=== PATIENT | female | born 1970 | race Caucasian/White ===

== ENCOUNTER 2023-06-05 07:37 | Day surgery (SDC) | payer OTHER, SELFPAY ==
--- NOTE | 2023-06-05 08:09 | US_ITS ---
[address] [address] Patient Name: ELENA VILLATORO MRN: [id number] date: 1970 Sex: F Assigned Patient Location: LAB Current Patient Location: Accession/Order Number: [id number] Exam Date: 06/05/2023 08:30 Report Date: 06/05/2023 10:31 At the request of: TYSON GARAY Procedure: US biopsy thyroid EXAMINATION: US biopsy thyroid, US biopsy FNA add lesion HISTORY: Thyroid Nodule COMPARISON: No relevant comparison available. TECHNIQUE: After obtaining informed consent, ultrasound-guided fine needle aspiration was performed in the usual sterile manner. FINDINGS: IMAGING: Ultrasound. BIOPSY NEEDLE: 25-gauge, 3 separate passes within both nodules. LOCATION: Left lobe inferior pole 1.5 x 1.0 x 1.2 cm hypoechoic nodule. Isthmus (left side) heterogeneous 2.4 x 2.0 x 1.4 cm nodule. SPECIMEN TYPE: Cellular tissue. LOCAL ANESTHETIC: Buffered Xylocaine. COMPLICATIONS: None. LABORATORY: Prepared slide smears and washings for cell block evaluation. OTHER: Negative. PATHOLOGY: Pending. An addendum will be added when results are available. US/US biopsy thyroid IMPRESSION: 1. Uneventful ultrasound guided fine needle aspiration (FNA). 2. Pathology results are pending. Electronically authenticated by: TIM LYLES Date: 06/05/2023 10:31
[2023-06-05 08:10] VITALS: BP 139/82; PULSE 67; O2SAT 95
[2023-06-05 08:17] LABS: INR 0.99; Prothrombin Time 10.5 sec (9.0-11.6)
[2023-06-05] MEDS: LIDOCAINE HCL 10 ML, SODIUM BICARBONATE 1 MEQ INJ (09:00)
--- NOTE | 2023-06-05 09:22 | US_ITS ---
[address] [address] Patient Name: ELENA VILLATORO MRN: [id number] date: 1970 Sex: F Assigned Patient Location: LAB Current Patient Location: Accession/Order Number: [id number] Exam Date: 06/05/2023 08:30 Report Date: 06/05/2023 10:31 At the request of: TYSON GARAY Procedure: US biopsy FNA add lesion EXAMINATION: US biopsy thyroid, US biopsy FNA add lesion HISTORY: Thyroid Nodule COMPARISON: No relevant comparison available. TECHNIQUE: After obtaining informed consent, ultrasound-guided fine needle aspiration was performed in the usual sterile manner. FINDINGS: IMAGING: Ultrasound. BIOPSY NEEDLE: 25-gauge, 3 separate passes within both nodules. LOCATION: Left lobe inferior pole 1.5 x 1.0 x 1.2 cm hypoechoic nodule. Isthmus (left side) heterogeneous 2.4 x 2.0 x 1.4 cm nodule. SPECIMEN TYPE: Cellular tissue. LOCAL ANESTHETIC: Buffered Xylocaine. COMPLICATIONS: None. LABORATORY: Prepared slide smears and washings for cell block evaluation. OTHER: Negative. PATHOLOGY: Pending. An addendum will be added when results are available. US/US biopsy FNA add lesion IMPRESSION: 1. Uneventful ultrasound guided fine needle aspiration (FNA). 2. Pathology results are pending. Electronically authenticated by: TIM LYLES Date: 06/05/2023 10:31
--- NOTE | 2023-06-05 09:40 | SUR.PREOP ---
06/01/23 Pt instructed to begin holding Coumadin as of 06/01 and begin Lovenox bid starting 06/01. Pt made aware to not take any Lovenox on day of procedure and have inr drawn prior to coming radiology. Pt made aware of procedure, date, and time.
== END 2023-06-05 09:25 | disposition home or self-care (01) ==
LOC: LAB 07:41
PROVIDERS: Radiology Diagnostic Radiology; PCP Internal Medicine; Visit Provider Otolaryngology
DX: E04.1 Nontoxic single thyroid nodule (principal); Z79.01 Long term (current) use of anticoagulants
CPT/HCPCS: 10005; 10006; 36415; 85610; 88173

== ENCOUNTER 2023-06-23 08:09 | Outpatient (OUT) | payer OTHER, SELFPAY ==
--- NOTE | 2023-06-23 08:14 | ECG_ITS ---
[facility] Test Date: 2023-06-23 Pat Name: ELENA VILLATORO Department: Room: - Gender: Female Features Editor: : 1970 Requested By: Order Number: [id number] Reading MD: JO HARDY Measurements Intervals [facility] Rate: 66 P: 43 VA: 158 QRS: 32 QRSD: 86 T: 25 QT: 363 QTc: 382 Interpretive Statements SINUS RHYTHM No previous ECG available for comparison Electronically Signed On 06-24-2023 7:03:27 EST by JO HARDY
[2023-06-23 09:33] LABS: Basophils Percent Auto 0.4 % (0.2-2.0); Eosinophils Absolute Auto 0.1 10^3/uL (0.0-0.7); Eosinophils Percent Auto 2.7 % (0.9-7.0); Hematocrit 42.5 % (36.0-48.0); Hemoglobin 14.1 g/dL (12.0-16.0); Immature Granulocytes Abs Auto 0.02 10^3/uL (0.00-0.03); Immature Granulocytes Pct Auto 0.4 % (0.0-0.5); Lymphocytes Absolute Auto 1.5 10^3/uL (1.2-3.8); Lymphocytes Percent Auto 29.5 % (20.5-60.0); Mean Corpuscular HGB Conc 33.2 g/dL (29.9-35.2); Mean Corpuscular Hemoglobin 32.3 pg (26.7-34.0); Mean Corpuscular Volume 97.5 fL (81.0-99.0); Mean Platelet Volume 10.6 fL (9.5-13.5); Monocytes Absolute Auto 0.5 10^3/uL (0.3-0.8); Monocytes Percent Auto 9.2 % (1.7-12.0); Neutrophils Percent Auto 57.8 % (43.0-75.0); Platelet Count 255 10^3/uL (150-450); Red Blood Count 4.36 10^6/uL (4.20-5.40); Red Cell Distribution Width 12.2 % (11.0-15.0); White Blood Count 5.2 10^3/uL (4.0-11.0)
[2023-06-23 09:49] LABS: Partial Thromboplastin Time 31.6 sec (22.3-36.2); Prothrombin Time 17.5 sec (9.0-11.6)
[2023-06-23 10:26] LABS: Anion Gap 9.7; BUN Creatinine Ratio 18.1; Calcium 8.7 mg/dL (8.5-10.1); Carbon Dioxide 29.3 mmol/L (21.0-32.0); Chloride 105 mmol/L (98-107); Estimated GFR (African America >60 (>=60); Estimated GFR (Non-African Ame >60 (>=60); Glucose 89 mg/dL (74-106); Sodium 140 mmol/L (136-145)
[2023-06-23 10:41] LABS: Calcium 8.7 mg/dL (8.5-10.1); Phosphorus 2.2 mg/dL (2.6-4.7)
== END 2023-06-23 08:10 | disposition home or self-care (01) ==
LOC: PST 08:10
PROVIDERS: PCP Internal Medicine; Visit Provider Otolaryngology
DX: Z01.810 Encounter for preprocedural cardiovascular examination (principal); Z01.812 Encounter for preprocedural laboratory examination; C73 Malignant neoplasm of thyroid gland
CPT/HCPCS: 36415; 80048; 82310; 83735; 84100; 85025; 85610; 85730; 93005

== ENCOUNTER 2023-06-30 09:15 | Outpatient (OUT) | payer OTHER, SELFPAY ==
[2023-06-23 09:05] VITALS: BP 144/81; PULSE 86; RESP 20; TEMP 36.3; O2SAT 95; BMI 38.5
[2023-06-30 09:06] LABS: INR 0.95; Partial Thromboplastin Time 25.5 sec (22.3-36.2); Prothrombin Time 10.1 sec (9.0-11.6)
--- OUTSIDE RECORDS SUMMARY | 2023-07-08 09:37 | XMS_ITS | CCD ---
Author Name Unknown Address [address] [place] [address] Organization [facility] Care Team Providers Care Developer [employer] Name Role Phone Eligio Nagy Primary Care Provider Miah Obregon Unavailable BRANDON BEASLEY Primary Care Physician [phone] Miah Obregon Unavailable Brandon Beasley MD Unavailable [phone] Brandon Beasley MD Primary Care Provider Miah Obregon Unavailable Brandon Beasley MD Unavailable Brandon Beasley MD Primary Care Provider MD Brandon Beasley Primary Care Provider MD Brandon eBasley Attending Provider BRANDON BEASLEY Primary Care Unavailable DMITRY LIVE Referring Unavailable RONIT DOMINGUEZ Attending Unavailable RONIT DOMINGUEZ Referring Unavailable BRANDON BEASLEY Primary Care Unavailable RON DUNCAN Referring Unavailable BRANDON BEASLEY Primary Care Unavailable RON DUNCAN Referring Unavailable BRANDON BEASLEY Primary Care Unavailable BRANDON BEASLEY Referring Unavailable ELIGIO NAGY Primary Care Unavailable RON DUNCAN Attending Unavailable BRANDON BEASLEY Primary Care Unavailable DMITRY LIVE Attending Unavailable DMITRY LIVE Referring Unavailable RONIT DOMINGUEZ Referring Unavailable BRANDON BEASLEY Primary Care Unavailable RONIT DOMINGUEZ Attending Unavailable RONIT DOMINGUEZ Referring Unavailable BRANDON BEASLEY Primary Care Unavailable BRANDON BEASLEY Primary Care Unavailable CALOS, DMITRY Referring Unavailable BRANDON BEASLEY Primary Care Unavailable CALOS, DMITRY Referring Unavailable RAMOS, BRANDON GARCIA Primary Care Unavailable CALOS, DMITRY Referring Unavailable RON DUNCAN Referring Unavailable BRANDON BEASLEY Primary Care Unavailable MD Brandon Beasley Primary Care Provider MD Brandon Beasley Attending Provider MD Brandon Beasley Primary Care Provider [phone] MD Brandon Beasley Attending Provider Amarjit Mathew Unavailable MD Brandon Beasley Primary Care Provider [phone] MD Brandon Beasley Attending Provider STACIE Valenzuela Attending Provider Kolton Valenzuela Admitting Unavailable Kolton Valenzuela Attending Unavailable Ramos, Brandon Primary Care Unavailable Ramos, Brandon Admitting Unavailable Ramos, Brandon Primary Care Unavailable Ramos, Brandon Attending Unavailable Ramos, Brandon Primary Care Unavailable Ramos, Brandon Attending Unavailable Ramos, Brandon Admitting Unavailable Ramos, Brandon Primary Care Unavailable Ramos, Brandon Attending Unavailable Ramos, Brandon Admitting Unavailable Ramos, Brandon Admitting Unavailable Ramos, Brandon Primary Care Unavailable Ramos, Brandon Attending Unavailable Ramos, Brandon Admitting Unavailable Ramos, Brandon Primary Care Unavailable Ramos, Brandon Attending Unavailable TYSON GARAY Attending Unavailable HILL, BRANDON L Referring Unavailable HILL, BRANDON L Referring Unavailable KOLTON VALENZUELA Referring Unavailable TYSON GARAY Attending Unavailable VICENTE MARES Attending Unavailable VICENTE MARES Referring Unavailable NONE, XXXX Referring Unavailable MD Syed Bautista Admitting Unavailable Syed Bautista Attending Unavailable Syed Bautista Attending Unavailable Syed Bautista Admitting Unavailable HILL, BRANDON L Referring Unavailable BERENDRICHI Referring Unavailable BERENDRICHI R Attending Unavailable Tyson Garay Admitting Unavailable Tyson Garay Attending Unavailable Tyson Garay Referring Unavailable MD Syed Bautista Admitting Unavailable Syed Bautista Referring Unavailable Syed Bautista Attending Unavailable Syed Bautista Attending Unavailable Syed Bautista Admitting Unavailable Syed Bautista Attending Unavailable Syed Bautista Referring Unavailable Syed Bautista Admitting Unavailable LilySyed Admitting Unavailable Syed Bautista Attending Unavailable Syed Bautista Attending Unavailable Syed Bautista Admitting Unavailable Sara Rutherford Attending Unavailable STACIE Rutherford Admitting UnavailBRANDON Puentes Referring Unavailable Allergies Allergy Classification Reported Allergen(s) Allergy Type Date of Onset Reaction(s) Facility (7 sources) silicone; Translations: [Silicone] Allergy to substance 1 Rash, Unknown [facility] (1 source) Adhesive agent Drug allergy rash [place] Other (2 sources) Adhesive bandage; Translations: [Adhesive Bandage] Drug allergy Skin irritation (disorder) [facility] (2 sources) Simethicone; Translations: [simethicone] Drug Allergy Itching (finding) [facility] Medications Current Medications Medication Drug Class(es) Dates Sig (Normalized) Sig (Original) acetaminophen 300 mg / codeine phosphate 30 mg oral tablet (5 sources) Opioid Agonist Start: 10-28-2022 Tylenol with Codeine 300 mg-30 mg Tab 1 tab(s), Oral, BID as needed for pain, 30 tab(s), Refill(s) 0, [place] [address]24, 173, cm, 10/02/22 13:22:00 EDT, Height/Length Dosing, 108.9, kg, 06/12/22 13:20:00 EST, Weight Dosing Start Date: 10/28/22 Status: Ordered Start: 10-02-2022 Tylenol with C odeine 300 mg-30 mg Tab 1 tab(s), Oral, BID as needed for pain, 14 tab(s), Refill(s) 0, [place] #24, 173, cm, 10/02/22 13:22:00 EDT, Height/Length Dosing, 108.9, kg, 06/12/22 13:20:00 EST, Weight Dosing Start Date: 10/02/22 Status: Ordered eletriptan 40 mg oral tablet (9 sources) Serotonin-1b and Serotonin-1d Receptor Agonist Start: 09-19-2021 take 1 tablet by mouth once daily as needed for headache eletriptan 40 mg Tab 40 mg = 1 tab(s), Oral, Daily, PRN Migraine headache, Refills(s) 0 Start Date: 09/19/21 Status: Ordered 1 ml enoxaparin sodium 100 mg/ml prefilled syringe (1 source) Low Molecular Weight Heparin Start: 07-02-2023 inject 100 mg by subcutaneous injection every twelve hours enoxaparin 100 mg/mL SubQ Christine 100 mg, SubCutaneous, q12hr, Refills(s) 0, Blood Thinner Start Date: 07/02/23 Status: Ordered glucosamine hydrochloride 1500 mg oral tablet (11 sources) Start: 08-09-2015 take 1500 mg by mouth once daily glucosamine 1,500 mg, Oral, Daily, Refills(s) 0, Prophylaxis Start Date: 08/09/15 Status: Ordered End: 11-19-2021 Glucosamine Sulfate (GLUCOSA MINE) 500 mg Tab Take 1 tablet by mouth. 0 11/19/2021 Discontinued (Discontinued by Patient) Comment on above: Take 1 tablet by harriet th. levothyroxine sodium 0.025 mg oral tablet (13 sources) l-Thyroxine Start: 06-12-2022 levothyroxine 25 mcg (0.025 mg) Tab Refills(s) 0 Start Date: 06/12/22 Status: Ordered Start: 05-12-2022 take 1 tablet by harriet th once daily in the morning levothyroxine (SYNTHROID) 25 mcg tablet TAKE 1 TABLET BY MOUTH EVERY DAY IN THE MORNING ON EMPTY STOMACH FOR 30 DAYS 0 05/12/2022 Active Comment on above: TAKE 1 TABLET BY HARRIET TH EVERY DAY IN THE MORNING ON EMPTY STOMACH FOR 30 DAYS Multivitamins and Minerals (9 sources) Start: 6 take 1 tablet by mouth once daily Multivitamins and Minerals 1 tab, Oral, Daily, Refill(s) 0, Prophylaxis Start Date: 08/09/15 Status: Ordered Start: 08-09-2015 take 1 tablet by harriet th once daily Multivitamins and Minerals 1 tab, Oral, Daily, Refill(s) 0 Start Date: 08/09/15 Status: Ordered omeprazole 40 mg delayed release oral capsule (20 sources) Proton Pump Inhibitor Start: 05-27-2023 Omeprazo le 40 MG 1 capsule 30 minutes before morning meal and evening meal Orally twice a day for 90 days May, Active Start: 12-02-2020 omeprazole 40 mg Cap-DR 40 mg = 1 cap(s), Oral, Daily, Refills(s) 0, Control of stomach acid Start Date: 09/19/21 Status: Ordered Comment on above: omeprazole 40 mg Cap -DR Refills(s) 0 Start Date: 09/19/21 Status: Ordered omeprazole 40 mg Cap-DR (1 source) Start: 2 omeprazole 40 mg Cap-DR Refills(s) 0 Start Date: 09/19/21 Status: Ordered traMADol hydrochloride 50 mg oral tablet (3 sources) Opioid Agonist Start: 6 take 50 mg by mouth every eight hours as needed for pain Ultram 50 mg, Oral, q8hr, PRN as needed for pain, Refills(s) 0 Start Date: 08/09/15 Status: Ordered Completed/Discontinued Medications Medication Drug Class(es) Dates Sig (Normalized) Sig (Original) acetaminophen 325 mg / HYDROcodone bitartrate 5 mg oral tablet (5 sources) Opioid Agonist Start: 12-02-2020 End: 06-20-2021 take 1 tablet by mouth every four to six hours Hydrocodone-Acetam inophen Discontinued 1 TAB PO EVERY 4-6 HOURS 15 December 02, 2020 June 20, 2021 1:45pm atorvastatin 80 mg oral tablet (20 sources) HMG-CoA Reductase Inhibitor Start: 08-29-2022 atorvastatin (LIPITOR) 80 mg tablet Start: 12-02-2020 End: 08-29-2022 take 1 tablet by mouth once daily atorvastatin 40 mg Tab 40 mg = 1 tab(s), Oral, Daily, Refills(s) 0, High cholesterol Start Date: 09/19/21 Status: Ordered Comment on above: TAKE 1 TABLET BY HARRIET TH EVERY DAY FOR 90 DAYS Calcium Carbonate / vitamin D3 (2 sources) End: 11-19-2021 CALCIUM CARBONATE/VITAMIN D3 (CALCIUM + D ORAL) Take by mouth. 0 11/19/2021 Discontinued (Discontinued by Patient) CALCIUM CARBONAT E/VITAMIN D3 (CALCIUM + D ORAL) Take by mouth. 0 Active Comment on above: Take by mouth. cephalexin 500 mg oral capsule (5 sources) Cephalosporin Antibacterial Start: 2020 End: 2020 take 1000 mg by mouth every twelve hours Cephalexin Discontinued 1000 MG PO Q12H 40 10 December 01, 2020 11:00pm June 20, 2021 1:45pm ergocalciferol 1.25 mg oral capsule (4 sources) Provitamin D2 Compound Start: 2021 End: 2021 ergocalciferol 50,000 unit capsule (VITAMIN D2, DRISDOL) Indications: Vitamin D deficiency , Hyperparathyroidism due to vitamin D deficiency (HCC) , Polyarthralgia Take 1 capsule by mouth two times a week. (FOR EXAMPLE ONE CAPSULE ON THURSDAY AND ONE ON THURSDAY) FOR A TOTAL OF 4 WEEKS, WITH A MEAL 8 capsule 0 11/19/2021 12/23/2021 Discontinued (Discontinued by Patient) Comment on above: Take 1 capsule by mo uth two times a week. (FOR EXAMPLE ONE CAPSULE ON THURSDAY AND ONE ON THURSDAY) FOR A TOTAL OF 4 WEEKS, WITH A MEAL 90 day estradiol 0.46803 mg/hr vaginal system (5 sources) Estrogen Start: 2020 End: 2020 Estradiol Acetate (Femring) 0.1 mg/24 hr ring Discontinued VAGINAL December 01, 2020 11:00pm June 20, 2021 1:45pm gabapentin 300 mg oral capsule (17 sources) Anti-epileptic Agent Start: 2022 End: 2022 take 2 capsules by mouth once daily at bedtime gabapentin (NEURONTIN) 300 mg capsule TAKE 2 CAPSULES BY MOUTH once DAILY AT BEDTIME 0 08/01/2022 Active Start: 06-12-2022 End: 09-10-2022 take 1 capsule by mouth once daily at bedtime gabapentin 300 mg Cap 300 mg = 1 cap(s), Oral, Once a day (at bedtime), X 90 day(s), # 90 cap(s), Refills(s) 0, Pharmacy: [facility]/pharmacy #[id number], 172.7, cm, 06/12/22 13:20:00 EST, Height/Length Dosing, 108.9, kg, 06/12/22 13:20:00 EST, Weight Dosing Start Date: 06/12/22 Stop Date: 09/10/22 Status: Ordered Start: 10-04-2015 take 1-2 tablets by mouth at bedtime gabapentin 100 mg Cap See Instructions, one to two tab po at bedtime, Refills(s) 0 Start Date: 10/04/15 Status: Ordered Comment on above: TAKE 2 CAPSULES BY M OUTH once DAILY AT BEDTIME MULTIVITAMIN ORAL (14 sources) MULTIVITAMIN ORA L Take by mouth. 0 Active Comment on above: Take by mouth. SELENIUM ORAL (2 sources) End: 11-19-2021 SELENIUM ORAL Take by mouth. 0 11/19/2021 Discontinued (Discontinued by Patient) SELENIUM ORAL Ta ke by mouth. 0 Active Comment on above: Take by mouth. vitamin b12 1 mg oral tablet (15 sources) Vitamin B12 take 1 tablet by mouth once daily cyanocobalamin (VITAMIN B-12) 1,000 mcg tab Take 1,000 mcg by mouth once daily. 0 Active Comment on above: Take 1,000 mcg by mo ut once daily. vitamin b6 100 mg oral tablet (15 sources) take 1 tablet by mouth once daily pyridoxine, vitamin B6, (VITAMIN B6) 100 mg tablet Take 100 mg by mouth once daily. 0 Active Comment on above: Take 100 mg by mouth once daily. warfarin sodium 5 mg oral tablet (20 sources) Vitamin K Antagonist Start: take 1 tablet by mouth once daily warfarin (COUMADIN) 5 mg tablet Take 5 mg by mouth once daily. 0 07/23/2022 Active Start: 07-16-2022 warfarin (COUM CHRISTIAN) 1 mg tablet TAKE 1 TABLET BY MOUTH EVERY OTHER DAY, then TAKE 1 (ONE) and ONE-HALF TABLETS the other days 0 07/16/2022 Active Start: 12-02-2020 Warfarin (Jant oven) 5 mg tablet Active 8 MG PO As Directed December 01, 2020 11:00pm 8 mg alt with 8.5 mg nightly Start: 12-02-2020 End: 12-02-2020 Warfarin (Jantoven) 1 mg tab let Discontinued TABLET December 01, 2020 11:00pm December 02, 2020 2:21pm Start: 12-02-2020 End: 12-02-2020 Warfarin (Jantoven) 2 mg tab let Discontinued TABLET December 01, 2020 11:00pm December 02, 2020 2:21pm Start: 10-13-2011 Coumadin 8.5 m g, Every other day, 8.5 mg one day, next day 7.5mg alteranting, Refills(s) 0 Start Date: 10/13/11 Status: Ordered Warfarin 7.5mg A ctive Comment on above: Take 2 mg by mouth d aily as directed. As directed TAKE 1 TABLET BY HARRIET TH EVERY OTHER DAY, then TAKE 1 (ONE) and ONE-HALF TABLETS the other days Take 5 mg by mouth o nce daily. Problems Active Problems Problem Classification Problem Date Documented Date Episodic/Chronic Administrative/social admission (6 sources) Follow-up status; Translations: [Person consulting for explanation of examination or test findings] Episodic Cancer of thyroid (1 source) Malignant tumor of thyroid gland; Translations: [Malignant neoplasm of thyroid gland] Onset: 3 Chronic Coagulation and hemorrhagic disorders (15 sources) Hypercoagulability state; Translations: [Other primary thrombophilia] 03-02-2013 Chronic Diseases of mouth; excluding dental (3 sources) Xerostomia; Translations: [Dry mouth, unspecified] Episodic Esophageal disorders (7 sources) Gastroesophageal reflux disease; Translations: [Gastro-esophageal reflux disease without esophagitis] 06-20-2021 Chronic Heart valve disorders (9 sources) Irregular heart beat 03-30-2015 Episodic Immunizations and screening for infectious disease (4 sources) Anti-nuclear factor positive; Translations: [Other specified abnormal immunological findings in serum] Onset: 2 Episodic Nutritional deficiencies (6 sources) Vitamin D deficiency; Translations: [Vitamin D deficiency, unspecified] Onset: 2 Chronic Osteoarthritis (6 sources) Osteoarthritis of joint of bilateral hands; Translations: [Primary osteoarthritis, right hand] Onset: 2 Chronic Other aftercare (1 source) Drug therapy finding; Translations: [Other jail (current) drug therapy] Episodic Other connective tissue disease (2 sources) Muscle pain; Translations: [Myalgia, unspecified site] Episodic Other connective tissue disease (2 sources) Myalgia, unspecified site; Translations: [Myalgia] Onset: 3 Episodic Other endocrine disorders (3 sources) Hyperparathyroidism due to vitamin D deficiency; Translations: [Secondary hyperparathyroidism, not elsewhere classified] Chronic Other endocrine disorders (1 source) Secondary hyperparathyroidism, not elsewhere classified; Translations: [Hyperparathyroidism due to vitamin D deficiency (HCC)] Onset: 2 Chronic Other gastrointestinal disorders (1 source) Dysphagia; Translations: [Dysphagia, unspecified] Episodic Other gastrointestinal disorders (1 source) Dysphagia, unspecified Episodic Other non-traumatic joint disorders (5 sources) Multiple joint pain; Translations: [Pain in unspecified joint] Episodic Other non-traumatic joint disorders (4 sources) Arthralgia of the pelvic region and thigh; Translations: [Pain in unspecified hip] Episodic Other non-traumatic joint disorders (2 sources) Pain in unspecified hip; Translations: [Pain in joint, pelvic region and thigh, unspecified laterality] Onset: 3 Episodic Other nutritional; endocrine; and metabolic disorders (9 sources) Obesity 03-30-2015 Chronic Other nutritional; endocrine; and metabolic disorders (1 source) Hypocalcemia; Translations: [Hypocalcemia] Onset: 3 Chronic Phlebitis; thrombophlebitis and thromboembolism (20 sources) Deep venous thrombosis; Translations: [Thrombosis] Onset: 3 03-08-2013 Episodic Pulmonary heart disease (10 sources) Pulmonary embolism; Translations: [Personal history of pulmonary embolism] Onset: 3 08-09-2015 Episodic Skin and subcutaneous tissue infections (5 sources) Abscess; Translations: [Cutaneous abscess, unspecified] 12-02-2020 Episodic Spondylosis; intervertebral disc disorders; other back problems (2 sources) Degeneration of lumbar intervertebral disc; Translations: [Other intervertebral disc degeneration, lumbar region] Chronic Spondylosis; intervertebral disc disorders; other back problems (20 sources) Low back pain; Translations: [Spinal stenosis of lumbar region] Onset: 3 03-30-2015 Episodic Thyroid disorders (1 source) Hypothyroidism, unspecified; Translations: [Hypothyroidism, unspecified] Onset: 2 Chronic Unclassified (1 source) supervisor intermediates (current) use of anticoagulants; Translations: [penitentiary (current) use of anticoagulants] Onset: 3 Unclassified (1 source) Encounter for general adult medical examination without abnormal findings; Translations: [Encounter for general adult medical examination without abnormal findings] Onset: 3 Past or Other Problems Problem Classification Problem Date Documented Da te Episodic/Chronic Other aftercare (1 source) Other jail (current) drug therapy; Translations: [On statin therapy] Onset: 11-19-2021 Episodic Other non-traumatic joint disorders (1 source) Pain in unspecified joint; Translations: [Polyarthralgia] Onset: 11-19-2021 Episodic Results Test Name Value Interpretation Reference Range Facility CHEMISTRYOrdered By: SYSTEM SYSTEM on 07-03-2023 Calcium [Mass/Vol] 7.7 mg/dL Low 8.9 - 11. 1 mg/dL Remisol Chem Calciumon 07-03-2023 Calcium [Mass/Vol] 7.7 mg/dL Low 8.9-11.1 [facility] Comment on above: Performed By: #### 2 [id number] #### [facility] [address] [place] [address] Consent for Anesthesiaon Consent for Anesthesia [id number] Normal [facility] Discharge Instructionson Discharge Instructions [id number] Normal [facility] Discharge Note-Nursingon Discharge Note-Nursing CHERYLE VILLATORO :1970 Visit Date:07/02/2023 Inpatient Discharge Instructions Your Care Team Admitting Physician - Tyson Garay MD Referring Physician - Tyson Garay MD Reason for Your Visit thyroidectomy Your Diagnosis Cancer of thyroid Hypocalcemia Tests Performed Calcium Level Total PT & PTT Urinalysis with Culture Reflex XR Chest 2 Views This Is Your Medications List acetaminophen-codeine (Tylenol with Codeine 300 mg-30 mg Tab) atorvastatin (atorvastatin 40 mg Tab) eletriptan (eletriptan 40 mg Tab) enoxaparin (enoxaparin 100 mg/mL SubQ Christine) glucosamine multivitamin with minerals (Multivitamins and Minerals) omeprazole (omeprazole 40 mg Cap-DR) [Image Removed: STOP]Stop taking these medications warfarin (Coumadin) Procedure History Hip replacement (11/10/2022), Injection of sacroiliac joint using fluoroscopic guidance (07/02/2022), Injection of sacroiliac joint using fluoroscopic guidance (09/12/2015), Leg Vein Laser Surgery (06/17/2013), Injection of sacroiliac joint using fluoroscopic guidance (06/30/2012), Injection of sacroiliac joint using fluoroscopic guidance (10/15/2011), Appendectomy, section, History of back surgery....., Hysterectomy, Ts - Tonsillectomy. Discharge Vitals Temperature (Oral) 36.4 ?C Heart Rate (Monitored) 71 Respiratory Rate 18 Blood Pressure 114/71 Height 173.5 cm Weight 111.5 kg What to do next Instructions From Your Doctor Event Name Event Result Discharge Activity Expect minimal amount of drainage and/or bleeding, Activity as tolerated Discharge Restrictions No driving for 24 hrs Discharge Diet(s) Regular Call Your Doctor For Temperature above 101.5 degrees, Redness, swelling, or pus at operative site Pending Diagnostic Test Results Biopsy/pathology Pharmacy Information [facility] Discharge Instructions No strenuous exerciseKeep neck dry 3 daysRestart lovenox this eveningRerstart coumadin Thursday New Follow Up Appointments after Discharge Follow Up with Tyson Garay When: 07/10/2023 01:50 PM EST Where: [address] [place] [address], [address] [place] [address]- Business (1) Follow Up with BRANDON BEASLEY When: Comments: No need to PCP at this time unless symptoms worsen. Where: [address] [facility] [address] [place] [address]- Business (1) Medications What How Much When Why Instructions Next Dose Unchanged acetaminophen-codeine (Tylenol with Codeine 300 mg-30 mg Tab) 1 Tablets By Mouth 2 times a day as needed for as needed for pain Arthropathy of left hip NEEDED FOR PAIN Unchanged atorvastatin (atorvastatin 40 mg Tab) 1 Tablets By Mouth Every day 07/04 @ 9 AM Unchanged eletriptan (eletriptan 40 mg Tab) 1 Tablets By Mouth Every day as needed for Migraine headache NEEDED FOR MIGRAINE Unchanged enoxaparin (enoxaparin 100 mg/ mL SubQ Christine) 100 Milligram Subcutaneous Every 12 hours 07/03 @ 9 PM Unchanged glucosamine 1,500 Milligram By Mouth Every day 07/04 @ 9 AM Unchanged multivitamin with minerals (Multivitamins and Minerals) 1 tab By Mouth Every day 07/04 @ 9 AM Unchanged omeprazole (omeprazole 40 mg Cap-DR) 1 Capsules By Mouth Every day 07/04 @ 9 AM What How Much When Comments Stop Taking warfarin (Coumadin) 8.5 Milligram Every other day 8mg daily, 8.5mg and Thursday Test Results BMP Calcium Lvl: 7.7 mg/dL Low (07/03/23 06:36:00) Allergies Adhesive Bandage (Skin irritation) Silicone Barrier (simethicone) obsolete (Itching) Problems Ongoing - Any problem that you are currently receiving treatment for. Irregular heart beat Low back pain Obesity Pulmonary emboli Thrombosis Education Materials Open Thyroid Lobectomy An open thyroid lobectomy is a surgery to remove a part or a whole section (lobe) of the thyroid gland. The thyroid gland is a butterfly-shaped gland located at the base of the neck. It produces thyroid hormone, which is a substance that helps to control certain body processes. The thyroid gland has two lobes, one on each side of the windpipe. The lobes are joined together by a section of tissue in the middle (thyroid isthmus). You may have a thyroid lobectomy: ? To remove a noncancerous (benign) tumor or a cancerous (malignant) tumor of the thyroid gland. ? To treat a condition in which the thyroid produces too much hormone (hyperthyroidism). Tell a health care provider about: ? Any allergies you have. ? All medicines you are taking, including vitamins, herbs, eye drops, creams, and [id number] medicines. ? Any problems you or family members have had with anesthetic medicines. ? Any bleeding problems you have. ? Any surgeries you have had. ? Any medical conditions you have. ? Whether you are or may be . What are the risks? Generally, this is (more content not included)... Normal [facility] Inpatient Clinical Summaryon 07-03-2023 Inpatient Clinical Summary [place] [id number] Clinical Summary Person Information: Name: CHERYLE VILLATORO Age: 53 Years : 1970 Sex: Female PCP: BRANDON BEASLEY MD Marital Status: Phone: [phone] Race: White Ethnicity: Non- or Language: Frisian Visit Id: Visit Reason: PAPILLARY THYROID CARCINOMA Speciality: Acuity: Enc Type: Observation Med Service: Medical Arrival: 07/02/2023 09:25:44 Discharge: Dispo Type: Address: [address] [place] [address] [id number] Provider Notes: Diagnosis: Cancer of thyroid; Hypocalcemia Problems Active Pulmonary emboli Low back pain Thrombosis Obesity Irregular heart beat Smoking Status: Never Smoker Functional Status: Sensory Deficits: Other: glasses History of Falls: Mobility Assistance Prior to Admission: Independent ADLs: Minimal assistance Current Level of Assistance for Self-Care/Mobility: Cognitive Status: Allergies Silicone Barrier (simethicone) obsolete (Itching) Adhesive Bandage (Skin irritation) Measurements: Height: 173.5 cm Weight: 111.5 kg Blood Pressure: 114 mmHg / 71 mmHg BMI: Procedures No Procedures Documented Immunizations No Immunizations Documented This Visit Final Med List: acetaminophen-codeine (Tylenol with Codeine 300 mg-30 mg Tab) 1 Tablets By Mouth 2 times a day as needed as needed for pain. Refills: 0. atorvastatin (atorvastatin 40 mg Tab) 1 Tablets By Mouth every day. eletriptan (eletriptan 40 mg Tab) 1 Tablets By Mouth every day as needed Migraine headache. enoxaparin (enoxaparin 100 mg/mL SubQ Christine) 100 Milligram Subcutaneous every 12 hours. glucosamine 1,500 Milligram By Mouth every day. multivitamin with minerals (Multivitamins and Minerals) 1 tab By Mouth every day. omeprazole (omeprazole 40 mg Cap-DR) 1 Capsules By Mouth every day. Care Team Members: Attending Physician: Tyson Garay MD Consulting Physician: Referring Physician: Tyson Garay MD Follow up: With: Address: When: Tyson Garay [address] [place] [address], [address] [place] [address] Business (1) In 1 week 07/10/2023 With: Address: When: BRANDON BEASLEY [address] [place] [address], [address] [place] [address] Business (1) Patient Education Information: [facility] Inpatient Patient Summaryon 07-03-2023 Inpatient Patient Summary [facility] [address] [place], [place] [address] Patient Discharge Instructions PERSON INFORMATION Name: CHERYLE VILLATORO Date of : 1970 Current Date: 07/03/2023 09:16:06 PHYSICIANS Admitting Physician: Tyson Garay MD Primary Care Physician: RAMOS ALBERT, BRANDON Bruno PCP Comment: Discharge Diagnosis: Cancer of thyroid; Hypocalcemia Condition at Discharge: Improved CHERYLE VILLATORO has been given the following list of follow-up instructions, prescriptions, and patient education materials: PATIENT FOLLOW-UP INFORMATION Diet: Regular Discharge Activity: Expect minimal amount of drainage and/or bleeding, Activity as tolerated Discharge Restrictions: No driving for 24 hrs Wound Care Instructions: Remove Your Dressing In Days Call Your Doctor For: Temperature above 101.5 degrees, Redness, swelling, or pus at operative site IF UNABLE TO CONTACT YOUR PHYSICIAN AND YOU FEEL IT IS AN EMERGENCY, GO TO THE NEAREST EMERGENCY ROOM OR CALL 911 Home Treatment: Other: none Devices/Equipment: None Special Services: Additional Instructions: No strenuous exercise Keep neck dry 3 days Restart lovenox this evening Rerstart coumadin Thursday Primary Care Physician to provide the following pending test results: Biopsy/pathology Follow up: With: Address: When: Tyson Garay [address] [address], [address] [place] [address] Business (1) In 1 week 07/10/2023 With: Address: When: BRANDON BEASLEY [address] [facility], [address] [place] [address] Business (1) In the event that this physician does not participate in your insurance network, please consult with your insurance company to find a nearby participating provider. Comment: SHAUNA Bravo JULIE A, have received the attached patient education materials/instructions and have verbalized understanding: Patient Signature __ Date Clinican/Nurse Signature Date HERE ARE THE MEDICATION CHANGES THAT OCCURRED DURING YOUR HOSPITAL STAY Medications to Continue with No Changes Other Medications acetaminophen-codeine (Tylenol with Codeine 300 mg-30 mg Tab) 1 Tablets By Mouth 2 times a day as needed as needed for pain. Refills: 0. Last Dose: N ext Dose: atorvastatin (atorvastatin 40 mg Tab) 1 Tablets By Mouth every day., 80 mg Last Dose: N ext Dose: eletriptan (eletriptan 40 mg Tab) 1 Tablets By Mouth every day as needed Migraine headache. Last Dose: N ext Dose: enoxaparin (enoxaparin 100 mg/mL SubQ Christine) 100 Milligram Subcutaneous every 12 hours., bridging from Warfarin for OR Last Dose: N ext Dose: glucosamine 1,500 Milligram By Mouth every day. Last Dose: N ext Dose: multivitamin with minerals (Multivitamins and Minerals) 1 tab By Mouth every day. Last Dose: N ext Dose: omeprazole (omeprazole 40 mg Cap-DR) 1 Capsules By Mouth every day. Last Dose: N ext Dose: No Longer Take the Following Medications warfarin (Coumadin) 8.5 Milligram every other day. 8mg daily, 8.5mg and Thursday., 8 mg every other day Comment: MEDICATION LIST PROVIDED FOR YOU IS A LIST OF YOUR CURRENT MEDICATIONS. PLEASE CARRY THIS WITH YOU AT ALL TIMES. acetaminophen-codeine (Tylenol with Codeine 300 mg-30 mg Tab) 1 Tablets By Mouth 2 times a day as needed as needed for pain. Refills: 0. atorvastatin (atorvastatin 40 mg Tab) 1 Tablets By Mouth every day. eletriptan (eletriptan 40 mg Tab) 1 Tablets By Mouth every day as needed Migraine headache. enoxaparin (enoxaparin 100 mg/mL SubQ Christine) 100 Milligram Subcutaneous every 12 hours. glucosamine 1,500 Milligram By Mouth every day. multivitamin with minerals (Multivitamins and Minerals) 1 tab By Mouth every day. omeprazole (omeprazole 40 mg Cap-DR) 1 Capsules By Mouth every day. Pharmacy Information: [facility] Comment: PATIENT EDUCATION INFORMATION Instructions: Medication Leaflets: You may receive a survey from [employer] asking you to rate your care experience. Your feedback is important and will help us understand what we do well and how we can improve the quality of care we provide to you, your loved ones and our community. It?s an honor to serve you. Thank you for choosing [facility] Normal [facility] Interdisciplinary Note - Jayden e Manageron 07-03-2023 Interdisciplinary Note - Percussion Tuner CRM spoke with patient in room. Patient is alert and oriented and participates in discharge planning. No family in room. Patient white board updated, and CRM contact information provided. Discussed CRM spoke with Dr Garay who saw patient earlier today and can dc home today after meds given. Patient verified PCP, insurance and DME. Patient is from home with spouse and he remy transport at dc. Patient denies any needs at dc. Normal [facility] Comment on above: Result Comment: Elec tronically Signed By: Mono OCASIO, Johanna\.br\Date and Time Signed: 07/03/23 09:29 EST IntraOperative Documentson 1 IntraOperative Documents [id number] [facility] Main OR Intraoperative Recor don 07-03-2023 Main OR Intraoperative Record IntraOp Document Type FT Summary Primary Physician: Tyson Garay MD Finalized Date/Time: 07/03/23 16:07:14 Pt. Name: SHAUNACHERYLE/Sex: 1970 Female Med Rec #: [id number] Physician: Tyson Garay MD Financial #: [id number] Pt. Type: A Room/Bed: [place] [address] Admit/Disch: 07/02/23 09:25:44 - 07/03/23 10:20:00 Institution: Case Times FT Entry 1 Patient Times In Room 07/02/23 11:16:00 Out Room 07/02/23 14:28:00 Procedure Times Start 07/02/23 11:50:00 Stop 07/02/23 14:15:00 Anesthesia Times Start 07/02/23 11:16:00 Stop 07/02/23 14:28:00 Last Modified By: Betty Whitfield Ii 07/02/23 14:30:49 General Comments: 07/03/23 chart opened for charge review per Nuvia Monteiro RN. [place] Case Attendance FT Entry 1 Entry 2 Entry 3 Case Attendee Nara Olivera MD, Fer Ryan DO Role Performed Anesthesiologist Surgeon - Primary Surgeon - Assist 1 Road Mender Time In 07/02/23 12:17:00 07/02/23 11:16:00 07/02/23 11:16:00 Time Out 07/02/23 14:28:00 07/02/23 14:03:00 07/02/23 12:41:00 Procedure THYROIDECTOMY(.) THYROIDECTOMY(.) THYROIDECTOMY(.) Comments Dr. Mary anesthesias retail field supervisor Last Modified By: Betty Whitfield Ii F Nahid Alfons Ii F Letron, Alfons Ii F 07/02/23 14:30:50 07/02/23 14:30:50 07/02/23 14:30:50 Entry 4 Entry 5 Entry 6 Case Attendee Gordon Fuller RN, Martinez Whitfield Alfons Ii F Role Performed Staff - Other Curriculum Development Coordinator - Primary Curriculum Development Coordinator - Primary Time In 07/02/23 11:16:00 07/02/23 11:16:00 07/02/23 11:16:00 Time Out 07/02/23 13:39:00 07/02/23 11:50:00 07/02/23 11:40:00 Procedure THYROIDECTOMY(.) THYROIDECTOMY(.) THYROIDECTOMY(.) Comments 2nd scrub STARTED THE CASE Last Modified By: Betty Whitfield Ii F Nahid Alfons Ii F Letron, Alfons Ii F 07/02/23 14:30:50 07/02/23 14:30:50 07/02/23 14:30:50 Entry 7 Entry 8 Entry 9 Case Attendee Alyssa TROY, Brandon Patel, Shirley Valenzuela DIAL REFINISHER, Gosia Eden Role Performed Anesthesiologist Scrub - Primary DIAL REFINISHER/SA Road Mender Time In 07/02/23 11:16:00 07/02/23 12:10:00 07/02/23 12:27:00 Time Out 07/02/23 12:17:00 07/02/23 14:28:00 07/02/23 14:28:00 Procedure THYROIDECTOMY(.) THYROIDECTOMY(.) THYROIDECTOMY(.) Comments DR. MARY CUSTODY OFFICER assist Last Modified By: Betty Whitfield Ii F Nahid Alfons Ii F LetronBetty rob Ii 07/02/23 14:30:50 07/02/23 14:30:50 07/02/23 14:30:50 General Comments: LUISITO CAICEDO DIAL REFINISHER PRIMARY SCRUB FROM 1116 - 1210. NARA ROBERTSON FROM [facility] IS IN ATTENDANCE. RADHA,correspondence specialist Protocols FT Pre-Care Text: Implements protective measures prior to operative or invasive procedure, confirms identity before the operative or invasive procedure, verifies operative procedure, surgical site, and laterality Entry 1 Procedure(s) THYROIDECTOMY(.) Patient Identity Birthday, Blood Band, Verified (select at ID Band Check, Patient least 2): Participation Consents / H and P Anesthesia Consent, Operative Site Present Verified HandP, Surgery/Procedure Marking Verified Consent, Transfusion Consent Surgical Site Yes Laterality Verified n/a Verified Procedure Verified Yes Correct Patient Yes Position Verified Availability Equipment, Implant, Prep Dry No Verified (If Medication Applicable) PreOp Antibiotic Yes Time Out Tyson Garay MD, Given Participants Amy ROB, Alina Street Alejandro, Letrondo, Alfons Ii F, Brandon Hernandez Time Out Complete 07/02/23 11:49:00 Outcomes Met? Yes Last Modified By: Betty Whitfield Ii 07/02/23 12:00:41 Post-Care Text: The patient is free from signs and symptoms of injury caused by extraneous objects Allergy Information FT Pre-Care Text: Verifies allergies Entry 1 Allergies Reviewed? Yes Allergies Reviewed Self/Patient With Outcomes Met? Yes Last Modified By: Betty Whitfield Ii 07/02/23 12:00:47 Post-Care Text: The patient received appropriate medication(s) safely administered during the perioperative period Surgical Procedures FT Entry 1 Procedure Description Procedure THYROIDECTOMY Modifiers . Surgeon Description TOTAL THYROIDECTOMY Primary Procedure Yes Primary Surgeon Tyson Garay MD Start 07/02/23 11:50:00 Stop 07/02/23 14:15:00 Anesthesia Type General Surgical Service ENT Wound Class 1 - Clean Last Modified By: Betty Whitfield Ii 07/02/23 14:30:52 General Case Data FT Pre-Care Text: Classifies surgical wound, implements aseptic technique, initiates traffic control Entry 1 Case Information OR OR 2 FT Case Level Level 4 Wound Class 1 - Clean Specialty ENT ASA Class 3 Preop Diagnosis PAPILLARY THYROID Postop Same As Preop Yes CARCINOMA Postop Diagnosis PAPILLARY THYROID Outcomes Met? Yes CARCINOMA Last Modified By: Betty Whitfield Ii F 07/02/23 12:01:03 Post-Care Text: The patient is free from signs and symptoms of infection Skin Assessment (Pre Procedure) FT P (more content not included)... Normal [facility] Preoperative Documentson Preoperative Documents [id number] Normal [facility] Progress Note-Physicianon Progress Note-Physician ENT POD 1 Pt resting comfortably Drain 3cc overnight Wound C/D/I Strong clear voice AM Ca 7.7 Drain removed. D/C home on Calcium and rocaltrol Normal [facility] Comment on above: Result Comment: Elec tronically Signed By: Rajan ALBERT, Tyson Hurley\.br\Date and Time Signed: 07/03/23 09:12 EST CHEMISTRYOrdered By: SYSTEM SYSTEM on 07-02-2023 Calcium [Mass/Vol] 8.4 mg/dL Low 8.9 - 11. 1 mg/dL Remisol Chem COAGULATIONOrdered By: Greg Barnes on 07-02-2023 aPTT Coag (PPP) [Time] 27.7 s Normal 25.1 - 36.5 second(s) [facility] Comment on above: Interpretive Data: P arameter 15 days - 4 weeks 1 - 5 months 6 - 11 months 1 - 5 years 6 - 10 years 11 - 17 years PTT Mean: 35.4 (27.6-45.6) Mean: 33.5 (24.8-40.7) Mean: 32.4 (25.1-40.7) Mean: 31.6 (24.0-39.2) Mean: 31.6 (26.9-38.7) Mean: 31.0 (24.6-38.4) Pediatric Reference ranges were obtained from a study by andrew Toribio al. prepared from 1437 samples obtained at 7 different centers using the same coagulation reagent and instrumentation as [facility]. Currently there are no coagulation studies available worldwide for children to 14 days, and no normal ranges. Heparin therapeutic range (represented by Anti-Factor Xa activity of 0.2 - 0.4 U/mL) corresponds to PTT of 56.6 - 109.0 sec. INR Coag (PPP) [Relative time] 1.0 {INR} Invalid Interpretation Code [facility] Comment on above: Interpretive Data: I NR results are specifically intended to assess patients stabilized on long-term Anticoagulation therapy suggested INR s Less Intensive Anticoagulation 2.0 3.0 Conventional Range 3.0 4.5 PT Coag (PPP) [Time] 10.5 s Normal 9.4 - 1 2.5 second(s) [facility] Comment on above: Interpretive Data: 1 5 days - 4 weeks 1 - 5 months 6 -11 months 1 5 years 6 10 years 11 -17 years Mean: 11.2 (9.5 12.6) Mean: 11.0 (9.7 12.8) Mean: 11.0 (9.8 13.0) Mean: 11.3 (9.9 13.4) Mean: 11.7 (10.0 14.6) Mean: 11.8 (10.0 - 14.1) Pediatric Reference ranges were obtained from a study by Gabriele Lomeli et al. prepared from 1437 samples obtained at 7 different centers using the same coagulation reagent and instrumentation as [facility]. Currently there are no coagulation studies available worldwide for children to 14 days, and no normal ranges. Calciumon 07-02-2023 Calcium [Mass/Vol] 8.4 mg/dL Low 8.9-11.1 [facility] Comment on above: Performed By: #### 2 [id number] #### [facility] [address] [place] [address] Consent for Procedure/Surger yon 07-02-2023 Consent for Procedure/Surgery [id number]#1.00TIFF Normal [facility] Consent for Treatmenton 06-06 Consent for Treatment [id number]#[id number] Normal [facility] H&P Updateon 07-02-2023 H&P Update [id number]#[id number] Normal [facility] Main OR PACU I Recordon 06-06 Main OR PACU I Record PACU Phase I Docum ent Type FT Summary Primary Physician: Tyson Garay MD Finalized Date/Time: 07/02/23 17:23:24 Pt. Name: CHERYLE VILLATORO Neville Rosales/Sex: 1970 Female Med Rec #: [id number] Physician: Tyson Garay MD Financial #: [id number] Pt. Type: O Room/Bed: [place] [address] Admit/Disch: 07/02/23 09:25:44 - Institution: Case Times PACU I FT Pre-Care Text: Identifies barriers to communication and implements measures to provide psychological support Develops individualized plan of care, and ensures continuity of care Maintains patient's dignity and privacy, and maintains patient confidentiality Identifies and reports philosophical, cultural, and spiritual beliefs and values Identifies individual values and wishes concerning care Implements aseptic technique, and administers prescribed antibiotic therapy and immunizing agents as ordered Evaluates postoperative tissue perfusion Implements thermoregulation measures, and monitors body temperature Evaluates postoperative respiratory status Evaluates postoperative cardiac status Evaluates postoperative neurological status Assesses pain control, collaborated in initiating patient-controlled analgesia and implements alternative methods of pain control Verifies allergies, administers prescribed medications and solutions, evaluates response to medications Entry 1 In PACU I 07/02/23 14:30:00 Discharge from PACU 07/02/23 15:31:00 I Outcomes Met? Yes Last Modified By: Lety Lindsay I 07/02/23 17:23:09 Post-Care Text: The patient demonstrates knowledge of the expected response to the operative or invasive procedure The patient's care is consistent with the individualized perioperative plan of care The patient's right to privacy is maintained The patient's value system, lifestyle, ethnicity, and culture are considered, respected, and incorporated into the perioperative plan of care The patient participates in decisions affecting his or her perioperative plan of care The patient is free from signs and symptoms of infection The patient has wound/tissue perfusion consistent with or improved from baseline levels established preoperatively The patient is at or returning to normothermia at the conclusion of the immediate postoperative period The patient's respiratory function is consistent with or improved from baseline levels established preoperatively The patient's cardiovascular status is consistent with or improved from baseline levels established preoperatively The patient's cardiovascular status is consistent with or improved from baseline levels established preoperatively The patient demonstrates and/or reports adequate pain control throughout the perioperative period The patient received appropriate medication(s), safely administered during the perioperative period Acuity Level PACU I FT Entry 1 Start Time 07/02/23 14:30:00 Stop Time 07/02/23 15:31:00 Acuity Level Acuity Level I Last Modified By: Lety Lindsay I 07/02/23 17:23:20 Finalized By: Lety Lindsay I Document Signatures Signed By: Lety Lindsay I 07/02/23 17:23 Normal [facility] Main OR Preoperative Recordo n 07-02-2023 Main OR Preoperative Record PreOp Document Type FT Summary Primary Physician: Tyson Garay MD Finalized Date/Time: 07/02/23 11:52:09 Pt. Name: CHERYLE VILLATORO/Sex: 1970 Female Med Rec #: [id number] Physician: Tyson Garay MD Financial #: [id number] Pt. Type: A Room/Bed: [place] [address] Admit/Disch: 07/02/23 09:25:44 - Institution: Case Times PreOp FT Pre-Care Text: Verifies consent for planned procedure, identifies individual values and wishes concerning care, includes family members in perioperative teaching Entry 1 Patient Times. In Pre Surgery 07/02/23 09:45:00 Out Pre Surgery 07/02/23 11:14:00 Outcomes Met? Yes Last Modified By: Betty Whitfield Ii 07/02/23 11:51:52 Post-Care Text: The patient participates in decisions affecting his or her perioperative plan of care Finalized By: Betty Whitfield Ii Document Signatures Signed By: Betty Whitfield Ii 07/02/23 11:52 Normal [facility] Monitor Recordon 07-02-2023 Monitor Record [id number] Normal [facility] Monitor Record [id number]#[id number] Normal [facility] PT & PTTon 07-02-2023 aPTT Coag (PPP) [Time] 27.7 second(s) Normal 25.1-36.5 [facility] Comment on above: Result Comment: Para meter 15 days - 4 weeks 1 - 5 months 6 - 11 months 1 - 5 years 6 - 10 years 11 - 17 years PTT Mean: 35.4 (27.6-45.6) Mean: 33.5 (24.8-40.7) Mean: 32.4 (25.1-40.7) Mean: 31.6 (24.0-39.2) Mean: 31.6 (26.9-38.7) Mean: 31.0 (24.6-38.4) Pediatric Reference ranges were obtained from a study by Gabriele Lomeli et al. prepared from 1437 samples obtained at 7 different centers using the same coagulation reagent and instrumentation as [facility]. Currently there are no coagulation studies available worldwide for children to 14 days, and no normal ranges. Heparin therapeutic range (represented by Anti-Factor Xa activity of 0.2 - 0.4 U/mL) corresponds to PTT of 56.6 - 109.0 sec. Performed By: #### 1 [id number] #### [facility] [address] [place] [address] INR Coag (PPP) [Relative time] 1.0 {INR} Invalid Interpretation Code [facility] Comment on above: Result Comment: INR results are specifically intended to assess patients stabilized on long-term Anticoagulation therapy suggested INR?s ?Less Intensive Anticoagulation? 2.0 ? 3.0 Conventional Range 3.0 ? 4.5 Performed By: #### 1 [id number] #### [facility] [address] [place] [address] PT Coag (PPP) [Time] 10.5 second(s) Normal 9.4-12.5 [facility] Comment on above: Result Comment: 15 d ays - 4 weeks 1 - 5 months 6 -11 months 1 ? 5 years 6 ? 10 years 11 -17 years Mean: 11.2 (9.5 ? 12.6) Mean: 11.0 (9.7 ? 12.8) Mean: 11.0 (9.8 ? 13.0) Mean: 11.3 (9.9 ? 13.4) Mean: 11.7 (10.0 ? 14.6) Mean: 11.8 (10.0 - 14.1) Pediatric Reference ranges were obtained from a study by Gabriele Lomeli et al. prepared from 1437 samples obtained at 7 different centers using the same coagulation reagent and instrumentation as [facility]. Currently there are no coagulation studies available worldwide for children to 14 days, and no normal ranges. Performed By: #### 1 [id number] #### [facility] [address] [place] [address] Progress Note-Physicianon Progress Note-Physician Patient: CHERYLE VILLATORO Age: 53 years Sex: Female : 1970 Associated Diagnoses: None Author: Ozzy Mary Jr., DO Postoperative Information Postoperative disposition: Postoperative disposition: Home. Optimetrix number: Optimetrix number [id number]. Anesthetic utilized: General. Physical Examination Vital Signs 07/02/2023 15:00 EST Heart Rate Monitored 88 bpm Respiratory Rate Monitored 13 br/min Systolic Blood Pressure 152 mmHg HI Diastolic Blood Pressure 86 mmHg Mean Arterial Pressure, Cuff 108 mmHg SpO2 95 % 07/02/2023 14:45 EST Heart Rate Monitored 93 bpm Respiratory Rate Monitored 11 br/min Systolic Blood Pressure 159 mmHg HI Diastolic Blood Pressure 87 mmHg Mean Arterial Pressure, Cuff 111 mmHg SpO2 100 % 07/02/2023 14:40 EST Heart Rate Monitored 94 bpm Respiratory Rate Monitored 15 br/min Systolic Blood Pressure 157 mmHg HI Diastolic Blood Pressure 97 mmHg HI Mean Arterial Pressure, Cuff 117 mmHg SpO2 100 % 07/02/2023 14:35 EST Heart Rate Monitored 95 bpm Respiratory Rate Monitored 17 br/min Systolic Blood Pressure 157 mmHg HI Diastolic Blood Pressure 95 mmHg HI Mean Arterial Pressure, Cuff 116 mmHg SpO2 100 % 07/02/2023 14:30 EST Temperature Temporal Artery 36.5 DegC Heart Rate Monitored 101 bpm HI Respiratory Rate Monitored 16 br/min Systolic Blood Pressure 166 mmHg HI Diastolic Blood Pressure 84 mmHg Mean Arterial Pressure, Cuff 111 mmHg SpO2 100 % Pain Assessment: Controlled, 07/02/2023 15:05 EST Primary Pain Location Neck 07/02/2023 15:01 EST Primary Pain Location Neck Patient Preferred Pain Tool Numeric rating Numeric Pain Scale 6 Numeric Pain Score 6 07/02/2023 14:57 EST Primary Pain Location Neck Patient Preferred Pain Tool Numeric rating Numeric Pain Scale 7 Numeric Pain Score 7 07/02/2023 14:53 EST Primary Pain Location Neck Patient Preferred Pain Tool Numeric rating Numeric Pain Scale 7 Numeric Pain Score 7 07/02/2023 14:49 EST Primary Pain Location Neck Patient Preferred Pain Tool Numeric rating Numeric Pain Scale 8 Numeric Pain Score 8 07/02/2023 14:30 EST Primary Pain Location Neck Patient Preferred Pain Tool Numeric rating Numeric Pain Scale 8 Numeric Pain Score 8 . General: Awake, Alert, Appropriate. Respiratory: Adequate air exchange, Non-labored. Cardiovascular: Stable, Normal peripheral perfusion. Neurological: Neurologic exam at baseline. No changes.. Assessment Anesthetic outcome No anesthetic complications noted. No nausea/vomiting. Review / Management Condition: Stable. Plan Transfer/Discharge: Transfer/Discharge Discharge when meets criteria ( From PACU to Ambulatory Surgery Unit, and To home ). Normal [facility] Comment on above: Result Comment: Elec tronically Signed By: Ozzy Mary Jr., DO\.br\Date and Time Signed: 07/02/23 15:36 EST Progress Note-Physician Patient: CHERYLE VILLATORO Age: 53 years Sex: Female : 1970 Associated Diagnoses: None Author: Ozzy Mary Jr., DO Preoperative Information Anesthesia Preop Info NPO since midnight Anesthesia history: Patient history: No prior anesthetic problems. Informed consent: Signed by patient. Re-evaluation prior to induction: Initial evaluation reviewed: No significant change. Health Status Allergies: Allergic Reactions (Selected) Severity Not Documented Adhesive Bandage- Skin irritation. Silicone Barrier (simethicone) obsolete- Itching., Allergies (2) Active Reaction Adhesive Bandage Skin irritation Silicone Barrier (simethicone) Itching obsolete Current medications: (Selected) Inpatient Medications Ordered Lactated Ringers IV Christine 1000 mL 1,000 mL: 1,000 mL, IV, 100 mL/hr, Routine, Start date 07/02/23 10:02:00 EST, 10 hour(s), Total volume (mL): 1,000 Lactated Ringers IV Christine 1000 mL 1,000 mL: 1,000 mL, IV, 150 mL/hr, Routine, Start date 07/02/23 9:30:00 EST, 6.7 hour(s), Total volume (mL): 1,000 influenza virus vaccine IM Christine FT Rule: 0.5 mL, Susp-Inj, IntraMuscular, Once PRN Other (see comment), Routine, Start date 06/30/23 12:39:00 EST morphine 4 mg/mL Inj: 4 mg = 1 mL, Injection, IV Push, q4min PRN Pain 8-10 for 5 dose(s), Stop date Limited # of times, Routine, Start date 07/02/23 10:02:00 EST, 07/02/23 10:02:00 EST Prescriptions Prescribed Tylenol with Codeine 300 mg-30 mg Tab: 1 tab(s), Oral, BID as needed for pain, 30 tab(s), Refill(s) 0, [place] #24, 173, cm, 10/02/22 13:22:00 EDT, Height/Length Dosing, 108.9, kg, 06/12/22 13:20:00 EST, Weight Dosing Documented Medications Documented Coumadin: 8.5 mg, Every other day, 8mg daily, 8.5mg and Thursday, Refills(s) 0, Blood Thinner Multivitamins and Minerals: 1 tab, Oral, Daily, Refill(s) 0, Prophylaxis atorvastatin 40 mg Tab: 40 mg = 1 tab(s), Oral, Daily, Refills(s) 0, High cholesterol eletriptan 40 mg Tab: 40 mg = 1 tab(s), Oral, Daily, PRN Migraine headache, Refills(s) 0 enoxaparin 100 mg/mL SubQ Christine: 100 mg, SubCutaneous, q12hr, Refills(s) 0, Blood Thinner glucosamine: 1,500 mg, Oral, Daily, Refills(s) 0, Prophylaxis omeprazole 40 mg Cap-DR: 40 mg = 1 cap(s), Oral, Daily, Refills(s) 0, Control of stomach acid, Home Medications (8) Active atorvastatin 40 mg Tab 40 mg = 1 tab(s), Oral, Daily Coumadin 8.5 mg, Every other day eletriptan 40 mg Tab 40 mg = 1 tab(s), PRN, Oral, Daily enoxaparin 100 mg/mL SubQ Christine 100 mg, SubCutaneous, q12hr glucosamine 1,500 mg, Oral, Daily Multivitamins and Minerals 1 tab, Oral, Daily omeprazole 40 mg Cap-DR 40 mg = 1 cap(s), Oral, Daily Tylenol with Codeine 300 mg-30 mg Tab 1 tab(s), PRN, Oral, BID , Medications (4) Active Scheduled: (0) Continuous: (2) Lactated Ringers 1,000 mL 1,000 mL, IV, 150 mL/hr Lactated Ringers 1,000 mL 1,000 mL, IV, 100 mL/hr PRN: (2) influenza virus vaccine, Quadravalent inactivated preservative-free SUSP [F] 0.5 mL, IntraMuscular, Once morphine 4 mg/mL preservative-free [F] 4 mg 1 mL, IV Push, q4min Problem list: All Problems Irregular heart beat / SNOMED CT 089069450 / Confirmed Low back pain / SNOMED CT 641689194 / Confirmed Obesity / SNOMED CT 6526484944 / Confirmed Pulmonary emboli / SNOMED CT 61694426 / Confirmed Thrombosis / SNOMED CT 4744470061 / Confirmed Histories Past Medical History: No active or resolved past medical history items have been selected or recorded. Procedure history: left Hip replacement ([id number]) on 11/10/2022 at 52 Years. Injection of sacroiliac joint using fluoroscopic guidance ([id number]) on 07/02/2022 at 52 Years. Comments: 08/01/2022 15:35 GALEN Howell RN, Janae Ayala 75% relief starting 2 days after procedure. Still reports 75% relief today. Injection of sacroiliac joint using fluoroscopic guidance ([id number]) on 09/12/2015 at 45 Years. Comments: 10/04/2015 15:18 BRITTANIE Brady RN, Jena Bruno Bilateral 75% relief Leg Vein Laser Surgery on 06/17/2013 at 43 Years. Comments: 03/30/2015 14:00 Navid Coy Left Injection of sacroiliac joint using fluoroscopic guidance ([id number]) on 06/30/2012 at 42 Years. Comments: 03/30/2015 13:57 EDT - Stanley NUÑEZ, Navid B/l, 100% relief Injection of sacroiliac joint using fluoroscopic guidance ([id number]) on 10/15/2011 at 41 Years. Comments: 03/30/2015 13:57 EDT - Stanley NUÑEZ, Navid B/l, 100% relief after 2 days Ts - Tonsillectomy ([id number]). History of back surgery ([id number]). Comments: 11/12/2022 14:30 EDT - Noah PT, Elle laminectomy 03/30/2015 13:59 EDT - Navid Rodriguez September 2010 section ([id number]). Appendectomy ([id number]). Hysterectomy (156938968). Social History Social & Psychosocial Habits Alcohol 09/19/2021 Use: Current Frequency: 1-2 times per month 06/30/2023 Risk Assessment: Low Risk Substance Abuse 08/09/2015 Risk A (more content not included)... Normal [facility] Comment on above: Result Comment: Elec tronically Signed By: Usman Gomez DO, Ozzy Leroy\.br\Date and Time Signed: 07/02/23 10:49 EST UA With Cult Reflexon 2022 Bilirubin Ql (U) Negative Normal Negative [facility] Comment on above: Performed By: #### 1 [id number] ####[id number] [place] [address] Clarity (U) CLEAR Normal Clear [facility] Comment on above: Performed By: #### 1 [id number] ####[facility] [address] [place] [address] Color (U) YELLOW Normal Yellow [facility] Comment on above: Performed By: #### 1 [id number] ####[address] [place] [address] Epithelial cells.squamous LM.HPF (Urine sed) [#/Area] 3-4 Normal 0-2 [facility] Comment on above: Performed By: #### 1 [id number] ####[address] [address] Glucose Test strip (U) [Mass/Vol] Negative Normal Negative [facility] Comment on above: Performed By: #### 1 [id number] ####[address] [address] Hemoglobin Ql (U) Negative Normal Negative [facility] Comment on above: Performed By: #### 1 [id number] ####[address] [address] Ketones (U) [Mass/Vol] Negative Normal Negative [facility] Comment on above: Performed By: #### 1 [id number] ####[address] [address] Catherine.plasma/Catherine .RBC (Bld) [Mass ratio] 0-3 Normal 0-3 [facility] Comment on above: Performed By: #### 1 [id number] ####[address] [address] Mucus Ql (Urine sed) TRACE Normal [facility] Comment on above: Performed By: #### 1 [id number] ####[address] [address] Nitrite Ql (U) Negative Normal Negative [facility] Comment on above: Performed By: #### 1 [id number] ####[address] [address] pH (U) 7.5 [pH] Invalid Interpretation Code 5.0-9.0 [facility] Comment on above: Performed By: #### 1 [id number] ####[address] [address] Protein (U) [Mass/Vol] Negative Normal Negative [facility] Comment on above: Performed By: #### 1 [id number] ####[address] [address] Specific gravity (U) [Rel density] 1.015 Invalid Interpretation Code 1.005-1.03 0 [facility] Comment on above: Performed By: #### 1 [id number] ####[facility] [address] [place] [address] Type of Urine collection method Muse Normal [facility] Comment on above: Performed By: #### 1 [id number] ####[facility] [address] [place] [address] Urobilinogen Qn (U) 0.2 {Farida'U}/dL Normal 0.0-1.0 [facility] Comment on above: Performed By: #### 1 [id number] ####[facility] [address] [place] [address] WBC Auto Ql (U) Negative Normal Negative [facility] Comment on above: Performed By: #### 1 [id number] ####[facility] [address] [place] [address] WBC LM.HPF (Urine sed) [#/Area] 0-5 Normal 0-5 [facility] Comment on above: Performed By: #### 1 [id number] ####[facility] [address] [place] [address] URINALYSISOrdered By: Marianne Hernandez on 07-02-2023 Bilirubin Ql (U) Negative (07/02/23 11:28 AM) Normal Negative [facility] UA Auto SS Clarity (U) Clear (07/02/23 11:28 AM) Normal Clear [facility] UA Auto SS Color (U) Yellow (07/02/23 11:28 AM) Normal Yellow [facility] UA Auto SS Epithelial cells.squamous LM.HPF (Urine sed) [#/Area] 3-4 /HPF Normal 0-2/HPF [facility] UA Auto SS Glucose Test strip (U) [Mass/Vol] Negative (07/02/23 11:28 AM) Normal Negative [facility] UA Auto SS Hemoglobin Ql (U) Negative (07/02/23 11:28 AM) Normal Negative [facility] UA Auto SS Ketones (U) [Mass/Vol] Negative (07/02/23 11:28 AM) Normal Negative [facility] UA Auto SS Catherine.plasma/Catherine .RBC (Bld) [Mass ratio] 0-3 /HPF Normal 0-3/HPF [facility] UA Auto SS Mucus Ql (Urine sed) Trace (07/02/23 11:28 AM) Normal [facility] UA Auto SS Nitrite Ql (U) Negative (07/02/23 11:28 AM) Normal Negative [facility] UA Auto SS pH (U) 7.5 *NA* (07/02/23 11:28 AM) Invalid Interpretation Code 5.0 - 9.0 [facility] UA Auto SS Protein (U) [Mass/Vol] Negative (07/02/23 11:28 AM) Normal Negative [facility] UA Auto SS Specific gravity (U) [Rel density] 1.015 *NA* (07/02/23 11:28 AM) Invalid Interpretation Code 1.005 - 1.030 [facility] UA Auto SS UA Spec Desc Muse (07/02/23 11:28 AM) Normal [facility] UA Auto SS Urobilinogen Qn (U) 0.5545279 {Farida'U}/dL Normal 0.0 - 1.0 EU/dL [facility] UA Auto SS WBC Auto Ql (U) Negative (07/02/23 11:28 AM) Normal Negative [facility] UA Auto SS WBC LM.HPF (Urine sed) [#/Area] 0-5 /HPF Normal 0-5/HPF [facility] Auto SS XR Chest 2 Viewson 3 XR Chest 2 Views Exam Date/Time: 07/02/2023 09:47 EST Reason for Exam: P.A.T. Report IMPRESSION: NO EVIDENCE OF ACTIVE CARDIOPULMONARY DISEASE. EXAM: XR Chest 2 Views DATE: 07/02/2023 9:30 AM CLINICAL HISTORY: P.A.T.. COMPARISON: None available. TECHNIQUE: Upright PA and lateral radiographs of the chest were obtained. FINDINGS: There is no significant pulmonary infiltrate, cardiomegaly, pleural effusion, vascular congestion, pneumothorax, or displaced fractures identified. Ordering Provider: Eligio Mejía FINAL REPORT Dictated: 07/02/2023 10:03 am Godfrey Ibarra MD Signed (Electronic Signature): 07/02/2023 10:03 am Signed by: Godfrey Ibarra MD Transcribed by: MACK Technologist: DPR Technical Comments Radiation Dose: Ka,r in mGy = na DAP = na Normal [facility] Outside Recordson 07-01-2023 Outside Records [id number] Normal [facility] BI MAMMOGRAM SCREENING TOMOS YNTHESIS BILATERALon 06-23-2023 BI MAMMOGRAM SCREENING TOMOSYNTHESIS BILATERAL This is a summary report. The complete report is available in the patient's medical record. If you cannot access the medical record, please contact the sending organization for a detailed fax or copy. EXAM: BI MAMMOGRAM SCREENING TOMOSYNTHESIS BILATERAL DATE: 06/23/2023 4:11 PM CLINICAL HISTORY: screen. COMPARISONS: 06/17/2022, 06/12/2021, and 06/11/2020. TECHNIQUE: Routine full-field digital mammograms and 3D breast tomosynthesis of both breasts were obtained. FINDINGS: There are no developing masses, suspicious microcalcifications, or areas of architectural distortion identified on the current study. No significant changes are identified from the prior studies, given differences in technique and positioning. IMPRESSION: BIRADS 1 - Negative Follow-up: Routine Screening Mamm. Density: Heterogeneously dense [3]. Board Certified Radiologists. Accredited by the ACR and FDA. MAMMOGRAPHY IS VERY IMPORTANT TO YOUR HEALTH. THE CURRENT [place] [employer] GUIDELINES RECOMMENDS ANNUAL MAMMOGRAPHY BEGINNING AT AGE 40. THIS FACILITY UTILIZES A REMINDER SYSTEM TO ENSURE ALL PATIENTS RECEIVE REMINDER NOTIFICATIONS AT THE APPROPRIATE TIME BASED ON THE RECOMMENDATIONS OF THIS EXAM. ELECTRONICALLY SIGNED BY: Caesar Ibarra MD Normal Not Available INR in Platelet poor plasma by Coagulation assayOrdered By: Brandon Beasley on 05-27-2023 INR Coag (PPP) [Relative time] 1.8 {INR} [facility] Comment on above: INR Therapeutic Rang e A) Pre- and Peroperative OAT started two weeks before surgery. NOT HIP SURGERY: 1.5 - 2.5 HIP SURGERY: 2 - 3B) Primary and secondary prevention of venous THROMBOSIS: 2 - 3C) Active venous thrombosis, pulmonary embolismand prevention of recurrent venous thrombosis: 2 - 3D) Prevention of arterial thromboembolismincluding patients with mechanical heart valves: 3 - 4.5 Prothrombin Time INRon 05-27 INR Coag (PPP) [Relative time] 1.8 {INR} Normal [facility] Comment on above: Result Comment: INR Therapeutic Range A) Pre- and Peroperative OAT started two weeks before surgery. NOT HIP SURGERY: 1.5 - 2.5 HIP SURGERY: 2 - 3 B) Primary and secondary prevention of venous THROMBOSIS: 2 - 3 C) Active venous thrombosis, pulmonary embolism and prevention of recurrent venous thrombosis: 2 - 3 D) Prevention of arterial thromboembolism including patients with mechanical heart valves: 3 - 4.5 PERFORMED BY: [place] [address] PATHOLOGIST CLOD PULLER MICHAEL SCHMIDT M.D. Performed By: #### C MP, TSH3, CBCNO, LIPID, A1C [facility] eA #### [facility] [id number] [facility] PT Coag (PPP) [Time] 20.8 s High 9.0-12.9 [facility] Comment on above: Result Comment: A he matocrit value greater than 55% may lead to inaccurate results in coagulation testing. Patients having hematocrit values >55% require a special collection tube for coagulation studies. Please contact the laboratory at [phone] for redraw instructions. Performed By: #### C MP, TSH3, CBCNO, LIPID, A1C [facility] eA #### [facility] [id number] [facility] Prothrombin time (PT)Ordered By: Brandon Beasley on 05-27-2023 PT Coag (PPP) [Time] 20.8 s 9.0-12.9 [facility] Comment on above: A hematocrit value g reater than 55% may lead to inaccurate results in coagulation testing. Patients having hematocrit values >55% require a special collection tube for coagulation studies. Please contact the laboratory at [phone] SOFT TISSUE NECK W IV CON TRASTon 05-05-2023 CT SOFT TISSUE NECK W IV CONTRAST CT SOFT TISSUE NECK WITH INTRAVENOUS CONTRAST MEDIUM. HISTORY: NODULE, ANTERIOR NECK, FOR 1 YEAR. TECHNICAL FACTORS: CT soft tissue neck obtained and formatted as 2.5 mm contiguous axial images. Sagittal and coronal reconstruction obtained during postprocessing. Area of clinical concern marked utilizing radiopaque cutaneous marker. INTRAVENOUS CONTRAST MEDIUM: Isovue-300, 100 mL COMPARISON: None FINDINGS: Skull base:Normal Orbits: . Without anomaly Facial sinuses: Well pneumatized Nasopharynx: Normal Mastoids: Air cells well aerated. Oral cavity: Without anomaly. Oropharynx: Without anomaly. Bilateral parapharyngeal spaces and retropharyngeal spaces: Preserved. Salivary glands: Normal Hypopharynx, larynx, supraglottis, infra glottis: : Without anomay. Lymph nodes: No lymph node enlargement. Vascular: Vascular structures enhance uniformly. Thyroid: Several hypoechoic nodules measuring up to 4 mm are visualized within the left paramedian isthmus. Punctate calcifications measuring up to 1.3 mm are also identified at this level (series 2, images 75 through 79). The radiopaque cutaneous marker lies just cephalad to these findings (series 2, image 71). Lung apices: Without anomaly. IMPRESSION: Cutaneous radiopaque marker coincides with the area of hypoechoic thyroid nodules and calcification. Thyroid sonography recommended for further evaluations of these findings and to rule out malignancy. All CT scans at this facility use dose modulation, iterative reconstruction, and/or weight based dosing when appropriate to reduce radiation dose to as low as reasonably achievable. ELECTRONICALLY SIGNED BY: Pato Tijerina MD Normal Not Available INR in Platelet poor plasma by Coagulation assayOrdered By: Brandon Beasley on 05-05-2023 INR Coag (PPP) [Relative time] 2.0 {INR} [facility] Comment on above: INR Therapeutic Rang e A) Pre- and Peroperative OAT started two weeks before surgery. NOT HIP SURGERY: 1.5 - 2.5 HIP SURGERY: 2 - 3B) Primary and secondary prevention of venous THROMBOSIS: 2 - 3C) Active venous thrombosis, pulmonary embolismand prevention of recurrent venous thrombosis: 2 - 3D) Prevention of arterial thromboembolismincluding patients with mechanical heart valves: 3 - 4.5 Nicotine Metabolite, Qualon 05-05-2023 Nicotine Metabolite Negative Normal Cutoff=25 [facility] Comment on above: Result Comment: Perf ormed at: BN - [facility] [address], [place], [place] [id number] Guest Services Lead: Tami Santos MD, Phone: [phone] PERFORMED BY: [facility] [address] [place] [address] PATHOLOGIST CLOD PULLER MICHAEL SCHMIDT M.D. Performed By: #### C MP, TSH3, CBCNO, LIPID, A1C [facility] eA #### [facility] [id number] [facility] No Panel InformationOrdered By: Brandon Beasley on 05-05-2023 Nicotine Metabolite Negative Cutoff=25 [facility] Comment on above: Performed at: [address] [id number] Director: Tami Santos MD, Phone: [phone] Prothrombin Time INRon 05-05 INR Coag (PPP) [Relative time] 2.0 {INR} Normal [facility] Comment on above: Result Comment: INR Therapeutic Range A) Pre- and Peroperative OAT started two weeks before surgery. NOT HIP SURGERY: 1.5 - 2.5 HIP SURGERY: 2 - 3 B) Primary and secondary prevention of venous THROMBOSIS: 2 - 3 C) Active venous thrombosis, pulmonary embolism and prevention of recurrent venous thrombosis: 2 - 3 D) Prevention of arterial thromboembolism including patients with mechanical heart valves: 3 - 4.5 PERFORMED BY: [place] [address] PATHOLOGIST CLOD PULLER MICHAEL SCHMIDT M.D. Performed By: #### C MP, TSH3, CBCNO, LIPID, A1C [facility] eA #### [facility] [id number] [facility] PT Coag (PPP) [Time] 24.1 s High 9.0-12.9 [facility] Comment on above: Result Comment: A he matocrit value greater than 55% may lead to inaccurate results in coagulation testing. Patients having hematocrit values >55% require a special collection tube for coagulation studies. Please contact the laboratory at [phone] for redraw instructions. Performed By: #### C MP, TSH3, CBCNO, LIPID, A1C [facility] eA #### [facility] [id number] [facility] Prothrombin time (PT)Ordered By: Brandon Beasley on 05-05-2023 PT Coag (PPP) [Time] 24.1 s 9.0-12.9 [facility] Comment on above: A hematocrit value g reater than 55% may lead to inaccurate results in coagulation testing. Patients having hematocrit values >55% require a special collection tube for coagulation studies. Please contact the laboratory at [phone] for redraw instructions. A1C with Estimated Average Mariaa rg 04-22-2023 Glucose [Mass/Vol] 120 mg/dL Normal [facility] Comment on above: Result Comment: PERF ORMED BY: [facility] [address] [place] [address] PATHOLOGIST CLOD PULLER MICHAEL SCHMIDT M.D. Performed By: #### C MP, TSH3, CBCNO, LIPID, A1C WT eA #### [facility] [id number] [facility] HbA1c (Bld) [Mass fraction] 5.8 % High 4.3-5.6 [facility] Comment on above: Result Comment: Incr eased risk for diabetes: 5.7 - 6.4 diabetes: >6.4 glycemic control for adults with diabetes: <7.0 Performed By: #### C MP, TSH3, CBCNO, LIPID, A1C WT eA #### [facility] [id number] [facility] Alanine aminotransferase [En zymatic activity/volume] in Serum or PlasmaOrdered By: Brandon Beasley on 04-22-2023 ALT [Catalytic activity/Vol] 22 U/L 7-52 [facility] Albumin [Mass/volume] in Ser um or Plasma by Bromocresol green (BCG) dye binding methoOrdered By: Brandon Beasley on 04-22-2023 Albumin BCG dye [Mass/Vol] 4.3 g/dL 3.5-5.7 [facility] Alkaline phosphatase [Enzyma tic activity/volume] in Serum or PlasmaOrdered By: Brandon Beasley on 04-22-2023 ALP [Catalytic activity/Vol] 59 U/L 34-104 [facility] Aspartate aminotransferase [ Enzymatic activity/volume] in Serum or PlasmaOrdered By: Brandon Beasley on 04-22-2023 AST [Catalytic activity/Vol] 18 U/L 13-39 [facility] Bilirubin.total [Mass/volume ] in Serum or PlasmaOrdered By: Brandon Beasley on 04-22-2023 Bilirubin [Mass/Vol] 0.7 mg/dL 0.3-1.0 [facility] Calcium [Mass/volume] in Ser um or PlasmaOrdered By: Brandon Beasley on 04-22-2023 Calcium [Mass/Vol] 9.4 mg/dL 8.6-10.3 [facility] Carbon dioxide, total [Moles /volume] in Serum or PlasmaOrdered By: Brandon Beasley on 04-22-2023 CO2 [Moles/Vol] 30.1 mmol/L 21.0-31.0 [facility] Chloride [Moles/volume] in S deanna or PlasmaOrdered By: Brandon Beasley on 04-22-2023 Chloride [Moles/Vol] 103 mmol/L 98-107 [facility] Cholesterol [Mass/volume] in Serum or PlasmaOrdered By: Brandon Beasley on 04-22-2023 Cholesterol [Mass/Vol] 209 mg/dL 140-200 [facility] Comment on above: Chol less than 200 m g/dl low riskChol 201-239 mg/dl borderline riskChol 240 mg/dl and greater high risk Cholesterol in LDL Calc [Mas s/Vol]Ordered By: Brandon Beasley on 04-22-2023 Cholesterol in LDL [Mass/Vol] 137 mg/dL 0-100 [facility] Comment on above: LDL ATP III CLASSIFI CATIONLDL less than 100 mg/dL OptimalLDL 100-129 mg/dL Near or above optimalLDL 130-159 mg/dL Borderline highLDL 160-189 mg/dL HighLDL greater than 189 mg/dL Very high Cholesterol in VLDL Calc [Ma ss/Vol]Ordered By: Brandon Beasley on 04-22-2023 Cholesterol in VLDL [Mass/Vol] 20 mg/dL [facility] Comprehensive Metabolic Pane pau 04-22-2023 Albumin [Mass/Vol] 4.3 g/dL Normal 3.5-5.7 [facility] Comment on above: Performed By: #### C MP, TSH3, CBCNO, LIPID, A1C WT eA #### [facility] [address] Albumin/Globulin [Mass ratio] 1.7 {ratio} Normal [facility] Comment on above: Performed By: #### C MP, TSH3, CBCNO, LIPID, A1C WT eA #### [facility] [address] ALP [Catalytic activity/Vol] 59 U/L Normal 34-104 [facility] Comment on above: Performed By: #### C MP, TSH3, CBCNO, LIPID, A1C WTH eA #### [facility] [address] ALT [Catalytic activity/Vol] 22 U/L Normal 7-52 [facility] Comment on above: Performed By: #### C MP, TSH3, CBCNO, LIPID, A1C WTH eA #### [facility] [address] Anion gap [Moles/Vol] 9.8 mmol/L Normal 6.0-15.0 [facility] Comment on above: Performed By: #### C MP, TSH3, CBCNO, LIPID, A1C WTH eA #### [address] AST [Catalytic activity/Vol] 18 U/L Normal 13-39 [facility] Comment on above: Performed By: #### C MP, TSH3, CBCNO, LIPID, A1C WTH eA #### [facility] [address] [place] [address] [place] Bilirubin [Mass/Vol] 0.7 mg/dL Normal 0.3-1.0 [facility] Comment on above: Performed By: #### C MP, TSH3, CBCNO, LIPID, A1C WTH eA #### [facility] [address] [place] [address] [place] Calcium [Mass/Vol] 9.4 mg/dL Normal 8.6-10.3 [facility] Comment on above: Performed By: #### C MP, TSH3, CBCNO, LIPID, A1C WTH eA #### [facility] [address] [place] [address] [place] Chloride [Moles/Vol] 103 mmol/L Normal 98-107 [facility] Comment on above: Performed By: #### C MP, TSH3, CBCNO, LIPID, A1C WTH eA #### [facility] [address] [place] [address] [place] CO2 [Moles/Vol] 30.1 mmol/L Normal 21.0-31.0 [facility] Comment on above: Performed By: #### C MP, TSH3, CBCNO, LIPID, A1C WTH eA #### [facility] [address] Creatinine [Mass/Vol] 0.88 mg/dL Normal 0.60-1.20 [facility] Comment on above: Performed By: #### C MP, TSH3, CBCNO, LIPID, A1C WTH eA #### [facility] [address] [place] [address] [place] GFR/1.73 sq M.predicted MDRD (S/P/Bld) [Vol rate/Area] mL/min/{1.73_m2} [facility] Comment on above: Performed By: #### C MP, TSH3, CBCNO, LIPID, A1C WTH eA #### [facility] [address] Globulin (S) [Mass/Vol] 2.5 g/dL [facility] Comment on above: Performed By: #### C MP, TSH3, CBCNO, LIPID, A1C WTH eA #### [facility] [address] [place] [address] [place] Glucose [Mass/Vol] 94 mg/dL Normal 70-100 [facility] [place] Comment on above: Result Comment: [facility] Glucose Reference Range is dependent on time and content of last meal. Glucose of more than 200 mg/dL in a nonstressed, ambulatory subject supports the diagnosis of Diabetes Mellitus. ADA recommended reference range Performed By: #### C MP, TSH3, CBCNO, LIPID, A1C WTH eA #### [facility] [address] [place] [address] [place] Potassium [Moles/Vol] 3.9 mmol/L Normal 3.5-5.1 [facility] Comment on above: Performed By: #### C MP, TSH3, CBCNO, LIPID, A1C WTH eA #### [facility] [address] [place] [address] [place] Protein [Mass/Vol] 6.8 g/dL Normal 6.4-8.9 [facility] [place] Comment on above: Performed By: #### C MP, TSH3, CBCNO, LIPID, A1C WT eA #### [facility] [address] Sodium [Moles/Vol] 139 mmol/L Normal 136-145 [facility] [place] Comment on above: Performed By: #### C MP, TSH3, CBCNO, LIPID, A1C WT eA #### [facility] [address] Urea nitrogen [Mass/Vol] 13 mg/dL Normal 7-25 [facility] Comment on above: Performed By: #### C MP, TSH3, CBCNO, LIPID, A1C WT eA #### [facility] [address] Creatinine [Mass/volume] in Serum or PlasmaOrdered By: Brandon Beasley on 04-22-2023 Creatinine [Mass/Vol] 0.88 mg/dL 0.60-1.20 [facility] Erythrocyte distribution wid th Auto (RBC) [Ratio]Ordered By: Brandon Beasley on 04-22-2023 Erythrocyte distribution width (RBC) [Ratio] 13.2 % 11.9-15.3 [facility] Globulin Calc (S) [Mass/Vol] Ordered By: Brandon Beasley on 04-22-2023 Globulin (S) [Mass/Vol] 2.5 g/dL [facility] Glucose [Mass/volume] in Ser um or PlasmaOrdered By: Brandon Beasley on 04-22-2023 Glucose [Mass/Vol] 94 mg/dL 70-100 [facility] [place] Comment on above: ADA recommended refe rence rangeRandom Glucose Reference Range is dependent on time and content of last meal. Glucose of more than 200 mg/dL in a nonstressed, ambulatory subject supports the diagnosis of Diabetes Mellitus. Glucose mean value [Mass/vol ume] in Blood Estimated from glycated hemoglobinOrdered By: Brandon Beasley on 04-22-2023 Average glucose Estimated from glycated hemoglobin (Bld) [Mass/Vol] 120 mg/dL [facility] Hematocrit Auto (Bld) [Volum e fraction]Ordered By: Brandon Beasley on 04-22-2023 Hematocrit (Bld) [Volume fraction] 40.5 % 34.0-46.4 [facility] Hemoglobin A1c percentageOrd ered By: Brandon Beasley on 04-22-2023 HbA1c (Bld) [Mass fraction] 5.8 % 4.3-5.6 [facility] Comment on above: Increased risk for d iabetes: 5.7 - 6.4diabetes: >6.4glycemic control for adults with diabetes: <7.0 Hemoglobin [Mass/volume] in BloodOrdered By: Brandon Beasley on 04-22-2023 Hemoglobin (Bld) [Mass/Vol] 13.8 g/dL 11.8-15.4 [facility] Hemogram CBC Without Diffon 04-22-2023 Erythrocyte distribution width (RBC) [Ratio] 13.2 % Normal 11.9-15.3 [facility] Comment on above: Performed By: #### C MP, TSH3, CBCNO, LIPID, A1C WT eA #### [address] Hematocrit (Bld) [Volume fraction] 40.5 % Normal 34.0-46.4 [facility] Comment on above: Performed By: #### C MP, TSH3, CBCNO, LIPID, A1C WT eA #### [facility] [address] Hemoglobin (Bld) [Mass/Vol] 13.8 g/dL Normal 11.8-15.4 [facility] Comment on above: Performed By: #### C MP, TSH3, CBCNO, LIPID, A1C WTH eA #### [address] MCH (RBC) [Entitic mass] 31.9 pg Normal 24.7-34.3 [facility] Comment on above: Performed By: #### C MP, TSH3, CBCNO, LIPID, A1C WTH eA #### [address] MCV (RBC) [Entitic vol] 93.5 fL Normal 80-100 [facility] Comment on above: Performed By: #### C MP, TSH3, CBCNO, LIPID, A1C WTH eA #### [address] Mean Corpuscular HGB Conc 34.1 g/dL Normal 32.0-35.0 [facility] Comment on above: Performed By: #### C MP, TSH3, CBCNO, LIPID, A1C WTH eA #### [address] Platelet mean volume (Bld) [Entitic vol] 8.7 fL Normal 6.3-10.7 [facility] Comment on above: Result Comment: PERF ORMED BY: [place] [address] PATHOLOGIST CLOD PULLER MICHAEL SCHMIDT M.D. Performed By: #### C MP, TSH3, CBCNO, LIPID, A1C WTH eA #### [address] Platelets (Bld) [#/Vol] 258 10*3/uL Normal 150-450 [facility] Comment on above: Performed By: #### C MP, TSH3, CBCNO, LIPID, A1C WTH eA #### [address] RBC (Bld) [#/Vol] 4.34 10*6/uL Normal 3.60-5.00 [facility] Comment on above: Performed By: #### C MP, TSH3, CBCNO, LIPID, A1C WTH eA #### [address] WBC (Bld) [#/Vol] 5.5 10*3/uL Normal 3.8-11.6 [facility] [place] Comment on above: Performed By: #### C MP, TSH3, CBCNO, LIPID, A1C WTH eA #### [address] Leukocytes [#/volume] correc lula for nucleated erythrocytes in Blood by Automated counOrdered By: Brandon Beasley on 10-18-2023 WBC corrected for nucl RBC Auto (Bld) [#/Vol] 5.5 10*3/uL 3.8-11.6 [facility] Lipid Panelon 04-22-2023 Cholesterol [Mass/Vol] 209 mg/dL High 140-200 [facility] Comment on above: Result Comment: Chol less than 200 mg/dl low risk Chol 201-239 mg/dl borderline risk Chol 240 mg/dl and greater high risk Performed By: #### C MP, TSH3, CBCNO, LIPID, A1C WT eA #### [facility] [address] Cholesterol in HDL [Mass/Vol] 52 mg/dL Normal 23-92 [facility] Comment on above: Result Comment: HDL CHOL ATP-III CLASSIFICATION Cardiovascular Risk HDL > or equal to 60 mg/dL LOW HDL < 40 mg/dL HIGH Performed By: #### C MP, TSH3, CBCNO, LIPID, A1C WT eA #### [facility] [address] Cholesterol.total/Chol esterol in HDL [Mass ratio] 4.0 {ratio} Normal <5.0 [facility] Comment on above: Performed By: #### C MP, TSH3, CBCNO, LIPID, A1C WT eA #### [facility] [address] LDL Cholesterol,Calculated 137 mg/dL High 0-100 [facility] Comment on above: Result Comment: LDL ATP III CLASSIFICATION LDL less than 100 mg/dL Optimal LDL 100-129 mg/dL Near or above optimal LDL 130-159 mg/dL Borderline high LDL 160-189 mg/dL High LDL greater than 189 mg/dL Very high Performed By: #### C MP, TSH3, CBCNO, LIPID, A1C WTH eA #### [facility] [address] [place] [id number] [place] Triglyceride w/Reflex 100 mg/dL Normal 0-149 [facility] Comment on above: Result Comment: TRIG ATP III CLASSIFICATION TRIG less than 150 mg/dL Normal TRIG 150-199 mg/dL Borderline high TRIG 200-500 mg/dL High TRIG greater than 500 mg/dL Very high Standard traceable to the Center for Disease Conrtrol and Prevention (CDC) test method. Performed By: #### C MP, TSH3, CBCNO, LIPID, A1C [facility] eA #### [facility] [address] VLDL CHOLESTEROL 20 mg/dL Normal [facility] Comment on above: Performed By: #### C MP, TSH3, CBCNO, LIPID, A1C WT eA #### [facility] [address] MCH Auto (RBC) [Entitic mass ]Ordered By: Brandon Beasley on 04-22-2023 MCH (RBC) [Entitic mass] 31.9 pg 24.7-34.3 [facility] MCHC Auto (RBC) [Mass/Vol]Or dered By: Brandon Beasley on 04-22-2023 MCHC (RBC) [Mass/Vol] 34.1 g/dL 32.0-35.0 [facility] MCV Auto (RBC) [Entitic vol] Ordered By: Brandon Beasley on 04-22-2023 MCV (RBC) [Entitic vol] 93.5 fL 80-100 [facility] No Panel InformationOrdered By: Brandon Beasley on 04-22-2023 Estimated GFR (CKD-EPI) > 60.0 mL/Min [facility] Creatinine Clearance (Chem N/A [facility] Platelet mean volume Auto (B ld) [Entitic vol]Ordered By: Brandon Beasley on 04-22-2023 Platelet mean volume (Bld) [Entitic vol] 8.7 fL 6.3-10.7 [facility] Platelets Auto (Bld) [#/Vol] Ordered By: Brandon Beasley on 04-22-2023 Platelets (Bld) [#/Vol] 258 10*3/uL 150-450 [facility] Potassium [Moles/volume] in Serum or PlasmaOrdered By: Brandon Beasley on 04-22-2023 Potassium [Moles/Vol] 3.9 mmol/L 3.5-5.1 [facility] Protein [Mass/volume] in Ser um or PlasmaOrdered By: Brandon Beasley on 04-22-2023 Protein [Mass/Vol] 6.8 g/dL 6.4-8.9 [facility] [place] RBC Auto (Bld) [#/Vol]Ordere d By: Brandon Beasley on 04-22-2023 RBC (Bld) [#/Vol] 4.34 10*6/uL 3.60-5.00 [facility] Serum or plasma albumin/glob ulin mass ratioOrdered By: Brandon Beasley on 04-22-2023 Albumin/Globulin [Mass ratio] 1.7 {ratio} [facility] Serum or plasma anion gap de terminationOrdered By: Branodn Beasley on 04-22-2023 Anion gap [Moles/Vol] 9.8 mmol/L 6.0-15.0 [facility] Serum or plasma high density lipoprotein (HDL) cholesterol measurementOrdered By: Brandon Beasley on 04-22-2023 Cholesterol in HDL [Mass/Vol] 52 mg/dL 23-92 [facility] Comment on above: HDL CHOL ATP-III CLA SSIFICATION Cardiovascular RiskHDL > or equal to 60 mg/dL LOWHDL < 40 mg/dL HIGH Serum or plasma total choles terol/high density lipoprotein (HDL) cholesterol mass ratOrdered By: Brandon Beasley on 04-22-2023 Cholesterol.total/Chol esterol in HDL [Mass ratio] 4.0 {ratio} <5.0 [facility] Sodium [Moles/volume] in Ser um or PlasmaOrdered By: Brandon Beasley on 04-22-2023 Sodium [Moles/Vol] 139 mmol/L 136-145 [facility] [place] Thyroid Stimulating Hormoneo n 04-22-2023 TSH Qn 2.05 m[IU]/L Normal 0.45-5.33 [facility] Comment on above: Result Comment: PERF ORMED BY: [place] [address] PATHOLOGIST CLOD PULLER MICHAEL SCHMIDT M.D. Performed By: #### C MP, TSH3, CBCNO, LIPID, A1C [facility] #### [address] Thyrotropin [Units/volume] i n Serum or PlasmaOrdered By: Brandon Beasley on 04-22-2023 TSH Qn 2.05 m[IU]/L 0.45-5.33 [facility] Triglyceride [Mass/volume] i n Serum or PlasmaOrdered By: Brandon Beasley on 04-22-2023 Triglyceride [Mass/Vol] 100 mg/dL 0-149 [facility] Comment on above: TRIG ATP III CLASSIF ICATIONTRIG less than 150 mg/dL NormalTRIG 150-199 mg/dL Borderline highTRIG 200-500 mg/dL High TRIG greater than 500 mg/dL Very highStandard traceable to the Center for Disease Conrtrol and Prevention (CDC) test method. Urea nitrogen [Mass/volume] in Serum or PlasmaOrdered By: Brandon Beasley on 04-22-2023 Urea nitrogen [Mass/Vol] 13 mg/dL 7-25 [facility] COAGULATIONOrdered By: Greg Barnes on 02-25-2023 INR Coag (PPP) [Relative time] 3.0 {INR} Invalid Interpretation Code [facility] Auto Coag PT Coag (PPP) [Time] 35.1 s High 9.4 - 1 2.5 second(s) [facility] Auto Coag Consent for Procedure/Surger yon 02-25-2023 Consent for Procedure/Surgery [id number]#1.00CD:127 [facility] Consent for Treatmenton 02-04 Consent for Treatment [id number]#1.00CD:127 [facility] Discharge Instructionson Discharge Instructions [id number]#1.00CD:127 [facility] IntraOperative Documentson 0 02-25-2023 IntraOperative Documents [id number]#1.00CD:127 [facility] Main OR Intraoperative Recor don 02-25-2023 Main OR Intraoperative Record IntraOp Document Type FT Summary Primary Physician: Syed Bautista MD Finalized Date/Time: 02/25/23 11:18:40 Pt. Name: CHERYLE VILLATORO/Sex: 1970 Female Med Rec #: [id number] Physician: Syed Bautista MD Financial #: [id number] Pt. Type: P Room/Bed: / Admit/Disch: 02/25/23 09:14:20 - Institution: Case Times FTPM Entry 1 Patient Times In Room 02/25/23 11:08:00 Out Room 02/25/23 11:16:00 Procedure Times Start 02/25/23 11:11:00 Stop 02/25/23 11:15:00 Anesthesia Times Last Modified By: Stacie uF RN 02/25/23 11:15:34 Case Attendance FTPM Entry 1 Entry 2 Entry 3 Case Attendee Lily ALBERT, Syed Fu RN, Stacie Brady RN, Melissa Role Performed Surgeon - Primary Curriculum Development Coordinator - Primary Scrub - Primary Time In 02/25/23 11:08:00 02/25/23 11:08:00 02/25/23 11:08:00 Time Out 02/25/23 11:16:00 02/25/23 11:16:00 02/25/23 11:16:00 Procedure SACROILIAC JOINT SACROILIAC JOINT SACROILIAC JOINT INJECTION(Bilateral) INJECTION(Bilateral) INJECTION(Bilateral) Comments Last Modified By: Tank OCASIO, Stacie Fu RN, Stacie Solomon RN 02/25/23 11:15:35 02/25/23 11:15:35 02/25/23 11:15:35 Entry 4 Case Attendee Carmencita Coelho Role Performed Detail Manager Time In 02/25/23 11:08:00 Time Out 02/25/23 11:16:00 Procedure SACROILIAC JOINT INJECTION(Bilateral) Comments Last Modified By: Stacie Fu RN 02/25/23 11:15:35 Perioperative Protocols FTPM Pre-Care Text: Implements protective measures prior to operative or invasive procedure, confirms identity before the operative or invasive procedure, verifies operative procedure, surgical site, and laterality Entry 1 Procedure(s) SACROILIAC JOINT Patient Identity Birthday, ID Band INJECTION(Bilateral) Verified (select at Check, Patient least 2): Participation Consents / H and P HandP, Surgery/Procedure Operative Site Present Verified Consent Marking Verified Surgical Site Yes Laterality Verified Yes Verified Procedure Verified Yes Correct Patient Yes Position Verified Availability Equipment, Medication, Prep Dry Yes Verified (If X-ray Applicable) PreOp Antibiotic No Time Out Stacie Fu RN, Carrington OCASIO, Lily Torres MD, Laquiat Lynch Laura M Time Out Complete 02/25/23 11:08:00 Outcomes Met? Yes Last Modified By: Stacie Fu RN 02/25/23 11:08:57 Post-Care Text: The patient is free from signs and symptoms of injury caused by extraneous objects Allergy Information FTPM Pre-Care Text: Verifies allergies Entry 1 Allergies Reviewed? Yes Allergies Reviewed Self/Patient With Outcomes Met? Yes Last Modified By: Stacie Fu RN 02/25/23 09:23:12 Post-Care Text: The patient received appropriate medication(s) safely administered during the perioperative period Surgical Procedures FTPM Entry 1 Procedure Description Procedure SACROILIAC JOINT Modifiers Bilateral INJECTION Surgeon Description SIJ Primary Procedure Yes Primary Surgeon Syed Bautista MD Start 02/25/23 11:11:00 Stop 02/25/23 11:15:00 Anesthesia Type None Surgical Service Pain Management Wound Class 1 - Clean Last Modified By: Stacie Fu RN 02/25/23 11:15:37 General Case Data FTPM Pre-Care Text: Classifies surgical wound, implements aseptic technique, initiates traffic control Entry 1 Case Information OR Pain Proc Room Case Level Level 2 Wound Class 1 - Clean Specialty Pain Management Preop Diagnosis M46.1 Postop Same As Preop Yes Postop Diagnosis M46.1 Outcomes Met? Yes Last Modified By: Stacie Fu RN 02/25/23 11:09:07 Post-Care Text: The patient is free from signs and symptoms of infection Skin Assessment (Pre Procedure) FTPM Pre-Care Text: Implements protective measures to prevent skin/ tissue injury due to thermal or mechanical sources Evaluates for signs and symptoms of physical injury to skin and tissue Entry 1 Skin Integrity Intact, [place], Warm, and Skin Abnormality No Dry Outcomes Met? Yes Last Modified By: Stacie Fu RN 02/25/23 09:23:21 Post-Care Text: The patient is free from signs and symptoms of injury caused by extraneous objects Patient Positioning FTPM Pre-Care Text: Identifies physical alterations that require additional precautions for procedure-specific positioning, verifies presence of prosthetics or corrective devices, positions the patient, evaluates the patient for signs and symptoms of injury as a result of positioning Entry 1 Procedure SACROILIAC JOINT Body Position Prone INJECTION(Bilateral) Feet Uncrossed? Yes Left Arm Position Resting at Side Right Arm Position Resting at Side Left Leg Position Extended Right Leg Position Extended Positioning Device Pillow Under Head Large, Safety Strap, Pillow Large Under Knees Press Points Checked Yes By Stacie Fu RN Outcomes Met? Yes Last Modified (more content not included)... Normal [facility] Main OR Preoperative Recordo n 02-25-2023 Main OR Preoperative Record Holding Area Document Type FTPM Summary Primary Physician: Syed Bautista MD Finalized Date/Time: 02/25/23 10:09:07 Pt. Name: SHAUNACHERYLE/Sex: 1970 Female Med Rec #: [id number] Physician: Syed Bautista MD Financial #: [id number] Pt. Type: P Room/Bed: / Admit/Disch: 02/25/23 09:14:20 - Institution: Case Times Holding FTPM Pre-Care Text: Verifies consent for planned procedure, identifies individual values and wishes concerning care, includes family members in perioperative teaching Secures patient's records' belongings, and valuables, maintains patient's dignity and privacy, and maintains patient confidentiality Entry 1 In Holding 02/25/23 10:07:00 Outcomes Met? Yes Last Modified By: Janae Howell RN 02/25/23 10:07:31 Post-Care Text: The patient participates in decisions affecting his or her perioperative plan of care The patient's right to privacy is maintained Surgery Checklist FTPM Entry 1 Patient Birthday, ID Band Procedure History and Physical, Identification: Check, Patient Verification: Surgical Consent, With Participation Patient NPO after Midnight: No Date/Time: 02/25/23 10:07:00 Results Reviewed 0800 coffee and eggs Personal Items: Glasses, Jewelry Comments: Personal Items Pt. wearing one ring, a Complaints of Pain: Yes Comment: watch and glasses. Pain Comment: 8 lower back pain Operative Site Yes radiates down BLE's Marking: Marked By: Dr. Bautista Location: bilateral [facility]JI Availability Equipment, X-Ray Verified: Does Patient Smoke No Patient states Yes Comment - Adult daughter-Nora postop adult Supervision supervision available Case Cancelled in No Holding Area see comments below for reason Last Modified By: Janae Howell RN 02/25/23 10:09:03 Finalized By: Janae Howell RN Document Signatures Signed By: Janae Howell RN 02/25/23 10:09 Normal [facility] PTon 02-25-2023 INR Coag (PPP) [Relative time] 3.0 {INR} Invalid Interpretation Code [facility] Comment on above: Result Comment: INR results are specifically intended to assess patients stabilized on long-term Anticoagulation therapy suggested INR?s ?Less Intensive Anticoagulation? 2.0 ? 3.0 Conventional Range 3.0 ? 4.5 Performed By: #### 2 [id number] #### [facility] [address] [place] [address] PT Coag (PPP) [Time] 35.1 second(s) High 9.4-12.5 [facility] Comment on above: Result Comment: 15 d ays - 4 weeks 1 - 5 months 6 -11 months 1- 5 years 6-10 years 11 -17 years Mean: 11.2 (9.5-12.6) Mean: 11.0 (9.7-12.8) Mean: 11.0 (9.8-13.0) Mean: 11.3 (9.9-13.4) Mean: 11.7 (10.0-14.6) Mean: 11.8 (10.0 - 14.1) Pediatric Reference ranges were obtained from a study by Gabriele Lomeli et al. prepared from 1437 samples obtained at 7 different centers using the same coagulation reagent and instrumentation as [facility]. Currently there are no coagulation studies available worldwide for children to 14 days, and no normal ranges. Performed By: #### 2 [id number] #### [facility] [address] [place] [address] Patient Correspondenceon Patient Correspondence [id number]:127 Normal [facility] PT - Assessmentson 3 PT - Assessments [id number]#[id number]:127 Normal [facility] Consultation Noteon 01-17-20 23 Consultation Note Chief complaint: Low back pain History of present illness: This is a 53-year-old female here for a chief complaint of left-sided low back pain. The patient rates the pain as a 3 out of 10 at rest but an 8 out of 10 when severe. In particular it is quite bothersome with prolonged sitting and she cannot sit for 30 minutes due to the pain. She has some mild pain on the right side but the left side is far worse. She was last seen 3 months ago at which time she was having both this lower back pain as well as left groin pain. 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 The groin pain and the leg pain have been absent ever since but the back pain has been persistent. It does not radiate down the leg. She has chronic numbness and weakness of the right leg that has been present since her spine surgery many years ago but has none of the symptoms on the left side. She has maintained the home exercises for her spine and is currently in physical therapy. She is on chronic Coumadin so she cannot use NSAIDs. She does not want to go back on opiates. She does not want another surgery and is hopeful that an injection could be an option. She last underwent sacroiliac injections in June of last year and obtained 75% pain relief and functional improvement for 3 months. The symptoms never really returned until her left hip gave out and the right-sided pain has remained absent. She does get some pain with standing or walking as well and cannot stand for 60 minutes due to the pain but sitting is worse. The patient denies additional neurologic symptoms or issues with bladder or bowel control. The patient's past medical, surgical, and social history along with medications and allergies were reviewed. Review of systems was done on 10 systems Physical examination: General: Pleasant white female in no acute distress. Patient appears well-nourished. Vital signs stable Head exam: Head is normocephalic and external ears are normal Neck exam: No tenderness Cardiovascular exam: No signs of poor perfusion and no peripheral edema Respiratory exam: Breathing is unlabored and there is no wheezing present Abdomen exam: Abdomen soft and nondistended Back exam: Severe left sacroiliac tenderness below the level of L5. Positive Sohail sign, Gaenslen test, and thigh thrust test on the left. Musculoskeletal exam: Strength 5 out of 5 with the exception of 4-5 with dorsiflexion of the right foot and right great toe and plantarflexion of the right foot which is chronic. Muscle tone is normal. Neurologic exam: Sensation intact. Reflexes normal and symmetric. Psych exam: Affect is appropriate. Alert and oriented Skin exam: No lesions Assessment: The patient's signs and symptoms are consistent with sacroiliitis. We reviewed the patient's imaging. She has a transitional L5 segment. There are degenerative changes in both sacroiliac joints which correlates with her symptoms Oswestry disability index score was 28% OARRS report was reviewed and was appropriate Plan: We discussed options. Her left hip pain has been alleviated with surgery but she still has left-sided axial back pain consistent with sacroiliitis that has been present for 3 months in spite of physical therapy and opiates. Since she has failed appropriate conservative management for 3 months we will proceed with a left sacroiliac injection under fluoroscopy at her next visit. She has had significant benefit from this procedure in the past. We discussed the potential risks and benefits of this plan and the patient was in agreement to proceed. We will have the patient follow-up 4 weeks after the procedure for repeat evaluation. [facility] Comment on above: Result Comment: Elec tronically Signed By: Lily ALBERT, Syed\.hussein\Date and Time Signed: 01/15/23 22:59 EDT Consent for Treatmenton 01-03 Consent for Treatment [id number]#[id number]:127 [facility] Consent for Treatment [id number]#1.00CD:127 [facility] Office/Clinic Note-Physician on 01-15-2023 Office/Clinic Note-Physician [id number]#1.00CD:127 [facility] Patient Correspondenceon Patient Correspondence [id number]#1.00CD:127 Normal [facility] Patient Correspondence [id number]#1.00CD:127 Normal [facility] Patient History Officeon Patient History Office [id number]#1.00CD:127 Normal [facility] Physician Orderon 01-15-2023 Physician Order [id number]#1.00CD:127 [facility] Physician Order [id number]#1.00CD:127 [facility] XR Spine Lumbosacral Minimum 4 Viewson 01-15-2023 XR Spine Lumbosacral Minimum 4 Views Exam Date/Time: 01/15/2023 16:17 EDT Reason for Exam: M46.1 Report IMPRESSION: DEGENERATIVE DISC DISEASE AT L4-5 AND L3-4. CLINICAL HISTORY: M46.1 COMPARISON: 08/09/2015 FINDINGS: 6 views of the lumbosacral spine demonstrate no evidence of no acute fracture or subluxation. There is mild levoscoliosis of the lower dorsal spine. There is minimal secondary dextroscoliosis of lower lumbar spine. L5 is a transitional vertebra with partial sacralization. There is moderate degenerative disc disease at L4-5. There is mild degenerative disc disease at L3-4. Both SI joints are symmetrical. Ordering Provider: Syed Bautista FINAL REPORT Dictated: 01/15/2023 4:31 pm Tani Patino M.D. Signed (Electronic Signature): 01/15/2023 4:31 pm Signed by: Tani Patino M.D. Transcribed by: MACK Technologist: ZOYA Technical Comments Radiation Dose: Ka,r in mGy = na DAP = na Normal [facility] Nonvisit Note - PTon 023 Nonvisit Note - PT Pt cancelled in [place]. [facility] PT - Assessmentson PT - Assessments [id number]#1.00CD:127 Normal [facility] PT - Home Exercise Programon 2023 PT - Home Exercise Program [id number]#1.00CD:127 Normal [facility] Laboratory - CoagulationOrde red By: Brandon Beasley on 12-22-2022 PT Coag (PPP) [Time] 29.1 s 9.0-12.9 [facility] Platelet poor plasma interna tional normalized ratio (INR) by coagulation assay (relatOrdered By: Brandon Beasley on 12-22-2022 INR Coag (PPP) [Relative time] 2.5 {INR} [facility] Comment on above: INR Therapeutic Rang e A) Pre- and Peroperative OAT started two weeks before surgery. NOT HIP SURGERY: 1.5 - 2.5 HIP SURGERY: 2 - 3B) Primary and secondary prevention of venous THROMBOSIS: 2 - 3C) Active venous thrombosis, pulmonary embolismand prevention of recurrent venous thrombosis: 2 - 3D) Prevention of arterial thromboembolismincluding patients with mechanical heart valves: 3 - 4.5 Prothrombin Time INRon 12-22 INR Coag (PPP) [Relative time] 2.5 {INR} Normal [facility] Comment on above: Order Comment: Reaso n for Exam Chronic anticoagulation Result Comment: INR Therapeutic Range A) Pre- and Peroperative OAT started two weeks before surgery. NOT HIP SURGERY: 1.5 - 2.5 HIP SURGERY: 2 - 3 B) Primary and secondary prevention of venous THROMBOSIS: 2 - 3 C) Active venous thrombosis, pulmonary embolism and prevention of recurrent venous thrombosis: 2 - 3 D) Prevention of arterial thromboembolism including patients with mechanical heart valves: 3 - 4.5 PERFORMED BY: [facility] [address] [place] [address] PATHOLOGIST CLOD PULLER MICHAEL SCHMIDT M.D. Performed By: #### P T #### [facility] [address] PT Coag (PPP) [Time] 29.1 s High 9.0-12.9 [facility] Comment on above: Order Comment: Reaso n for Exam Chronic anticoagulation Performed By: #### P T #### [address] PT - Assessmentson 3 PT - Assessments [id number]#1.00CD:127 [facility] PT - Home Exercise Programon 12-16-2022 PT - Home Exercise Program [id number]#1.00CD:127 [facility] Nonvisit Note - PTon 023 Nonvisit Note - PT Pt called to cancel, as she does not have a ride. [facility] Consent for Treatmenton 11-03 Consent for Treatment [id number]#1.00CD:127 [facility] Consent for Treatment [id number]#1.00CD:127 [facility] Consent for Treatment [id number]#1.00CD:127 [facility] PT - Assessmentson 3 PT - Assessments [id number]#1.00CD:127 [facility] PT - Consentson 11-20-2022 PT - Consents [id number]#1.00CD:127 [facility] PT - Consents [id number]#1.00CD:127 [facility] PT - Consents [id number]#1.00CD:127 [facility] PT - Home Exercise Programon 11-20-2022 PT - Home Exercise Program [id number]#1.00CD:127 Normal [facility] PT - Orderson 11-20-2022 PT - Orders [id number]#1.00CD:127 Normal [facility] Laboratory - CoagulationOrde red By: Brandon Beasley on 11-13-2022 PT Coag (PPP) [Time] 24.3 s 9.0-12.9 [facility] Platelet poor plasma interna tional normalized ratio (INR) by coagulation assay (relatOrdered By: Brandon Beasley on 11-13-2022 INR Coag (PPP) [Relative time] 2.1 {INR} [facility] Comment on above: INR Therapeutic Rang e A) Pre- and Peroperative OAT started two weeks before surgery. NOT HIP SURGERY: 1.5 - 2.5 HIP SURGERY: 2 - 3B) Primary and secondary prevention of venous THROMBOSIS: 2 - 3C) Active venous thrombosis, pulmonary embolismand prevention of recurrent venous thrombosis: 2 - 3D) Prevention of arterial thromboembolismincluding patients with mechanical heart valves: 3 - 4.5 Prothrombin Time INRon 11-13 INR Coag (PPP) [Relative time] 2.1 {INR} Normal [facility] Comment on above: Order Comment: Reaso n for Exam History of pulmonary embolism Result Comment: INR Therapeutic Range A) Pre- and Peroperative OAT started two weeks before surgery. NOT HIP SURGERY: 1.5 - 2.5 HIP SURGERY: 2 - 3 B) Primary and secondary prevention of venous THROMBOSIS: 2 - 3 C) Active venous thrombosis, pulmonary embolism and prevention of recurrent venous thrombosis: 2 - 3 D) Prevention of arterial thromboembolism including patients with mechanical heart valves: 3 - 4.5 PERFORMED BY: [place] [address] PATHOLOGIST CLOD PULLER MICHAEL SCHMIDT M.D. Performed By: #### P T #### [address] PT Coag (PPP) [Time] 24.3 s High 9.0-12.9 [facility] Comment on above: Order Comment: Reaso n for Exam History of pulmonary embolism Performed By: #### P T #### [facility] [address] [place] [address] [facility] PT - Orderson 11-12-2022 PT - Orders [id number]#1.00CD:127 Normal [facility] PT - Otheron 11-12-2022 PT - Other [id number]#1.00CD:127 Normal [facility] PT Coag (PPP) [Time]on 11-10 INR Coag (PPP) [Relative time] 1.2 {INR} Normal <=5.0 [facility] Comment on above: Order Comment: The r ecommended therapeutic INR range for most cardiac indications is 2.0-3.0 For high intensity therapy (i.e. mechanical heart valves), the recommended range is 2.5-3.5 Performed By: #### 5 902-2 #### [facility] [address] [place] [address] Prothrombin timeon PT Coag (PPP) [Time] 15.3 s High 11.9-14.7 [facility] Comment on above: Order Comment: The r ecommended therapeutic INR range for most cardiac indications is 2.0-3.0 For high intensity therapy (i.e. mechanical heart valves), the recommended range is 2.5-3.5 Performed By: #### 5 902-2 #### [facility] [address] [place] [address] Coding Summary.on 11-04-2022 Coding Summary. CD:[id number] Ww+PGh lYWQ+IQ1UKONwG18slJIyiZ8dE 0NMTElOSywgQVBQTElOSyIgbmF yEY9rjWNcQPUt IC8+SD9eBFSdMspsiHFac9I1oF U9M98ltp9gTLcnlYI5AACsSoYc qjpxi3gnfUv2OZjyDahpMqVp XBPgjB84WIS7yG70Xc55eGZksT Yea4twqLh2NvEkWURsCJC3lMip NQlqk3QfXJWdB19cdQSaq3Z4 PSRhgYdsjGCtJlRufDQ1rM9iGZ tckwcpw9lqpjylPbq7az92hYFw y8Q0uYW1Q0IimfT8GLGomIIx KuvqoDCXuD1nzbmvc1sqtzskAn QsLKSlXYg9WNu5AHPlbTlkBpTk VV56LPK4PRFcpeIcT7XlBXNq xIbiAtJ0t5M4Br1TF8MIJqbcL9 VNTUFSWTwvdGQ+ZO72bw83J0Dq QvnkCaj8MTHtMWH0wIK0pY6o JMCsMVsqp6J4oVJ7I3BpwdCqld 6gf8ijEDDsSJxyK32tlSBba9A5 XUIqqHB9QEGemQdbQsQztX53 Oyc+WEVegMykk9NwBxahx7mzm3 pwhNu7BtskRRDujeAxuWqqVPU6 j9QkYm4xUURsfAZ9zEP5mF5s EeMcXpJ5LInvJ904WxWltYIcNi pfM46wR5AlmAC+EAIdPcn2RSHn iScoCQ0xL9LcRBSdccthqUJs cFgpVQ4wIDOpuwshIRIwoZ7cBW DqJ1b1CnSpDvX5RKisA1AcPJZf dhroWz93qQ0lAbDnJkK0PCkw O3VebcJ3MAOqyHQpMDljBCV3N8 6lm6U3XOLcQLDxNSL5hFZ5uP3x bGlnbjogbGVmdDsgdmVydGlj VYdmDMbtC409STPfkXolIrQmIX luZyBEYXRlOiAgMDUvMDIvMjAy MzwvdGQ+KTUcOZG0dDduQQYe oNBvEGeyRf6thUnzbEbhKN2dIG ChyzubJVVouM0zLDHxcGFbkCgn FY4pGKZiaathe961WaFzGVF2 TSNknVIvM0HmfH5fFtQkFPOmNT QzU0SejDXiKAywU855QQqxAkS9 RITshkFgD1YvCFLogTfqQhY4 h4K0Cs5Di0DsxduiN8ZkwGKvNp YeDjctCHl0R5BwMnxoqSN+PC90 QZTaER37JYn6MQM1rQguONca CACaZ6SevI9gOvPlAXFfGIZtDd c+PHRhYmxlIHdpZHRoPScxMDAl SxLdoVimJV6pGn9zQDMeHVWx lYkemREoVpGsk0ssNFCsJIrhRH 1ntRdoZ9XccJE5ASGpf5x0Mp42 L37cQ9VhvHL+UKDzjVS5dSZ3 oE2vUfLjTtA5BIslA798RhUmeU GxPunoj4sde7rpmBk5TfS5USNx bmWhiFdiNPQ8m7HyDx33B37s IHdpZHRoPSIxNSUiIHZhbGlnbj 8uvH2pGa6+MCUqgEP6eNQ3tQ8k OsPhTwS0ZWwdE032ZuOgzAZs Avzwk6yqw0pknEv4QeSdNTBzlk UslFuvCDH7f6SrOy04X4VhnPpy o2IsOaf7iv74uNPlj4I2vGW4 D5JuNUKyltnhmPQwnNfrYC0bBM RzdoqqWKRekR4cIHClG1h3AtBx MsM3YJhvU4NchvT6ATRibFLl DSFsmYLLxS1yzhcdf7cddeylEh LiWPRhBCk8QJc2TLGjyDfvSrDy YMJ0XuE0KBU2oKCrtB9cvMqb leynxZ7yMxf+YOV6sJQnoEBBSQ 1lOjwvdGQ+FDUzGZR1oRuaBGec BWFfrI8mLCRwA7j2ZiAaUoE3 QNznQ8PnvxI2URJpsKHeCTPaoR TUoF5ifygxf9aypivkKkEnXTJt JOt9CYd6GXNseFxrEgLoMVF6 GkB9XPK1xMZmoL2ahTsxttkjbX 9wOyc+ZlxibYroPDZ1FRg1Z6Eb Cfq3PZTkwEnoQU1hqSRdFRlq Im0mwGccoCkkWJ0mVWUxvgoru4 46JlZpo5qiKPNetCKiSZktBUQ2 I58qy6V3ELPwZLJjCEZ2iVV4 mJ3mnXqcngofbQIqpQtqanRuwN gkCGnwIIvpO617NSCsmUxqTvWc QZc3G1KqKbx5UBCusQfzLW8t dLRbNEssIo3mqCfmoApuNS1sGJ Rnolgsz797IcVlg6xsFBCuxKNb UAurTCG4J66qv9Y5QTMuCWPt YDC1iSQ6mH6hqKzkozbuiSKagZ ctegVoaOxgVGiaTRudM983QQBg aSbtFkMicLz4Y0ZeDmo6KADn oYxlNT3fvCWbUPrwEy1lqRsrjK qeHA6xGYUqkyehs963EfGou6el GPJatZYlOMpsZZL5H37dq6Y9 JEAwMOGcISB1nAA0aT8lrTapxv ogbGVmdDsgdmVydGljYWwtYWxp Z952VBKpgDlyGfDfhCquvyIr VLivVRk1R8ZdDbzcwWG+PC90YW RhEN28bZAthOGqx7jgrNt9FcYb PYMmSAR5sXasWEhcs5MpRVRs Z07fwRIsy9G0VWDetJymuPGlEs YixSF7rD3aBBivjopvh0clfbai Krcus7hzji71nY16J35vXCcx LJRyQGNdDRCkEBQpgCueqv5mfX 9wIi8+FAOqtLK4gBD0lJ3mFNZo CjI5TDqlP263NbXajZGlVaqn p2xoh0ashVe5RlR3GTMhvhXewQ sdATN1l9FzRd93W45qGYqdKTSg HYQoKYGoISPycYmmca2ldU7z Ii8+XUXmaQP0xGA0rA7fRfOfCg C4FQdxP095WzOqcGCwAymaG15e G4ZgrIO+IWQbPpx4CODreXdn SU6ibHWuBUlnTm3mDVX2MbVrCb QsJStrU2VnSCZcaojgykwehJO0 SIGwBMDefH23Su3gwAgaWDHe fIHEsL7ccnmoh9dlxtxqHsKwOD NhXGx8XUu6XDSwlXngGpAxDBI4 IwM8QNL2xQQgnK7fmBwxazpw iX6gM4ZdRFMgrjetAq32uE1mLv QuEpK9VCafOac+O9TYCRnuXKgC EOtGKWS8J0TsGgo4JCDncMjg BI7fzAJmOHdwPq8tnKrzvKysVJ 6mCQEhumduIQUbxB1lUKDdeEVm fDlxKN2cJJDltoojt177GkUt FJN2XCXmiOGiW7JupE0bPlFnAZ SbELKeR2RiuQWaJAtuB364GOxg TgS3VUZgidSgO5HzDWQonWoc FzU2d6N2Me3tHw8dXI9qISnuGR 42WX71rUKrz4O9zLA1B7NqLFJm azdzuhcvwGY0KJBbPNExnC13 aFIxGKhiWv2bl7O9c832WHJjGF XwvL74Ho9cwIoyWFCwkJPYnW7g ywnbk1uwyavcOmRbVVLvYRc7 XIs2HSHwuAqvKpGeHBE8MaN3ZA E0eGMlrD0npDbtuhedsZ2rNtg+ NFZqTPMctzV2K4CmVnk5FBJu bUyiXF9wsNJlUZocWj1rcRltuE qmYF2zLBDugjlqOOOywO0pFRJi dLHjtClnRZ1nJXJyjxjnx770 OxEqFMU5WKEnsQThR8GuyF1dFe CtSTOzMJPpS2DkfZTrGJvuG326 TKioScQ5KXCqgbBrD5PsMCYn mBgsQuC3j4P5Pf3EEW9kbNX4C5 OyFav2OWCqzVufQS3cxQAcIAcy My9yfQfulYrjAJ9nEVVemrln MVIhdO7kJMYugGLvqBtpPT4aLU Fseahyg919RlEqQPR6UILjeYFs Q1PcfM8qQoMoBQWsQSIrB4Lt bIDyGWpkQ928BCtlInT2CTVisw OnG2TcBYRjtMbrBxK1f5J3Rj3S qTMgAQAcEV93XG66AQ03F3Lo PjwvdGFibGU+PHRhYmxlIHdpZH KxZFieWFWaUnNfyNdpPI2wCb9d LZJlMHRjdAvehRMuHsJkj7az GIOeZGxeBC8nkIvqQ7TawQF2HW Iiu9j9Uc47Z09yT9WurCX+PGNv bKN4tKO9oP2dUxHbZiL0FFvi E192YnDbcQLbZiavw0edz6nmqX x4TpZcISGhoaElgRhsTKZ6n2Cp Mb03E34qKOznFJLeQTRyIJUr TVXcyAsxlr6ovT4oVo1+PGNvbC A4hSX9xM7nWqPvCgS3EQilT964 WrGkmHIvQnsuQ22pG5PijTF+ YJPfUtj0IGSfbKstZT0cbSPiRS meLh2uYRH4LdBfNpVrSFmlZ9Vt SIEgqubrvywliIU0VBYvHOKm lU41Xo6vmCgiRq2lWXBrBUG5AT NgvQYkJ6PrgN0mAaVwANThJLPm S2AabJVnAWukH581LMyfElP1 AUMtabYaU1AeVUUmlFjuFyX5v9 Y5Zp3ExQcobDNbUU0dCmEuYQa3 C0EsEro2SBAjzBizRQ5ovOQx OKkiMc9tuHzuwToyRU6kDPVgnq cll708MqBtb9puEEPvhOXoGEgn EBI5D09zz7U3OEKfCORqYBB8 tTH3oY4aoXltkcpleIDlaUmlzk XieDmrDUkfPMoyN366ETWucJyj JeJVAwg2K1PfYeg8WDTmhNso KV4dmUArQGkyPa4giQqbuColXV 6zIZSdjprfo078AuCal2rcGSNp vBNdZCztGIT5T60xq9R1QZAd OPFqMDX6zTU3qC4xoCkibgaliT XjhGvddbPljLkwICumEClzH192 VCVthKpsBa5KRco0S4UdPod3 QIYgpKgqNG4szSAuQGdgTs1duT tqvTqyOZ5qKSKnnfsot606WxQl s1mhYCJsmKOvHSpsNLH7D89r q9J0YMDtVGCgRDI6jQF7tM8rnX lnbjogbGVmdDsgdmVydGljYWwt UUokJ293VRSjmYbrUkPqhWBu OjwvdGQ+XL41js18T4NzEkvqTt l8DEUlKSM7yAT6cQ4gDVCvYNhp k4D5xZT5B2UmifMyqh6by3so YXBzZTog (more content not included)... Normal [facility] Basic metabolic 2000 panelon 10-27-2022 Anion gap [Moles/Vol] 8 mmol/L Normal 6-18 [facility] Comment on above: Performed By: #### 2 4321-2 #### [facility] [address] [place] [address] Calcium [Mass/Vol] 9.4 mg/dL Normal 8.9-10.3 [facility] Comment on above: Performed By: #### 2 4321-2 #### [facility] [address] [facility] [place] [address] Chloride [Moles/Vol] 103 mmol/L Normal 98-107 [facility] Comment on above: Performed By: #### 2 4321-2 #### [facility] [address] [place] [address] CO2 [Moles/Vol] 28 mmol/L Normal 22-32 [facility] Comment on above: Performed By: #### 2 4321-2 #### [facility] [address] [place] [address] Creatinine [Mass/Vol] 0.80 mg/dL Normal 0.60-1.30 [facility] Comment on above: Performed By: #### 2 4321-2 #### [facility] [address] [place] [address] GFR/1.73 sq M.predicted among non-blacks MDRD (S/P/Bld) [Vol rate/Area] 89 mL/min/{1.73_m2} Normal >=60 [facility] Comment on above: Result Comment: Effe ctive April 13, 2022, calculation based on the?Chronic Kidney Disease Epidemiology Collaboration (CKD-EPI) equation refit?without adjustment for race. Performed By: #### 2 4321-2 #### [facility] [address] [facility] [place] [address] Glucose [Mass/Vol] 88 mg/dL Normal 70-99 [facility] Comment on above: Performed By: #### 2 4321-2 #### [facility] [address] [place] [address] Potassium [Moles/Vol] 3.9 mmol/L Normal 3.6-5.1 [facility] Comment on above: Performed By: #### 2 4321-2 #### [facility] [address] [place] [address] Sodium [Moles/Vol] 139 mmol/L Normal 136-145 [facility] Comment on above: Performed By: #### 2 4321-2 #### [facility] [address] [place] [address] Urea nitrogen [Mass/Vol] 14 mg/dL Normal 8-20 [facility] Comment on above: Performed By: #### 2 4321-2 #### [facility] [address] [place] [address] Urea nitrogen/Creatinine [Mass ratio] 17.5 mg/mg Normal 12.0-20.0 [facility] Comment on above: Performed By: #### 2 4321-2 #### [facility] [address] [place] [address] Hemogram and platelets WO di fferential panel (Bld)on 10-27-2022 Basophils (Bld) [#/Vol] 0.02 10*3/uL Normal 0.00-0.20 [facility] Comment on above: Performed By: #### 2 4317-0 #### [facility] [address] [place] [address] Basophils/100 WBC (Bld) 0.4 % Normal 0.0-2.0 [facility] Comment on above: Performed By: #### 2 4317-0 #### [facility] [address] [place] [address] Eosinophils (Bld) [#/Vol] 0.07 10*3/uL Normal 0.00-0.70 [facility] Comment on above: Performed By: #### 2 4317-0 #### [facility] [address] [place] [address] Eosinophils/100 WBC (Bld) 1.3 % Normal 0.0-7.0 [facility] Comment on above: Performed By: #### 2 7-0 #### [facility] [address] [place] [address] Erythrocyte distribution width (RBC) [Ratio] 12.1 % Normal 11.0-14.8 [facility] Comment on above: Performed By: #### 2 4317-0 #### [facility] [address] [place] [address] Hematocrit (Bld) [Volume fraction] 43.2 % Normal 34.3-47.9 [facility] Comment on above: Performed By: #### 2 4317-0 #### [facility] [address] [place] [address] Hemoglobin (Bld) [Mass/Vol] 14.8 g/dL Normal 12.0-16.0 [facility] Comment on above: Performed By: #### 2 4317-0 #### [facility] [address] [place] [address] Immature granulocytes (Bld) [#/Vol] 0.01 10*3/uL Normal 0.00-0.10 [facility] Comment on above: Performed By: #### 2 4317-0 #### [facility] [address] [place] [address] Immature granulocytes/100 WBC (Bld) 0.2 % Normal 0.0-1.2 [facility] Comment on above: Performed By: #### 2 4317-0 #### [facility] [address] [place] [address] Lymphocytes (Bld) [#/Vol] 1.79 10*3/uL Normal 1.00-4.80 [facility] Comment on above: Performed By: #### 2 4317-0 #### [facility] [address] [place] [address] Lymphocytes/100 WBC (Bld) 32.1 % Normal 17.9-49.6 [facility] Comment on above: Performed By: #### 2 4317-0 #### [facility] [address] [place] [address] MCH 32.2 pcg Normal 27.0-34.0 [facility] Comment on above: Performed By: #### 2 4317-0 #### [facility] [address] [place] [address] 19803 MCHC (RBC) [Mass/Vol] 34.3 g/dL Normal 30.8-35.3 Har[facility] Comment on above: Performed By: #### 2 4317-0 #### [facility] [address] [place] [address] 51068 MCV (RBC) [Entitic vol] 93.9 fL Normal 80.0-97.0 [facility] Comment on above: Performed By: #### 2 4317-0 #### [facility] [address] [place] [address] Monocytes (Bld) [#/Vol] 0.45 10*3/uL Normal 0.00-0.90 [facility] Comment on above: Performed By: #### 2 4317-0 #### [facility] [address] [place] [address] 275[address] Monocytes/100 WBC (Bld) 8.1 % Normal 0.0-12.0 [facility] Comment on above: Performed By: #### 2 4317-0 #### [facility] [address] [place] [address] Neutrophils Absolute 3.24 K/mcL Normal 1.80-7.70 [facility] Comment on above: Performed By: #### 2 4317-0 #### [facility] [address] [place] [address] Neutrophils/100 WBC (Bld) 57.9 % Normal 38.1-75.5 [facility] Comment on above: Performed By: #### 2 4317-0 #### [facility] [address] [place] [address] Platelet mean volume (Bld) [Entitic vol] 10.9 fL Normal 6.2-12.1 [facility] Comment on above: Performed By: #### 2 4317-0 #### [facility] [address] [place] [address] Platelets (Bld) [#/Vol] 236 10*3/uL Normal 142-424 [facility] Comment on above: Performed By: #### 2 4317-0 #### [facility] [address] [place] [address] RBC (Bld) [#/Vol] 4.60 10*6/uL Normal 3.74-5.34 [facility] Comment on above: Performed By: #### 2 4317-0 #### [facility] [address] [place] [address] WBC (Bld) [#/Vol] 5.6 10*3/uL Normal 4.6-10.2 [facility] Comment on above: Performed By: #### 2 4317-0 #### [facility] ([facility] [address] [place] [address] PT Coag (PPP) [Time]on 10-27 aPTT Coag (Bld) [Time] 34.2 s Normal 23.3-35.3 [facility] Comment on above: Performed By: #### 5 902-2 #### [facility] ([facility] [address] [place] [address] TSH SerPl-aCncon 10-27-2022 TSH Qn 2.41 m[IU]/L Normal 0.45-5.33 [facility] Comment on above: Performed By: #### 3 016-3 #### [facility] [address] [place] [address] Outside Records Officeon Outside Records Office [phone] [id number]:127 Normal [facility] Coding Summary.on 10-18-2022 Coding Summary. CD:[id number] Ww+PGh lYWQ+ZB3JVSUyK36eyIRvbG8vB 0NMTElOSywgQVBQTElOSyIgbmF nPV2bdWFiZNRh IC8+QE3zNBYgFxdetLFfp3A3bC K0W55tkj2lKYdybMV6ZBPpPrBg vhgmx4ormPm0PHlnHjjhPqLr EKIaiI24PAS1eQ48Ew58iKYofU Abd6edcBe9AfVoSZRqPCG5dXvc TPvma0IcRWGfX90ndQNuc9Y1 QEMmzSrosBOcCsCpjAU4oQ1uWR tnydobs6bgamytUnp2rj84kQEw g2P9yRV7Q3HrphP8KZEnkKWj OoagbNVOkJ9lrgymg3wmgmszJi VqXQYdJYi3FJj8EDOqjFmtNdNa YS10UGX3FZRdtvCbX9AsMPKz uYkkKeB7z5A3Hm7JN1ZPLclpV7 VNTUFSWTwvdGQ+DJ40qi63Q9Kw VxwgFmz4RINaPIZ6jPR8eW5j JHRrZRfhe7G5lIB0T4XrwfQdxi 5qp5xyXPWuNZciH49xqZVjv0E1 JESppQG0VQZabPfmKoScaC10 Oyc+ZFJanLmdb3TtMbseu0puz3 qnoWi8XldmAYVefsGfwRyhESJ5 z3CcMl6sEIWxyXC1vLC1mU8z MfYkNhO2XZfqX196VtClhPPlHk trI17xJ9TjlYU+HDTaEjc6SHZf gTbmJK7qR4IiXFYziyazsRZo zKvbOU8hLHDsfsimTEYqiQ8zCQ YnL1p5EtUuDzO3RZqdT2XrRSZh musrPj13tH8eZsYaRmT4UXty H7SdqcI2AYDpmAEjBSboTHK3W4 9np2M9OGSrRYDvWUB8qFM3hO0w bGlnbjogbGVmdDsgdmVydGlj XTivWBycO097YQHxhFriUbOrCB luZyBEYXRlOiAgMDQvMTUvMjAy MzwvdGQ+CWMoEUF2pAeaLNGm yKJhBHrxNa9auSohgPogZN7uFI FwewvzXMLfeE8dRYGuiFAozBti ZM9vKJJnusxay994SeUeFTJ1 ICAtxGPyX4PtxO0eBjHzMTRiHG ShX2VlmKKcJYqiL516NIgoBgF1 BMNnnfJqQ8CxQPVhzOufEdZ5 u7B4Un9Wh2UiwdvjN3SloPWhBc JdXsdtHCz8D2XeAyqjaQW+PC90 AIDfZE85GLl0RIP1hIhjPLyj ANHgV2GklA4tHeBdVYBaAIFwOk c+PHRhYmxlIHdpZHRoPScxMDAl CpWevKriYN1wZs3xWJUoPLCy cPsonSQtDzQyg0agARZyJYpkVW 3msZdkU6EdyUF0OVJut1e2Jn02 D98mV7ZfjDU+SLPzjYC3jKB2 wG8oGuVpFtL1EUdlV276NiFfmV IgQairc2wwt6zjuNi0PnQ1IJOp urTqzGsrIBK7m9TpVp43H79h IHdpZHRoPSIxNSUiIHZhbGlnbj 2vqA0rIe1+YLCuhRU6aZU4rZ4f KwIeDbE1BAgoQ466AfBebVBt Tymqs1vhc5djpRb6MrVoCTNehu UryXnhRMG4c1UhCd49E1EinPqb p0OsPae2wi02nBHnk9F8zJK6 B3WjWRXvurfyjQYweOqxEE4kWW PfyqtaBLCsdJ7aSOBmR8v2QbPr DdJ3ACpvL1CrwnS6YNLyiEJq VLWhjKSNpZ6coecop5mcmhlmVj KdVGFnHWv0HZt8LKTjkYeiVyXc RQU1PoQ1ABA8hPYtmT5ktQje ifgadF6rBze+XPC5yMMmkRGAFL 1lOjwvdGQ+BKKsTYO4uGdvCLcs NKZztI6fNNRtX8e0DmXeOoM1 DWljX2LcezH0QNSprWTsQLAtbL JOrK3cgyrjs8acrpfiPnVsFUBp RHv9COk6MWKgaQdtDxCtHUR2 PcP8FHA9yKZryM1njLbyufkemN 9wOyc+OcyhsZuyJDH3QFc0Y5Uq Bwl3OEEgjVclOT3syACbJYmx Gi5hiTeyfFgiYQ0wSWOtiegtu5 91BgRuy4axAEDsjRTnJNqfXMI0 R65gx6F6KZLcNPMaUCB6hQJ4 jA4riFjvqtyyqRKpvHnmuyHfqM jsLGcyRUibE657JNQxoTuuZoSf MCa6T3PnFwu7EFCedZgxJO0j bUMkHGueAb6yrBnqzHlkGL0wSX Kcasqiz578GlLrz5elMSMrxPTa VBvcCVA2U92no3O1BSIvRWEx ZGJ7rZB6fS0lwWecmmyqwWUpxI thoxXalPcfSNduZBvoU724JYDj xBwvPhFkjBu8E4HpQts9HOVn cQmrPK2cyEEjOPtpFb4exBrztM jhPY3oENSxljwdv299PnOpr3ab UQVmdOWdCJphKEO3N97qh8I1 HEMnJIJbGKT6wJB4cX4gyYigfr ogbGVmdDsgdmVydGljYWwtYWxp X156VCJjnIjqIuVwcApxovWa HGfiNQk6I1TeAvxycJK+PC90YW CgUW43yXGncRPse9iueFa7VcIt ZRCyHHG6sEdlQAiyp5JmLBLl O96caYJhv7R0SQRyhTtsgHTyVq PdgYY5jI9qQDwtoylyk5pcnyln Ncvxz8lhoe45bC93V11zAGim XCVfJMOhGQSeHYGjrNinie0zkT 9wIi8+URItkKZ2hOS2rH3vNFBi ZcP5EWvsE330VyXzjNScXtjj w0laf4wdtPk7YhI6UZPvvsUjpX uxPIH1v3WoIt82F60bSXoaQFZy YLMqPQZpXVNntGayum3xxD4f Ii8+MHMxgZM8lUD3oB6jBfOdAa T5OIztH668HiTohIAvLucnC17t H5BhbHJ+ZDVvTac6YKNcqWbk NU5naSIkKAfgFv6tZJX0HoZhTe DaPAkdJ2IjWXYtsexvobodiKT3 GKBvNHAmxP52Cd4upHgtFYOt cYAXjP7grfdzm5fahjexQsIiKK HeDOk6LGs0KJQulDuwYxWqMNQ3 YcJ0SWE6mANsnG7mlHdmenie aG7oQ8MiAQCxgzcyAu41wP0wGh KpPfI9AFmmSkf+X3MJJJqhZAfO DCkYMQC2X9UxAwp1CDJvfRgb UM3lrBMsZEddGv9zsJhoeOipCB 1fXOTnhxmoTPVoiY6dOIFfcFOh kVpcJL9aUTCuabsfk932WtJe NLW5MTCxxYObN0MciB4cGsHnVK AgAPKkF8OdbSDfRPffB618BJaw InX4USVrhhIwN0AnGLRzsUfg SiO1t0C3Dx2pIl8wTW0cSWqvUP 10EB56xYGod1B6pVL3N6PqBBKb teeuiyjyuEX8WLIiDIOfmP70 lKEbJDkmPb8rj9E5q926YSZqRH LjyW72Cj0uqUsiLDEwxMYEiO3n aqxsj8vulilpHvGuUEWcSNl3 ZXu3SZDtmBxgZnBsKCU5TiN4HM V4xJCacO7lvQjgtxkjoO4eHre+ FPKeTLEyneV0T7KfMkr3ZKRb hJzhHU6mhCGuNRgnFx9rqPiusY dfMK4mDOTkvkeoESQrqN2uCZZt uDEoaYrgRX9wDDXartano813 FwIkHYY7LCDxlVHpM4ByzF0bDj OpNCSlNUTyO2ObjIWsDEqfL171 TXacGhX5LKLmkiTqP4VnFFAb gEsjNfR6d1D5Qi9KPW9dcCP9Z5 GsHjk3CPCfsNqgEN8fsJGtMNrm Um5ruUsoiRdwHW7sQOUnthay EVZsuQ6wVNOyiXOgvBzjOS2wVZ Ewcxmqt212QmUtEAX1XQHkyIDy N5UfqB2uGwZpGXZpKCYtT7Ja pDMbLKzaA050DGleKuR9NWNxds OnZ9YyUMGwwUazMrA8q9W9Og9O aPAuREZzZE97LE77UX81Y0Yd PjwvdGFibGU+PHRhYmxlIHdpZH HbMCblNIOsPfNtwPbuEB9nYr8j AYLcNFKymVbwpJHePtQup0hm XWRuONwdSY0drTmnF5KzjIU5VJ Bbr4e8Cx47C59xR0OwdBS+PGNv sRW5uSD5iV5oBcLiEiC8TPkc A221AnBifLPnShfgb4npv1lqyP l1KmJvQBFstwCdlRqeFHU9o8Zm Cz61M41uEWueZURtTFBnFZOk CAMgiYxeyq8jpQ7qQe1+PGNvbC L2iGG7oI6aCuLfRyX7ZAlkO652 HfJkyKJfRgiqU07wF9UiwDF+ EAWqGta5BHYegLfmHC3raDAqAM szSw1dRMV8ZoVjZqBbXJgtW6Sy EQGeawqpmqpdxUB5QSEqUFHo hO79Zt6jfZpkIs6hUCAzUYH9BT UieMWsD2ZrzS6uYuXjSFZlUILy W0TsdTZlICshW589KYhqKgG3 QOJppnVmI5ZpGYKydVnaTcF6r6 M7Ob9EySjlzYMmPZ1mUeFuYMk2 P9ReBwq5FWBccWdbZC8qlWWk WOhrXl6cpOuscXtvGM7jJIQsqg icb701JkMdh2ybHMUyyGIzZXcr TGL2P06du3G4EHBgCMMpCPD3 aAN4uK0drCyhucivhILcaFlsii SivHwpJPsjCNoaO297SMBhhBvo VmVZUuc5C7NpDnm4FLQguUfz DJ2trDYeFNuvWq7acWuyuXjeGU 3uEWRkkkciq737CjYmh9wmQVKb jDQfPAviPYH1P43kk9Y4QUPc HXToFZV1fQJ9jC0hjBsukzqqeH KimDbqpxLpfLfaLEvtMQroD796 SWNnaEblFn4IZyz2E2RfAdc6 ZIUfnAllPE7igHSyFKwpJu5zoX sklSpgTZ8zOQPbixppq388BxBu g5zrHTEalFSsVZtgTSE7R05d q3Y0POVwVMPmKTY2mJY4pN7zvE lnbjogbGVmdDsgdmVydGljYWwt ANzpJ862PXPwbMxmJxNqvWMd OjwvdGQ+RZ67df03W0VgFjydPa r9URLrQEQ8iOT4nK7eDLHwPAzz f8G0mYA6C3HqnzThjz1ok2gw YXBzZTog (more content not included)... Normal [facility] Coding Summary.on 10-14-2022 Coding Summary. CD:[id number] Ww+PGh lYWQ+UM9FQIWkE22lsTUysX8gB 0NMTElOSywgQVBQTElOSyIgbmF yQG8fsLHsJXYd IC8+MJ3pUBDfTaanePIhk1C1gR N9G25lbb5kNPlmeEI5MWFvFuZf icfzy3vwzRr6JBraXgetKnAc SBSbpD32QXH8gM23Xe86sZIwtX Jwx0yxoLr2PoFhHKCkAUF2iLkr UKrdr9CzUYVlR32udFFpd6C4 GCQxgQayhMYhZpBszZY2wJ4sEZ avcjweu5auklbvTje3gc79lTRb h9F7sQF1U8TmniU2DIBecZIj EnbemKWBbE5noxdva6eynsfnKx CjYIJvMVa1BRx9ALBzpUzhKoHz MX85VUT7QRHiukBvP4FuLGKz vIbxGkJ6z2L3St5PK3MPSetfU6 VNTUFSWTwvdGQ+JQ50nu92T2Jm WrvgJqf5OZKdMSS6fKF9hN8f KSZlNAvyg2F1hAT7S2HivfNmsk 7on1eiEEFoLOmwL18voQLny4J3 WPJooDZ0PXNvkWnqKqNsuM32 Oyc+YHFoyGeok1WwZclsj9qcq1 tdnOa4OjggBCDawnUjpQgmURL7 g7QhEa8mFZNyfUG1bVE4zU6e YfVnHjH2IYovT613ViAyrMCuRb wcE40sN0BnoHZ+BSDzPnj1GQYi jVovNQ4nC2QfZGNqoxszjEUf tQxlJN3iGLBtberrTEHdoB9pXH BjE8k3CcFvIyD6KUbiN1HuNACl bbtyJm14xT2xDsBzUdM7FYud P8BpqlC6LWZewCZmDDaiYQI8Y8 7vw7T3LJJtGJTeTCQ8uIZ0vK3e bGlnbjogbGVmdDsgdmVydGlj UJbgSBnuD744OITfmWbfIfYgEK luZyBEYXRlOiAgMDQvMTEvMjAy MzwvdGQ+WPDcQTZ4sLrjLNWf bVYfSAecFg0smBrwcChvHJ3dKW YfyjfmFWBftF9qPEZveZVfcHwz HG0yDYXigwfwd516GnFqQQX1 PFOciJLkN3MmoL9hGxZjRBVsRX RgK5ZvhGFyVUckH406HEmaTmG0 WMXhbjQeX4NzUKUwsJbzVaG4 f0Y8Ss5Gx2NdsxciY9IufKCyBr GpJpqwHGu7E1QdImhdfFU+PC90 KKXoEN67OYa4BGP3xQmtCKjq VOCwS6AhdE2jYeCoMIWkDPWuJl c+PHRhYmxlIHdpZHRoPScxMDAl LqWweOnfCI6bMs8jYVFhBBYd pGucmGIlArFir2blUILqDFpvVG 5dzYvbL1OgjZP0PQGli8a5Cp39 S16bJ5UkfSE+GHVcuFL1fBU6 sQ3oBkZfBnG4KBdhD407QlAqtI LeSydbh2jwl2smvCc7CrJ5FEEi ldIjqMwyGCJ8w3RjAg41G15h IHdpZHRoPSIxNSUiIHZhbGlnbj 1ywT8mJy2+JXCfpLE7sFG3qW7z PyYpZaD5VEokF298OcLhyGKf Nstoi6qjn9zsyRd1PySyDPQpmo JcwQtjKZM9k0CmRx69J8YpwFot m6ZnNvz9mo61xPAms6O4xLL2 O7DmIXLmeckarIMabGsrAH5eDR ApldrsTKEtdS6yGXLfW8l6ChMx KiA7GQlnU6IgtyB5WIYbyKOe JTVojOVGlT6arctcp8abjeecZc LcQDMiIXz7NGz0XZCdsKjsKlSj IWE1BiE7QOJ6rXPmkF8gdVuu cbxsrJ8bRfu+LIK7hBCukRQTQB 1lOjwvdGQ+VAUjARI6gTheIWno VADgwM0zWLEoW7j9NnEkGhL7 LXhbQ7FalsR0QOKcfVGaTZKtuD PYyZ6abbpbf3ffaongNgReIHJl VBj7VUr2QQDgnOqhEzYuXRH2 YsP3YXX2jNOtzO5ueParmwnntO 9wOyc+CnwonEwcGTE8FBi2R4Vi Tzf7KMVfyAasPK2ziBSaHFvm Lo5gkGpdzXqdGR8uGZQrdgtiq6 45TtRcb4ysCNGdtZVhTNjeCKT0 B13ya5F5BXHwJLByIVD3qPH4 nB5rrMlnkcjcpKDbzQniupNrrI akVCyoMDxqY734EKLakQtjFcPk OPk8I7YxEuw0WULrfClaOV9l uSNlEDwxGq7rkNkvbJvgDW9lQN Wzkaqvt340CjObe6wiETRowQWw CXagNIN9V19vd3B7QDXlPOLw YMH6mKU5cP9gdAsgzpvjgFLlzQ awsbAdkLneXVdaSAdwB528VNCv nGisIhJqlZm8H1MlHta8YBDe fHalBP7wnVQzTTmwNy6ahWnmrP nwGJ0mGKOjhhfqm197ZbFpf3za WOBrxGIzVEhqCZT2T02of2U9 DNUgNSKcLIC5qKK4qS6sbWsllu ogbGVmdDsgdmVydGljYWwtYWxp D897BFTceXuaIyVjtJwmkvRc GSvfVZk0L3YgGuaquUJ+PC90YW UpJQ55tPGjzRXdj9slnBr8UtBz SRPbBIX3wZmtBLwcg1ImHMCm W72jeCSoh8S5TIHsiYdqvDBbKn GgxUG3sY6nEDogmbmiq7xmihgh Brpcw9nilx31nL93T58sNVjc XYHsZJFfQIUlHBVydTyadp2myY 9wIi8+MBRlgAM1cVA5dZ9yTGWl VnS6YVdlC239TpPnrPNsMznc m1qfe3aefJs5CvM4FVEdnuExcE cnRGD2z9VeIu24E35hPRazTEFc CAYpUTMeXXShvMyqlr2kcW4w Ii8+VCXycDF3fPV0nA6iXlLlUh P4KPmoG827SqZkkIAcQzknW99a N9OajEY+HUUhGgr4LMPawRkf BL9xkRFfTCdlGa5jLIQ3DzAlNk NfPDtvT2LgJUVazoqucfxgjIB3 DLJvFVQveB42Gv8krHigAQZv nMFQyI8zgflwq6pjjupwBvIrOI VyPPq1FYb3KFBxaLnzNrYpJMH4 NrW7BJC7nSCuxG3qhWblqxjf oM5cT9TjNVRzyrdrBn63iF7wCa TvRqY1ORndMrr+X9ZMTCaaMEeD NOsBYCT2I1VjMpr6DOBbvEsd WA7wlRUwKJhtWm9saMvptHiiNH 2kOLGwktbiWIIgrE8vQVZluFNt lVlwNQ3tLXSphdqjj595EnKy JFV3AOIxgZErP6RtwD4iTxIjTV KgAQGjV2DezETkVRavQ955BOon TuQ3NLMujhEcX6OoEUVvwXvo SxP1w8K2Uk6pOu4dHY2rUCpsOY 48NY13bFCga4A0oWP5K4IwCPEy ibwvxlkkwGR6XHWnXISkkZ10 dOLtISyxSv4oo0V5x934QAWoOQ AyzR13Jv7spZzqJZIfsJRTzA4b aormr6jjidevDtDyNDTtTLs7 QAr8VWIagLxkDtFqVNZ6DeF9TE Q0kADfvI9atQrgqutgnB7aYls+ SSOqOMGiirN0K0MtNlx9VKLl gKlfJO1xxIXyZIsbTi0kzZdweG sqJX2nLAYogwwgDWXdnX4sAVPo tIAnaJcuPO1gYHMlvpwvb359 DjUkZSJ7ZLGjuKIkN9ZcxX1oPl TjYSRnVWGuP6BixCMpPYqxN604 VJepBtC3POTxkbDuS2KqENWj cRopWpS4r3X2Od7VYG3bxSS3L1 PpDce8XNWbzHatKX7uiDAmUAut Am6geJvnrAmfUR9cMOAerbhw YYLmjP9uVGMqnQEwgCvqHS5wPU Bkcimnj315KpScSBR1KUJxaGGe Q3UbeB8pXkZgEPCwNCKqC4Xd aEJrNEvsR053HGunFuI3LADscy LcZ8OkYRBmrYvkKvV4q6C6Bn0Q wZMzZOQvMV51JU53EX02B4Ba PjwvdGFibGU+PHRhYmxlIHdpZH ByKUmaOKRuOcYjzYhxKR4zWu9o EYXoBEVbhDgtuYFqChJdn5iu PXBzKTluWW2nmNjfN9MlvEY1WA Bgy1y7If26W56gK4HkgDU+PGNv nRG7fTP8sU5mJnAjOmR1SVnw D093QgUumMUnSeryy0ysg3vmpE z0WfMdADEahkLenJhwETL2y9Ec Bu70D83jSMtrKEUeVJGkRUJp KYHqgCxmzi4ksN8cKz6+PGNvbC V7fEW4nC9fPhGnGnH3QBrcU924 GkFxvAUvAmziB70hW0EfmGA+ PGXuPzq2WOYdmEvrEA0erTJtYK clAb0aSNT5DzXmFqRfLKdfT4Re EWVoeezuwigsxSR4PNKtUFGe iK47Ng9qsUdvUv3iEXIvJFX8ZW YepTTsB3PluL1uMaEfFTBlXYKl G1KwjXXjQIucZ688RIdgBmE6 SREpwuZaE1KoAAIctLojOnM1u9 M7Uf5IkRjafPPrME6eSwHwNNz5 E3LkPkb1PYTbmTnnNW2biBGk WFthWv3rgRtlkMliPU7sDVBdcp biv459ChEfr3bbMEIggTDwAXzm LCD4G85uh0D1GCQkUSCsQVH7 eGJ2sI0mrMupezpabNUnfPjbdr PgvRjuMHfeVSglR640BBCujKxj AeONBye6J0NlAat7WFPacVdh TJ3xiVSvRZszKc9rsAywuCesTJ 0lBHRmggarr973QeTki3hlCAUv fIHhWXcxXNO0H83lw7P8OVEh ZGNrUSC3dOJ6zY6joJljucnrgL GljCxmdpIfdHkeMPduYLitV235 YSOheTltPm7PKti8R6RvKyv8 ZKNfnUyjIW3acXBiVOyiVk5jcU acmHniND3aHIGmzljwb698PaQk l3ilIGYhmVIoSZapDQI8G59b q9G2GWExBTHfRWT1fNO1zT3ycX lnbjogbGVmdDsgdmVydGljYWwt UAeuR041DIVseOcjJeEeqTLw OjwvdGQ+RW37cx20O3IsLjolCj o3XYLzIRV0aDZ7iM9dXSBwKHnr h6Z7pJP9K7OvogUxal5fk1sc YXBzZTog (more content not included)... Normal [facility] Consent for Treatmenton 10-04 Consent for Treatment [id number]:127 Normal [facility] MRI Hip w/o Contrast Lefton 10-13-2022 MRI Hip w/o Contrast Left Exam Date/Time: 10/13/2022 07:50 EDT Reason for Exam: M16.12 [id number] Report IMPRESSION: Subchondral insufficiency type fracture of the left femoral head as discussed. Mild to moderate degenerative changes left hip. EXAMINATION: MRI Hip w/o Contrast Left History: Left hip pain for years, worsening. No recent injury.. Technique: Routine MRI of the pelvis and hip(s). With small cryjk-ob-mgco imaging of the left hip. Comparison: Radiographs 10/02/2022. Result: RIGHT HIP: Large gobep-yn-htil images with degenerative changes. LEFT HIP: Subchondral insufficiency type fracture of the superior weightbearing aspect of the femoral head measuring approximately 2.0 cm transverse by 1.4 cm AP, with diffuse bone marrow edema throughout the left femoral head extending into the femoral neck in the intertrochanteric region. Small joint effusion. Degenerative signal in the labrum. Small to moderate areas of full-thickness chondral loss. SI JOINTS: Normal appearing sacroiliac joints bilaterally. PUBIC SYMPHYSIS: Normal appearance. BONE MARROW: Subchondral insufficiency type fracture of the left femoral head as above. Patchy marrow signal, likely related to decreased bone mineral density. No evidence for fracture elsewhere. TENDONS: The rectus femoris tendons, iliopsoas tendons, hamstring tendons, hip adductor and abductor tendons appear to be intact about the left hip. MUSCLE: Moderate fatty infiltration involving left rectus femoris musculature. NERVES: The visualized portions of the lumbosacral plexus and sciatic nerves appear to be within normal limits. VISCERAL PELVIS: Limited evaluation. Colonic diverticulosis. LOWER LUMBAR SPINE: Limited evaluation with degenerative changes. OTHER: No other significant abnormality. Report Ordering Provider: Syed Bautista FINAL REPORT Dictated: 10/13/2022 9:38 am Sanjay Canchola MD Signed (Electronic Signature): 10/13/2022 9:38 am Signed by: Sanjay Canchola MD Transcribed by: MACK Technologist: HANH Technical Comments None Normal [facility] RAD - MRI Screening Formon 0 10-13-2022 RAD - MRI Screening Form [id number]:127 Normal [facility] Coding Summary.on 10-09-2022 Coding Summary. CD:[id number] Ww+PGh lYWQ+TL1WNKUwM73dhMVztT7uX 0NMTElOSywgQVBQTElOSyIgbmF kFV8qkVJnHRQd IC8+AB4rZWGiAzopcNPgy9U6cE R7R70izy6zQZwnpVF1QWSwJwGq qcihc4uijAf5NWqfFwyhMhPv DFKgeS45QFS9cR01Hn12jHDvdY Mkg1vbmLp1JmScDCGkPHD6gIrq OGcmc6JxQOKxE63lrLMag8K7 IBPfrAwhmUWyLuOjqGT6iY4zMA lxlclnh1fqngppVod2rp05dQJu c1N9nBC9O1HyitS4ASCehDNh LicutNSHxA7efcbez0vcmmiiJm KiDFKiTVt9GKe8XXNknEmdTrFu HB04SKP7XUXlxwXlA7LbFSIo vZjwFhY5j3F8Rp0WL9RIDstaL4 VNTUFSWTwvdGQ+YO21ea82E2Dj WpjdZxv9MSFmPZL0hUD3aJ4k NILtSJdkh3E1dAD1Z0JgtbTkhp 0mt1cxERLoPSijT02ztSPdd5C0 UQPseIW0QSUxcJonDiMjgX81 Oyc+VFKknZits0CuYnxww1hsf7 zsnKp7KeyuQSDkiuUgcJfnTXY8 w0UuUm9eGOYekJP6zGX4aD2e RvFnCpG8CLpnF063LdZzeKWiTh daN21pP6QmwOU+UWKgPhi1GDXf cZqgGC9wW3IuCYEjhskbwOSj cAdmQC2jWUXalczcCDHncY9eIB McI1q5BuJhRpB7SPfiE5MxVYAp yqmeYq79tA4dXiOzZmA3QIfx M8LzquA3UQTqmQHvBFhfOHU5O3 0rx2I5HJBrBAWwBIO4dEV7pF7g bGlnbjogbGVmdDsgdmVydGlj QQqcFTegE225EEZplQnlHhNzNI luZyBEYXRlOiAgMDQvMDYvMjAy MzwvdGQ+TTLcZHD9nAerSBWb pIImBZccFl2wgVsutIbaZO5wTW BadcfbNGAldY8iVWFbfEUivSjv YK7qNSUfsiqso319NhXqNZP5 RNGzwGRaP3HiwJ7eChZbPTTaGE PrS7KkrZWgJPaaT416PYliGlE5 FLRerdNnE2ElQXMwdKqeFoP3 o4S0Su4Gx1GvhmyxN0AvpJIwAj JpKudaMEk4C2SyDfsecDZ+PC90 NEDfZH79RVl7EIS0eFgzFTgr VZRvR7DntZ9kGwTgHJRrQOEyQb c+PHRhYmxlIHdpZHRoPScxMDAl RcJjlMrlEF9fTq7cBVDjZYTf sZloxUHiGeOln8syPSAkYJaxPK 2wzNqoB1XihHZ9XRWvf9j7Su64 Q13mT0EjwMU+VBZykRM1oDA6 tT7eXrJeUyF9JMacT091NnLxfM SqIjerk7gwb4hjvPb8WaS7IIVi fuTyyJwlUTJ6i6PzZq96J07q IHdpZHRoPSIxNSUiIHZhbGlnbj 8mwT8tLp1+GIHwpUH1cPE8dC9j JgKnUcJ6EFwsT786DwDzoOZl Simxw3qod9pzqMs3WoQhJGKjnk PbgJxdOYC1h1AxQr67U4HojJpx q5IgAla4lw78dVKew9U4lEJ7 Y5WgNLZocokulBXpmKcvXW4pIB AbqjglLTSavQ7hBLTdV8k2VsXe ZbY4VRrmZ2FsjiA7XKTtpTRm DKRtoLVVxM8lapsqc5kqjujbXe NkTVLuPOz4GBl1KDDzrXazQqJy KBX5CsL7NAK5iBMmoF9rlPfq xgjbsO1mFnl+SGW4dYPxnHJRSE 1lOjwvdGQ+ILTtBPE2cReqNPxl VTZgmR3cLQEwY4o4SmAbSvZ6 PCkhY7EqljS3PIBkxPIzFJBsqC MIdE5dplhdq0uoiwcrHhExTYUp XPi7ZNv0ECOhaPtsCkHxARS8 SuN3CWO4bRKpjP8psBiniufzzE 9wOyc+UocbvZgmYUU0GSa4Y4Mn Wii2FCBrqJpeVZ1uiGOrORrk Mp4ytNlgwEmgSX4gDKBawqtko7 41ReXax5snZLEkeQYiALfzXLG2 R03sf7E5THUhPMXiXTZ4sST0 nT8qtXwapcnjxPIotUaxrnHrlY ddITfnBPjxZ735VQBsnDkuKkCn GIg7T7GbIsc4ZFXccFjfRX5w nRWkVYtuCe2ooIcieVbhDQ1sYV Fmayzqv153IeNzc4blPYIxzPOr BQofGOW2E01aw7H0MDNeWKWe IJG1sDN6gL7geQidlchdkLLkkX fbqxNvdSrkREqnXNolJ017VQGz aXtuSeTemZq6F9BkNiy6XAUl fRtvLP9woKVpZAqiEg4esGtvqZ rtKS1aCXDjhcjek428PwUxy3vx SYDjrAXzAVkjFXU9R89le9B1 DGFzFIGoWWE2bQN3kT2abTyyvd ogbGVmdDsgdmVydGljYWwtYWxp C527SGLjqFerKoSbmSgakyHw SBxfJDg1Z1TcYmznxHI+PC90YW HoQI03gWJunZTui4tceLp9ArUh ZOUbFVK6fXkbSGber7LnAVEs A29ekRIxy4L1ATSvpHpzdAEaSn PrkGK9wW0bMOchcivbb4mqlccz Pqcxd0puag76uH25Y54yEZte BEViTHKeGZPaHHWzdEabsu5qfZ 9wIi8+CONmnMU5cVA3dF2hEMJd LlP3FKzpH938AcRruZCsZsrn z7xvx5pvrPm6BfY1ELYdhnDdiS hyEKP8c1GrAi67V81hFRokZGZz XLZuWWPpSQIkeFqigb5ioB7h Ii8+DKUisSE6yTN1oD0nVgOiYp R5LTsbV075QtDaaIZcPlqaR08t D6QadPI+WIIpTtv3TYJpjDmy NN1orUIfRJloTy5hKXJ9VlDfKr YgIPtpU4OgSESnaqtpkkxerUT7 SRPrKDHghW02Bh5elXbaFVXu cSNAkO1gxraah8ydimbfNuZlTI DuMTz3TSm8USTlmLroEbMiLPI9 BrS6ICU4vAOulC7ydXyrkmzi gY0mT4FjHYMpmnxfUu79nC7yOn CuJrF2HRgmUyt+I6IQJSavCVsP VWhZCQO2F5RhAwb5CLOieWic ZA4khMXmQRqvIr2vaZzbcDvzPO 0wGAKhqiofMKHqvG6iUSQqwWIo bHfhMH7nYWDwdjomi243VjAc GPA6CFCfsCFrZ4ZibE4vPtJzKE YlQECuE9QmsCEoPZrsF151PXgk UzN2WPSbfxNpW9DcWJWytZdw QnT6g5E6Bt1rAo1pAY3oMZpfJF 62WP62hDDoc6T9qFP2N5DdGKCp yyhphszagNJ1TEDmWXKdcW33 pAKrMBxrMq5zn1O9l860SRBvVB LrzQ04Lg5irLayPXEioDKKzD7n qkaen0wsnxfpOkDiYEFuYDt7 EJt3VQYhjDefWzScPHG5CvZ3AS M7hZTdcE0vyVjgcgiccT3kRhl+ KAWqEXMmznQ4N5HtClv9ECKi oZjvIZ9ikNHmWHeaWy4feUpffK gbUZ2jFZJjdlopXGXfdN9tIQHs lMPuiWoaVY8bACAlnlnlr889 CbTtRZC8TPTclPRnP6SmhX7iLn QqKCXnEEReU7WbkHWgCLsiA360 DLbiZgW8MOAisdRjY4MgSTYz gEbuUhT4n9W7Tp9HQJ6zlIZ4L4 NdMxg5ZWWszLvdWP1xhOPnCMqd Sf4evTexpTkkDI6jTPInzcof JMXwsL5rPRElkUUepNsbQW2xTP Rsgnwol159NqUmMCO6IEOdoCQo A0ZnhL9lMkMuOBQmFGSgB9Aw cEUaMPfnU803DNruCfM0YLJvid FzR5YoXYDsoNdhCnG9w6H9Xc3B XJneBD9fquEpJD7jyaM4J7Tn PjwvdHI+IP25DJTtJF37gCQhwR Peu6ykuVn6VdCbYNPxMNX7gXwc TAhjv8MqZTApY51npOXjn5V7 QQPioUuylJSqZpVkmVI5lV2iMU csrdxpx9ptynsjNzmce8vcbs81 fE61R47cVEhfOGFcWHYbGPHu KGKeoQoxru3phI5xWf4+PGNvbC T5lFN6zU0bZiHwIrO2IPwtO212 BqIikGUgKmnmh9hwg9affQd7 VlLkZAVxjxGagWwfXND7j3IhPb 46J28zBTlpFGCyOWChFXDfTJOv rRhjqv4exO6qGw3+UO3gf5vk hw05hW72jJG+GYDoMTU9eHchYS drKEBpcJ1fEJqpDuQ1NZFnXzDf lY78yNQtTBepNp5ebLktlCpg VA8iYQXpegfhk130UwSnn4mjFS VogBEmEVnqZVT8J89jx7N6VLXa AKUhCFN4iUH4rQ2vxFglckva bGVmdDsgdmVydGljYWwtYWxpZ2 89RAGwsOjuFwCslHDeW1pdulIV YC4cJfakdFV+IVWiNIE3dKmx VPvpOVUnuW6pBVKcD3q7ViPmRi S6ZYyqA6XftyE4SPAapVOiJLEl xSSPlQ0mfqiuj0hbzpxoYeUy ITRmFSy5EBp0SHZwtGhoAdOiLY C2CcT1EXE1zDBxaC2vzNkewseb zN8iWto+RklOOjwvdGQ+PHRk QOI7pGwtCSvkGWAaaW6cXQBhE3 r6JbGjOdV7ECagU0AbvdR5KKTq kSQtMQAclNVXxT2cmfict4ej qmeyKdPfHGVbYOb3ECs0LXKriQ qyDdZvKWX6GeT4FKG3mKFhfM6l iDqytwbavI1bAmg+TVJOOjwv dGQ+GQWbOQD4kPtxSGanSTEpuX 2vBGIrC1d1IoTjJxX1SXfbD7Mi lhQ5HJHuuUIuCOZrzLIIwW6t mvdnn9lfedwfHwKpKNJnLRg5OC b9TFIavJmyWhEgTMW8OwS7SBX4 mLHueH7bsBwuxkiepH7yUdk+ BBL1TIF9VT06BF33G8EvElolgR FibGU+PHRhYmxlIHdpZHRoPScx TUZeXdSgpIolOS6iBh2oJLCo LWNvbGxh (more content not included)... Normal [facility] Insurance Correspondence Off iceon 10-09-2022 Insurance Correspondence Office [id number]#2.00CD:127 [facility] Laboratory Outside Office Co pyon 10-09-2022 Laboratory Outside Office Copy [id number]#1.00CD:127 Normal [facility] Patient Correspondenceon Patient Correspondence [id number]#1.00CD:127 [facility] Physician Orderon 10-09-2022 Physician Order [id number]#1.00CD:127 [facility] Physician Order [id number]#1.00CD:127 [facility] Consultation Noteon 10-04-19 23 Consultation Note Chief complaint: Lef t hip pain History of present illness: This is a 52-year-old female here for a chief complaint of severe left hip pain. The patient rates the pain as a 8 out of 10. She reports the pain is constant but worse with standing walking and weightbearing. She states that she has severe pain when she has to go up and down stairs. She reports that the symptoms of gotten worse over the past 2 months especially. She denies any trauma. She denies numbness or weakness. She states the worst pain is in the groin. She has a little bit of pain in the back but not much. The pain does not seem to radiate past the knee. She does not have any right-sided pain. She is using gabapentin at bedtime which does help to an extent. She cannot use NSAIDs due to being on a chronic anticoagulant for history of DVTs. She reports the pain is severe and significantly limits her function. She had back surgery previously and reports that her current symptoms are nothing like what she experienced prior to that The patient denies additional neurologic symptoms or issues with bladder or bowel control. The patient's past medical, surgical, and social history along with medications and allergies were reviewed. Review of systems was done on 10 systems Physical examination: General: Pleasant female in no acute distress, but who does appear uncomfortable. Patient appears well-nourished. Vital signs stable Head exam: Head is normocephalic and external ears normal Neck exam: No tenderness Cardiovascular exam: No signs of poor perfusion and no peripheral edema Respiratory exam: Breathing is unlabored and there is no wheezing present Abdomen exam: Abdomen soft and nondistended Back exam: No lumbar or sacral tenderness Musculoskeletal exam: Strength 5 out of 5 except for 4 out of 5 strength in the left leg due to pain. Severe pain with internal and external rotation of the left hip. Muscle tone normal. Neurologic exam: Sensation intact. Reflexes normal and symmetric. Psych exam: Affect is appropriate. Alert and oriented Skin exam: No lesions Assessment: The patient's signs and symptoms are consistent with arthropathy of the left hip. I suspect she may have a labral tear. Her left hip x-ray from today looked pretty normal. Lumbosacral radiculopathy is also possible but she has had this before and is certain that this is different Brian disability index score was 39 out of 50 OARRS report was reviewed and was appropriate Narcan offered and declined Plan: I addressed options with her and given the severe pain she is in I will write her for small amount of Tylenol 3. I think her use of it would be appropriate at this time but we will still check a tox screen nonetheless. I will continue the gabapentin at the same dose since it has been beneficial for her other issues. We will proceed with a intra-articular steroid injection into the left hip for diagnostic and therapeutic reasons. We will also check an MRI of the left hip. Depending on how she does we may consider surgical consultation. We discussed the potential risks and benefits of this plan and the patient was in agreement to proceed. I will see the patient for follow-up 4 weeks after the procedure for repeat evaluation. [facility] Comment on above: Result Comment: Elec tronically Signed By: Lily ALBERT, Syed\.br\Date and Time Signed: 10/03/22 15:42 EDT Consent for Treatmenton 09-05 Consent for Treatment [id number]#1.00CD:127 [facility] Consent for Treatment [id number]#1.00CD:127 [facility] Consent for Treatment [id number]#1.00CD:127 [facility] Office/Clinic Note-Physician on 10-02-2022 Office/Clinic Note-Physician [id number]#1.00CD:127 [facility] Orders Officeon 10-02-2022 Orders Office [id number]#1.00CD:127 [facility] Orders Office [id number]#1.00CD:127 [facility] BODY PRESSER Drug Screen-LCon 023 Test Name BODY PRESSER urine Invalid Interpretation Code [facility] Comment on above: Performed By: #### 1 [id number] #### [facility] [address] [place] [address] Patient Correspondenceon Patient Correspondence [id number]#1.00CD:127 [facility] Patient History Officeon Patient History Office [id number]#1.00CD:127 [facility] Physician Orderon 10-02-2022 Physician Order [id number]#1.00CD:127 [facility] Physician Order [id number]#1.00CD:127 [facility] Prescriptions/Work Noteson 0 10-02-2022 Prescriptions/Work Notes [id number]#1.00CD:127 [facility] Reference Laboratory Testing Ordered By: Stacie Rbobins on 10-02-2022 Test Name BODY PRESSER urine Invalid Interpretation Code [facility] SendOutsSS XR Hip 2-3 Views Lefton 09-05 XR Hip 2-3 Views Left Exam Date/Time: 10/02/2022 14:26 EDT Reason for Exam: [id number] Report IMPRESSION: NEGATIVE LEFT HIP. CLINICAL HISTORY: M16.12 COMPARISONS: LEFT HIP X-RAYS FROM 09/02/2021 FINDINGS: AP and lateral view of the left hip were obtained. There is no hip fracture or dislocation. The left hip joint space is well preserved. There are no bone erosions or bone lesions involving the left hip. . Ordering Provider: Syed Bautista FINAL REPORT Dictated: 10/02/2022 4:27 pm January Diaz MD, V. Signed (Electronic Signature): 10/02/2022 4:27 pm Signed by: January Diaz MD, V. Transcribed by: MACK Technologist: CARLI Technical Comments Radiation Dose: Ka,r in mGy = na DAP = na [facility] CNTHERAPYon 09-30-2022 CNTHERAPY OT/PT/Speech Visit (LOPTRM) -- CHERYLE VILLATORO ([id number]) 1970 F Date Time Provider Department 09/30/22 4:15 PM [facility] LOPTRM Date Time Provider Department Center 09/30/2022 4:15 PM [id number] Reason for Visit: Physical Therapy [503] Primary Visit Diagnosis:Spinal stenosis of lumbar region, unspecified whether neurogenic claudication present [M48.061] Other Visit Diagnoses:Lumbar radiculopathy, chronic [M54.16] Spinal stenosis of lumbar region with neurogenic claudication [M48.062] Pain in joint, pelvic region and thigh, unspecified laterality [M25.559] Allergies As of Date: 09/30/2022 (No Known Allergies) Date Reviewed: 08/29/2022 Reviewed by: Dmitry Live DO - Fully Assessed Prescriptions as of 10/01/2022 - gabapentin (NEURONTIN) 300 mg capsule TAKE 2 CAPSULES BY MOUTH once DAILY AT BEDTIME - atorvastatin (LIPITOR) 80 mg tablet - warfarin (COUMADIN) 1 mg tablet TAKE 1 TABLET BY MOUTH EVERY OTHER DAY, then TAKE 1 (ONE) and ONE-HALF TABLETS the other days - warfarin (COUMADIN) 5 mg tablet Take 5 mg by mouth once daily. - levothyroxine (SYNTHROID) 25 mcg tablet TAKE 1 TABLET BY MOUTH EVERY DAY IN THE MORNING ON EMPTY STOMACH FOR 30 DAYS - omeprazole (PRILOSEC) 40 mg capsule omeprazole 40 mg Cap-DR Refills(s) 0 Start Date: 09/19/21 Status: Ordered - MULTIVITAMIN ORAL Take by mouth. - warfarin (COUMADIN) 2 mg tablet Take 2 mg by mouth daily as directed. As directed - pyridoxine, vitamin B6, (VITAMIN B6) 100 mg tablet Take 100 mg by mouth once daily. - cyanocobalamin (VITAMIN B-12) 1,000 mcg tab Take 1,000 mcg by mouth once daily. -- Normal [facility] CNTHERAPYon 09-26-2022 CNTHERAPY OT/PT/Speech Visit (LOPTRM) -- CHERYLE VILLATORO ([id number]) 1970 F Date Time Provider Department 09/26/22 3:30 PM [facility] Date Time Provider Department Center 09/26/2022 3:30 PM [id number] Reason for Visit: Physical Therapy [503] Primary Visit Diagnosis:Spinal stenosis of lumbar region, unspecified whether neurogenic claudication present [M48.061] Other Visit Diagnoses:Lumbar radiculopathy, chronic [M54.16] Spinal stenosis of lumbar region with neurogenic claudication [M48.062] Pain in joint, pelvic region and thigh, unspecified laterality [M25.559] Allergies As of Date: 09/26/2022 (No Known Allergies) Date Reviewed: 08/29/2022 Reviewed by: Dmitry Live DO - Fully Assessed Prescriptions as of 09/29/2022 - gabapentin (NEURONTIN) 300 mg capsule TAKE 2 CAPSULES BY MOUTH once DAILY AT BEDTIME - atorvastatin (LIPITOR) 80 mg tablet - warfarin (COUMADIN) 1 mg tablet TAKE 1 TABLET BY MOUTH EVERY OTHER DAY, then TAKE 1 (ONE) and ONE-HALF TABLETS the other days - warfarin (COUMADIN) 5 mg tablet Take 5 mg by mouth once daily. - levothyroxine (SYNTHROID) 25 mcg tablet TAKE 1 TABLET BY MOUTH EVERY DAY IN THE MORNING ON EMPTY STOMACH FOR 30 DAYS - omeprazole (PRILOSEC) 40 mg capsule omeprazole 40 mg Cap-DR Refills(s) 0 Start Date: 09/19/21 Status: Ordered - MULTIVITAMIN ORAL Take by mouth. - warfarin (COUMADIN) 2 mg tablet Take 2 mg by mouth daily as directed. As directed - pyridoxine, vitamin B6, (VITAMIN B6) 100 mg tablet Take 100 mg by mouth once daily. - cyanocobalamin (VITAMIN B-12) 1,000 mcg tab Take 1,000 mcg by mouth once daily. -- Normal [facility] CNTHERAPYon 09-15-2022 CNTHERAPY OT/PT/Speech Visit (LOPTRM) -- CHERYLE VILLATORO ([id number]) 1970 F Date Time Provider Department 09/15/22 3:30 PM LARY BRADY Date Time Provider Department Center 09/15/2022 3:30 PM [id number] BRADY Reason for Visit: PT Eval [747] Patient Education [91] Visit Diagnoses:Spinal stenosis of lumbar region, unspecified whether neurogenic claudication present [M48.061] Lumbar radiculopathy, chronic [M54.16] Spinal stenosis of lumbar region with neurogenic claudication [M48.062] Pain in joint, pelvic region and thigh, unspecified laterality [M25.559] Myalgia [M79.10] Allergies As of Date: 09/15/2022 (No Known Allergies) Date Reviewed: 08/29/2022 Reviewed by: Dmitry Live DO - Fully Assessed Prescriptions as of 09/15/2022 - gabapentin (NEURONTIN) 300 mg capsule TAKE 2 CAPSULES BY MOUTH once DAILY AT BEDTIME - atorvastatin (LIPITOR) 80 mg tablet - warfarin (COUMADIN) 1 mg tablet TAKE 1 TABLET BY MOUTH EVERY OTHER DAY, then TAKE 1 (ONE) and ONE-HALF TABLETS the other days - warfarin (COUMADIN) 5 mg tablet Take 5 mg by mouth once daily. - levothyroxine (SYNTHROID) 25 mcg tablet TAKE 1 TABLET BY MOUTH EVERY DAY IN THE MORNING ON EMPTY STOMACH FOR 30 DAYS - omeprazole (PRILOSEC) 40 mg capsule omeprazole 40 mg Cap-DR Refills(s) 0 Start Date: 09/19/21 Status: Ordered - MULTIVITAMIN ORAL Take by mouth. - warfarin (COUMADIN) 2 mg tablet Take 2 mg by mouth daily as directed. As directed - pyridoxine, vitamin B6, (VITAMIN B6) 100 mg tablet Take 100 mg by mouth once daily. - cyanocobalamin (VITAMIN B-12) 1,000 mcg tab Take 1,000 mcg by mouth once daily. -- Normal [facility] [place] 09-05-2022 CNPN Telephone (INTMLN) -- CHERYLE VILLATORO ([id number]) 1970 F Date Time Provider Department 09/05/22 DMITRY LIVE INTMLHelen During your visit today, we recorded the following information about you: Liat Braden 09/05/2022 8:22 AM Signed Cheryle Villatoro called today. : 1970 Allergies: Patient has no known allergies. (home) [phone] (cell) Reason for call: Patient is calling asking for a letter for work from her appointment on 08/29. Please upload to my chart. Patient last appointment: Visit date not found The patients preferred pharmacy has been captured for this encounter? no Liat Frye LPN 09/05/2022 8:43 AM Signed [facility] pt that Dr Live will be able to provide a letter for work for the day of the office visit on 08/29 Advised pt to call with a fax# to fax letter to Lita Leung 09/08/2022 9:05 AM Signed Patient calling back with fax number [phone] Does not need to be ATTN to anyone Beti Frye LPN 09/08/2022 9:20 AM Signed Faxed letter with confirmation Spoke to pt and advised. Pt verbalized understanding. Allergies As of Date: 09/05/2022 (No Known Allergies) Date Reviewed: 08/29/2022 Reviewed by: Dmitry Live DO - Fully Assessed Reason for Visit: Return To Work Letter [[id number]] Prescriptions as of 09/08/2022 - gabapentin (NEURONTIN) 300 mg capsule TAKE 2 CAPSULES BY MOUTH once DAILY AT BEDTIME - atorvastatin (LIPITOR) 80 mg tablet - warfarin (COUMADIN) 1 mg tablet TAKE 1 TABLET BY MOUTH EVERY OTHER DAY, then TAKE 1 (ONE) and ONE-HALF TABLETS the other days - warfarin (COUMADIN) 5 mg tablet Take 5 mg by mouth once daily. - levothyroxine (SYNTHROID) 25 mcg tablet TAKE 1 TABLET BY MOUTH EVERY DAY IN THE MORNING ON EMPTY STOMACH FOR 30 DAYS - omeprazole (PRILOSEC) 40 mg capsule omeprazole 40 mg Cap-DR Refills(s) 0 Start Date: 09/19/21 Status: Ordered - MULTIVITAMIN ORAL Take by mouth. - warfarin (COUMADIN) 2 mg tablet Take 2 mg by mouth daily as directed. As directed - pyridoxine, vitamin B6, (VITAMIN B6) 100 mg tablet Take 100 mg by mouth once daily. - cyanocobalamin (VITAMIN B-12) 1,000 mcg tab Take 1,000 mcg by mouth once daily. Problem List As Of Date 09/05/2022 Noted Resolved Hypercoagulopathy [D68.59] DVT (deep venous thrombosis) [I82.409] 03/08/2013 Encounter Status:Closed by BETI FRYE LPN on 09/08/22 [facility] CNOVon 08-29-2022 CNOV Office Visit (SPNMAV ) -- CHERYLE VILLATORO ([id number]) 1970 F Date Time Provider Department 08/29/22 11:30 AM DMITRY LIVE During your visit today, we recorded the following information about you: Weight Height 111.6 kg 1.702 m Dmitry Live DO 08/29/2022 12:31 PM Signed SPINE CARE PATH LOW BACK PAIN: CHRONIC INITIAL SUBJECTIVE HISTORY OF PRESENT ILLNESS: Cheryle Villatoro is a 52 year old female who presents with chronic low back pain and hip pain. 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 September of 2021, aggravated her low back doing nothing in particular. Also noted having some trouble walking and some left sided hip / groin pain. Things have been getting slightly worse over this time. Today: Bilateral low back pain, radiated down both legs L>R., down posterior leg to the big toe. +cooling, stinging, numbness, burning. Also has some left hip pain that radiates into the groin. Pain is mild approximately 6/10. Denies new fevers, chills, unintended weight loss, night sweats, muscle weakness, sensation changes including the saddle, also denies new bowel and bladder changes or incontinence. Reports that her left hip bothers her more than the low back. This is pain across the hip and into the groin, made worse with walking standing and going up stairs. Rest seems to help alleviate the pain She did have some old reports of her hip on her phone, both XR reports. Right hip XR report seen on patients phone - Mild right hip OA, shallow acetabulum. Left Hip - Mild OA, shallow acetabulum. Treatments tried: Ice Tylenol does not help. Gabapentin 600 mg at bedtime Spine Surgery 2010 - laminectomy and laminotomy, Dr. Dunn, [facility]. Sacroiliac Joint Injections bilateral 07/02/2022 - did not report any relief (0% including day of) (Kimo Obando) by Dr. Syed Bautista - Avoids NSAIDs due to history of DVT / PE Has not done any PT FUNCTIONAL STATUS: Do moderate work around the house such as vacuuming, sweeping floors, or carrying in groceries (3.50 METs) Do yardwork, such as raking leaves, weeding,or pushing a power mower (4.50 METs) Litigation: None Workers' Compensation: No YELLOW AND BLUE FLAGS No-Neg Attitude; Back Pain is Disabling No-Avoiding Activity (for Fear of Pain) No-Depression or Anxiety Disorders No-Social Problems No-Substance Use Disorder No-Job Dissatisfaction No-Financial Disincentives Patient Entered Questionnaires Spine Questions 08/29/2022 Pain Location: Lower back Pain Duration: More than 5 years Pain over last 6 months: Every day or nearly every day in the past 6 months Symptoms from neck/cervical spine: Yes Employment Status: Working now Involved in law suit/legal claim: No Spine Red Flags 08/29/2022 Any type of cancer: Yes Unexplained fever: No Bowel or bladder disfunction: No Unintentional weight loss: No Osteoporosis: Yes Neck Questionnaires 08/29/2022 Benzel Modified MATTHEW Score 15 (A lower score indicates increased pain and issues.) PROMIS Score Percentiles Physical Health 08/29/2022 Physical Function Percentile 7 Sleep Percentile 27* Fatigue Percentile 8 Pain Interference Percentile 8 PROMIS SOCIAL ROLE SCORE 08/29/2022 Social Role Satisfaction Percentile 1 PROMIS Global Health Scale 08/29/2022 Physical Health Percentile 7 Mental Health Percentile 9 Percentiles provide an indication of how the patient's score ranks in relation to the general population. Higher percentile rankings indicate better function/quality of life. 50th percentile is the average of the general population and indicates half of respondents had a worse score. Depression Screening: PHQ-9 08/29/2022 Score 5 PHQ-9 Self Harm 08/29/2022 Question 9 Not at all PHQ-9 Self-Harm (Item 9) response options: 0 Not at all 1 Several days 2 More than half the days 3 Nearly every day PHQ-9 Levels: 0-4 No - mild depression 5-9 Mild depression 10-14 Moderate depression 15-19 Moderately severe depression 20-27 Severe depression ACTIVE PROBLEM LIST Hypercoagulopathy (Hcc) Dvt (Deep Venous Thrombosis) (Hcc) PAST MEDICAL HISTORY Diagnosis Date DVT (deep venous thrombosis) (HCC) Endometriosis Hypercoagulopathy (HCC) Pulmonary embolus (HCC) PAST SURGICAL HISTORY Procedure Laterality Date APPENDECTOMY BACK SURGERY HX TOTAL ABDOMINAL HYSTERECT W/WO RMVL TUBE OVARY Hysterectomy, SARAN Social History Tobacco Use Smoking status: Never Smokeless tobacco: Never FAMILY HISTORY Problem Relation Age of Onset DVT Father DVT Paternal Aunt DVT Paternal Grandfather DVT Paternal Grandmother ALLERGIES No Known Allergies CURRENT MEDICATIONS: levothyroxine (SYNTHROID) (more content not included)... Normal [facility] Panel Informationon 08-29 [facility] XR LUMBAR 3V AP/LAT/L5-S1on 08-29-2022 XR LUMBAR 3V AP/LAT/L5-S1 * * *Final Report* * * DATE OF EXAM: Aug 29 2022 1:03PM VHX [id number] - XR LUMBAR 3V AP/LAT/L5-S1 / PROCEDURE REASON: multiple diagnoses * * * * Physician Interpretation * * * * HISTORY: Spinal stenosis of lumbar region, unspecified whether neurogenic claudication present Lumbar radiculopathy, chronic Spinal stenosis of lumbar region with neurogenic claudication Pain in joint, pelvic region and thigh, unspecified laterality. TECHNIQUE: XR LUMBAR 3V AP/LAT/L5-S1, XR PELVIS 1V AP Laterality: NOT APPLICABLE Number of different views (projections): 3 COMPARISON: None available. RESULT: Counting reference: Lumbosacral junction. For the purposes of this report, L4-5 is considered the level of the iliac crest and there are 5 lumbar-type vertebrae. Anatomic Variant: Transitional L5 vertebral body. There is normal alignment of the lumbar spine. There is no evidence of acute fracture or dislocation. There are multilevel degenerative changes with disc space narrowing, marginal endplate osteophytes and facet joint hypertrophy. There are degenerative changes at the bilateral sacroiliac and hip joints and pubic symphysis. No other significant abnormality. IMPRESSION: Degenerative changes. Chemical Reclamation Equipment Operator: JASON Transcribe Date/Time: Aug 29 2022 3:56P Dictated by : SB SANDOVAL MD This examination was interpreted and the report reviewed and electronically signed by: SB SANDOVAL MD on Aug 29 2022 4:01PM EST [id number] [facility] XR PELVIS 1V APon 08-29-2022 XR PELVIS 1V AP * * *Final Report* * * DATE OF EXAM: Aug 29 2022 1:03PM VHX [id number] - XR PELVIS 1V AP / PROCEDURE REASON: multiple diagnoses * * * * Physician Interpretation * * * * HISTORY: Spinal stenosis of lumbar region, unspecified whether neurogenic claudication present Lumbar radiculopathy, chronic Spinal stenosis of lumbar region with neurogenic claudication Pain in joint, pelvic region and thigh, unspecified laterality. TECHNIQUE: XR LUMBAR 3V AP/LAT/L5-S1, XR PELVIS 1V AP Laterality: NOT APPLICABLE Number of different views (projections): 3 COMPARISON: None available. RESULT: Counting reference: Lumbosacral junction. For the purposes of this report, L4-5 is considered the level of the iliac crest and there are 5 lumbar-type vertebrae. Anatomic Variant: Transitional L5 vertebral body. There is normal alignment of the lumbar spine. There is no evidence of acute fracture or dislocation. There are multilevel degenerative changes with disc space narrowing, marginal endplate osteophytes and facet joint hypertrophy. There are degenerative changes at the bilateral sacroiliac and hip joints and pubic symphysis. No other significant abnormality. IMPRESSION: Degenerative changes. Chemical Reclamation Equipment Operator: PSCB Transcribe Date/Time: Aug 29 2022 3:56P Dictated by : SB SANDOVAL MD This examination was interpreted and the report reviewed and electronically signed by: SB SANDOVAL MD on Aug 29 2022 4:01PM EST [id number] [facility] CNPElizabeth 08-20-2022 [facility] Telephone (SPNMAV) -- CHERYLE VILLATORO ([id number]) 1970 F Date Time Provider Department 08/20/22 DMITRY LIVE During your visit today, we recorded the following information about you: Beti Frye LPN 08/20/2022 12:46 PM Signed Please add pt on Thursday, 08/29, at 11:30am with Dr Calos Henry already has a hold on for office use New patient Low back Pt is already aware to arrive at 11am for an 11:30am appt Pt given directions and advised to go to the multi specialty unit on the second floor No need to call pt Thank you Allergies As of Date: 08/20/2022 (No Known Allergies) Date Reviewed: 05/28/2022 Reviewed by: Ronit Dominguez APRN.WATER RECLAMATION SYSTEMS OPERATOR - Fully Assessed Reason for Visit: Appointment [186] Prescriptions as of 08/20/2022 - levothyroxine (SYNTHROID) 25 mcg tablet TAKE 1 TABLET BY MOUTH EVERY DAY IN THE MORNING ON EMPTY STOMACH FOR 30 DAYS - omeprazole (PRILOSEC) 40 mg capsule omeprazole 40 mg Cap-DR Refills(s) 0 Start Date: 09/19/21 Status: Ordered - atorvastatin (LIPITOR) 40 mg tablet TAKE 1 TABLET BY MOUTH EVERY DAY FOR 90 DAYS - MULTIVITAMIN ORAL Take by mouth. - warfarin (COUMADIN) 2 mg tablet Take 2 mg by mouth daily as directed. As directed - pyridoxine, vitamin B6, (VITAMIN B6) 100 mg tablet Take 100 mg by mouth once daily. - cyanocobalamin (VITAMIN B-12) 1,000 mcg tab Take 1,000 mcg by mouth once daily. Problem List As Of Date 08/20/2022 Noted Resolved Hypercoagulopathy [D68.59] DVT (deep venous thrombosis) [I82.409] 03/08/2013 Encounter Status:Closed by BETI FRYE LPN on 08/20/[address] [facility] Coding Summary.on 08-04-2022 Coding Summary. [id number] Gh0bWw +PGhlYWQ+XB9LYDIxO02smPZvd X6HP6lBZP8OWNACTNGJIL6INB8 psIP7YXbzT7PgkmLt BbsugUSvDD91FEp2BQP0rIilCP owaZ0gbTGjJ7c1NtEcRZ94hS11 UNlxRYVfReZ5HiWowimceIFb D4smBwQezGCqHxh+PHRhYmxlIH gpIFEhRSrnDIPuRsLziXucCF2t Kd6aDQHcPDEfwSldxSJpFuDy z3kvKCHuHOqoJG6cpPjlR5BjrY T8VMCtn5r4Bp62yXO+PHRkIHN0 rLlkIUlxj965BvCyc7ujJPZ1 wXBkBJskAXB6G55ej4V4LAQpTP YhWMA3hHK2lL3vcZiqoyzdE6Ad yDUeXqO1MVP8oYHwuA2hsVsz lfgftI9dStz+A33DSZ5AIBJPJR 0PNdh3X8DeVgacbJC+PQ72YHBz PJ33iGPoqYGum1qxpSa0KdLt ECZrKDM9aJftRBsee5XdEQOqJ0 8jrSIqo6C8PVJbsPiltJJaTqCh fGZ3sO2oKIcwgalcl8bbxpqk Lvjzw5amaa94jB92E36xLEcqRH GaNUN2LMPyBMBdsNgyvu7pnD0l Ii8+MCagw2czq4yrmOj4IeZd UIKzssYrqQjnCCJ6n6EiOs97M1 QcxBatz3WmQeu5ft80jGPns9B9 vTS6VGyaJDGfzY8aKCohYjI6 DITkTuZfrM32oIJbDIguDx9wrF vplWckLJ7fCASqhdpiKWYowN6p JQKbyWZjwOgmPY8bYDEwpqrf e927RdZuDEO8IDNyiGQhK6DkzR 1hBqUfSXWrBEJsD0WomHSrBLmq I448VMjnJdY2DQTplbCvR5Qy IXNoiDbePsT8b3V4Lw8Ei7Sjdr osOUP0GMzaTOOvOeWzCsGjIrG8 H2ZhTeb6LFXmtZckDC3bD4Dp DTIgmbwqxgkekRC2WGVrDRRbgZ 38aHQtFHvpYw9ml6X3p838PJUo OFBlxU19Pf8whQtnHWFqiPGL lQ4rmswpx1fuyybxNmGjYJArAS e6RRp3GPJbiKxyFxBaGKL7DbP3 YES6gCKfcI5ysZemrnfhdA3e Oyc+B71hvA9bGEE9QEM5foarLP DjxjPuSO94UM36L7ZvRlrobSXb bGU+YIBbqgJdjAjqQD4oCvUc r5paj1YpWBkpI9ZlCXBlCBcoJm c4SDPrSAH4aTT0mQ2wWNTqUPuw k3Q1qWU2N0BuuuAenu5lr3sc VCZlOKnaB58uvTVnp7B7KNElsN L8LYCioJtwWrEwgW48Kxt+PGNv aBuzo2XoNkmgh8kix2idmVk5 LbWzBAHmpkJntNqrGFC9z4OkPa 14Q20lHGygMYSnVHKnVYPdZESk aAxwri0ocA7gBm1+PGNvbCB3 sVU9hP3bJBBwUqG8FBigB033Al GfeFTbOiwbz1pzo1vthWc0RoSe UVAyufDowDchRPA3h8KqEk66 Y36sKAewRXAwVHAjMLRfCPAfuW dxxq7bvC5rUy9+BS3fz6jqrm09 qO10yYS+NHRfYCY5xSleLDlm WGDsgH8tBAfyMoV9QEKpXiKlvG 05qAZjEFhwFz8npZuqqOttSA5w UEFuwycbp726WjFad8feHBVz zVLsDYbbIJC4E19mi8V2EIWuJG FcOHB7eMA9vS0ivTenekgxeFLw pTdvhwAqeXefLFetKFrmU127 IHRvcDsnPlBhdGllbnQgTmFtZT e2T7ZaSub5XSUqxYtvBU7dzDQm XJixHb7qoKsmpOyiJQ9kXIDw fbwlf456XyNbt2liIERwbHPqDP zmUTE4H87cn9E1MXRaSIZpNLC3 zHO2hU6lzBksvohfzXRjjAtg rfKseZsiWLqkINrnD069LCMqdC hxIeCxvuLaJSPjcEU5XT46TG28 sETmr8R9wCQ0L5CaKGGqtjqh hpsipUN6BMHxUAZgbO43Jd3muM koHx4qXIQoOLS0RRTjpNBuA1Pn eD1nXaNiHWHePXSiL4ZycAWo LUijH914GTuzLvB1POLccpTiS2 QkAUCuqPlcUcB6e9G3Ec1IU0O1 MW26XA96nRTam9N4uVR1P8Zd SFSfuenntkbkfFS7DUQrMLCsxX 88Uc2bmYaxFb9uMDVzNMJ1KVRy vCMiX9EvfH8xLaImYATiPQBj I4BodZAiZLvyS435BUboRcZ7JL DgmlQbU9ViUIJeuPxpPwK7c6X2 Kv0MGOm9ZX53TL43qNAul8F1 cSM0R4QgXYLtmyntmguucAZ5EF JrJQHvyL04Bt0voOuzJe2mNFBg RUH2OEWxsIKfS6SvcK5xVjMj EHQrJCLyL6XlxPWtZJoyE065MV qyEzQ5TUNwvkXyP4WwXOUajVjw ZoF8r7V8Mj8JTTNyLS14CMW1 nRR9NU28AV58D0RxYmnkuXEviK U+PHRhYmxlIHdpZHRoPScxMDAl ZpXhpCyfYS9fSe2eHIAbCMEi sOctoMVbUvYcy5dyGEMwVPeqAQ 1lcIdpQ1UjiJR1KUTku2h4Ui96 L35xL2EhtRL+EHMixXN5cEP0 mA9bVqFnSxE1IZcfF101CxWjcA LlYgdxp0ave6ibyIo0YnW7HKOx dfKzzVciZIL2o2TsYt24J80d IHdpZHRoPSIxNSUiIHZhbGlnbj 6lvU1eXe5+PGGngOT7iQM4kV9u EtOcMdF5DCcdN085MlEmwEQf Yzfgv2ogh1ivpRy8UuVlQTPkek KemAlmEXD4u1DvAq05R5AiuSqa u7BsQaw4or31dLEzy8Y1mCO5 A6YvDYQcccaunDWlsGetPS7hLU RyigywRQDrmN4zVRGoN8x2NfZm HsE6BUfhL1VsdrE7QISvkIMx EQxiWFJ1K32kn4B5SCZkABTgKZ Y6rUB3fI1agTdvxvbflZHhiVwg jkXfjVkwTExgPGdqQ750SAKu pYidRHNitK6jUSBbjEFfpGfzNE 5eCKNvikpzEoSKS9aABNSAPIzN YYLTKA66RS14zIUnn2S7iVS7 M9FcYUAaidxzzhwqsIK9GRVoLC PjaM63eGNlDIjjDd4xh1N0h162 GJTtBAZpqH38Nv1tmBmvYWQe lTPMuO4rnxzfl2msvuhuTaIyEP GfVKf4IBl1BSUpkXafJtHuYJW6 TrC7OJW0bQRzbO2iaJqbbpgn hV4jZmc+ISoeBAZmBTp8STtshQ Q+DBTgFNN6mDyoPMdwMRFmwD4m MMNuD3v9DoGzEcO5FYaaQ4Oe KVJvuqzcOf80dN3nMlFbByV3RR llF5GlhrZ9PBNooYOxTKoiXUG8 K41tz0O3WYYlNFQbLOY3lLT4 kY7onSsjrhwsyOSvdCwygmGfuK jgPTxcGFwaJ724UWOwhIhwZpYf XNrvPMSwVM23OO50xDKps0O5 vEN5S3XuSLCdhhbxfgpqgPQ0CX IfLFWxcY95cRXoMQpuUq4fe5R3 y541YGHoBSAcnU24Jb1idLrx MSDqgGMOkU7rbyuzm4qbvbecKf DySRWyUUf8ZNt8JQFpuXzzUeFi VCP2YfT3XWG5mNTmuD5bwYti qwtkaH6vPiy+UbDdZZxxAN04KV 96wNWxu6U2wVO5F9PoBVEumbrh vzmogUS2KTCeEHExrC04qBAi OThbFl0yf6W3m023BFKnMISeaI 46Qn1tuQfkNZEsuVGGnO0pkmxj a3kpharaVxBjIIXgEUl4VFd1 BBKgqTetKvBtHPN8OtR5PLB2vH YttQ1siTlkgamlhR8sUwt+UGFp ypKPPN1pT8AvMO08QC10HR99 F2ZcImdxeFJiyPK+PHRhYmxlIH ldKXGfEAnmCZDkLgTkyPfzDD4l Fc1hFBGyGPVwtNsedXNtRwPm l7xnLTLaUFypJW4qhQxmB9UxhG Q0IUDxf5s8Hk51U60hC7CgtQX+ VICkiJM3uFH7gM9hXdBhIkL7 GMyvL042XqYbnOZkQesqv5zzo4 ckzWr4TcFcFISourYghKhjJWH2 e6MlGu58I69xOEjqESDfUQNj LKOzIWAvjReaok3cwV8yUl7+PG IacIM4rOH7rU4wMlTqHhR3RAcx C521CeZmyICjBtqsW37cG5Rm dXA+PXDkItm6EYFkjYoxHC1roR DbMPkiKq4uIOK5BmFgIkCsODlv Z6MmIZQmrdlhqsiuySE7VAXu XIJqlZ75Qu7heWdySm5yKOPzMX Z2QDDpnONyA3MwaQ1qGxMmSFRj CEWhR9FibGRaQRnxX225TPuh JwM4WTNatfAnQ5PuIMDpmKvhOk I6n9E2Re3InEpzfDVeBH9yVwTt HIi2T4DjDmk8IFTzoRuuBR3x lEXrPDczIx8nsDculAkfFL7aBI Vetyjbe267AwMud2pfYCQqyQCv JQatWUT8M31ik2A4RLLwJGGi FQX6iPG4jF0heHotyrmitKLujS ztxgInpSfhTLlnUDnfS148SJCj qQchAtWSSdi6D9BeNau5OQJc qKdiLG3wiDUjMVveOe7rdIuoaT rrPQ9yEGXehtuqc351DnSys0yc HXSxfTMjQVpjUCE5O69qy4D3 NIFlXEMmYIF0aZE7cR0inGkifl ogbGVmdDsgdmVydGljYWwtYWxp L590IDCsmEghKd1RCub7V8Zp Nqv8KIEzcWwkFZ8buAUyKEkqQg 4tgWdbsCjjMT2bTGDrbsncg897 NgWhc7wvGYLvkUZjYRszBKG5 S82el1O4FSUuZGMuDSA9eLG1sP 1hbGlnbjogbGVmdDsgdmVydGlj NTukTAcwY252ALAzpWisYjOc eWVyOjwvdGQ+MM97ip53W6NjYw kgGeb7OUXmJGJ8pTP2mL5rRDQf AUqxp6Q9bSD0G5JjisCgkd6w b2xs (more content not included)... Normal [facility] Consultation Noteon 08-02-19 Consultation Note Patient: GEENA VILLATORO Age: 52 years Sex: Female : 1970 Associated Diagnoses: None Author: Sara Rutherford PA-C Subjective Chief complaint 08/01/2022 15:30 EST lower back pain 08/01/2022 8:17 EST In Error (In Error) . Patient is a 52-year-old female. She presents today for follow-up after undergoing bilateral sacroiliac joint injections. These were done on 07/02/2022 and she states that 2 days after the procedure she obtained 75% relief and she still has 75% relief. She is feeling better. Unfortunate, she has some intermittent left-sided groin and buttock pain that she feels is more related to her hip. She has been doing an inversion table and has been trying to do other conservative treatments and she has gotten some relief. She is not able to use anti-inflammatory medications due to Coumadin. Previous physical therapy gave some improvement but not enough and she does not feel that right now she can afford the therapy. She is using gabapentin 300 mg at bedtime with some improvement but once again not quite enough. Health Status Allergies: Allergic Reactions (Selected) No Known Allergies, Allergies (1) Active Reaction No Known Allergies None Documented Current medications: (Selected) Prescriptions Prescribed gabapentin 300 mg Cap: 600 mg = 2 cap(s), Oral, Once a day (at bedtime), X 90 day(s), # 180 cap(s), Refills(s) 0, Pharmacy: [facility], 173, cm, 08/01/22 8:21:00 EST, Height/Length Dosing, 108.9, kg, 06/12/22 13:20:00 EST, Weight Dosing Documented Medications Documented Coumadin: 8.5 mg, Every other day, 8.5 mg one day, next day 7.5mg alteranting, Refills(s) 0 Multivitamins and Minerals: 1 tab, Oral, Daily, Refill(s) 0 atorvastatin 40 mg Tab: 40 mg = 1 tab(s), Oral, Daily, Refills(s) 0 eletriptan 40 mg Tab: Refills(s) 0 gabapentin 100 mg Cap: See Instructions, one to two tab po at bedtime, Refills(s) 0 glucosamine: 1,500 mg, Oral, Daily, Refills(s) 0 levothyroxine 25 mcg (0.025 mg) Tab: Refills(s) 0 omeprazole 40 mg Cap-DR: Refills(s) 0 Problem list: All Problems Irregular heart beat / SNOMED CT 600732673 / Confirmed Obesity / SNOMED CT 8742508803 / Confirmed Thrombosis / SNOMED CT 3715419808 / Confirmed Low back pain / SNOMED CT 741266791 / Confirmed Pulmonary emboli / SNOMED CT 90289159 / Confirmed Objective Vital Signs 08/01/2022 15:30 EST Peripheral Pulse Rate 73 bpm Respiratory Rate 14 br/min Systolic Blood Pressure 158 mmHg HI Diastolic Blood Pressure 79 mmHg Mean Arterial Pressure, Cuff 105 mmHg 08/01/2022 8:17 EST Peripheral Pulse Rate In Error bpm (In Error) Respiratory Rate In Error br/min (In Error) Systolic Blood Pressure In Error mmHg (In Error) Diastolic Blood Pressure In Error mmHg (In Error) Mean Arterial Pressure, Cuff In Error mmHg (In Error) General: Alert and oriented, No acute distress. Eye: Normal conjunctiva. HENT: Normocephalic, Normal hearing. Cardiovascular: No edema. Musculoskeletal Normal range of motion. Normal strength. Pain with internal and ex rotation of the left hip greater than the right hip Integumentary: Warm, Dry, [place]. Injection site well-healed Neurologic: Alert, Oriented. Psychiatric: Cooperative, Appropriate mood & affect. Results Review Lumbar and pelvis/hip x-rays?reports were reviewed Impression and Plan Patient is a 52-year-old female with a past medical history significant for sacroiliitis and hip pain. She underwent bilateral sacroiliac joint injections Done on 07/02/2022 that gave her 75% relief. She has some intermittent groin pain and hip pain but at this time she does not think she wants to do anything. She states that she has to financially think about things as she has a large deductible. She is going to let us know if she requires anything from our services. Otherwise she is going to follow-up in 6 months for medication management. We did increase the gabapentin to 600 mg at bedtime and she is going to call us if she has any issues with this. OARRS was reviewed and a refill was sent to the pharmacy. WYATT score: 15 I agree with the PA assessment and plan. I was available for consultation. [facility] Comment on above: Result Comment: Elec tronically Signed By: Lily ALBERT, Syed\.br\Date and Time Signed: 08/02/22 21:58 EST Consent for Treatmenton 07-07 Consent for Treatment [id number]#1.00CD:127 [facility] Legal Correspondence Officeo n 08-01-2022 Legal Correspondence Office [id number]#1.00CD:127 [facility] Office/Clinic Note-Physician on 08-01-2022 Office/Clinic Note-Physician [id number]#1.00CD:127 [facility] Patient Correspondenceon Patient Correspondence [id number]#1.00CD:127 [facility] Patient Correspondence [id number]#1.00CD:127 [facility] Patient Correspondence [id number]#1.00CD:127 [facility] Patient History Officeon Patient History Office [id number]#1.00CD:127 [facility] [facility] COAGULATIONOrdered By: Veronica Bentley on 07-02-2022 INR Coag (PPP) [Relative time] 3.0 {INR} Invalid Interpretation Code [facility] Auto Coag PT Coag (PPP) [Time] 34.3 s High 9.4 - 1 2.5 second(s) [facility] Auto Coag Free T4 (Free Thyroxine)on 08-27-2021 Free T4 [Mass/Vol] 0.71 ng/dL Normal 0.61-1.12 [facility] Comment on above: Performed By: #### T 4F, TSH3, PT #### [facility] [address] Laboratory - CoagulationOrde red By: Brandon Beasley on 06-26-2022 PT Coag (PPP) [Time] 24.4 s 9.0-12.9 [facility] Platelet poor plasma interna tional normalized ratio (INR) by coagulation assay (relatOrdered By: Brandon Beasley on 06-26-2022 INR Coag (PPP) [Relative time] 2.1 {INR} [facility] Comment on above: INR Therapeutic Rang e A) Pre- and Peroperative OAT started two weeks before surgery. NOT HIP SURGERY: 1.5 - 2.5 HIP SURGERY: 2 - 3B) Primary and secondary prevention of venous THROMBOSIS: 2 - 3C) Active venous thrombosis, pulmonary embolismand prevention of recurrent venous thrombosis: 2 - 3D) Prevention of arterial thromboembolismincluding patients with mechanical heart valves: 3 - 4.5 Prothrombin Time INRon 06-26 INR Coag (PPP) [Relative time] 2.1 {INR} Normal [facility] Comment on above: Result Comment: INR Therapeutic Range A) Pre- and Peroperative OAT started two weeks before surgery. NOT HIP SURGERY: 1.5 - 2.5 HIP SURGERY: 2 - 3 B) Primary and secondary prevention of venous THROMBOSIS: 2 - 3 C) Active venous thrombosis, pulmonary embolism and prevention of recurrent venous thrombosis: 2 - 3 D) Prevention of arterial thromboembolism including patients with mechanical heart valves: 3 - 4.5 PERFORMED BY: [facility] [address] [place] [address] PATHOLOGIST CLOD PULLER MICHAEL SCHMIDT M.D. Performed By: #### T 4F, TSH3, PT #### [facility] [address] [place] [id number] [facility] PT Coag (PPP) [Time] 24.4 s High 9.0-12.9 [facility] Comment on above: Performed By: #### T 4F, TSH3, PT #### [facility] [address] TSH DL <= 0.005 mIU/L QnOrde red By: Brandon Beasley on 06-26-2022 TSH Qn 2.51 m[IU]/L 0.45-5.33 [facility] Thyroid Stimulating Hormoneo n 06-26-2022 TSH Qn 2.51 m[IU]/L Normal 0.45-5.33 [facility] Comment on above: Result Comment: PERF ORMED BY: [facility] [address] [facility] [place] [address] PATHOLOGIST CLOD PULLER MICHAEL SCHMIDT M.D. Performed By: #### T 4F, TSH3, PT #### [facility] [address] [place] [address] Thyroxine (T4) free [Mass/vo lume] in Serum or PlasmaOrdered By: Brandon Beasley on 06-26-2022 Free T4 [Mass/Vol] 0.71 ng/dL 0.61-1.12 [facility] [place] 25(OH)D3 SerPl-mCncon 2021 25-hydroxyvitamin D3 [Mass/Vol] 66.3 ng/mL Normal 31.0-80.[address] [facility] Comment on above: Order Comment: Speci men Type: BLOOD SPECIMEN Ordering Facility: [facility] Address: [address] [place] [address] Result Comment: Clas sification of 25 [place] Vitamin D status: Deficiency/Insufficiency: < or = 30 ng/ml. Sufficiency/Optimal Levels: 31-80 ng/mL Toxicity: > 100 ng/mL. Test performed by chemiluminescent immunoassay. Performed By: #### T DOREEN, MICRO #### [facility] CLIA [id number] [address] [place], [place] [address] [place] CNOVon 05-28-2022 CNOV Office Visit (JENNY ) -- CHERYLE VILLATORO ([id number]) 1970 F Date Time Provider Department 05/28/22 2:30 PM RONIT DOMINGUEZ During your visit today, we recorded the following information about you: Pulse Blood pressure Weight 89/minute 131/71 111.6 kg Ronit Dominguez APRN.CNP 05/28/2022 3:39 PM Signed Rheumatology FOLLOW UP VISIT Referring Provider: Ronit Dominguez Date of Service: 05/28/2022 Gender: female Ethnicity: White Age: [age] year old Chief Complaint: Follow Up Last Rheumatology visit: 12/23/2021 (with Ronit Dominguez) Cheryle Villatoro is a 51 year old White female who presents on 05/28/2022 for in person visit for evaluation of Follow Up. Cheryle is both RF - 9 (11/19/2021) and CCP - 13.5 (11/19/2021) negative. Her most recent ADAMA was positive (11/19/2021). She does not have erosive disease. There are no rheumatoid nodules present. She reports morning stiffness . INTERVAL HISTORY Doing well Nothing to complain about Seeing Dr. Beasley for thyroid Treating with levothyroxine and taking for 30 days Vit d complete rx now taking vit d 10,000 international unit(s) daily Joint pain hands and shoulder and hip, left knee Does not take anything for pain Using heat - has herniated disc and following with pain mgt Erath No joint swelling Am stiffness 10-15 min Dry mouth - uses gel - drinks more water Not really dry eyes Patient-Entered Data RAPID 3 Espinoza Activities of Daily Living No Data Dress self? - Get in and out of bed? - Walk outdoors? - Wash and dry body? - Get in and out of car? - RAPID 3 Disease Activity Weighed Score Levels: 0 - 1: Near Remission 1.3 - 2.0: Low Severity 2.3 - 4.0: Moderate Severity 4.3 - 10.0: High Severity No flowsheet data found. PROMIS Assessments No flowsheet data found. Impression At today's visit, there is no clinical evidence for inflammatory arthropathy or systemic rheumatologic disease The patient has had incidental finding of positive ADAMA ADAMA 1:160, SERA and dsDNA were not obtain, RF and CCP not completed Her sed was not elevated, TSH and CK's were normal, CBC and CMP normal, no cytopenias, urate normal With patient's positive ADAMA and dry mouth, would need to evaluate for Sjogren's Syndrome. SSA and SSB normal Positive for autoimmune thyroid. TSH on high end of normal as well. Advised to follow with Primary care or endo. In terms of the non-specific musculoskeletal pains, Am gelling is limited to 10 min, suspect DJD/OA, vitamin D deficiency, BMI>30 and pro-inflammatory diet are contributing factors. She also has congenital hip dysplasia/shallow acetab. with DJD, and herniated disc disease and DDD. She is on statins and this can lead to statin myopathy and musculoskeletal pains and she stated that it could be . I advised her to discuss with her Primary care physician. Vitamin D deficiency is a very common factor of musculoskeletal pains, especially when associated with secondary hyperparathyroidism. PTH elevated. Will correct vit d and recheck Vitamin D level was low She recently increased to 10,000 international unit(s) daily was supposed to be 5,000 - will check level today I discussed clinical implications of Vitamin D deficiency, osteomalacia, implications to bone health status, musculoskeletal pains and other reported health risks. She has facial rash, Derm said it was acne and topical cream given not a malar rash. 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 Following with endo for autoimmune thyroid No new complaints today. Will continue to monitor Plan RECOMMENDATION/PLAN: Reviewed indication for orders with instructions Follow with primary care for autoimmune thyroid Reviewed vitamin D supplement - reviewed safe doses- will recheck today She is unable to take nsaids or turmeric due to being on blood thinner I reviewed conservative care, wellness and healthy lifestyle, as well as the benefits of a whole foods plant based diet. I have had many patients experience significant relief in musculoskeletal pains and inflammatory arthropathy, by avoiding refined sugars and dairy and following whole foods plant based diet. Additional time spent with patient on healthy lifestyle, healthy food and anti-inflammatory diet (with emphasis on whole plant based diet), avoiding refined carbs/sugars and processed food, appropriate exercise (stretching, cardio and strengthening), good sleep hygiene, stress mgt, and supplementing vital deficiencies and maintaining healthy wt and healthy BMI. Additional information provided with references and educational information. Bone Health Recommendations: -Bone Density is recommended after menopause and after age 55-60, sooner if patient has risk factors, sooner if on systemic steroid use of 3 months or more. -Vitamin D supplementation recommended, optimal dose is the dose neces (more content not included)... Normal [facility] 25(OH)D3 SerPl-mCncon 2021 25-hydroxyvitamin D3 [Mass/Vol] 39.0 ng/mL Normal 31.0-80.[address] [facility] Comment on above: Order Comment: Speci men Type: BLOOD SPECIMENOrdering Facility: [facility] Address: [address] [place] [address] Result Comment: Clas sification of 25 [place] Vitamin D status: Deficiency/Insufficiency: < or = 30 ng/ml. Sufficiency/Optimal Levels: 31-80 ng/mL Toxicity: > 100 ng/mL. Test performed by chemiluminescent immunoassay. Performed By: #### 1 989-3 ####[facility] [id number] [address] OF [facility] CNOVon 12-23-2021 CNOV Office Visit (JENNY ) -- SHAUNACHERYLE ([id number]) 1970 F Date Time Provider Department 12/23/21 9:00 AM RONIT DOMINGUEZ During your visit today, we recorded the following information about you: Pulse Blood pressure Weight 66/minute 128/62 108.9 kg Ronit Dominguez APRN.WATER RECLAMATION SYSTEMS OPERATOR 12/23/2021 10:11 AM Signed Rheumatology FOLLOW UP VISIT Referring Provider: Ronit Dominguez Date of Service: 12/23/2021 Gender: female Ethnicity: White Age: [age] year old Chief Complaint: Follow Up Last Rheumatology visit: 11/19/2021 (with Ron Duncan) Cheryle Villatoro is a 51 year old White female who presents on 12/23/2021 for in person visit for evaluation of Follow Up. Cheryle is both RF - 9 (11/19/2021) and CCP - 13.5 (11/19/2021) negative. Her most recent ADAMA was positive (11/19/2021). She does not have erosive disease. There are no rheumatoid nodules present. She reports morning stiffness . INTERVAL HISTORY Doing ok Fatigue Maybe just the weather Joint sore- knees and hips and fingers, back Pain- 4/10 Tries stretching and thinks it helps some Pain mgt follows for back He wanted to do another injection it does help Hard to sleep at night related to it No joint swelling Patient-Entered Data RAPID 3 Espinoza Activities of Daily Living No Data Dress self? - Get in and out of bed? - Walk outdoors? - Wash and dry body? - Get in and out of car? - RAPID 3 Disease Activity Weighed Score Levels: 0 - 1: Near Remission 1.3 - 2.0: Low Severity 2.3 - 4.0: Moderate Severity 4.3 - 10.0: High Severity No flowsheet data found. PROMIS Assessments No flowsheet data found. Impression At today's visit, there is no clinical evidence for inflammatory arthropathy or systemic rheumatologic disease The patient has had incidental finding of positive ADAMA ADAMA 1:160, SERA and dsDNA were not obtain, RF and CCP not completed Her sed was not elevated, TSH and CK's were normal, CBC and CMP normal, no cytopenias, urate normal With patient's positive ADAMA and dry mouth, would need to evaluate for Sjogren's Syndrome. SSA and SSB normal Positive for autoimmune thyroid. TSH on high end of normal as well. Advised to follow with Primary care or endo. In terms of the non-specific musculoskeletal pains, Am gelling is limited to 10 min, suspect DJD/OA, vitamin D deficiency, BMI>30 and pro-inflammatory diet are contributing factors. She also has congenital hip dysplasia/shallow acetab. with DJD, and herniated disc disease and DDD. She is on statins and this can lead to statin myopathy and musculoskeletal pains and she stated that it could be . I advised her to discuss with her Primary care physician. Vitamin D deficiency is a very common factor of musculoskeletal pains, especially when associated with secondary hyperparathyroidism. PTH elevated. Will correct vit d and recheck Vitamin D level was low Completed vit d Rx now taking vit d 5000 international unit(s) daily I discussed clinical implications of Vitamin D deficiency, osteomalacia, implications to bone health status, musculoskeletal pains and other reported health risks. She has facial rash, Derm said it was acne and topical cream given not a malar rash. 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 Plan RECOMMENDATION/PLAN: Reviewed indication for orders with instructions Follow with primary care for autoimmune thyroid Reviewed vitamin D supplement She is unable to take nsaids or turmeric due to being on blood thinner I reviewed conservative care, wellness and healthy lifestyle, as well as the benefits of a whole foods plant based diet. I have had many patients experience significant relief in musculoskeletal pains and inflammatory arthropathy, by avoiding refined sugars and dairy and following whole foods plant based diet. Additional time spent with patient on healthy lifestyle, healthy food and anti-inflammatory diet (with emphasis on whole plant based diet), avoiding refined carbs/sugars and processed food, appropriate exercise (stretching, cardio and strengthening), good sleep hygiene, stress mgt, and supplementing vital deficiencies and maintaining healthy wt and healthy BMI. Additional information provided with references and educational information. Bone Health Recommendations: -Bone Density is recommended after menopause and after age 55-60, sooner if patient has risk factors, sooner if on systemic steroid use of 3 months or more. -Vitamin D supplementation recommended, optimal dose is the dose necessary to achieve Vitamin D 25-OH blood level in range of 40-60 ng/mL. (Vitamin D supplement in international units, is the dose necessary to achieve a Vitamin D 25-OH blood level in range of 40-60 ng/mL). -Recommended daily dose of calcium: 1200mg total a day in divided doses. Calcium from dietary sources, if not sufficient, or if with h/o calciu (more content not included)... Normal [facility] Parathyrin.intact [Mass/Vol] 54 pg/mL Normal 15-[address] [facility] Comment on above: Order Comment: Speci men Type: BLOOD SPECIMENOrdering Facility: [facility] Address: [address] [place] [address] Performed By: #### 2 731-8 ####[facility] [id number] [address] [address] [place] CNCOon 11-28-2021 CNCO Letter Text Normal [facility] CNPNon 11-28-2021 CNPN Telephone (INTMAL) -- CHERYLE VILLATORO ([id number]) 1970 F Date Time Provider Department 11/28/21 RON DUNCAN INTBONIFACIO During your visit today, we recorded the following information about you: Karen Valenzuela 11/28/2021 8:11 AM Signed Cheryle Villatoro called today. : 1970 Allergies: Patient has no known allergies. (home) [phone] (cell) Reason for call: Patient requested a work letter stated that she was seen on 11/19/21. Patient requested email. Didn't have a fax number nor uses [employer]. Please call patient for any questions. [email or web address] Patient last appointment: Visit date not found The patients preferred pharmacy has been captured for this encounter? no Thank you, Karen Duncan MD 11/28/2021 8:27 AM Signed Please assist patient with work letter thank you kindly, fa Gamaliel Weaver MA 11/28/2021 8:35 AM Signed notified pt unable to send email unless through [facility]. she is going to sign up and we will send letter later. Gamaliel Weaver MA 11/28/2021 9:01 AM Signed pt [employer] activated, letter sent Allergies As of Date: 11/28/2021 (No Known Allergies) Date Reviewed: 11/19/2021 Reviewed by: Gamaliel Weaver MA - Fully Assessed Reason for Visit: Letter [264] Cmt: for work Prescriptions as of 11/28/2021 - omeprazole (PRILOSEC) 40 mg capsule omeprazole 40 mg Cap-DR Refills(s) 0 Start Date: 09/19/21 Status: Ordered - atorvastatin (LIPITOR) 40 mg tablet TAKE 1 TABLET BY MOUTH EVERY DAY FOR 90 DAYS - MULTIVITAMIN ORAL Take by mouth. - ergocalciferol 50,000 unit capsule (VITAMIN D2, DRISDOL) Take 1 capsule by mouth two times a week. (FOR EXAMPLE ONE CAPSULE ON THURSDAY AND ONE ON THURSDAY) FOR A TOTAL OF 4 WEEKS, WITH A MEAL - warfarin (COUMADIN) 2 mg tablet Take 2 mg by mouth daily as directed. As directed - pyridoxine (VITAMIN B-6) 100 mg tablet Take 100 mg by mouth once daily. - cyanocobalamin (VITAMIN B-12) 1,000 mcg Tab Take 1,000 mcg by mouth once daily. Problem List As Of Date 11/28/2021 Noted Resolved Hypercoagulopathy [D68.59] DVT (deep venous thrombosis) [I82.409] 03/08/2013 Encounter Status:Closed by GAMALIEL WEAVER on 11/28/[address] [facility] ALDOLASE BLDon 11-19-2021 Aldolase [Catalytic activity/Vol] 5.0 mU/mL 1.5 - 8.1 U/L [facility] ADAMA BY IFA WITH REFLEXon ADAMA PATTERN Nuclear dense fine speckled Normal [facility] Comment on above: Order Comment: Speci men Type: BLOOD SPECIMEN Ordering Facility: [facility] Address: [address] [place] [address] Performed By: #### T DOREEN, MICRO #### [facility] CLIA [id number] [address] [place] [address] [place] ADAMA TITER 1:[address] [facility] Comment on above: Order Comment: Speci men Type: BLOOD SPECIMEN Ordering Facility: [facility] Address: [address] [place] [address] Performed By: #### T DOREEN, MICRO #### [facility] CLIA [id number] [address] [place] [address] [place] Nuclear Ab IF (S) [Titer] Positive Abnormal Negative [facility] Comment on above: Order Comment: Ashley mitchell Type: BLOOD SPECIMEN Ordering Facility: [facility] Address: [address] [place] [address] Result Comment: Anti -nuclear antibody test is used as an aid in diagnosis of systemic autoimmune diseases. Where positive and clinically warranted, follow-up using disease-specific testing is recommended. Low positive titers are not uncommon with advanced age, certain chronic infections, and malignancies among others. Test methodology: Indirect fluorescence immunoassay (IFA) using HEp-2 cells. Performed By: #### T DOREEN, MICRO #### [facility] CLIA [id number] [address] [place] [address] [place] Aldolase SerPl-cCncon 2021 Aldolase [Catalytic activity/Vol] 5.0 mU/mL Normal 1.5-8.[address] [facility] Comment on above: Order Comment: Ashley mitchell Type: BLOOD SPECIMENOrdering Facility: [facility] Address: [address] [place] [address] Result Comment: This test was developed and its performance characteristics determined by [facility] [place] (-[facility]). It has not been cleared or approved by the FDA. [facility] is regulated under CLIA as qualified to perform high-complexity testing. This test is used for clinical purposes. It should not be regarded as investigational or for research. Performed By: #### 1 761-6 ####[facility] [id number] [place] [address] [place] C-REACTIVE PROTEIN (CRP)on 0 11-19-2021 CRP [Mass/Vol] mg/L <0.9 mg/dL [facility] CK CREATINE KINASEon 022 CK [Catalytic activity/Vol] 106 U/L 42 - 196 U/L [facility] CK [Catalytic activity/Vol] 106 U/L Normal 42-[address] [facility] Comment on above: Order Comment: Ashley mitchell Type: BLOOD SPECIMENOrdering Facility: [facility] Address: [address] [place] [address] Performed By: #### 1 988-5, EDVIN COLUNGA ####[facility] [id number] [facility] [id number] [address] [facility] [place] CNOVon 11-19-2021 CNOV Office Visit (JENNY ) -- CHERYLE VILLATORO ([id number]) 1970 F Date Time Provider Department 11/19/21 8:00 AM RON DUNCAN During your visit today, we recorded the following information about you: Pulse Blood pressure Weight 66/minute 122/62 108.9 kg Ron Duncan MD 11/19/2021 9:57 PM Signed Rheumatology CONSULTATION Referring Provider: Brandon Beasley MD Date of Service: 11/19/2021 Gender: female Ethnicity: White Age: [age] year old Chief Complaint: New Patient and Positive ADAMA Last Rheumatology visit: None at [facility] Cheryle Villatoro is a 51 year old White female who presents on 11/19/2021 for in person visit for evaluation of New Patient and Positive ADAMA. HISTORY OF PRESENT ILLNESS NEW CONSULT November 19, 2021 She has had bld clots First was at age 24, presented as PE, states further investigation showed LE DVT. States the bld clot was from pelvic area to foot States this occurred after a long care drive, 7 to 8 hrs. States noticed had a pain in her groin before that, states her prev. PCP thought had pneumonia and advised her to rest, so was not moving much, prior to the car drive. She was on BCP and since has been off. States uses hormone ring ( Famring ) due to postm. symptoms, since age 35 (s/p SARAN with oop for severe endometriosis) Denies smoking She was treated with Coumadin, and on for 8 to 9 yrs and off for 3 months, had a superficial blood clot of LLE, and then her PCP resumed her Coumadin ever since. Takes 8 mg and 8.5 mg every other day States was taken off Coumadin and had another clot In 2018, was superficial thrombph. states was on Coumadin, is not aware that was subtherapeutic States her Primary care physician has been managing that. Denies seeing Underwriting Clerk or She reports there is FH of clotting Bother paternal GP of clotting, brother and father had bld clots Paternal aunt had PE and DVT. States we've all been testing and haven't come up with anything that predisp us to have bld clots She believes that factor V leiden, Prot C and S were negative. She has had low back surgery in 2010, for herniated disc and told had to shave off floating vertebr , no DVT She is on atorvastatin due to hyperlipidemia Takes PPI for gerd; denies bleeding ulcers States had EGD 06/2021 and told that was fine States her dry mouth is also very dry States takes very good of her oral hygiene States when consumes milk or sugary foods, has a terrible taste in the mouth , it's just yucky States brushes her tongue and scrapes, and uses mouth wash. She has not asked her dentist about her tongue. S States has had covid-19 and states this started prior to her covid infection. States only symptoms were could not smell or taste for 2 days then back to her baseline. States she drinks plenty of fluids Denies parotid gland swelling No dental decay or premature dental loss She reports musculoskeletal pains No particular jt, states moves around Thumbs, hips, wrist, LB States may notice a lump on inner aspect of wrist, cannot verify synovitis or jt effusion Am gelling is limited to 10 min If sitting too long and if does too much notices, like standing too long affects hips and LB States gained wt, is not sure how much She is on statin, feels could be affecting her pains Bakes, cupcakes for Weddings and Graduations Diet: standard western diet cerleal yogurt fruits- mandarin packed in box/syrup oranges salad with chicken Exercise: walk on a treadmill and bikes and stretches PAIN EVALUATION 11/19/2021 0700 Pain Level: 5 Pain Location: ? hips, joints Description: Aching Duration Units: Years Frequency: Intermittent Disease History Systemic Lupus Erythematosus (SLE) History Relevant to SLICC Classification Criteria - no nonscarring alopecia - no oral ulcers OR nasal ulcers - no chronic cutaneous lupus - no subacute cutaneous lupus OR Acute cutaneous lupus - no synovitis involving two or more joints - no neurologic (seizures, psychosis, mononeuritis complex. Myelitis or neuropathy) - no serositis - no hemolytic anemia - no leukopenia (<4000/mm3) OR Lymphopenia (<1000/mm3) - no thrombocytopenia (<100,000/mm3) - no renal urine zcvbxxa-iz-mwsvlrer ratio (or 24-hour urine protein) representing 500 mg protein/24 hours OR red blood cell casts - no lupus nephritis - ADAMA positive - no antiphospholipid antibody - no low complement Relevant to New ACR and EULAR Classification Criteria - no nonscarring alopecia - no oral ulcers - no subacute cutaneous or discoid lupus - no acute cutaneous lupus - no synovitis in at least two joints, or tenderness in at least two joints, AND at least 30 min of morning stiffness - no delirium - no psychosis - no seizure - no pleural or pericardial effusion - no acute p (more content not included)... [facility] ([employer]) -- CHERYLE VILLATORO ([id number]) 1970 F Date Time Provider Department 11/19/21 RON DUNCAN During your visit today, we recorded the following information about you: Ron Duncan MD 11/19/2021 10:08 PM Signed Please advise patient of test results: -Hand x-rays did not show inflammatory arthropathy -Thyroid antibodies were positive, suggesting that the positive ADAMA she has had is most likely due to auto-immune thyroid disease. Her thyroid function is still in process. -The inflammation markers, sed rate and crp were normal, indicating no inflammation. -The muscle enzymes (CK and aldolase) were normal, indicating no muscle disease or inflammation of the muscles. The Vitamin D was low, this indicates vitamin D deficiency and this is leading to reaction of the parathyroid glands (4 tiny glands parallel to the thyroid, important in calcium and bone metabolism). This combination leads to musculoskeletal pains and could explain her pains. Patients with Vitamin D deficiency may experience increased bone and body pains, fatigue, increased risk for fractures among other health problems. It is important to correct the deficiency. By correcting the vitamin D level, the iPTH will correct. -I recommend replacement therapy with Vitamin D 50,000 as prescribed: The following approved medication requests have been transmitted electronically to her [facility] pharmacy on file. Pending Prescriptions Disp Refills ERGOCALCIFEROL (VITAMIN D2) 1,250 MCG (50,000 UNIT) CAPSULE 8 capsule 0 Sig: Take 1 capsule by mouth two times a week. (FOR EXAMPLE ONE CAPSULE ON THURSDAY AND ONE ON THURSDAY) FOR A TOTAL OF 4 WEEKS, WITH A MEAL -Please inform pt. that orders were entered for f/u bld. tests in 4 wks (orders in [facility]) -Once patient has completed the 4 wk treatment, it is recommended to continue on maintenance therapy to keep the Vit D from dropping again. I recommend patient takes over the counter, Vitamin D3: 5000 international units once daily with a meal. - There are still other test results in process Thank you kindly, roxane Montiel 11/20/2021 11:39 AM Signed Tired calling patient but her mailbox was full. Not able to leave message. Rochelle Chang LPN 11/21/2021 10:16 AM Signed Unable to reach patient, message left for return call on cell. Annalee Renner 11/21/2021 11:13 AM Signed Patient returning call. Below message given from provider. Patient verbalized understanding with no further questions and will comply. 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 (FOR EXAMPLE ONE CAPSULE ON THURSDAY AND ONE ON THURSDAY) FOR A TOTAL OF 4 WEEKS, WITH A MEALDisp: 8 capsuleRfl: 0 PTH INTACT BLD [SQPTHI] Order #: [id number] FUTURE VITAMIN D 25 HYDROXY [SQVITD] Order #: [id number] FUTURE Prescriptions as of 11/21/2021 - omeprazole (PRILOSEC) 40 mg capsule omeprazole 40 mg Cap-DR Refills(s) 0 Start Date: 09/19/21 Status: Ordered - atorvastatin (LIPITOR) 40 mg tablet TAKE 1 TABLET BY MOUTH EVERY DAY FOR 90 DAYS - MULTIVITAMIN ORAL Take by mouth. - ergocalciferol 50,000 unit capsule (VITAMIN D2, DRISDOL) Take 1 capsule by mouth two times a week. (FOR EXAMPLE ONE CAPSULE ON THURSDAY AND ONE ON THURSDAY) FOR A TOTAL OF 4 WEEKS, WITH A MEAL - warfarin (COUMADIN) 2 mg tablet Take 2 mg by mouth daily as directed. As directed - pyridoxine (VITAMIN B-6) 100 mg tablet Take 100 mg by mouth once daily. - cyanocobalamin (VITAMIN B-12) 1,000 mcg Tab Take 1,000 mcg by mouth once daily. Problem List As Of Date 11/19/2021 Noted Resolved Hypercoagulopathy [D68.59] DVT (deep venous thrombosis) [I82.409] 03/08/2013 Prescriptions ordered this encounter Disp Refills Start End ERGOCALCIFEROL (VITAMIN D2) 1,250 MC* 8 ca* 0 11/19/2021 Route: ORAL Sig: Take 1 capsule by mouth two times a week. (FOR EXAMPLE ONE CAPSULE ON THURSDAY AND ONE ON THURSDAY) FOR A TOTAL OF 4 WEEKS, WITH A MEAL Encounter Status:Closed by ANNALEE RENNER on 11/21/[address] [facility] CRP SerPl-mCncon 11-19-2021 CRP [Mass/Vol] mg/L Normal <0.[address] [facility] Comment on above: Order Comment: Speci men Type: BLOOD SPECIMENOrdering Facility: [facility] Address: [address] [address], [place] [address] Performed By: #### 1 988-5, RF, CK ####[facility] [id number] [place] [address] [place] Centromere Ab IF Ql (S)on Centromere Ab Qn (S) <0.2 Normal <1.0 [facility] Comment on above: Order Comment: Speci men Type: BLOOD SPECIMEN Ordering Facility: [facility] Address: [address] [place] [address] Result Comment: Anti -centromere antibody is used as in aid in diagnosis of systemic sclerosis. Clinical correlation is required. Test Methodology: Multiplex flow immunoassay. Performed By: #### T DOREEN, MICRO #### [facility] CLIA [id number] [address] [place] [address] [place] CENTROMERE AB QUAL Negative Normal Negative [facility] Comment on above: Order Comment: Speci men Type: BLOOD SPECIMEN Ordering Facility: [facility] Address: [address] [place] [address] Performed By: #### T DOREEN, MICRO #### [facility] CLIA [id number] [address] [place] [address] [place] Chromatin Ab Qnon 11-19-2021 CHROMATIN AB QUAL Negative Normal Negative [facility] Comment on above: Order Comment: Speci men Type: BLOOD SPECIMEN Ordering Facility: [facility] Address: [address] [place] [address] Performed By: #### T DOREEN, MICRO #### [facility] CLIA [id number] [address] [place] [address] [place] Chromatin Ab SerPl-aCncon Chromatin Ab Qn <0.2 Normal <1.[address] [facility] Comment on above: Order Comment: Speci men Type: BLOOD SPECIMEN Ordering Facility: [facility] Address: [address] [place] [address] Result Comment: Test Methodology: Multiplex flow immunoassay. Performed By: #### T DOREEN, MICRO #### [facility] CLIA [id number] [address] [place] [address] [place] Cyclic citrullinated peptide IgG Qnon 11-19-2021 CCP ANTIBODY IGG QUALITATIVE Negative Normal Negative [facility] Comment on above: Order Comment: Speci men Type: BLOOD SPECIMENOrdering Facility: [facility] Address: [address] [place] [address] Performed By: #### 3 3935-8 ####[facility] [id number] [address] [place] SERA Jo1 Ab Ser-aCncon 2021 Gloria-1 extractable nuclear Ab Qn (S) <0.2 Normal <1.[address] [facility] Comment on above: Order Comment: Speci men Type: BLOOD SPECIMEN Ordering Facility: [facility] Address: [address] [place] [address] Performed By: #### T DOREEN, MICRO #### [facility] CLIA [id number] [address] [place] [address] [place] SERA FINAL OPERATIONS TECHNICIAN Ab Ser-aCncon 2021 Ribonucleoprotein extractable nuclear Ab Qn (S) <0.2 Normal <1.[address] [facility] Comment on above: Order Comment: Speci men Type: BLOOD SPECIMEN Ordering Facility: [facility] Address: [address] [place] [address] Performed By: #### T DOREEN, MICRO #### [facility] CLIA [id number] [address] [place] [address] [place] SERA SM IgG Ser-aCncon 2021 Brady extractable nuclear IgG Qn (S) <0.2 Normal <1.[address] [facility] Comment on above: Order Comment: Speci men Type: BLOOD SPECIMEN Ordering Facility: [facility] Address: [address] [place] [address] Performed By: #### T DOREEN, MICRO #### [facility] CLIA [id number] [address] [place] [address] SERA SS-A Ab Ser-aCncon 11-19 Sjogrens syndrome-A extractable nuclear Ab Qn (S) <0.2 Normal <1.[address] [facility] Comment on above: Order Comment: Speci men Type: BLOOD SPECIMEN Ordering Facility: [facility] Address: [address] [place] [address] Result Comment: Test Methodology: Multiplex flow immunoassay. Performed By: #### T DOREEN, MICRO #### [facility] CLIA [id number] [address] [place] [address] SERA SS-B Ab Ser-aCncon 11-19 Sjogrens syndrome-B extractable nuclear Ab Qn (S) <0.2 Normal <1.[address] [facility] Comment on above: Order Comment: Speci men Type: BLOOD SPECIMEN Ordering Facility: [facility] Address: [address] [place] [address] Result Comment: Anti -SSB (anti-La) antibody is used as an aid in diagnosis of a variety of systemic autoimmune diseases, especially for Sjogren's syndrome and systemic lupus erythematosus. Clinical correlation is required. Test Methodology: Multiplex flow immunoassay. Performed By: #### T DOREEN, MICRO #### [facility] CLIA [id number] [address] [place] [address] [place] ESR Westergren method (Bld) [Velocity]on 11-19-2021 ESR (Bld) [Velocity] 2 mm/h 0 - 20 mm/hr [facility] ESR (Bld) [Velocity] 2 mm/h Normal 0-20 [facility] Comment on above: Order Comment: Speci men Type: BLOOD SPECIMEN Ordering Facility: [facility] Address: [address] [place] [address] Performed By: #### T DOREEN, MICRO #### [facility] CLIA [id number] [address] [place] [address] [place] G-6-PD QUANTITATIVEon 2021 G6PD (RBC) [Catalytic activity/Mass] 12.5 U/g Hb Normal 9.8-15.[address] [facility] Comment on above: Order Comment: Ashley mitchell Type: BLOOD SPECIMENOrdering Facility: [facility] Address: [address] [place] [address] Result Comment: This test was developed and its performance characteristics determined by [facility]'s [facility] Pathology and Laboratory Medicine [place] ([facility] It has not been cleared or approved by the FDA. -[facility] is regulated under CLIA as qualified to perform high-complexity testing. This test is used for clinical purposes. It should not be regarded as investigational or for research. Performed By: #### Q TG6PD ####[facility]IA [id number] [address] [place] Gloria-1 extractable nuclear Ab Qn (S)on 11-19-2021 GLORIA 1 ANTIBODY QUAL Negative Normal Negative [facility] Comment on above: Order Comment: Ashley mitchell Type: BLOOD SPECIMEN [facility]ing Facility: [facility] Address: [address] [place] [address] Result Comment: Anti -GLORIA-1 antibody is used as an aid in diagnosis of polymyositis and dermatomyositis especially with pulmonary involvement. A negative result cannot rule out polymyositis or dermatomyositis. Clinical correlation is required. Test Methodology: Multiplex flow immunoassay. Performed By: #### T DOREEN, MICRO #### [facility] CLIA [id number] [address] [place] [address] [place] No Panel Informationon 11-19 [facility] PTH INTACT BLDon 11-19-2021 Parathyrin.intact [Mass/Vol] 72 pg/mL High 15 - 65 pg/mL [facility] Parathyrin.intact [Mass/Vol] 72 pg/mL High 15-[address] [facility] Comment on above: Order Comment: Ashley mitchell Type: BLOOD SPECIMEN [facility] Facility: [facility] Address: [address] [place] [address] Performed By: #### T DOREEN, MICRO #### [facility] CLIA [id number] [address] [place] [address] [place] RHEUMATOID FACTOR BLon 11-19 Rheumatoid factor Qn [IU]/mL <16 IU/mL [facility] Rheumatoid factor Qn [IU]/mL Normal <16 [facility] Comment on above: Order Comment: Specevan men Type: BLOOD SPECIMENOrdering Facility: [facility] Address: [address] [place] [address] Performed By: #### 1 988-5, RF, CK ####[facility]IA [id number] [place] [address] [place] Ribonucleoprotein extractabl e nuclear Ab Qn (S)on 11-19-2021 ANTI-FINAL OPERATIONS TECHNICIAN QUAL Negative Normal Negative [facility] Comment on above: Order Comment: Ashley mitchell Type: BLOOD SPECIMEN [facility] Facility: [facility] Address: [address] [place] [address] Performed By: #### T DOREEN, MICRO #### [facility] CLIA [id number] [address] [place] [address] [place] RIBOSOMAL FINAL OPERATIONS TECHNICIAN QUAL Negative Normal Negative [facility] Comment on above: Order Comment: Ashley mitchell Type: BLOOD SPECIMEN [facility]ing Facility: [facility] Address: [address] [place] [address] Result Comment: Anti -Ribosomal RNA (Ribosomal P) antibody is used as an aid in diagnosis of systemic autoimmune diseases especially systemic lupus erythematosus and mixed connective tissue disease. Cross-reactivity with Anti-brady antibody is not uncommon. Clinical correlation is required. Test Methodology: Multiplex flow immunoassay. Performed By: #### T DOREEN, MICRO #### [facility] CLIA [id number] [address] [place] [address] [place] SCL-70 extractable nuclear I gG IA Qn (S)on 11-19-2021 SCLERODERMA AB QUAL Negative Normal [facility] Comment on above: Order Comment: Speci men Type: BLOOD SPECIMEN [facility]: [facility] Address: [address] [place] [address] Performed By: #### T DOREEN, MICRO #### [facility] CLIA [id number] [address] [place] [address] [place] SCLERODERMA IGG AB <0.2 Normal <1.0 [facility] Comment on above: Order Comment: Speci men Type: BLOOD SPECIMEN Ordering Facility: [facility] Address: [address] [place] [address] Result Comment: Scl- 70/Scleroderma antibody test is used as an aid in diagnosis of systemic sclerosis especially the diffuse cutaneous form. A negative result cannot rule out systemic sclerosis. The final interpretation should consider clinical picture and other test results such as anti-centromere antibody. Test Methodology: Multiplex flow immunoassay. Performed By: #### T DOREEN, MICRO #### [facility] CLIA [id number] [address] [place] [address] [place] Sjogrens syndrome-A extracta ble nuclear Ab Qn (S)on 11-19-2021 SSA ANTIBODY QUAL Negative Normal Negative [facility] Comment on above: Order Comment: Speci men Type: BLOOD SPECIMEN [facility]ing Facility: [facility] Address: [address] [place] [address] Performed By: #### T DOREEN, MICRO #### [facility] CLIA [id number] [address] [place] [address] [place] Sjogrens syndrome-B extracta ble nuclear Ab Qn (S)on 11-19-2021 SSB ANTIBODY QUAL Negative Normal Negative [facility] Comment on above: Order Comment: Speci men Type: BLOOD SPECIMEN [facility]ing Facility: [facility] Address: [address] [place] [address] Performed By: #### T DOREEN, MICRO #### [facility] CLIA [id number] [address] [place] [address] [place] Brady extractable nuclear Ig G Qn (S)on 11-19-2021 SM ANTIBODY QUAL Negative Normal Negative [facility] Comment on above: Order Comment: Ashley mitchell Type: BLOOD SPECIMEN [facility]: [facility] Address: [address] [place] [address] Result Comment: Anti -Sm (Brady) antibody is used as an aid in diagnosis of systemic lupus erythematosus and its presence is associated with renal disease. A negative result cannot rule out systemic lupus erythematosus. Clinical correlation is required. Test Methodology: Multiplex flow immunoassay. Performed By: #### T DOREEN, MICRO #### [facility] CLIA [id number] [address] [place] [address] [place] THYROGLOBULIN ABon Thyroglobulin Ab Qn 164.6 [IU]/mL High <14.4 IU/mL [facility] Thyroglobulin Ab Qn 164.6 [IU]/mL High <14.4 [facility] Comment on above: Order Comment: Ashley mitchell Type: BLOOD SPECIMEN [facility] Address: [address] [place] [address] Performed By: #### T DOREEN, MICRO #### [facility] CLIA [id number] [address] [place] [address] [place] THYROID PEROXIDASE ANTIBODY BLOODon 11-19-2021 TPO Ab Qn 38.4 [IU]/mL High <5.6 IU/mL [facility] TPO Ab Qn 38.4 [IU]/mL High <5.[address] [facility] Comment on above: Order Comment: Ashley mitchell Type: BLOOD SPECIMEN Order[facility] Facility: [facility] Address: [address] [place], [place] [id number] Result Comment: Thyr oid Peroxidase Antibody test is used as an aid in diagnosis of autoimmune thyroid disease. Clinical correlation is required. Performed By: #### T DOREEN, MICRO #### [facility] CLIA [id number] [address] [place] [address] [place] THYROID STIMULATING IMMUNOGL OBULIN BLOODon 11-19-2021 Thyroid stimulating immunoglobulins actual/normal (S) [Relative mass conc] % Normal <0.[address] [facility] Comment on above: Order Comment: Ashley mitchell Type: BLOOD SPECIMEN [facility] Facility: [facility] Address: [address] [place] [address] Result Comment: Thyr oid Stimulating Immunoglobulin test is used as an aid in diagnosis of autoimmune hyperthyroidism especially in patients with Grave's orbitopathy and dermopathy. Low positive TSH receptor stimulating antibody levels may occasionally be found in patients with autoimmune hypothyroidism. Clinical correlation is required. Performed By: #### Jose LOGAN, MICRO #### [facility] CLIA [id number] [address] [place] [address] [place] TSI QUALITATIVE Negative Normal Negative [facility] Comment on above: Order Comment: Ashley mitchell Type: BLOOD SPECIMEN [facility]: [facility] Address: [address] [place] [address] Performed By: #### Jose LOGAN, MICRO #### [facility] CLIA [id number] [address] [place] [address] [place] TSH SerPl-aCncon 11-19-2021 TSH Qn 4.180 m[IU]/L Normal 0.270-4.[address] [facility] Comment on above: Order Comment: Ashley mitchell Type: BLOOD SPECIMEN [facility]: [facility] Address: [address] [place] [address] Performed By: #### Jose DOREEN, MICRO #### [facility] CLIA [id number] [address] [place] [address] [place] VITAMIN D 25 HYDROXYon 11-19 25-hydroxyvitamin D3 [Mass/Vol] 21.3 ng/mL Low 31.0 - 80.0 ng/mL [facility] 25-hydroxyvitamin D3 [Mass/Vol] 21.3 ng/mL Low 31.0-80.[address] [facility] Comment on above: Order Comment: Speci men Type: BLOOD SPECIMEN Ordering Facility: [facility] Address: [address] [place], [place] [id number] Result Comment: Clas sification of 25 [place] Vitamin D status: Deficiency/Insufficiency: < or = 30 ng/ml. Sufficiency/Optimal Levels: 31-80 ng/mL Toxicity: > 100 ng/mL. Test performed by chemiluminescent immunoassay. Performed By: #### T DOREEN, MICRO #### [facility] CLIA [id number] [address] [place] [address] OF [facility] XR HAND 3V PA/LAT/OBL BILon 11-19-2021 XR HAND 3V PA/LAT/OBL ALAINA * * *Final Report* * * DATE OF EXAM: Nov 19 2021 9:47AM [id number] [id number] - XR HAND 3V PA/LAT/OBL ALAINA / PROCEDURE REASON: multiple diagnoses * * * * Physician Interpretation * * * * EXAMINATION: XR HAND 3V PA/LAT/OBL ALAINA HISTORY: bilateral joint pain ADAMA positive Polyarthralgia Primary osteoarthritis of hands, bilateral Primary osteoarthritis of hands, bilateral. TECHNIQUE: XR HAND 3V PA/LAT/OBL ALAINA Laterality: BILATERAL Number of different views (projections): 3 M: XB_1 COMPARISON: None RESULT: Right hand: No acute fracture. No dislocation. Mild degenerative changes of the first CMC joint and radiocarpal articulation. No soft tissue abnormality. Left hand: No acute fracture. No dislocation. Mild degenerative changes of the first CMC joint and radiocarpal articulation. No soft tissue abnormality. IMPRESSION: No acute radiographic findings. Mild degenerative changes, as described. Chemical Reclamation Equipment Operator: PSCB Transcribe Date/Time: Nov 19 2021 10:28A Dictated by : GUIDO DONNELLY MD This examination was interpreted and the report reviewed and electronically signed by: GUIDO DONNELLY MD on Nov 19 2021 10:43AM EST [id number] Normal [facility] cCP IgG SerPl-aCncon 022 Cyclic citrullinated peptide IgG Qn <15 Normal <[address] [facility] Comment on above: Order Comment: Speci men Type: BLOOD SPECIMENOrdering Facility: [facility] Address: [address] [place] [id number] Performed By: #### 3 3935-8 ####[facility] [id number] [address] dsDNA Ab Ser IA-aCncon 11-19 DNA double strand Ab IA Qn (S) <12 Normal <[address] [facility] Comment on above: Order Comment: Speci men Type: BLOOD SPECIMEN Ordering Facility: [facility] Address: [address] [place], [place] [address] [address] Result Comment: Nega tive for ds DNA Antibodies. <30 IU/mL Negative 30-74 IU/mL Equivocal >74 IU/mL Positive Performed By: #### T DOREEN, MICRO #### [facility] CLIA [id number] [address] [place] [address] XR Hip Complete Left*on 08-07 XR Hip Complete Left* COMPARISON: none FINDINGS: There is no lytic or sclerotic bone lesion. There is no fracture or dislocation. The femoral head is located. There is a shallow acetabulum likely on a congenital basis and there is mild joint space narrowing and mild irregularity of the femoral head and the acetabulum. There are no radiopaque foreign bodies. IMPRESSION: There are mild degenerative changes of the left hip joint with irregular articular surfaces and a shallow acetabulum. Report reported and signed by JANUARY DIAZ on 09/03/2021 0917 Normal [facility] XR Hip Complete Right*on XR Hip Complete Right* COMPARISON: none FINDINGS: AP pelvis and right hip There is no lytic or sclerotic bone lesion. There is no fracture or dislocation. The femoral heads are located. There are bilateral shallow acetabuli. There is stasis of the right hip joint. There are no radiopaque foreign bodies. IMPRESSION: There are mild degenerative changes with joint space and the right hip joint and there are bilateral shallow acetabuli likely on a congenital basis. Report reported and signed by JANUARY DIAZ on 09/03/2021 0921 Normal [facility] XR Spine Lumbar 4+ Views*on 09-02-2021 XR Spine Lumbar 4+ Views* COMPARISON: None. FINDINGS: There is a transitional vertebra at the lumbosacral junction. The first [id number]-hwyohoa vertebral body on the AP view is labeled L1 . There is preservation of the lordotic curvature of the lumbar spine. There is dextroscoliosis of a Castellanos angle measurement of 13?? between L1 and L4. There is no loss of vertebral body height. There is changes seen at L4-5 and L5-S1. There is no worrisome bone destruction or pathologic calcifications. There are no radiopaque foreign bodies. IMPRESSION: There is spondylosis of the lower lumbar spine and mild dextroscoliosis. Report reported and signed by JANUARY DIAZ on 09/03/2021 0920 Normal [facility] Screening Mammogram, Terrence singleton 06-12-2021 Screening Mammogram, Bilateral CLINICAL HISTORY: Screening Mammogram COMPARISON: Priors from 2019, 2018, 2017, 2016 TECHNIQUE: 2D and 3D mammogram imaging of both breasts was performed. RESULT: DENSITY: Heterogeneously dense, which may obscure small masses. There is no suspicious mass, asymmetry, architectural distortion, or calcification. No significant change since the prior mammograms. IMPRESSION: BIRADS 1 : NEGATIVE, NORMAL INTERVAL FOLLOW UP FOLLOW UP: 12 months DENSITY: Heterogeneously dense MAMMOGRAPHY IS VERY IMPORTANT TO YOUR HEALTH. THE CURRENT [place] [employer] GUIDELINES RECOMMENDS ANNUAL MAMMOGRAPHY BEGINNING AT AGE 40 THIS FACILITY USES A REMINDER SYSTEM TO ENSURE ALL PATIENTS RECEIVE REMINDER NOTIFICATIONS AT THE APPROPRIATE TIME BASED ON THE RECOMMENDATIONS OF THIS EXAM. Board Certified Radiologist. Accredited by the ACR and FDA. Report reported and signed by Sanjay Canchola on 06/14/2021 0909 Normal [facility] Vital Signs Date Time Vital Sign Value Performing Clinician Facility 07-03-2023 10:00-0500 Hourly Rounding [facility] 07-03-2023 10:00-0500 Promise to Return [facility] 07-03-2023 09:00-0500 Hourly Rounding [facility] 07-03-2023 09:00-0500 Promise to Return [facility] 07-03-2023 08:15-0500 Heart rate 71 /min [facility] 07-03-2023 08:15-0500 SaO2% (BldA) [Mass fraction] 97 % [facility] 07-03-2023 08:15-0500 Respiratory rate 18 /min [facility] 07-03-2023 08:14-0500 Body temperature 97.52 [degF] [facility] 07-03-2023 08:13-0500 Diastolic blood pressure 71 mm[Hg] [facility] 07-03-2023 08:13-0500 Mean blood pressure 85 mm[Hg] [facility] 07-03-2023 08:13-0500 Systolic blood pressure 114 mm[Hg] [facility] 07-03-2023 08:00-0500 Hourly Rounding [facility] 07-03-2023 08:00-0500 Promise to Return [facility] 07-03-2023 04:08-0500 Body temperature 98.06 [degF] [facility] 07-03-2023 04:08-0500 Diastolic blood pressure 70 mm[Hg] [facility] 07-03-2023 04:08-0500 Heart rate 80 /min [facility] 07-03-2023 04:08-0500 Respiratory rate 16 /min [facility] 07-03-2023 04:08-0500 SaO2% (BldA) [Mass fraction] 95 % [facility] 07-03-2023 04:08-0500 Systolic blood pressure 142 mm[Hg] [facility] 07-03-2023 00:00-0500 Body temperature 97.52 [degF] [facility] 07-03-2023 00:00-0500 Diastolic blood pressure 77 mm[Hg] [facility] 07-03-2023 00:00-0500 Heart rate 78 /min [facility] 07-03-2023 00:00-0500 Respiratory rate 16 /min [facility] 07-03-2023 00:00-0500 SaO2% (BldA) [Mass fraction] 96 % [facility] 07-03-2023 00:00-0500 Systolic blood pressure 126 mm[Hg] [facility] 07-02-2023 20:07-0500 Mean blood pressure 96 mm[Hg] [facility] 07-02-2023 15:50-0500 Mean blood pressure 107 mm[Hg] [facility] 07-02-2023 15:26-0500 Body temperature 97.88 [degF] [facility] 07-02-2023 15:26-0500 Mean blood pressure 103 mm[Hg] [facility] 07-02-2023 15:26-0500 Respiratory rate 17 /min [facility] 07-02-2023 15:15-0500 Mean blood pressure 100 mm[Hg] [facility] 07-02-2023 15:15-0500 Respiratory rate 18 /min [facility] 07-02-2023 15:00-0500 Mean blood pressure 108 mm[Hg] [facility] 07-02-2023 14:30-0500 Body temperature 97.7 [degF] [facility] 07-02-2023 14:25-0500 FIO2 100 1 [facility] 07-02-2023 14:20-0500 FIO2 100 1 [facility] 07-02-2023 14:15-0500 FIO2 100 1 [facility] 07-02-2023 09:57-0500 Heart rate 76 /min [facility] 05-27-2023 09:40-0500 Body height 170.18 cm Amarjit Mathew Other [employer] Other 05-27-2023 09:40-0500 Body mass index (BMI) [Ratio] 38.21 kg/m2 Amarjit Mathew Other [employer] Other 05-27-2023 09:40-0500 Body weight 110.68 kg Amarjit Mathew Other [employer] Other 05-27-2023 09:40-0500 Diastolic blood pressure 68 mm[Hg] Amarjit Mathew Other [facility] [employer] Other 05-27-2023 09:40-0500 Systolic blood pressure 104 mm[Hg] Amarjit Mathew Other [facility] [employer] Other 02-25-2023 11:18-0400 Heart rate 77 /min Syed Zumbar [facility] 02-25-2023 11:18-0400 SaO2% (BldA) [Mass fraction] 98 % Syed Zumbar [facility] 02-25-2023 11:18-0400 Diastolic blood pressure 90 mm[Hg] Syed Zumbar [facility] 02-25-2023 11:18-0400 Mean blood pressure 114 mm[Hg] Syed Zumbar [facility] 02-25-2023 11:18-0400 Systolic blood pressure 161 mm[Hg] Syed Zumbar [facility] 02-25-2023 11:18-0400 Respiratory rate 16 /min Syed Zumbar [facility] 02-25-2023 11:11-0400 Diastolic blood pressure 92 mm[Hg] Syed Zumbar [facility] 02-25-2023 11:11-0400 Heart rate 81 /min Syed Zumbar [facility] 02-25-2023 11:11-0400 Respiratory rate 14 /min Syed Zumbar [facility] 02-25-2023 11:11-0400 SaO2% (BldA) [Mass fraction] 99 % Syed Zumbar [facility] 02-25-2023 11:11-0400 Systolic blood pressure 144 mm[Hg] Syed Zumbar [facility] 02-25-2023 10:06-0400 Heart rate 82 /min Syed Zumbar [facility] 02-25-2023 10:06-0400 SaO2% (BldA) [Mass fraction] 96 % Syed Zumbar [facility] 02-25-2023 10:05-0400 Diastolic blood pressure 82 mm[Hg] Syed Zumbar [facility] 02-25-2023 10:05-0400 Mean blood pressure 99 mm[Hg] Syed Zumbar [facility] 02-25-2023 10:05-0400 Systolic blood pressure 133 mm[Hg] Syed Zumbar [facility] 02-25-2023 10:05-0400 Body temperature 98.42 [degF] Syed Zumbar [facility] 02-25-2023 10:03-0400 Respiratory rate 14 /min Syed Z[facility] 01-15-2023 15:18-0400 Diastolic blood pressure 91 mm[Hg] Syed Zumbar [facility] 01-15-2023 15:18-0400 Heart rate 79 /min Syed Zumbar [facility] 01-15-2023 15:18-0400 Mean blood pressure 109 mm[Hg] Syed Zumbar [facility] 01-15-2023 15:18-0400 Respiratory rate 14 /min Syed Zumbar [facility] 01-15-2023 15:18-0400 Systolic blood pressure 144 mm[Hg] Syed Zumbar [facility] 08-29-2022 11:19-0500 Body height 170.2 cm Dmitry Live DO Work Phone: [facility] 08-29-2022 11:19-0500 Body weight 111.58 kg Dmitry Calos DO Work Phone: [facility] 08-01-2022 15:30-0500 Diastolic blood pressure 79 mm[Hg] Sara R[facility] 08-01-2022 15:30-0500 Heart rate 73 /min Sara R[facility] 08-01-2022 15:30-0500 Mean blood pressure 105 mm[Hg] Sara Rutherford [facility] 08-01-2022 15:30-0500 Respiratory rate 14 /min [facility] 08-01-2022 15:30-0500 Systolic blood pressure 158 mm[Hg] Sara Rutherford [facility] 07-02-2022 10:21-0500 Heart rate 74 /min Syed Zumbar [facility] 07-02-2022 10:21-0500 SaO2% (BldA) [Mass fraction] 98 % Syed Zumbar [facility] 07-02-2022 10:21-0500 Diastolic blood pressure 85 mm[Hg] Syed Zumbar [facility] 07-02-2022 10:21-0500 Mean blood pressure 112 mm[Hg] Syed Zumbar [facility] 07-02-2022 10:21-0500 Systolic blood pressure 168 mm[Hg] Syed Zumbar [facility] 07-02-2022 10:21-0500 Respiratory rate 16 /min Syed Zumbar [facility] 07-02-2022 10:12-0500 Diastolic blood pressure 97 mm[Hg] Syed Zumbar [facility] 07-02-2022 10:12-0500 Heart rate 82 /min Syed Zumbar [facility] 07-02-2022 10:12-0500 Respiratory rate 16 /min Syed Zumbar [facility] 07-02-2022 10:12-0500 SaO2% (BldA) [Mass fraction] 95 % Syed Zumbar [facility] 07-02-2022 10:12-0500 Systolic blood pressure 131 mm[Hg] Syed Zumbar [facility] 07-02-2022 09:12-0500 Heart rate 87 /min Syed Zumbar [facility] 07-02-2022 09:12-0500 SaO2% (BldA) [Mass fraction] 96 % Syed Zumbar [facility] 07-02-2022 09:12-0500 Body temperature 98.24 [degF] Syed Zumbar [facility] 07-02-2022 09:11-0500 Diastolic blood pressure 83 mm[Hg] Syed Zumbar [facility] 07-02-2022 09:11-0500 Mean blood pressure 98 mm[Hg] Syed Zumbar [facility] 07-02-2022 09:11-0500 Systolic blood pressure 126 mm[Hg] Syed Zumbar [facility] 07-02-2022 09:10-0500 Respiratory rate 16 /min Syed Zumbar [facility] 06-12-2022 13:12-0500 Diastolic blood pressure 78 mm[Hg] Syed Zumbar [facility] 06-12-2022 13:12-0500 Heart rate 93 /min Syed Zumbar [facility] 06-12-2022 13:12-0500 Mean blood pressure 96 mm[Hg] Syed Zumbar [facility] 06-12-2022 13:12-0500 Respiratory rate 18 /min Syed Zumbar [facility] 06-12-2022 13:12-0500 Systolic blood pressure 133 mm[Hg] Syed Zumbar [facility] 05-28-2022 14:37-0500 Body weight 111.58 kg Ronit Dominguez APRN.WATER RECLAMATION SYSTEMS OPERATOR Work Phone: [facility] 05-28-2022 14:37-0500 Diastolic blood pressure 71 mm[Hg] Ronit Dominguez APRN.WATER RECLAMATION SYSTEMS OPERATOR Work Phone: [facility] 05-28-2022 14:37-0500 Heart rate 89 /min Ronit Dominguez APRN.WATER RECLAMATION SYSTEMS OPERATOR Work Phone: [facility] 05-28-2022 14:37-0500 SaO2% (BldA) [Mass fraction] 97 % Ronit Dominguez APRN.WATER RECLAMATION SYSTEMS OPERATOR Work Phone: [facility] 05-28-2022 14:37-0500 Systolic blood pressure 131 mm[Hg] Ronit Dominguez APRN.WATER RECLAMATION SYSTEMS OPERATOR Work Phone: [facility] 12-23-2021 09:00-0400 Body weight 108.86 kg Ronit Dominguez WIND FARM DESIGNER.WATER RECLAMATION SYSTEMS OPERATOR Work Phone: [facility] 12-23-2021 09:00-0400 Diastolic blood pressure 62 mm[Hg] Ronit Dominguez WIND FARM DESIGNER.WATER RECLAMATION SYSTEMS OPERATOR Work Phone: [facility] 12-23-2021 09:00-0400 Heart rate 66 /min Ronit Brionesick WIND FARM DESIGNER.WATER RECLAMATION SYSTEMS OPERATOR Work Phone: [facility] 12-23-2021 09:00-0400 Systolic blood pressure 128 mm[Hg] Ronit Dominguez WIND FARM DESIGNER.WATER RECLAMATION SYSTEMS OPERATOR Work Phone: [facility] 11-19-2021 08:03-0400 Body weight 108.86 kg Ron Duncan MD Work Phone: [facility] 11-19-2021 08:03-0400 Diastolic blood pressure 62 mm[Hg] Ron Duncan MD Work Phone: [facility] 11-19-2021 08:03-0400 Heart rate 66 /min Ron Duncan MD Work Phone: [facility] 11-19-2021 08:03-0400 Systolic blood pressure 122 mm[Hg] Ron Duncan MD Work Phone: [facility] 10-31-2021 15:35-0400 Diastolic blood pressure 92 mm[Hg] Syed Zumbar [facility] 10-31-2021 15:35-0400 Heart rate 78 /min Syed Zumbar [facility] 10-31-2021 15:35-0400 Mean blood pressure 111 mm[Hg] Syed Zumbar [facility] 10-31-2021 15:35-0400 Respiratory rate 18 /min Syed Zumbar [facility] 10-31-2021 15:35-0400 Systolic blood pressure 148 mm[Hg] Syed Zumbar [facility] Encounters Encounter Date Encounter Type Care Provider Facility Start: 07-02-2023 End: 07-03-2023 ambulatory Tyson Garay Facility:[facility] Start: 07-02-2023 End: 07-03-2023 Admission to same day surgery center Tyson Garay [facility] Start: 06-23-2023 End: 06-24-2023 ambulatory VICENTE MARES Not Available Start: 06-15-2023 End: 06-15-2023 ambulatory TYSON GARAY Not Available Start: 05-27-2023 Office outpatient ne w 30 minutes Amarjit [facility] Start: 05-27-2023 End: 05-27-2023 ambulatory MD Brandon Beasley Work Phone: [employer] Other Start: 05-27-2023 End: 05-27-2023 Patient encounter procedure MD Brandon Beasley Work Phone: [facility] [place] Work Phone: Start: 05-25-2023 End: 05-25-2023 ambulatory TYSON GARAY Not Available Start: 05-15-2023 End: 05-16-2023 ambulatory BRANDON BEASLEY Not Available Start: 05-13-2023 End: 05-14-2023 ambulatory SUMMER M WORKMAN Not Available Start: 05-05-2023 End: 05-05-2023 ambulatory Summer M Workman Facility:[facility] Start: 05-05-2023 Encounter for genera l adult medical examination without abnormal findings summer [facility] Start: 05-05-2023 End: 05-05-2023 Patient encounter procedure MD Brandon Beasley Work Phone: [facility] [place] Work Phone: Start: 04-22-2023 End: 04-22-2023 ambulatory Brandon Beasley Facility:[facility] Start: 04-22-2023 End: 04-22-2023 ambulatory MD Brandon Beasley Work Phone: [facility] Work Phone: Start: 04-22-2023 End: 04-22-2023 Patient encounter procedure MD Brandon Beasley Work Phone: [facility] [place] Work Phone: Start: 02-25-2023 End: 02-26-2023 ambulatory MD Syed Bautista Facility:[facility] Start: 02-25-2023 End: 02-25-2023 [facility] Start: 01-15-2023 End: 01-16-2023 ambulatory Syed Bautista Facility:[facility] Start: 01-15-2023 End: 01-15-2023 [facility] Start: 12-22-2022 End: 12-22-2022 ambulatory Brandon Beasley Facility:[facility] Start: 12-22-2022 End: 12-22-2022 ambulatory MD Brandon Beasley Work Phone: [facility] Work Phone: Start: 12-22-2022 End: 12-22-2022 Patient encounter procedure MD Brandon Beasley Work Phone: [facility] [place] Work Phone: Start: 11-13-2022 End: 11-13-2022 ambulatory Brandon Beasley Facility:[facility] Start: 11-13-2022 End: 11-13-2022 ambulatory MD Brandon Beasley Work Phone: [facility] Work Phone: Start: 11-13-2022 End: 11-13-2022 Patient encounter procedure MD Brandon Beasley Work Phone: [facility] [place] Work Phone: Start: 11-12-2022 End: 04-05-2023 ambulatory RICHI R BEREND Facility:[facility] Start: 10-13-2022 End: 10-14-2022 ambulatory Syed Bautista Facility:[facility] Start: 10-04-2022 ambulatory Dmitry Oswald DO Work Phone: [facility] Start: 10-04-2022 Patient encounter procedure Dmitry Live DO Work Phone: [facility] Comment on above: Appointment Start: 10-02-2022 End: 10-03-2022 ambulatory Syed Zumbar Facility:[facility] Start: 10-02-2022 End: 10-03-2022 ambulatory XXXX NONE Facility:[facility] Start: 10-02-2022 End: 10-02-2022 Patient encounter procedure Syed Bautista [facility] Start: 09-30-2022 End: 09-30-2022 ambulatory [facility] Facility:[facility] Start: 09-30-2022 End: 09-30-2022 ambulatory Lary Brady PT Work Phone: [facility] Start: 09-30-2022 End: 09-30-2022 Manual pelvic examination Lary Brady PT Work Phone: [facility] Comment on above: Spinal stenosis of l umbar region, unspecified whether neurogenic claudication present (Primary Dx); Lumbar radiculopathy, chronic; Spinal stenosis of lumbar region with neurogenic claudication; Pain in joint, pelvic region and thigh, unspecified laterality Start: 09-26-2022 End: 09-26-2022 ambulatory [facility] Facility:[facility] Start: 09-26-2022 End: 09-26-2022 ambulatory Lary Brady PT Work Phone: [facility] Start: 09-26-2022 End: 09-26-2022 Manual pelvic examination Lary Brady PT Work Phone: [facility] Comment on above: Spinal stenosis of l umbar region, unspecified whether neurogenic claudication present (Primary Dx); Lumbar radiculopathy, chronic; Spinal stenosis of lumbar region with neurogenic claudication; Pain in joint, pelvic region and thigh, unspecified laterality Start: 09-15-2022 End: 09-15-2022 ambulatory [facility] Facility:[facility] Start: 09-15-2022 End: 09-15-2022 ambulatory Lary Vegasjennifer PT Work Phone: [facility] Start: 09-15-2022 End: 09-15-2022 Manual pelvic examination Lary Brady PT Work Phone: [facility] Comment on above: Spinal stenosis of l umbar region, unspecified whether neurogenic claudication present; Lumbar radiculopathy, chronic; Spinal stenosis of lumbar region with neurogenic claudication; Pain in joint, pelvic region and thigh, unspecified laterality; Myalgia Start: 09-05-2022 Telephone encounter Dmitry Live DO Work Phone: [facility] [place] Comment on above: Return To Work Nathaly r Start: 08-29-2022 ambulatory [facility] Facil ity:[facility] Start: 08-29-2022 End: 08-29-2022 ambulatory [facility] Facility:[facility] Start: 08-29-2022 End: 08-29-2022 Patient encounter procedure Dmitry Live DO Work Phone: [facility] Comment on above: Spinal stenosis of l umbar region, unspecified whether neurogenic claudication present (Primary Dx); Lumbar radiculopathy, chronic; Spinal stenosis of lumbar region with neurogenic claudication; Pain in joint, pelvic region and thigh, unspecified laterality; Myalgia Start: 08-20-2022 Telephone encounter Dmitry Live DO Work Phone: [facility] Comment on above: Appointment Start: 08-01-2022 End: 08-02-2022 ambulatory Sara Rutherford Facility:[facility] Start: 08-01-2022 End: 08-01-2022 Pain Management Sara Rutherford [facility] Start: 07-02-2022 End: 07-02-2022 Patient encounter procedure Syed Méndezdilma [facility] Start: 06-26-2022 End: 06-26-2022 ambulatory Brandon Beasley Facility:[facility] Start: 06-26-2022 End: 06-26-2022 ambulatory MD Brandon Beasley Work Phone: [facility] Work Phone: Start: 06-26-2022 End: 06-26-2022 Patient encounter procedure MD Brandon Beasley Work Phone: [facility] [place] Work Phone: Start: 06-12-2022 End: 06-12-2022 Pain Management Syed Lily [facility] Start: 05-28-2022 End: 05-29-2022 ambulatory RONIT DOMINGUEZ Facility:[facility] Start: 05-28-2022 End: 05-28-2022 Patient encounter procedure Ronit Dominguez APRN.WATER RECLAMATION SYSTEMS OPERATOR Work Phone: Rheumatology Comment on above: Polyarthralgia (Prim jax Dx); Vitamin D deficiency; Primary osteoarthritis of hands, bilateral; Dry mouth; Encounter to discuss test results; Counseling on health promotion and disease prevention Start: 12-23-2021 End: 12-24-2021 ambulatory RON DUNCAN Facility:[facility] Start: 12-23-2021 End: 12-23-2021 Patient encounter procedure Ronit Dominguez APRN.WATER RECLAMATION SYSTEMS OPERATOR Work Phone: Rheumatology Comment on above: ADAMA positive (Primar y Dx); Hyperparathyroidism due to vitamin D deficiency (HCC); DDD (degenerative disc disease), lumbar; Primary osteoarthritis of hands, bilateral; Dry mouth; Counseling on health promotion and disease prevention; Encounter to discuss test results; Vitamin D deficiency Start: 12-11-2021 Refill Ron gong MD Work Phone: Rheumatology Comment on above: Refill Request Start: 11-28-2021 Telephone encounter Ron Beatty MD Work Phone: Internal Medicine Comment on above: Letter (for work) Start: 11-19-2021 Telephone encounter Ron Beatty MD Work Phone: Rheumatology Comment on above: Results Start: 11-19-2021 End: 11-20-2021 ambulatory RON DUNCAN Facility:[facility] Start: 11-19-2021 End: 11-19-2021 Subsequent hospital visit by physician Xr [facility] Comment on above: ADAMA positive [R76.8] Start: 11-19-2021 End: 11-19-2021 Patient encounter procedure Ron Duncan MD Work Phone: Rheumatology Comment on above: ADAMA positive (Primar y Dx); Dry mouth; Polyarthralgia; Primary osteoarthritis of hands, bilateral; DDD (degenerative disc disease), lumbar; On statin therapy; Vitamin D deficiency; Encounter to discuss test results; Counseling on health promotion and disease prevention Start: 10-31-2021 End: 10-31-2021 Pain Management Syed Bautista [facility] Start: 10-10-2020 End: 10-10-2020 Telephone encounter No One (Historical) Referring Physician Comment on above: External Referrals/r esources Procedures Date Procedure Procedure Detail Performing Clinician Start: 07-03-2023 Total thyroidectomy Mendoza Garay Start: 11-10-2022 Insertion of hip prosthesis Syed Bautista Start: 07-02-2022 Injection of sacroil iac joint using fluoroscopic guidance Sara Rutherford Comment on above: 75% relief starting 2 days after procedure. Still reports 75% relief today. Start: 11-19-2021 Radex hand minimum 3 views Ron Duncan MD Work Phone: Start: 06-12-2021 Mammography Ron Beatty MD Work Phone: Start: 09-12-2015 Injection of sacroil iac joint using fluoroscopic guidance Syed Bautista Comment on above: Bilateral 75% relief Start: 06-17-2013 Leg Vein Laser Surgery 2 Syed Bautista Comment on above: Left Start: 06-17-2013 Leg Vein Laser Surgery 3 Sara Rutherford Comment on above: Left Start: 06-30-2012 Injection of sacroil iac joint using fluoroscopic guidance Syed Bautista Comment on above: B/l, 100% relief Start: 10-15-2011 Injection of sacroil iac joint using fluoroscopic guidance Syed Rodriguezumbar Comment on above: B/l, 100% relief aft er 2 days Appendectomy Syed Rodriguezumbar section Syed Smalls bar H/O Spinal surgery Syed Rodriguez [facility] Comment on above: September 2010 H/O Spinal surgery Syed Rodriguez [facility] Comment on above: September 2010 laminectomy Hysterectomy Syed Méndezar Tonsillectomy Syed Rodriguezumbar Plan of Treatment Date Care Activity Detail Author Start: 04-22-2023 [facility] Start: 03-06-2023 Influenza vaccination INFLUENZA (#1) [facility] Start: 07-06-2022 DEPRESSION ASSESSMENT DEPRESSION ASSESSMENT [facility] Start: 06-12-2022 Mammography MAMMOGRAM [facility] Start: 05-28-2022 End: 07-28-2022 25-hydroxyvitamin D3 [Mass/volume] in Serum or Plasma [facility] Work Phone: Comment on above: Expected: 05/28/2022, Expires: Start: 03-06-2022 Influenza vaccination INFLUENZA (Season Ended) [facility] Start: 12-17-2021 End: 02-16-2022 PTH INTACT BLD PTH INTACT BLD Lab Routine Vitamin D deficiency Hyperparathyroidism due to vitamin D deficiency (HCC) Polyarthralgia Expected: 12/17/2021, Expires: 02/16/2022 [facility] Work Phone: Comment on above: Expected: 12/17/2021, Expires: 2 Start: 12-17-2021 End: 02-16-2022 VITAMIN D 25 HYDROXY VITAMIN D 25 HYDROXY Lab Routine Vitamin D deficiency Hyperparathyroidism due to vitamin D deficiency (HCC) Polyarthralgia Expected: 12/17/2021, Expires: 02/16/2022 [facility] Work Phone: Comment on above: Expected: 12/17/2021, Expires: 2 Start: 11-19-2021 End: 01-19-2022 ADAMA BY IFA WITH REFLEX [facility] Work Phone: Comment on above: Expected: 11/19/2021, Expires: 2 Start: 11-19-2021 End: 01-19-2022 Cyclic citrullinated peptide IgG Ab [Units/volume] in Serum or Plasma [facility] Work Phone: Comment on above: Expected: 11/19/2021, Expires: 2 Start: 11-19-2021 End: 01-19-2022 G-6-PD QUANTITATIVE [facility] Work Phone: Comment on above: Expected: 11/19/2021, Expires: 2 Start: 11-19-2021 End: 01-19-2022 THYROID STIMULATING IMMUNOGLOBULIN BLOOD [facility] Work Phone: Comment on above: Expected: 11/19/2021, Expires: 2 Start: 11-19-2021 End: 01-19-2022 Thyrotropin [Units/volume] in Serum or Plasma [facility] Work Phone: Comment on above: Expected: 11/19/2021, Expires: 2 Start: 07-06-2021 DEPRESSION ASSESSMENT DEPRESSION ASSESSMENT [facility] Start: 03-06-2021 Influenza vaccination INFLUENZA (Season Ended) [facility] Start: 01-08-2020 Screening for malignant neoplasm of colon [facility] Start: 01-08-2020 SHINGRIX VACCINE (1 of 2) SHINGRIX VACCINE (1 of 2) [facility] Start: 03-08-2016 DIABETES SCREEN DIABETES SCREEN [facility] Start: 2015 COLOGUARD (FIT-DNA) COLOGUARD (FIT-DNA) [facility] Start: 2015 Colonoscopy COLONOSCOPY [facility] Start: 2015 COLORECTAL CANCER SCREENING COLORECTAL CANCER SCREENING [facility] Start: [address] COLONOGRAPHY [facility] Start: 2015 FECAL OCCULT BLOOD FECAL OCCULT BLOOD [facility] Start: 2015 LIPID SCREEN LIPID SCREEN [facility] Start: 2015 SIGMOIDOSCOPY SIGMOIDOSCOPY [facility] Start: 2010 Mammography MAMMOGRAM [facility] Start: 01-08-2000 HPV TESTING HPV TESTING [facility] Start: 1991 PAP TESTING PAP TESTING [facility] Start: 1989 Urine microalbumin profile DTAP,TDAP,TD (1 - Tdap) [facility] Start: 01-08-1988 HEPATITIS C SCREENING HEPATITIS C SCREENING [facility] Start: 01-08-1988 HIV SCREENING HIV SCREENING [facility] Start: 1982 Adult depression screening assessment DEPRESSION SCREENING [facility] Start: 1975 COVID-19 VACCINE (#1) COVID-19 VACCINE (#1) [facility] Start: 1970 COVID-19 VACCINE (#1) COVID-19 VACCINE (#1) [facility] Start: 1970 HEPATITIS B (1 of 3 - 3-dose series) HEPATITIS B (1 of 3 - 3-dose series) [facility] Glucose measurement estimated from glycated hemoglobin [facility] End: 09-28-2023 Mri spinal canal lumbar w/o contrast material MRI LUMBAR SPINE WO IVCON Radiology Routine Spinal stenosis of lumbar region with neurogenic claudication 1 Occurrences starting 08/29/2022 until 09/28/2023 [facility] Work Phone: Comment on above: 1 Occurrences starting 08/29/2022 until 09/28/2023 [facility] Payers Date Payer Category Payer Unknown [id number] 2022 Unknown [id number] 2022 Self-pay [id number] 2019 Unknown [id number] 2012 [facility] [id number] 2012 Unknown [id number]. [id number] 2012 Unknown [id number]. 1.13.159.2.7.3. [id number] 1970 Unknown [id number] 2.16.840.1.107897.3.579.2.1259 1970 Unknown [id number] 2.16.840.1.676577.3.579.2.1259 1970 Unknown [id number] 2.16.840.1.795477.3.579.2.1259 1970 Unknown [id number] 2.16.840.1.805221.3.579.2.1259 1970 Unknown [id number] 2.16.840.1.443452.3.579.2.1259 1970 Unknown [id number] 2.16.840.1.590991.3.579.2.1259 1970 Unknown [id number] 2.16.840.1.403156.3.579.2.727 1970 Unknown [id number] 2.16.840.1.691580.3.579.2.727 1970 Unknown [id number] 2.16.840.1.908920.3.579.2.727 1970 Unknown [id number] 2.16.840.1.854315.3.579.2.727 1970 Unknown [id number] 2.16.840.1.404834.3.579.2.727 1970 Unknown [id number] 2.16.840.1.997275.3.579.2. 1970 Unknown [id number] 2.16.840.1.388117.3.579.2. 1970 Unknown [id number] 2.16.840.1.063310.3.579.2. 1970 Unknown [id number] 2.16.840.1.115786.3.579.2. 1970 Unknown [id number] 2.16.840.1.306793.3.579.2.72 Unknown [facility] Mammogram [facility] [id number] Unknown [id number] 2.16.840.1.909191.3.579.2.531 Unknown [id number] 2.16.840.1.056265.3.579.2.531 Unknown [id number] 2.16.840.1.417277.3.579.2.531 Unknown [id number] 2.16.840.1.506988.3.579.2.531 Unknown [id number] 2.16840.1.912483.3.579.2.531 Unknown [id number] 2.16840.1.817464.3.579.2.531 Social History Date Type Detail Facility Start: 03-08-2013 End: 06-20-2021 Tobacco smoking status NHIS Never smoker [facility] Start: 03-08-2013 Tobacco use and exposure Never used [facility] Start: 03-08-2013 End: 08-29-2022 Alcohol intake Not Asked [facility] Start: 1970 Sex Assigned At Not on file [facility] Tobacco [facility] Comment on above: none smoker Sex Assigned At Female [facility] Start: 11-09-2021 End: 05-28-2022 Exposure to SARS-CoV-2 (event) Unable to assess [facility] Tobacco smoking status No Smokin g Status Entered [facility] Start: 1970 Sex Assigned At Female F [facility] Functional Status Date Assessment Result Facility 06-30-2023 Functional Status No [facility] 02-25-2023 Functional Status N/A [facility] 01-15-2023 Functional Status N/A [facility] 08-01-2022 Functional Status N/A [facility] 07-02-2022 Functional Status N/A [facility] 06-12-2022 Functional Status N/A [facility] Clinical Notes 11-19-2021 to 07-03-2023 Note Date & Type Note Facility 07-03-2023 Evaluation + Plan note Extrac lula from: Title:Clinical Document Author:Rajan ALBERT, Tyson Date:07/03/23 ENT POD 1 Pt resting comfortably Drain 3cc overnight Wound C/D/I Strong clear voice AM Ca 7.7 Drain removed. D/C home on Calcium and rocaltrol Extracted from: Title:TERRELL Post-operative Note - General Author: Ozzy Mary Jr., DO Date:07/02/23 Plan Transfer/Discharge: Transfer/Discharge Discharge when meets criteria ( From PACU to Ambulatory Surgery Unit, and To home ). Extracted from: Title:ANES Pre-operative Note - Adult Author:Ozzy Walsh Jr., DO Date:07/02/23 Plan [employer] (ASA) physical status classification: Class III. Anesthetic Preoperative Plan: Anesthesia General. [facility]12-29-2023 Hospital Discharge instructions Patient Education 07/03/2023 09:54:49 Open Thyroid Lobectomy Open Thyroid Lobectomy An open thyroid lobectomy is a surgery to remove a part or a whole section (lobe) of the thyroid gland. The thyroid gland is a butterfly-shaped gland located at the base of the neck. It produces thyroid hormone, which is a substance that helps to control certain body processes. The thyroid gland has two lobes, one on each side of the windpipe. The lobes are joined together by a section of tissue in the middle (thyroid isthmus). You may have a thyroid lobectomy: To remove a noncancerous (benign) tumor or a cancerous (malignant) tumor of the thyroid gland. To treat a condition in which the thyroid produces too much hormone (hyperthyroidism). Tell a health care provider about: Any allergies you have. All medicines you are taking, including vitamins, herbs, eye drops, creams, and raoa-sey-rilnulx medicines. Any problems you or family members have had with anesthetic medicines. Any bleeding problems you have. Any surgeries you have had. Any medical conditions you have. Whether you are or may be . What are the risks? Generally, this is a safe procedure. However, problems may occur, including: Infection. Bleeding. Allergic reactions to medicines or dyes. A bruise or a pooling of blood in the neck (hematoma). Hoarseness or damage to the vocal cord. Difficulty swallowing or eating. Damage to the glands that control the calcium level in your body (parathyroid glands). What happens before the procedure? When to stop eating and drinking Follow instructions from your health care provider about what you may eat and drink before your procedure. These may include: 8 hours before your procedure ?Stop eating most foods. Do not eat meat, fried foods, or fatty foods. ?Eat only light foods, such as toast or crackers. ?All liquids are okay except energy drinks and alcohol. 6 hours before your procedure ?Stop eating. ?Drink only clear liquids, such as water, clear fruit juice, black coffee, plain tea, and sports drinks. ?Do not drink energy drinks or alcohol. 2 hours before your procedure ?Stop drinking all liquids. ?You may be allowed to take medicines with small sips of water. If you do not follow your health care provider's instructions, your procedure may be delayed or canceled. Medicines Ask your health care provider about: Changing or stopping your regular medicines. This is especially important if you are taking diabetes medicines or blood thinners. Taking medicines such as aspirin and ibuprofen. These medicines can thin your blood. Do not take these medicines before your procedure unless your health care provider tells you to take them. Taking gibq-doc-vqxmjna medicines, vitamins, herbs, and supplements. Surgery safety Ask your health care provider: How your surgery site will be marked. What steps will be taken to help prevent infection. These steps may include: ?Removing hair at the surgery site. ?Washing skin with a germ-killing soap. ?Taking antibiotic medicine. General instructions Do not use any products that contain nicotine or tobacco for at least 4 weeks before the procedure.These products include cigarettes, chewing tobacco, and vaping devices, such as e-cigarettes. If you need help quitting, ask your health care provider. You may have an exam or testing. Your health care provider will check your voice for vocal changes. If you are going home right after the procedure, plan to have a responsible adult: ?Take you home from the hospital or clinic. You will not be allowed to drive. ?Care for you for the time you are told. What happens during the procedure? An IV will be inserted into one of your veins. You will be given one or more of the following: ?A medicine to help you relax (sedative). ?A medicine to make you fall asleep (general anesthetic). The surgeon will make an incision low in the center of your neck. It can often be placed in a skin crease where it will be hard to see after the incision heals. The surgeon will separate the muscles in your neck to access your thyroid gland. The damaged or diseased part of the thyroid gland will be identified and removed. The surgeon will be careful to avoid the nerves of your voice box (larynx) and the four parathyroid glands that are near the thyroid gland. The incisions will be closed using stitches (sutures), skin glue, or adhesive strips. You may have a tube (drain) placed at the incision site to allow blood and fluids that build up under your skin to drain after the procedure. This may have to stay in place for a day or two after theprocedure. The procedure may vary among health care providers and hospitals. What happens after the procedure? Your blood pressure, heart rate, breathing rate, and blood oxygen level will be monitored until youleave the hospital or clinic. Your throat may be sore, and you may have some pain at the incision area. You will receive pain medicine as needed. You may have a blood test to check the level of calcium in your body. You will be encouraged to start drinking liquids. While you are resting in bed, the head of your bed will be raised. Summary An open thyroid lobectomy is a surgery to remove a part or a whole section (lobe) of the thyroid gland. This surgery may be done to remove a tumor or to treat a condition in which the thyroid produces too much hormone. Before the procedure, follow instructions from your health care provider about eating and drinking. After the procedure, keep the head of your bed raised while you are resting in bed. This information is not intended to replace advice given to you by your health care provider. Make sure you discuss any questions you have with your health care provider. Document Revised: 05/05/2022 Document Reviewed: 05/05/2022 [employer] Patient Education 2022 Press. 07/03/2023 09:54:43 Alcohol Ablation for Thyroid Cancer Alcohol Ablation for Thyroid Cancer Alcohol ablation, also called percutaneous ethanol injection (ZACH), is a procedure that may be usedto treat thyroid cancer. This treatment is typically done to treat smaller tumors. The procedure may be done for thyroid cancer that has spread or has come back after treatments. During this treatment, alcohol is injected into a tumor to kill cancer cells. Depending on the sizeof the tumor, the treatment may need to be repeated. This is often done the following day or withinthe same week. Tell a health care provider about: Any allergies you have. All medicines you are taking, including vitamins, herbs, eye drops, creams, and ckdw-opl-gxcrnfd medicines. Any problems you or family members have had with anesthetic medicines. Any blood disorders you have. Any surgeries you have had. Any medical conditions you have. Whether you are or may be . What are the risks? Generally, this is a safe procedure. However, problems may occur, including: Fever. Pain, bruising, or swelling near the site where the alcohol was injected. Severe pain. This can happen if alcohol leaks into surrounding tissues. Allergic reactions to medicines. Infection. Damage to nearby structures or organs. Bleeding. Hoarseness. Trouble swallowing or speaking. Scarring. What happens before the procedure? Follow instructions from your health care provider about eating or drinking restrictions. Ask your health care provider about: ?Changing or stopping your regular medicines. This is especially important if you are taking diabetes medicines or blood thinners. ?Taking medicines such as aspirin and ibuprofen. These medicines can thin your blood. Do not take these medicines unless your health care provider tells you to take them. ?Taking mkqo-khp-mrilivz medicines, vitamins, herbs, and supplements. Plan to have someone take you home from the hospital or clinic. If you will be going home right after the procedure, plan to have someone with you for 24 hours. Ask your health care provider what steps will be taken to help prevent infection. These may includewashing skin with a germ-killing soap. Do not use any products that contain nicotine or tobacco for at least 4 weeks before the procedure.These products include cigarettes, e-cigarettes, and chewing tobacco. If you need help quitting, ask your health care provider. What happens during the procedure? An IV may be inserted into one of your veins. You may be given one or more of the following: ?A medicine to help you relax (sedative). ?A medicine to numb the area (local anesthetic). An ultrasound or CT scan will be used to locate the tumor. Alcohol will be injected into the tumor through a needle. A bandage (dressing) will be placed over the site where the needle entered the skin. The procedure may vary among health care providers and hospitals. What happens after the procedure? Your blood pressure, heart rate, breathing rate, and blood oxygen level will be monitored until youleave the hospital or clinic. You may be given medicine to help manage pain. Do not drive for 24 hours if you were given a sedative during your procedure. Summary Alcohol ablation is a procedure that may be used to treat thyroid cancer. It is typically done to treat smaller tumors. During this procedure, alcohol is injected into the tumor to kill cancer cells. In some cases, the procedure is repeated the following day or within the same week. Generally, this is a safe procedure. However, problems may occur. You may be given medicine to help manage pain after the procedure. Do not drive for 24 hours if you were given a sedative during the procedure. This information is not intended to replace advice given to you by your health care provider. Make sure you discuss any questions you have with your health care provider. Document Revised: 10/23/2022 Document Reviewed: 04/23/2020 [employer] Patient Education 2022 Press. Follow Up Care 06/30/2023 09:20:41 With:BRANDON BEASLEY Address: [address] [place], [place] [id number] Business (1) When: Unknown Comments:No need to PCP at this time unless symptoms worsen. With:Tyson Cedenojackie Address: [address] [place] [address], [address] [place] [id number]- Business (1) When:07/10/2023 13:50:00 [facility]12-27-2023 Note [id number]* Encounter Date Diagnosis Assessment Notes Treatment Notes Treatment Clinical Notes May, Dysphagia, unspecified type (ICD-10 - R13.10) PATIENT HAS SOME OCCASIONAL DYSPHAGIA TO SOLIDS AND PILLS. WILL HAVE PATIENT INCREASE HER OMEPRAZOLE TO 40MG TWICE DAILY. WILL CONSIDER EGD IF NO IMPROVEMENT WITH THE INCREASE OF THE MEDICATION. May, Chronic GERD (ICD-10 - K21.9) [facility] Other 11-10-2023 NoteUS THYROID History: Thyroid nodule Technique: Ultrasound evaluation was performed of the thyroid gland. Comparison: CT May 13, 2023 Findings: The right lobe of the thyroid gland measures 4.4 x 1.3 x 1.4 cm. The right lobe is heterogenous andwithout nodules. The left lobe of the thyroid gland measures 7.2 x 1.9 x 2.4 cm. The left lobe is heterogenous. A TI-RADS 5 nodule of the left lobe/isthmus measures 1.8 x 1.7 x 1.7 cm (labeled mass 1). A TI-RADS 4 nodule of the inferior left lobe measures 0.7 x 0.6 x 0.5 cm (labeled mass 2). A TI-RADS 5 nodule of the inferior left lobe measures 1.7 x 1.1 x 1 cm (labeled mass 3). The isthmus measures 0.8 cm. Thyroid vascularity is within normal limits. IMPRESSION: Thyroid nodules as detailed. FNA of 2 of these 3 nodules recommended. ACR recommendations: TI-RADS level 1: Benign: No FNA TI-RADS level 2: Not suspicious: No FNA TI-RADS level 3: Mildly suspicious: FNA if ? 2.5 cm; Follow if ? 1.5 cm at 1, 3, and 5 years. TI-RADS level 4: Moderately suspicious: FNA if ? 1.5 cm; Follow if ? 1 cm at 1, 2, 3, and 5 years. TI-RADS level 5: Highly Suspicious: FNA if ? 1 cm; Follow if ? 0.5 cm annually until 5 years. ELECTRONICALLY SIGNED BY: Brandon Quijano FIORELLAantoinette [id number] Note Procedure: Therapeutic intra-articular injection of the left and right sacroiliac joints under fluoroscopic guidance Diagnosis: Sacroiliitis Solution: 3 mL of 0.25% bupivacaine and 1 mL of Kenalog 40 mg. 4 mL total. 2 mL per site Contrast: 1 mL Omnipaque per site Local anesthetic: 2 mL lidocaine 1% per site Anesthesia: Local Complications: None Notes: The patient has a greater than 3-month history of severe bilateral axial lower back pain below the level of L5 without evidence of neurogenic claudication or radiculopathy. Initially the pain was worse on the left but since her last office visit the right side has become more intense and nowthe 2 sides are equal. The patient's examination is notable for tenderness over the sacroiliac joints along with a positive MK test, thigh thrust test, and Gaenslen test on the left and right sides. The patient's imaging is notable for degenerative changes in the sacroiliac joints. The patient has had 6 weeks of conservative management with medications and exercise therapy. Patient is compliant with a home exercise program for this issue. The patient does not desire surgery. The pain significantly limits the patient's function and quality of life. Specifically the patient the patient cannot sit for longer than 30 minutes due to the pain. The patient has undergone previous sacroiliac injec tions for the same issue on July 02, 2022 and obtained over 75% pain relief and functional improvement for 3 months or more. After informed consent was obtained the patient was brought to the OR and placed in the prone position. The area in question was prepped and draped in sterile fashion. An AP fluoroscopic view of the sacrum was obtained and after local anesthetic was administered into the skin and a 22-gauge Quinckeneedle was inserted into the skin and advanced into the left sacroiliac joint under intermittent fluoroscopic guidance. Proper needle position was confirmed by AP and contralateral oblique fluoroscopic views. Contrast was administered in both views and demonstrated appropriate spread. The local anesthetic steroid solution was injected incrementally. The needle was removed. Bleeding was nil. The pr ocedure was repeated in the same manner for the right sacroiliac joint. The patient tolerated the procedure well and was transferred to the recovery room in good condition.[facility] CampusComment on above:Result Comment: Electronically Signed By: Syed Bautista MD\.br\Date and Time Signed: 02/25/23 21:17 [id number] Evaluation + Plan noteExtracted from: Title:Clinical Document Author:Temi Bautista MD Date:02/25/23 Procedure: Therapeutic intra -articular injection of the left and right sacroiliac joints under fluoroscopic guidance Diagnosis: Sacroiliitis Solution: 3 mL of 0.25% bupivacaine and 1 mL of Kenalog 40 mg. 4 mL total. 2 mL per site Contrast: 1 mL Omnipaque per site Local anesthetic: 2 mL lidocaine 1% per site Anesthesia: Local Complications: None Notes: The patient has a greater than 3-month history of severe bilateral axial lower back pain below the level of L5 without evidence of neurogenic claudication or radiculopathy. Initially the pain was worse on the left but since her last office visit the right side has become more intense and now the 2 sides are equal. The patient's examination is notable for tenderness over the sacroiliac joints along with a positive MK test, thigh thrust test, and Gaenslen test on the left and right sides. The patient's imaging is notable for degenerative changes in the sacroiliac joints. The patient has had 6 weeks of conservative management with medications and exercise therapy. Patient is compliant with a home exercise program for this issue. The patient does not desire surgery. The pain significantly limits the patient's function and quality of life. Specifically the patient the patient cannot sit for longer than 30 minutes due to the pain. The patient has undergone previous sacroiliac injections for the same issue on July 02, 2022 and obtained over 75% pain relief and functional improvement for 3 months or more. After informed consent was obtained the patient was brought to the OR and placed in the prone position. The area in question was prepped and draped in sterile fashion. An AP fluoroscopic view of the sacrum was obtained and after local anesthetic was administered into the skin and a 22-gauge Quincke needle was inserted into the skin and advanced into the left sacroiliac joint under intermittent fluoroscopic guidance. Proper needle position was confirmed by AP and contralateral oblique fluoroscopic views. Contrast was administered in both views and demonstrated appropriate spread. The local anesthetic steroid solution was injected incrementally. The needle was removed. Bleeding was nil. The procedure was repeated in the same manner for the right sacroiliac joint. The patient tolerated the procedure well and was transferred to the recovery room in good condition. Future Appointments Appointment Date:03/27/2023 03:00:00 PM Scheduled Provider:aSra Rutherford PA-C Location:.[facility] Appointment Type:Pain Management - Follow Up (FT) [facility]08-23-2023 Note [id number]:127[facility] 01-15-2023 Evaluation + Plan noteExtracted from: Title:Clinical Document Author:Temi Bautista MD Date:01/15/23 Chief complaint: Low back pa in History of present illness: This is a 53-year-old female here for a chief complaint of left-sided low back pain. The patient rates the pain as a 3 out of 10 at rest but an 8 out of 10 when severe. In particular it is quite bothersome with prolonged sitting and she cannot sit for 30 minutes due to the pain. She has some mild pain on the right side but the left side is far worse. She was last seen 3 months ago at which time she was having both this lower back pain as well as left groin pain. 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 The groin pain and the leg pain have been absent ever since but the back pain has been persistent. It does not radiate down the leg. She has chronic numbness and weakness of the right leg that has been present since her spine surgery many years ago but has none of the symptoms on the left side. She has maintained the home exercises for her spine and is currently in physical therapy. She is on chronic Coumadin so she cannot use NSAIDs. She does not want to go back on opiates. She does not want another surgery and is hopeful that an injection could be an option. She last underwent sacroiliac injections in June of last year and obtained 75% pain relief and functional improvement for 3 months. The symptoms never really returned until her left hip gave out and the right-sided pain has remained absent. She does get some pain with standing or walking as well and cannot stand for 60 minutes due to the pain but sitting is worse. The patient denies additional neurologic symptoms or issues with bladder or bowel control. The patient's past medical, surgical, and social history along with medications and allergies were reviewed. Review of systems was done on 10 systems Physical examination: General: Pleasant white female in no acute distress. Patient appears well- nourished. Vital signs stable Head exam: Head is normocephalic and external ears are normal Neck exam: No tenderness Cardiovascular exam: No signs of poor perfusion and no peripheral edema Respiratory exam: Breathing is unlabored and there is no wheezing present Abdomen exam: Abdomen soft and nondistended Back exam: Severe left sacroiliac tenderness below the level of L5. Positive Sohail sign, Gaenslen test, and thigh thrust test on the left. Musculoskeletal exam: Strength 5 out of 5 with the exception of 4-5 with dorsiflexion of the right foot and right great toe and plantarflexion of the right foot which is chronic. Muscle tone is normal. Neurologic exam: Sensation intact. Reflexes normal and symmetric. Psych exam: Affect is appropriate. Alert and oriented Skin exam: No lesions Assessment: The patient's signs and symptoms are consistent with sacroiliitis. We reviewed the patient's imaging. She has a transitional L5 segment. There are degenerative changes in both sacroiliac joints which correlates with her symptoms Oswestry disability index score was 28% OARRS report was reviewed and was appropriate Plan: We discussed options. Her left hip pain has been alleviated with surgery but she still has left-sided axial back pain consistent with sacroiliitis that has been present for 3 months in spite of physical therapy and opiates. Since she has failed appropriate conservative management for 3 months we will proceed with a left sacroiliac injection under fluoroscopy at her next visit. She has had significant benefit from this procedure in the past. We discussed the potential risks and benefits of this plan and the patient was in agreement to proceed. We will have the patient follow-up 4 weeks after the procedure for repeat evaluation. Future Appointments Appointment Date:01/16/2023 03:30:00 PM Scheduled Provider: Location:.[facility] Appointment Type:PT 45 (FT) Appointment Date:01/20/2023 03:45:00 PM Scheduled Provider: Location:.[facility] Appointment Type:PT 45 (FT) Appointment Date:01/21/2023 03:45:00 PM Scheduled Provider: Location:.[facility] Appointment Type:PT Re-Eval 45 (FT) [facility]04-03-2023 Miscellaneous Notes* Telephone Encounter - Carmencita Kang MA - 10/06/2022 7:58 AM EDT Responded to patient via [employer] message. documented in this [facility]-28-[facility]23 NoteHNO ID: [id number] Author: Lary Brady PT Service: ? Author Type: Physical Therapist Type: Progress Notes Filed: 10/01/2022 9:13 AM Note Text: Episode Visit Count: 3 Therapist That Will Accept/Oversee The Plan Of Care: cruzito Start of Care Date: 09/15/22 Onset Date: 05/06/22 Patient Identified by Name and Date of : Yes REHABILITATION AND SPORTS THERAPY PHYSICAL THERAPY TREATMENT NOTE ASSESSMENT: Cheryle Villatoro tolerated the session with increased symptoms. She demonstrated difficulty with left hip exercise, which is performed in a controlled range of motion. The patient will continue to benefit from ongoing skilled physical therapy to progress toward set goals. PLAN FOR NEXT VISIT: progress activity as able SUBJECTIVE: Patient reports her pain has not changed significantly Pain: Pain Pain Level: 8 Pain Location: Hip - Left Description: Sharp Frequency: Intermittent OBJECTIVE MEASURES WITH LEVEL OF FUNCTION: Antalgic gait on the left lower extremity No assistive device to clinic, but patient did use a cane in the clinic with improved gait and less pain TREATMENT: Therapeutic Exercise: 1: Step-1 x 8 minutes Level 2 2: Supine bent-knee fallouts x 10 3: Hip adduction isometrics, held 3 seconds 2 x 10 4: [place] Tband butterflies 2 x 10 5: Partial bridging x 10 6: Anterior/posterior pelvic tilt x 10 Skilled Intervention: Patient was educated in proper exercise technique and purpose for exercises. Skilled judgment was provided in selection of appropriate interventions. Billing Therapeutic Exercise Treatment Minutes: 45 Total Treatment Time Minutes (timed/untimed): 45 [facility] History of Present illness Narrative* Lary Brady PT - 09/30/2022 4:11 PM EDT Episode Visit Count: 3 Therapist That Will Accept/Oversee The Plan Of Care: cruzito Start of Care Date: 09/15/22 Onset Date: 05/06/22 Patient Identified by Name and Date of : Yes REHABILITATION AND SPORTS THERAPY PHYSICAL THERAPY TREATMENT NOTE ASSESSMENT: Cheryle Villatoro tolerated the session with increased symptoms. She demonstrated difficulty with left hip exercise, which is performed in a controlled range of motion. The patient will continue to benefit from ongoing skilled physical therapy to progress toward set goals. PLAN FOR NEXT VISIT: progress activity as able SUBJECTIVE: Patient reports her pain has not changed significantly Pain: Pain Pain Level: 8 Pain Location: Hip - Left Description: Sharp Frequency: Intermittent OBJECTIVE MEASURES WITH LEVEL OF FUNCTION: Antalgic gait on the left lower extremity No assistive device to clinic, but patient did use a cane in the clinic with improved gait and lesspain TREATMENT: Therapeutic Exercise: 1: Step-1 x 8 minutes Level 2 2: Supine bent-knee fallouts x 10 3: Hip adduction isometrics, held 3 seconds 2 x 10 4: [place] Tband butterflies 2 x 10 5: Partial bridging x 10 6: Anterior/posterior pelvic tilt x 10 Skilled Intervention: Patient was educated in proper exercise technique and purpose for exercises. Skilled judgment was provided in selection of appropriate interventions. Billing Therapeutic Exercise Treatment Minutes: 45 Total Treatment Time Minutes (timed/untimed): 45 Lary Brady PT documented in this encounterK[facility]03-24-2023 NoteHNO ID: [id number] Author: Lary Brady PT Service: ? Author Type: Physical Therapist Type: Progress Notes Filed: 09/29/2022 10:39 AM Note Text: Episode Visit Count: 2 Therapist That Will Accept/Oversee The Plan Of Care: cruzito Start of Care Date: 09/15/22 Onset Date: 05/06/22 Patient Identified by Name and Date of : Yes REHABILITATION AND SPORTS THERAPY PHYSICAL THERAPY TREATMENT NOTE ASSESSMENT: Cheryle Villatoro tolerated the session with increased symptoms. She demonstrated difficulty with all active treatment of the left lower extremity . The patient will continue to benefit from ongoing skilled physical therapy to progress toward set goals. PLAN FOR NEXT VISIT: progress as symptoms allow, consider Step-1 SUBJECTIVE: Patient reports ongoing left hip pain that is making ambulation and sitting difficult. Pain: Pain Pain Level: 8 Pain Location: Hip - Left Description: Sharp Frequency: Intermittent OBJECTIVE MEASURES WITH LEVEL OF FUNCTION: Patient ambulates with a significant antalgic gait on the left lower extremity TREATMENT: Therapeutic Exercise: 1: (MHP L hip with patient in hooklying) 2: L LE bent knee fallouts x 10 3: [place] Tband butterflies 3 x 10 4: Pball heel slides 2 x 15 Skilled Intervention: Patient was educated in proper exercise technique and purpose for exercises. Skilled judgment was provided in selection of appropriate interventions. Billing Therapeutic Exercise Treatment Minutes: 30 Total Treatment Time Minutes (timed/untimed): 30 Lary Brady, [facility]03-24-2023 History of Present illness Narrative* Lary Brady, PT - 09/26/2022 3:27 PM EDT Episode Visit Count: 2 Therapist That Will Accept/Oversee The Plan Of Care: cruzito Start of Care Date: 09/15/22 Onset Date: 05/06/22 Patient Identified by Name and Date of : Yes REHABILITATION AND SPORTS THERAPY PHYSICAL THERAPY TREATMENT NOTE ASSESSMENT: Cheryle Villatoro tolerated the session with increased symptoms. She demonstrated difficulty with all active treatment of the left lower extremity . The patient will continue to benefit from ongoing skilled physical therapy to progress toward set goals. PLAN FOR NEXT VISIT: progress as symptoms allow, consider Step-1 SUBJECTIVE: Patient reports ongoing left hip pain that is making ambulation and sitting difficult. Pain: Pain Pain Level: 8 Pain Location: Hip - Left Description: Sharp Frequency: Intermittent OBJECTIVE MEASURES WITH LEVEL OF FUNCTION: Patient ambulates with a significant antalgic gait on the left lower extremity TREATMENT: Therapeutic Exercise: 1: (MHP L hip with patient in hooklying) 2: L LE bent knee fallouts x 10 3: [place] Tband butterflies 3 x 10 4: Pball heel slides 2 x 15 Skilled Intervention: Patient was educated in proper exercise technique and purpose for exercises. Skilled judgment was provided in selection of appropriate interventions. Billing Therapeutic Exercise Treatment Minutes: 30 Total Treatment Time Minutes (timed/untimed): 30 Lary Brady PT documented in this encounterK[facility]03-13-2023 NoteHNO ID: [id number] Author: Lary Brady PT Service: ? Author Type: Physical Therapist Type: Progress Notes Filed: 09/15/2022 5:40 PM Note Text: Episode Visit Count: 1 Therapist That Will Accept/Oversee The Plan Of Care: cruzito Start of Care Date: 09/15/22 Onset Date: 05/06/22 Patient Identified by Name and Date of : Yes REHABILITATION AND SPORTS THERAPY PHYSICAL THERAPY EVALUATION PLAN OF CARE: Assessment: Cheryle Villatoro presents with chief complaint of left hip pain with decreased range of motion and altered gait that interferes with standing, walking, walking in the community, stair negotiation, heavy exertion, lifting, physical activities . She presents with impairments in gait, independence in exercise, joint mobility, overall function, range of motion, strength, and symptom management. PROMIS? (Patient-Reported Outcomes Measurement Information System) scores were reviewed and physical function domain identified as a rehabilitation concern. Prognosis for therapy is Good due to: current objective clinical presentation . She will benefit from skilled therapy services to meet the goals established for this plan of care as noted below. Goals for Episode of Care: created on 09/15/22 through 11/15/22 Bivins in home exercise program. Patient will decrease pain rating by 2 points to meet minimal clinical important difference for numeric pain rating scale. Patient will increase active ROM of left hip all planes to WNL to allow pt to to improve performance of ADLs and to improve gait mechanics / gait pattern . Patient will demonstrate increase in left hip all planes strength to 4+/5 during manual muscle testing in order to improve function for leisure / recreation skills, light functional tasks, prior functional tasks, and work tasks. Perform sit/stand and bed mobility transfers without pain. Normal gait. Reciprocal stair negotiation. Planned Interventions, Frequency, and Duration: Current Frequency: 1x/week Duration: 6 weeks Total Number of Visits Planned: 6 Planned Treatment Interventions: Therapeutic exercise (52145), Neuromuscular re-education (00397), Manual therapy (74047), Self-penitentiary management (48270), Patient/Family/Caregiver Education PLAN FOR NEXT VISIT: progress hip mobility and strength, consider low back program as well Patient demonstrates good understanding of plan of care and treatment. The above goals and plan of care were discussed and agreed upon by patient/family. SUBJECTIVE: Cheryle Villatoro is a 52 year old female seen today for primary concern of left anterior hip pain, present for a while but worse since May. History of low back pain and left posterior thigh pain and numbness in the right leg for over a year. 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 Job does require some movement/walking. Does better with a grocery cart but still not perfect History of DVT and is on blood thinners History of right ankle instability History of skin cancer Pain: Pain Pain Level: 6 Pain Location: Hip - Left Description: Sharp Frequency: Intermittent Post Treatment Pain Post Treatment Pain Level: No Change PROMIS Scales Higher is Better 08/29/2022 Phys Func - Score 35 (moderate dysfunction) Phys Func - Percentile 7 % T-scores: mean of general population = 50. 5 points is clinically meaningfully difference Percentiles provide an indication of how the patient's score ranks in relation to the general population. Higher percentile rankings indicate better function/quality of life. 50th percentile is the average of the general population and indicates half of respondents had a worse score. OBJECTIVE MEASURES WITH LEVEL OF FUNCTION: Observation: alert and oriented, pleasant; presents with Skin integrity- intact Edema/Effusion- none noted with observation bilateral lower extremity Palpation: unremarkable Gait: no assistive device, antalgic on the left leg with wide-based gait and decreased right step length with decreased left hip extension Range of Motion: Active- left hip limited at 0 degrees internal rotation with pain, external rotation 45 degrees, flexion 90 degrees, extension to -5 degrees with pain Passive- left hip limited in external and internal rotation with anterior knee pain Strength: 4/5 left hip flexion, abduction 4+/5, extension 4+/5 Accessory motion: capsular pattern left hip with acute pain Flexibility: unable to assess due to acute left hip pain Sensation: intact bilateral lower extremity Special Tests: positive MK (more content not included)...[facility]03-13-2023 History of Present illness Narrative* Lary Brady, PT - 09/15/2022 3:36 PM EDT Episode Visit Count: 1 Therapist That Will Accept/Oversee The Plan Of Care: cruzito Start of Care Date: 09/15/22 Onset Date: 05/06/22 Patient Identified by Name and Date of : Yes REHABILITATION AND SPORTS THERAPY PHYSICAL THERAPY EVALUATION PLAN OF CARE: Assessment: Cheryle Villatoro presents with chief complaint of left hip pain with decreased range of motion and altered gait that interferes with standing, walking, walking in the community, stair negotiation, heavy exertion, lifting, physical activities . She presents with impairments in gait, independence in exercise, joint mobility, overall function, range of motion, strength, and symptom management. PROMIS (Patient-Reported Outcomes Measurement Information System) scores were reviewed and physical function domain identified as a rehabilitation concern. Prognosis for therapy is Good due to: current objective clinical presentation . She will benefit from skilled therapy services to meet the goals established for this plan of care as noted below. Goals for Episode of Care: created on 09/15/22 through 11/15/22 Bivins in home exercise program. Patient will decrease pain rating by 2 points to meet minimal clinical important difference for numeric pain rating scale. Patient will increase active ROM of left hip all planes to WNL to allow pt to to improve performance of ADLs and to improve gait mechanics / gait pattern . Patient will demonstrate increase in left hip all planes strength to 4+/5 during manual muscle testing in order to improve function for leisure / recreation skills, light functional tasks, prior functional tasks, and work tasks. Perform sit/stand and bed mobility transfers without pain. Normal gait. Reciprocal stair negotiation. Planned Interventions, Frequency, and Duration: Current Frequency: 1x/week Duration: 6 weeks Total Number of Visits Planned: 6 Planned Treatment Interventions: Therapeutic exercise (71851), Neuromuscular re- education (13195), Manual therapy (30997), Self-penitentiary management (16980), Patient/Family/Caregiver Education PLAN FOR NEXT VISIT: progress hip mobility and strength, consider low back program as well Patient demonstrates good understanding of plan of care and treatment. The above goals and plan of care were discussed and agreed upon by patient/family. SUBJECTIVE: Cheryle Villatoro is a 52 year old female seen today for primary concern of left anterior hippain, present for a while but worse since May. History of low back pain and left posterior thigh pain and numbness in the right leg for over a year. 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 Job does require some movement/walking. Does better with a grocery cart but still not perfect History of DVT and is on blood thinners History of right ankle instability History of skin cancer Pain: Pain Pain Level: 6 Pain Location: Hip - Left Description: Sharp Frequency: Intermittent Post Treatment Pain Post Treatment Pain Level: No Change PROMIS Scales Higher is Better 08/29/2022 Phys Func - Score 35 (moderate dysfunction) Phys Func - Percentile 7 % T-scores: mean of general population = 50. 5 points is clinically meaningfully difference Percentiles provide an indication of how the patient's score ranks in relation to the general population. Higher percentile rankings indicate better function/quality of life. 50th percentile is the average of the general population and indicates half of respondents had a worse score. OBJECTIVE MEASURES WITH LEVEL OF FUNCTION: Observation: alert and oriented, pleasant; presents with Skin integrity- intact Edema/Effusion- none noted with observation bilateral lower extremity Palpation: unremarkable Gait: no assistive device, antalgic on the left leg with wide-based gait and decreased right step length with decreased left hip extension Range of Motion: Active- left hip limited at 0 degrees internal rotation with pain, external rotation 45 degrees, flexion 90 degrees, extension to -5 degrees with pain Passive- left hip limited in external and internal rotation with anterior knee pain Strength: 4/5 left hip flexion, abduction 4+/5, extension 4+/5 Accessory motion: capsular pattern left hip with acute pain Flexibility: unable to assess due to acute left hip pain Sensation: intact bilateral lower extremity Special Tests: positive MK and FADDIR left lower extremity Education: Education Learning Preferences: Demonstration, Explanation, Performance, Printed Materials Barriers: None Learning/educational needs: Plan of Care, Home exercise program Education Provided: Yes, see treatment interventions for education provided Education Provided To: Patient Education Mode/Type: Demonstration, Explanation/Discussion, Literature/Printed Materials, Performance Response to Education/Teach Back: States/Identifies, Return Demonstration TREATMENT: PT Treatment Interventions: Therapeutic Exercise Evaluation Evaluation Therapeutic Exercise: 1: L LE bent-knee fallouts x 20 2: Partial bridging x 20 3: Hip adduction squeezes, held 3 seconds x 20 Skilled Intervention: Patient was educated in proper exercise technique and purpose for exercises. Skilled judgment was provided in selection of appropriate interventions. Billing * Evaluation Low Complexity: 1 Unit Therapeutic Exercise Treatment Minutes: 15 Total Treatment Time Minutes (timed/untimed): 40 Lary Brady PT documented in this encounterK[facility]03-06-2023 Miscellaneous Notes* Telephone Encounter - Beti Frye LPN - 09/08/2022 9:19 AM EST Faxed letter with confirmation Spoke to pt and advised. Pt verbalized understanding. * Telephone Encounter - Lita White Pss - 09/08/2022 9:04 AM EST Patient calling back with fax number [phone] Does not need to be ATTN to anyone * Telephone Encounter - Beti Frye LPN - 09/05/2022 8:39 AM EST Left VM for pt that Dr Live will be able to provide a letter for work for the day of the office visit on 08/29 Advised pt to call with a fax# to fax letter to * Telephone Encounter - Liat Braden - 09/05/2022 8:20 AM EST Cheryle Villatoro called today. : 1970 Allergies: Patient has no known allergies. (home) [phone] (cell) Reason for call: Patient is calling asking for a letter for work from her appointment on 08/29. Please upload to my chart. Patient last appointment: Visit date not found The patients preferred pharmacy has been captured for this encounter? no Liat Braden documented in this encounterKettering Health [facility]02-24-2023 NoteHNO ID: [id number] Author: RT Lilian(R) Service: Radiology Author Type: All Around Patternmaker Type: Progress Notes Filed: 08/29/2022 1:04 PM Note Text: Radiology Service Progress Note PATIENT NAME: Cheryle Villatoro DATE OF SERVICE: August 29, 2022 TIME: 1:03 PM PATIENT IDENTITY VERIFICATION COMPLETED USING TWO (2) IDENTIFIERS: Name and Date of confirmed by patient verbally and Name and Date of confirmed by identification band. FALL SCREENING: Has the patient had 2 falls in the last year or 1 fall with injury or currently using an Ambulatory Assistive Device (Walker, Cane, Wheelchair, Crutches, etc.)? No PATIENT GENDER DATA: Female. status: : No status: NO. PATIENT RELEVANT IMPLANT DATA REVIEWED: Not Applicable RADIOLOGY DEPARTMENT: General X-ray: Exam(s) Completed: Spine X-Ray(s): Lumbar AP / LAT / L5-S1 Pelvis X-Ray: Pelvis General AP PERIPHERAL IV DATA: Not applicable SIGNED BY: RT Lilian(R) August 29, 2022 1:03 [id number] NoteHNO ID: [id number] Author: Dmitry Live DO Service: ? Author Type: Physician Type: Progress Notes Filed: 08/29/2022 12:31 PM Note Text: SPINE CARE PATH LOW BACK PAIN: CHRONIC INITIAL SUBJECTIVE HISTORY OF PRESENT ILLNESS: Cheryle Villatoro is a 52 year old female who presents with chronic low back pain and hip pain. 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 September of 2021, aggravated her low back doing nothing in particular. Also noted having some trouble walking and some left sided hip / groin pain. Things have been getting slightly worse over this time. Today: Bilateral low back pain, radiated down both legs L>R., down posterior leg to the big toe. +cooling, stinging, numbness, burning. Also has some left hip pain that radiates into the groin. Pain is mild approximately 6/10. Denies new fevers, chills, unintended weight loss, night sweats, muscle weakness, sensation changes including the saddle, also denies new bowel and bladder changes or incontinence. Reports that her left hip bothers her more than the low back. This is pain across the hip and into the groin, made worse with walking standing and going up stairs. Rest seems to help alleviate the pain She did have some old reports of her hip on her phone, both XR reports. Right hip XR report seen on patients phone - Mild right hip OA, shallow acetabulum. Left Hip - Mild OA, shallow acetabulum. Treatments tried: Ice Tylenol does not help. Gabapentin 600 mg at bedtime Spine Surgery 2010 - laminectomy and laminotomy, Dr. Dunn, [facility]. Sacroiliac Joint Injections bilateral 07/02/2022 - did not report any relief (0% including day of) (Kimo Obando) by Dr. Syed Bautista - Avoids NSAIDs due to history of DVT / PE Has not done any PT FUNCTIONAL STATUS: Do moderate work around the house such as vacuuming, sweeping floors, or carrying in groceries (3.50 METs) Do yardwork, such as raking leaves, weeding,or pushing a power mower (4.50 METs) Litigation: None Workers' Compensation: No YELLOW AND BLUE FLAGS No-Neg Attitude; Back Pain is Disabling No-Avoiding Activity (for Fear of Pain) No-Depression or Anxiety Disorders No-Social Problems No-Substance Use Disorder No-Job Dissatisfaction No-Financial Disincentives Patient Entered Questionnaires Spine Questions 08/29/2022 Pain Location: Lower back Pain Duration: More than 5 years Pain over last 6 months: Every day or nearly every day in the past 6 months Symptoms from neck/cervical spine: Yes Employment Status: Working now Involved in law suit/legal claim: No Spine Red Flags 08/29/2022 Any type of cancer: Yes Unexplained fever: No Bowel or bladder disfunction: No Unintentional weight loss: No Osteoporosis: Yes Neck Questionnaires 08/29/2022 Benzel Modified MATTHEW Score 15 (A lower score indicates increased pain and issues.) PROMIS Score Percentiles Physical Health 08/29/2022 Physical Function Percentile 7 Sleep Percentile 27* Fatigue Percentile 8 Pain Interference Percentile 8 PROMIS SOCIAL ROLE SCORE 08/29/2022 Social Role Satisfaction Percentile 1 PROMIS Global Health Scale 08/29/2022 Physical Health Percentile 7 Mental Health Percentile 9 Percentiles provide an indication of how the patient's score ranks in relation to the general population. Higher percentile rankings indicate better function/quality of life. 50th percentile is the average of the general population and indicates half of respondents had a worse score. Depression Screening: PHQ-9 08/29/2022 Score 5 PHQ-9 Self Harm 08/29/2022 Question 9 Not at all PHQ-9 Self-Harm (Item 9) response options: 0 Not at all 1 Several days 2 More than half the days 3 Nearly every day PHQ-9 Levels: 0-4 No - mild depression 5-9 Mild depression 10-14 Moderate depression 15-19 Moderately severe depression 20-27 Severe depression ACTIVE PROBLEM LIST Hypercoagulopathy (Hcc) Dvt (Deep Venous Thrombosis) (Hcc) PAST MEDICAL HISTORY Diagnosis Date DVT (deep venous thrombosis) (HCC) Endometriosis Hypercoagulopathy (HCC) Pulmonary embolus (HCC) PAST SURGICAL HISTORY Procedure Laterality Date APPENDECTOMY BACK SURGERY HX TOTAL ABDOMINAL HYSTERECT W/WO RMVL TUBE OVARY Hysterectomy, SARAN Social History Tobacco Use Smoking status: Never Smokeless tobacco: Never FAMILY HISTORY Problem Relation Age of Onset DVT Father DVT Paternal Aunt DVT Paternal Grandfather DVT Paternal Grandmother ALLERGIES No Known Allergies CURRENT MEDICATIONS: levothyroxine (SYNTHROID) 25 mcg tablet TAKE 1 TABLET BY MOUTH EVERY DAY IN THE MORNING ON EMPTY STOMACH FOR 30 DAYS omeprazole (PRILOSEC) 40 mg capsule omeprazole 40 mg Cap-DR Refills(s) 0 Start Date: 09/19/21 Status: Ordered atorvastatin (LI (more content not included)...[facility] 08-29-2022 History of Present illness Narrative* Dmitry Live DO - 08/29/2022 11:08 AM EST SPINE CARE PATH LOW BACK PAIN: CHRONIC INITIAL SUBJECTIVE HISTORY OF PRESENT ILLNESS: Cheryle Villatoro is a 52 year old female who presents with chronic low back pain and hip pain. 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 September of 2021, aggravated her low back doing nothing in particular. Also noted having some trouble walking and some left sided hip / groin pain. Things have been getting slightly worse over this time. Today: Bilateral low back pain, radiated down both legs L>R., down posterior leg to the big toe. +cooling, stinging, numbness, burning. Also has some left hip pain that radiates into the groin. Pain is mild approximately 6/10. Denies new fevers, chills, unintended weight loss, night sweats, muscle weakness, sensation changesincluding the saddle, also denies new bowel and bladder changes or incontinence. Reports that her left hip bothers her more than the low back. This is pain across the hip and into the groin, made worse with walking standing and going up stairs. Rest seems to help alleviate the pain She did have some old reports of her hip on her phone, both XR reports. Right hip XR report seen on patients phone - Mild right hip OA, shallow acetabulum. Left Hip - Mild OA, shallow acetabulum. Treatments tried: Ice Tylenol does not help. Gabapentin 600 mg at bedtime Spine Surgery 2010 - laminectomy and laminotomy, Dr. Dunn, [facility]. Sacroiliac Joint Injections bilateral 07/02/2022 - did not report any relief (0% including day of) (Kimo Timus) by Dr. Syed Bautista - Avoids NSAIDs due to history of DVT / PE Has not done any PT FUNCTIONAL STATUS: Do moderate work around the house such as vacuuming, sweeping floors, or carrying in groceries (3.50 METs) Do yardwork, such as raking leaves, weeding,or pushing a power mower (4.50 METs) Litigation: None Workers' Compensation: No YELLOW & BLUE FLAGS No-Neg Attitude; Back Pain is Disabling No-Avoiding Activity (for Fear of Pain) No-Depression or Anxiety Disorders No-Social Problems No-Substance Use Disorder No-Job Dissatisfaction No-Financial Disincentives Patient Entered Questionnaires Spine Questions 08/29/2022 Pain Location: Lower back Pain Duration: More than 5 years Pain over last 6 months: Every day or nearly every day in the past 6 months Symptoms from neck/cervical spine: Yes Employment Status: Working now Involved in law suit/legal claim: No Spine Red Flags 08/29/2022 Any type of cancer: Yes Unexplained fever: No Bowel or bladder disfunction: No Unintentional weight loss: No Osteoporosis: Yes Neck Questionnaires 08/29/2022 Benzel Modified MATTHEW Score 15 (A lower score indicates increased pain and issues.) PROMIS Score Percentiles Physical Health 08/29/2022 Physical Function Percentile 7 Sleep Percentile 27* Fatigue Percentile 8 Pain Interference Percentile 8 PROMIS SOCIAL ROLE SCORE 08/29/2022 Social Role Satisfaction Percentile 1 PROMIS Global Health Scale 08/29/2022 Physical Health Percentile 7 Mental Health Percentile 9 Percentiles provide an indication of how the patient's score ranks in relation to the general population. Higher percentile rankings indicate better function/quality of life. 50th percentile is the average of the general population and indicates half of respondents had a worse score. Depression Screening: PHQ-9 08/29/2022 Score 5 PHQ-9 Self Harm 08/29/2022 Question 9 Not at all PHQ-9 Self-Harm (Item 9) response options: 0 Not at all 1 Several days 2 More than half the days 3 Nearly every day PHQ-9 Levels: 0-4 No - mild depression 5-9 Mild depression 10-14 Moderate depression 15-19 Moderately severe depression 20-27 Severe depression ACTIVE PROBLEM LIST Hypercoagulopathy (Hcc) Dvt (Deep Venous Thrombosis) (Hcc) PAST MEDICAL HISTORY Diagnosis Date DVT (deep venous thrombosis) (HCC) Endometriosis Hypercoagulopathy (HCC) Pulmonary embolus (HCC) PAST SURGICAL HISTORY Procedure Laterality Date APPENDECTOMY BACK SURGERY HX TOTAL ABDOMINAL HYSTERECT W/WO RMVL TUBE OVARY Hysterectomy, SARAN Social History Tobacco Use Smoking status: Never Smokeless tobacco: Never FAMILY HISTORY Problem Relation Age of Onset DVT Father DVT Paternal Aunt DVT Paternal Grandfather DVT Paternal Grandmother ALLERGIES No Known Allergies CURRENT MEDICATIONS: levothyroxine (SYNTHROID) 25 mcg tablet TAKE 1 TABLET BY MOUTH EVERY DAY IN THE MORNING ON EMPTY STOMACH FOR 30 DAYS omeprazole (PRILOSEC) 40 mg capsule omeprazole 40 mg Cap-DR Refills(s) 0 Start Date: 09/19/21 Status: Ordered atorvastatin (LIPITOR) 40 mg tablet TAKE 1 TABLET BY MOUTH EVERY DAY FOR 90 DAYS MULTIVITAMIN ORAL Take by mouth. warfarin (COUMADIN) 2 mg tablet Take 2 mg by mouth daily as directed. As directed pyridoxine, vitamin B6, (VITAMIN B6) 100 mg tablet Take 100 mg by mouth once daily. cyanocobalamin (VITAMIN B-12) 1,000 mcg tab Take 1,000 mcg by mouth once daily. REVIEW OF SYSTEMS: GENERAL: No weight loss or malaise MUSCULOSKELETAL: Negative for joint pain, swelling or muscle pain NEURO: No history of headaches, syncope, paralysis, seizures or tremors OBJECTIVE PHYSICAL EXAM: There were no vitals taken for this visit. The patient is a well developed, well nourished female who is cooperative. Extended Low Back & Leg Exam Lumbar Range of Motion Flexion 6 inches from floor Extension Normal RIGHT LEFT Oblique Extension Within Normal Limits Within Normal Limits Lateral Bending Full Full DTRs Patellar normal normal Achilles normal normal Babinski normal normal Leg Exam Straight Leg Exam Negative Negative Contralateral Straight Leg Raise Negative Negative Strength of Lower Extremities Extensor Hallux Longus 5/5 5/5 Ankle Dorsiflexion 5/5 5/5 Ankle Plantarflexion 5/5 5/5 Gait: Antalgic Heel Walk: Cannot perform due to pain Toe Walk: Cannot perform due to pain Sensory Exam: Decreased senstaion to the left calf Ben's Exam: Deferred Posture: Normal intact spinal curves Hip Range of Motion RIGHT LEFT Flexion Normal Normal Extension Normal Normal Abduction Normal Normal Adduction Normal Normal Internal Rotation Mildly Restricted Mildly Restricted External Rotation Mildly Restricted Mildly Restricted Hip Exam RIGHT LEFT MK Exam Abnormal Abnormal Trochanteric Bursa Tenderness Abnormal Abnormal Gaenslen's Maneuver Normal Normal Prosper's Test (IT-Band Pathology) Abnormal Abnormal IR and ER of the hips reproduce groin pain and hip pain L>R Stinchfield + on the left. Data Review: No additional images reviewed today ASSESSMENT/PLAN (M48.061) Spinal stenosis of lumbar region, unspecified whether neurogenic claudication present (primary encounter diagnosis) (M54.16) Lumbar radiculopathy, chronic (M48.062) Spinal stenosis of lumbar region with neurogenic claudication (M25.559) Pain in joint, pelvic region and thigh, unspecified laterality (M79.10) Myalgia 52F with Hip Spine Syndrome Left hip appears to be the biggest pain generator for her, there were some reproduction of pain with the motion of the hip. Will evaluate further with XR of pelvis. Will refer to PT to assist with this. Feel patient would be good candidate for a left side IA hip injection Low back pain with radiation down both legs. Will refer to PT and obtain XR / MRI of the low back to characterize further. Ankit Benoit DO PGY-5 Medical Spine Fellow SIGNATURE: Dmitry Live DO PATIENT NAME: Cheryle Villatoro DATE: August 29, 2022 TIME: 11:14 AM Pt seen with Dr. Ankit Benoit. Please see notes for details of today's visit. Fellow's history reviewed. HPI explored in detail with patient and edited as necessary. I personally reviewed/performed the espinoza elements of the physical exam. Consulting Physician: None HPI: LBP, lt groin pain, b/l n/t Pt presents today with spouse. PE: obese, forward flexed. Well healed surgical scar noted in lumbar spine region. IR/ER of hips were painful, lt side more than rt. Pain noted with palpation over b/l L4-s1 paraspinous muscles. Decreased sensation to rt lateral calf. Radiology: Films and reports reviewed with patient. As above. Impression: As above Plan: The assessment and plan were formulated and discussed with the resident/fellow. See fellow's note for further details. Agree with plan. Discussed evidence based options including use of medications, non-surgical and surgical options. Educated about likely pathology and reviewed anatomy and prognosis. At present, pt would like to continue with non surgical care. Pt has had pain for years. Unable to take NSAIDs due to coumadin use. PT - Core stabilization exercises, stretching/ flexibility and strengthening exercises, soft-tissue/ joint mobilization, modalities, body mechanics, posture, and home exercise program. An x-ray of the pelvis ordered to assess for any joint space narrowing, any presence of subchondral sclerosis or subchondral cyst or osteophytes. Lumbar spine X-Rays ordered also. Lumbar spine MRI: - R/o HNP vs stenosis vs occult pathology Results will help us with possible planning for invasive options including fluoroscopic guided injections and surgical options. f/u with me for review of study and additional recommendations. Consider lt hip injection. Follow up with primary physician for routine care, blood pressure evaluation, labwork, and physicalexam as scheduled as well as for any other medical concerns. I have answered all the questions regarding their diagnosis, care and treatment plan to patients satisfaction during today's visit. Pt verbalizes understanding of current diagnosis and treatment plan. Report of todays office visit will be sent to consulting/referring physician via letter or shared Electronic Medical Record. Additional notes will be available in EMR [facility] Miscellaneous Notes* Telephone Encounter - Beti Frye LPN - 08/20/2022 12:43 PM EST Please add pt on Thursday, 08/29, at 11:30am with Dr Calos Henry already has a hold on for office use New patient Low back Pt is already aware to arrive at 11am for an 11:30am appt Pt given directions and advised to go to the multi specialty unit on the second floor No need to call pt Thank you documented in this [facility] Evaluation + Plan note Extracted from: Title:Pain Managment Follow up Author:Sara Huber Date:08/01/22 Impression and Plan Patient is a 52-year-old female with a past medical history significant for sacroiliitis and hip pain. She underwent bilateral sacroiliac joint injections Done on 07/02/2022 that gave her 75% relief. She has some intermittent groin pain and hip pain but at this time she does not think she wants to do anything. She states that she has to financially think about things as she has a large deductible. She is going to let us know if she requires anything from our services. Otherwise she is going to follow-up in 6 months for medication management. We did increase the gabapentin to 600 mg at bedtime and she is going to call us if she has any issues with this. OARRS was reviewed and a refill was sent to the pharmacy. WYATT score: 15 [facility]11-23-2022 NoteHNO ID: [id number] Author: Ronit Dominguez APRN.SHEYLA Service: ? Author Type: Nurse Practitioner Type: Progress Notes Filed: 05/28/2022 3:39 PM Note Text: Rheumatology FOLLOW UP VISIT Referring Provider: Ronit Dominguez Date of Service: 05/28/2022 Gender: female Ethnicity: White Age: [age] year old Chief Complaint: Follow Up Last Rheumatology visit: 12/23/2021 (with Ronit Dominguez) Cheryle Villatoro is a 51 year old White female who presents on 05/28/2022 for in person visit for evaluation of Follow Up. Cheryle is both RF - 9 (11/19/2021) and CCP - 13.5 (11/19/2021) negative. Her most recent ADAMA was positive (11/19/2021). She does not have erosive disease. There are no rheumatoid nodules present. She reports morning stiffness . INTERVAL HISTORY Doing well Nothing to complain about Seeing Dr. Beasley for thyroid Treating with levothyroxine and taking for 30 days Vit d complete rx now taking vit d 10,000 international unit(s) daily Joint pain hands and shoulder and hip, left knee Does not take anything for pain Using heat - has herniated disc and following with pain mgt Erath No joint swelling Am stiffness 10-15 min Dry mouth - uses gel - drinks more water Not really dry eyes Patient-Entered Data RAPID 3 Espinoza Activities of Daily Living No Data Dress self? - Get in and out of bed? - Walk outdoors? - Wash and dry body? - Get in and out of car? - RAPID 3 Disease Activity Weighed Score Levels: 0 - 1: Near Remission 1.3 - 2.0: Low Severity 2.3 - 4.0: Moderate Severity 4.3 - 10.0: High Severity No flowsheet data found. PROMIS Assessments No flowsheet data found. Impression At today's visit, there is no clinical evidence for inflammatory arthropathy or systemic rheumatologic disease The patient has had incidental finding of positive ADAMA ADAMA 1:160, SERA and dsDNA were not obtain, RF and CCP not completed Her sed was not elevated, TSH and CK's were normal, CBC and CMP normal, no cytopenias, urate normal With patient's positive ADAMA and dry mouth, would need to evaluate for Sjogren's Syndrome. SSA and SSB normal Positive for autoimmune thyroid. TSH on high end of normal as well. Advised to follow with Primary care or endo. In terms of the non-specific musculoskeletal pains, Am gelling is limited to 10 min, suspect DJD/OA, vitamin D deficiency, BMI>30 and pro-inflammatory diet are contributing factors. She also has congenital hip dysplasia/shallow acetab. with DJD, and herniated disc disease and DDD. She is on statins and this can lead to statin myopathy and musculoskeletal pains and she stated that it could be . I advised her to discuss with her Primary care physician. Vitamin D deficiency is a very common factor of musculoskeletal pains, especially when associated with secondary hyperparathyroidism. PTH elevated. Will correct vit d and recheck Vitamin D level was low She recently increased to 10,000 international unit(s) daily was supposed to be 5,000 - will check level today I discussed clinical implications of Vitamin D deficiency, osteomalacia, implications to bone health status, musculoskeletal pains and other reported health risks. She has facial rash, Derm said it was acne and topical cream given not a malar rash. 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 Following with endo for autoimmune thyroid No new complaints today. Will continue to monitor Plan RECOMMENDATION/PLAN: Reviewed indication for orders with instructions Follow with primary care for autoimmune thyroid Reviewed vitamin D supplement - reviewed safe doses- will recheck today She is unable to take nsaids or turmeric due to being on blood thinner I reviewed conservative care, wellness and healthy lifestyle, as well as the benefits of a whole foods plant based diet. I have had many patients experience significant relief in musculoskeletal pains and inflammatory arthropathy, by avoiding refined sugars and dairy and following whole foods plant based diet. Additional time spent with patient on healthy lifestyle, healthy food and anti-inflammatory diet (with emphasis on whole plant based diet), avoiding refined carbs/sugars and processed food, appropriate exercise (stretching, cardio and strengthening), good sleep hygiene, stress mgt, and supplementing vital deficiencies and maintaining healthy wt and healthy BMI. Additional information provided with references and educational information. Bone Health Recommendations: -Bone Density is recommended after menopause and after age 55-60, sooner if patient has risk factors, sooner if on systemic steroid use of 3 months or more. -Vitamin D supplementation recommended, optimal dose is the dose necessary to achieve Vitamin D 25-OH blood level in range of 40-60 ng/mL. (Vitamin D supplement in international units, is the dose necessary to achieve a Vitamin D 25-OH blood level in range of 40-60 ng/mL). -Recommended d (more content not included)...[facility] 05-28-2022 Instructions* Patient Instructions* Ronit Dominguez APRN.WATER RECLAMATION SYSTEMS OPERATOR - 05/28/2022 3:05 PM EST -PLEASE NOTE THAT WE REVIEW ALL YOUR TEST RESULTS AT YOUR NEXT FOLLOW UP VISIT WITH YOU. IF ANY ABNORMAL LAB REQUIRES SOONER ATTENTION, WE WILL CONTACT YOU. -If you have signed up on [employer], we will release your test results through [employer]. I wish you the best of health and wellness. Please take care and stay safe and healthy. Consume a healthy diet, stay well hydrated, sleep well, be happy, improve stress (include meditation), exercise regularly. Spend some time in nature, around trees and borrego (forest bathing) and enjoy half an hour daily in the sun when possible (and benefit from its natural near infrared light, also your skin will be able to produce natural vitamin D). These have been shown to help with wellbeing, promoting a healthy immune system and healing. - I recommend avoiding added and refined sugars and dairy A large randomized controlled study, the VITAL trial, showed that the consumption of vitamin D and omega-3 supplements can lead to decreased risk of auto-immune disease, by 30% or more, especially ifthe vitamin D blood level improves to the 40's range. Citation of the vitamin D study: Kim J, Merlin NR, Erwin EK, Cole S, Luis Felipe J, Danny V, Dany G, Júnior ROBLES, Lexus JE, Brina KH. Vitamin D and marine omega 3 fatty acid supplementation andincident autoimmune disease: VITAL randomized controlled trial. BMJ. 2021Jul 31;376:[id number]. doi: 1 [id number]/[id number]. PMID: [id number]; PMCID: [id number]. I recommend taking the following supplements to help with inflammation and auto- immune disease: 1) Vitamin D 2000 international units once daily with meals You may need more if your blood level of vitamin D is not up to the 40 range 2) [place]-3 1000 mg once daily I recommend plant based omega-3 (over fish oil), which is algal oil. - Maintaining good vitamin D blood levels is important for bone health and overall health. Please see additional information on vitamin D below. A vitamin D blood test, called vitamin D 25-hydroxy (OH) is obtained to assess vitamin D level. If the vitamin D is low, you will need to take a vitamin D supplement. If you are already on a vitamin D supplement, then the dose will need to be adjusted. Also you multivitamin may contain vitamin D. Vitamin D is a fat soluble vitamin that requires it be taken with good fat to be absorbed. Examplesof healthy fat include nuts, seeds, avocados, olives and for the most part the meal of the day. Spending up to 30 minutes in the sun during Summer and late Spring can provide natural vitamin D tothe uncovered skin (arms, legs) - Your calcium can be sufficient in your diet Healthy food that are rich in calcium include: nuts, seeds, legumes/beans, peas, dark green leafy vegetables, plant based milk Additional calcium rich foods listed below - Soaking Almonds overnight in the fridge with drinking water, can help with softening the almonds and improved absorption of the almonds. See additional information below on calcium. - I recommend following a healthy lifestyle. You can find additional information below. I recommend this to all my patients, as I have seen convincing scientific evidence, and seen the results in my practice, of the benefits of this healthy lifestyle to overall health and wellness. I hope you will find this beneficial as well. A whole plant based diet and healthy lifestyle have been reported to be optimal for health in general, anti-inflammatory diet, prevention of common chronic diseases, healthy weight management, memoryand brain healthy, bone health. Recommendations for healthy lifestyle include: Healthy nutritious diet, anti-inflammatory diet, appropriate exercise, good sleep hygiene, stress management, supplementing vital deficiencies and maintaining healthy weight. with BMI that does not exceed 25 to 26 . 5 points to remember to improve your health and continue on a healthy path: 1- Optimal nutritious food, such as a Whole Plant Based diet You can watch the movie that features the Whole Plant Based diet, Logan over knives (see video online and visit website). Another movie that was recently released is: Eating You Alive (you can find it at Music Messenger (MM)) and The ProPlan Changers movie Dr. Mayelin Diggs is a [facility] physician who is an expert in Whole Plant based diet. His website is Meijob. His research highlights the benefits of the Whole food plant based diet in reversing and preventing heart disease. Mrs. Diggs (his ) has a cookbook with many recipes on whole plant based food: The Prevent and Reverse Heart Disease cookbook. You can also consider reading his son, Nelson Diggs's book: The Engine 2 cookbook Nelson is a retired sorter pricer who has helped many people get healthier by following the whole food plantbased diet. Dr. Valdemar Miranda, has a website and free dario to help get started on a whole plant based diet, at www.[employer]able Systems.org and you can log on for free for his 21-Day Kickstart with meals and recipes to follow for21 days. There is also a free dario for that. He has multiple free videos and YouTube, for example: [email or web address] , [email or web address] He has written multiple books, including Power Food for the Brain, The Cheese Trap, Dr. Valdemar Miranda's Program for Reversing Diabetes, Your Body in Balance Dr. Nara Chiu has shown the benefit of a starch based whole food plant based diet to his Rheumatoid Arthritis patients, as well as patient with diabetes II, hypertension, obesity, multiple sclerosis, heart disease, acne, and other, his website: [email or web address].jose.[email or web address] Dr. Kaiden White is a renowned scientist electronics, who has studied and researched the benefits of the Whole plant based diet. He has also researched the adverse effects of animal proteins on health. He presents many of his research findings in his book The [place] study. Dr. Jose R Varela has completed many research trials proving the reversal of diseases, such as heart disease and early prostate cancer, with healthy lifestyle and the Whole Plant based diet. Dr. Jose R Varela website is: [email or web address] His new book: Undo It, has evidence based information and guide to following this healthy lifestyle. Dr. Trae Rivas has dedicated a website and additional time to reviewing all food related articles and research and presents them in his power point presentation and on his website at: nutritionfacts.org which is all free. Dr. Rivas has multiple free videos and YouTube, for example https://youtu.be/aSgNkhgVtks and https://youtu.be/[email or web address]. He has written multiple books including: How Not To and How Not To Diet He is now working on his next book: How Not To Age Dr. Lucero Askew (from the [facility]), has articles on the following website: Duable Chinese Also, you could find additional information on practical to follow recipes by reading or watching online and YouTube such as: Lace Roller AJ, Cooking With Plants, The Vegan Corner (recipes from an Lao Lace Roller), The Whole Foods Plant Based Cooking Show and visiting the provided websites for additional information on the whole plant based benefit and cooking recipes. You can also consider watching the vlogs of some of the plant based Athletes such as Ward Benton Derek on [employer]. Dr. Rhona Sommer (a psychiatrist who suffered with lupus) has helped reverse her Systemic Lupus Erythematosus and helps many patients with their auto-immune diseases, based on her recommendations of the whole food plant based diet and the green smoothies. She has a facebook and website, and on youtube her channel is: Goodbye Lupus Some people have adverse effect or intolerance to gluten. Certain patients with auto-immune disease, including auto-immune thyroid disease, need to avoid gluten. If you suspect you are gluten sensitive or intolerant, consider gluten free diet. Gluten could leadto increased inflammation in the bowels and body in certain patients. Not all your food has to be organ if you cannot afford or find them. Consider organic and non-GMO products when shopping for your food, when possible. GMO are genetically modified food that may have adverse impact on our health. If you are unable to purchase organic of non-GMO, you can wash your produce with white vinegar or soak in baking soda and water (see details from Dr. Mendiola's website nutritionfacts.org) and rinse well with water. 2- Regular Exercise, such as beginner yoga, javier chi, stretching, cardio, gradual strengthening, pool therapy, physical therapy Come As You Are: YOGA - Gentle Yoga Anyone Can Do Anywhere www.VideoIQ/yoga Also on youtube: yoga with Sweta 3- Good Sleep (poor sleep impacts everything, recommended sleep is 7.5 to 8 hrs. a night). Certain people need less or more sleep. Meditation and relaxation techniques have shown to help with improving sleep. 4- Stress management, staying positive, be happy, laugh often (it is a great medicine) Find time to relax and meditate if possible. Following steps 1-3 will help with this as well. In psychiatric disorders, it is important to follow with a professional on the optimal management of depression, anxiety or psychiatric illness 5- Supplements Supplementing necessary vitamins and minerals, correcting any deficiencies, i.e. Vitamin D, B12, omega-3 fatty acids etc... Go natural when possible -Important notice: If you are following a Whole plant based diet, it is recommended to take [id number], sublingual, dissolve under the tongue, take once daily. Vitamin B12 is available over the counter, dose could be 2500 mcg, and can be taken once a week, and if your blood levels are low, you mayneed to take it once daily or a higher dose. Raw: Garlic, Cilantro, Mondamin nuts, Pumpkin seeds, [place] seeds and Flax seed powder have been reported to help with certain metal detoxification such as mercury. [place]-3 plant based rich foods are good anti-inflammatory sources such as : alisha seeds, flax seed (needs to be ground), walnuts, hemp seeds, dark green leafy vegetables. It is important to avoid refined oils as much as possible especially that many have too much omega-6 that is pro-inflammatory (lead to inflammation as well as concern for heart and vascular disease). Turmeric can be found natural, used as the spice powder or the root with your food. This is also available as a capsule. If you are on a blood thinner, you will need to discuss with your pharmacist or physician before taking Turmeric If you have gall bladder disease or gall bladder stones, it is recommended to avoid turmeric capsules. Sweet cherries (raw cleaned or frozen), Turmeric , pineapple (contains bromelain), omega-rich foods, have anti-inflammatory benefit Start reviewing the Whole Plant Based Diet, by watching Logan over KnLuxr movie and then review website. There are many other resources and educational information on the Whole plant based diet on the Internet and documentaries. There are other resources for wellness that you can also benefit from, such as the [facility] website, [facility]org and includes Plant based and Mediterranean diet, yoga and meditation. Please avoid all dairy products. You could use non-dairy milk such as Flax milk, Cashew milk, [place] milk, Rice milk, Oat milk or Hemp milk, instead. It is very important to avoid all: refined sugars (including high fructose syrup), refined carbohydrates, any artificial sweeteners and artificial preservatives, and soda and heavily processed food. Insure adequate hydration; drink at least 6 to 8 cups of water daily, certain people need less or more. Examples of Smoothies: Every morning you can start your day with a healthy natural anti-inflammatory smoothie, for example, you can blend: fresh or frozen sweet cherries, half a root of turmeric (1 to 2 inches), banana, blue berries, walnuts, few leaves of kale, add flax milk (or almond milk), and enjoy. You could add half an avocado if you like it smoother. If you do not tolerate walnuts, you can use flax seeds, alisha seeds or hemp seeds instead. If you do not like plant based milk, you can use coconut water or plainwater instead. Other smoothies, including green smoothies, are also very healthy and highly anti-inflammatory. Forexample fruits (such as banana or frozen flaco or pineapple) and add significant amount of leafy greens, then add water or coconut water and blend until smooth. You can also add turmeric in this recipe. GENERAL INFORMATION ON BONE HEALTH : -Bone Density testing (DXA scan) as recommended. -Vitamin D supplementation is recommended, unless blood levels are sufficient. Recommended daily dose of 1000 to 2000 IU total a day, or the dose necessary to achieve a Vitamin D25-OH blood level of >31 and preferably closer to 40-60 ng/mL. Vitamin D pills are available over the counter. -Recommended daily dose of calcium: 1200mg total a day in divided doses. Calcium is usually sufficient in our regular diet, also available in multivitamins. Patients on certain dietary restrictions or those unable to meet their daily calcium by diety alone, may require calcium supplements. For patient with history of calcium kidney stones, Calcium Citrate would be the recommended supplement. It is recommended to avoid caclium carbonate supplement in this case, as these may increase risk of calcium kidney stones. The after visit summary has information on dietary calcium and instructions on reading calcium label and converting the %DV to mg. When you read a food label and you see calcium reported as DV %, add a zero and this will provide you with the approximate mg value of the calcium content in this food. For example, if a glass of almond milk is labeled as 40% calcium DV, then this contains 400 mg of calcium. For additional information, please see references provided. -Regular weight-bearing and muscle-strengthening exercise -Avoidance of tobacco smoking, excessive alcohol intake and excessive caffeine intake. -Fall and fracture precautions -It is recommend to continue regular follow up visits with your dentist every 6 months, and continue with good oral hygiene. Calcium: If your diet is sufficient in Calcium rich food, you will not need calcium supplement. Calcium Citrate is the preferred calcium if you have had kidney stones. Daily recommended calcium dose: 600mg twice a day with meals. Adequate calcium ingestion is essential for maintaining healthy bones. The recommended dose daily intake of calcium varies depending on individual needs but is usually between 1200 and 1500mg daily, preferably around 1200mg a day in divided dose (not all taken at once). This is equivalent to about five 8oz glasses of milk per day. Many foods are rich in calcium and they include: - Plant based, non-dairy, calcium rich products, include nuts, almond milk, beans, lentils - Vegetables and Fruit: bok-gamboa, turnips, broccoli, kale, collards, - Dairy products: milk, cheese, yogurt, ice-cream - Fish products: canned salmon, sardines and shrimp - Cereals and nuts: almonds, sesame seeds, fortified cereals and oatmeal - Other foods: fortified orange-juice, figs, soybeans, other beans and eggs. If you have a low calcium diet and cannot tolerate calcium-rich foods, many supplements are available today. Your pharmacist can help you choose the one which best suits your needs. A few tips on supplements: - They should be easy to swallow - They should dissolve easily in cup of vinegar in < 15 minutes. - Count the ELEMENTAL calcium mgs. E.g. Calcium 499mg may have only 221mg of elemental Calcium. - Calcium citrate is the calcium supplement to take if you have had kidney stones and unable to meet your calcium requirements from food/diet alone. - There is such a variety today that it is best to bring in the bottle to your doctor to show them exactly what you are taking. Lastly too much calcium can be bad for you. Recent studies show extra supplements may increase yourrisk of kidney stones or cause high calcium levels in some people. You should discuss how much you should be taking with your doctor before starting them. Further Information is available from the following resources: www.nof.org (National Osteoporosis Foundation) http://www.osteo.org/osteolinks.asp [place] [employer] [facility]: 0-296-274-BONE The Calcium Information [place]: -Non-Dairy, Plant based Milk, can contain in1 glass up to 450 mg of calcium (300 to 450 mg) Exampled include Oat Milk, Flax Milk, [place] Milk, Cashew Milk, Soy Milk, Peas Milk general health and well being Examples of Food Sources of Calcium from [facility] Food Milligrams (mg) per serving Percent DV* Soymilk, calcium-fortified, 8 ounces 299 30 Morton juice, calcium-fortified, 6 ounces 261 26 Tofu, firm, made with calcium sulfate, cup* 253 25 Tofu, soft, made with calcium sulfate, cup* 138 14 Mtwmx-fd-jut cereal, calcium-fortified, 1 cup 100-1,000 10-100 Turnip greens, fresh, boiled, cup 99 10 Kale, raw, chopped, 1 cup 100 10 Kale, fresh, cooked, 1 cup 94 9 Pakistani cabbage, bok gamboa, raw, shredded, 1 cup 74 7 Bread, white, 1 slice 73 7 Tortilla, corn, mhhio-hy-lbrl/granado, one 6 diameter 46 5 Tortilla, flour, lrwpx-ct-xssb/granado, one 6 diameter 32 3 Bread, whole-wheat, 1 slice 30 3 Broccoli, raw, cup 21 2 * DV = Daily Value. DVs were developed by the U.S. Food and Drug Administration to help consumers compare the nutrient contents among products within the context of a total daily diet. The U.S. Department of Agriculture s (USDA s) Nutrient Database Web site lists the nutrient contentof many foods and provides comprehensive list of foods containing calcium arranged by nutrient content and by food name. *Calcium content varies slightly by fat content; the more fat, the less calcium the food contains. * Calcium content is for tofu processed with a calcium salt. Tofu processed with other salts does not provide significant amounts of calcium. You could acces this information online at: http://ods.od.nih.gov/factsheets/Calcium-HealthProfessional/ Vitamin D: Vitamin D3= cholecalciferol, available over the counter. Dose recommended 800 to 1000 iu daily with a meal; Certain patients require 6061-4059 iu daily and in patients deficient in Vitamin D, they require higher dosages. Certain patient requires higher dose, depending on their Vit D blood levels. Vitamin D is essential for calcium metabolism. It is really a hormone produced mainly in your skin after exposure to sunlight. Vitamin D helps you absorb calcium from your stomach and kidneys and incorporates it into your bones. Studies show approximately 50% of [place] men and women are vitamin D deficient in the winter. Milder cases of vitamin D are usually asymptomatic so the only way to know you have a problem is to have a blood level checked. More severe cases can cause osteomalacia(a.k.a. rickets) which can result in bone pain, weak bones and several abnormal laboratory tests and also weak muscles (a.k.a. myopathy). When this happens, your bones lose a lot of their calcium stores as the body tries to regulate the calcium required by other tissues. Prolonged deficiency can lead to severe bone disorders and fractures. Unlike calcium, dietary sources of vitamin D are rare, limited to a few fish oils particularly cod-liver oil, other fortified foods and egg yolks. and most are unhealthy. Natural source of vitamin D is through sunshine. This is usually during hemanth seasons, for example a 30 minute exposure to sunshine. Some people are unable to be exposed to the sun due to skin condition. Often supplementation isneeded. Many multivitamins contain some vitamin D and vitamin D alone preparations are now available in several forms. The recommended daily intake of vitamin D used to be 400 and 800 international units, however, it is now known that larger amounts are needed, as discussed above. Your doctor can prescribe prescription strength vitamin D for you if necessary, if you have marked deficiency or diseases of the liver or kidney. Supplementation in patients with severe deficiency can stabilize or improve bone mineral density and in frail elderly persons, may reduce their risk of falling. Additional Information is available from: www.nof.org (the national osteoporosis foundation) http://www.[facility].org/arthritis/osteo/info.htm http://ods.od.nih.gov/factsheets/vitamind.asp [facility]: 6-709-911-BONE [facility] Calcium Information [place]: At the [facility], we work as a team for your care, along with Nurse Practitioners, PhysicianAssistants, Nurses and Medical Assistants. It is a privilege and honor to serve you. Thank you for choosing The [facility] for your healthcare. Sincerely, Ronit Dominguez APRN.SHEYLA documented [facility] History of Present illness Narrative* Ronit Dominguez APRN.CNP - 05/28/2022 2:42 PM EST Images from the original note were not included. Rheumatology FOLLOW UP VISIT Referring Provider: Ronit Dominguez Date of Service: 05/28/2022 Gender: female Ethnicity: White Age: [age] year old Chief Complaint: Follow Up Last Rheumatology visit: 12/23/2021 (with Ronit Dominguez) Cheryle Villatoro is a 51 year old White female who presents on 05/28/2022 for in person visit for evaluation of Follow Up. Cheryle is both RF - 9 (11/19/2021) and CCP - 13.5 (11/19/2021) negative. Her most recent ADAMA was positive (11/19/2021). She does not have erosive disease. There are no rheumatoid nodules present. She reports morning stiffness . INTERVAL HISTORY Doing well Nothing to complain about Seeing Dr. Beasley for thyroid Treating with levothyroxine and taking for 30 days Vit d complete rx now taking vit d 10,000 international unit(s) daily Joint pain hands and shoulder and hip, left knee Does not take anything for pain Using heat - has herniated disc and following with pain mgt Erath No joint swelling Am stiffness 10-15 min Dry mouth - uses gel - drinks more water Not really dry eyes Patient-Entered Data RAPID 3 Espinoza Activities of Daily Living No Data Dress self? - Get in and out of bed? - Walk outdoors? - Wash and dry body? - Get in and out of car? - RAPID 3 Disease Activity Weighed Score Levels: 0 - 1: Near Remission 1.3 - 2.0: Low Severity 2.3 - 4.0: Moderate Severity 4.3 - 10.0: High Severity No flowsheet data found. PROMIS Assessments No flowsheet data found. Impression At today's visit, there is no clinical evidence for inflammatory arthropathy or systemic rheumatologic disease The patient has had incidental finding of positive AADMA ADAMA 1:160, SERA and dsDNA were not obtain, RF and CCP not completed Her sed was not elevated, TSH and CK's were normal, CBC and CMP normal, no cytopenias, urate normal With patient's positive ADAMA and dry mouth, would need to evaluate for Sjogren's Syndrome. SSA and SSB normal Positive for autoimmune thyroid. TSH on high end of normal as well. Advised to follow with Primary care or endo. In terms of the non-specific musculoskeletal pains, Am gelling is limited to 10 min, suspect DJD/OA, vitamin D deficiency, BMI>30 and pro-inflammatory diet are contributing factors. She also has congenital hip dysplasia/shallow acetab. with DJD, and herniated disc disease and DDD. She is on statins and this can lead to statin myopathy and musculoskeletal pains and she stated that it could be . I advised her to discuss with her Primary care physician. Vitamin D deficiency is a very common factor of musculoskeletal pains, especially when associated with secondary hyperparathyroidism. PTH elevated. Will correct vit d and recheck Vitamin D level was low She recently increased to 10,000 international unit(s) daily was supposed to be 5,000 - will check level today I discussed clinical implications of Vitamin D deficiency, osteomalacia, implications to bone health status, musculoskeletal pains and other reported health risks. She has facial rash, Derm said it was acne and topical cream given not a malar rash. 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 Following with endo for autoimmune thyroid No new complaints today. Will continue to monitor Plan RECOMMENDATION/PLAN: Reviewed indication for orders with instructions Follow with primary care for autoimmune thyroid Reviewed vitamin D supplement - reviewed safe doses- will recheck today She is unable to take nsaids or turmeric due to being on blood thinner I reviewed conservative care, wellness and healthy lifestyle, as well as the benefits of a whole foods plant based diet. I have had many patients experience significant relief in musculoskeletal pains and inflammatory arthropathy, by avoiding refined sugars and dairy and following whole foods plantbased diet. Additional time spent with patient on healthy lifestyle, healthy food and anti- inflammatory diet (with emphasis on whole plant based diet), avoiding refined carbs/sugars and processed food, appropriate exercise (stretching, cardio and strengthening), good sleep hygiene, stress mgt, and supplementing vital deficiencies and maintaining healthy wt and healthy BMI. Additional information provided with references and educational information. Bone Health Recommendations: -Bone Density is recommended after menopause and after age 55-60, sooner if patient has risk factors, sooner if on systemic steroid use of 3 months or more. -Vitamin D supplementation recommended, optimal dose is the dose necessary to achieve Vitamin D 25-OH blood level in range of 40-60 ng/mL. (Vitamin D supplement in international units, is the dose necessary to achieve a Vitamin D 25-OH blood level in range of 40-60 ng/mL). -Recommended daily dose of calcium: 1200mg total a day in divided doses. Calcium from dietary sources, if not sufficient, or if with h/o calcium nephrolithiasis would recommend Calcium Citrate supplement, as it is recommended to avoid caclium carbonate products, which as main dietary calcium source. The after visit summary has information on dietary calcium and instructions on reading calcium label and converting the %DV to mg. -Regular weight-bearing and muscle-strengthening exercise -Avoidance of tobacco smoking, excessive alcohol intake and excessive caffeine intake. -Fall and fracture precautions -Continued regular dental follow up visits and good dental/gum care Discussed medication dosage, usage, goals of therapy, and side effects. Additional time spent on interpretation of test results. Available laboratories an their clinical significance were reviewed with the patient. Radiographs were reviewed at todays visit. Additional time was spent outside of the patient visit to review records. today. Assessment and plan were discussed with the patient. Additional time spent with the patient to discuss their questions. Additional time spent with the patient devoted to discussing treatment strategy, planning, implementation and preventive health and wellness recommendations. -Patient is following with Primary care physician and other providers for their other health care. Return lab today, for [address] Duncan . I spent a total of 33 minutes on the date of the service which included preparing to see the patient, [id number] patient care, completing clinical documentation, obtaining and/or reviewing separately obtained history, performing a medically appropriate examination, counseling and educating the pat ient/family/caregiver, and ordering medications, tests, or procedures. Portions of this note have been copied from my previous note and have been updated to reflect today's visit note May 28, 2022 all reflect current medical decision making from date of this visit. Ronit Dominguez APRN.WATER RECLAMATION SYSTEMS OPERATOR cc: PCP: Brandon Beasley [address] [place] [address] Subjective HISTORY OF PRESENT ILLNESS NEW CONSULT November 19, 2021 She has had bld clots First was at age 24, presented as PE, states further investigation showed LE DVT. States the bld clot was from pelvic area to foot States this occurred after a long care drive, 7 to 8 hrs. [facility] noticed had a pain in her groin before that, states her prev. PCP thought had pneumonia and advised her to rest, so was not moving much, prior to the car drive. She was on BCP and since has been off. [facility] uses hormone ring ( Famring ) due to postm. symptoms, since age 35 (s/p SARAN with oop for severe endometriosis) Denies smoking She was treated with Coumadin, and on for 8 to 9 yrs and off for 3 months, had a superficial bloodclot of LLE, and then her PCP resumed her Coumadin ever since. Takes 8 mg and 8.5 mg every other day States was taken off Coumadin and had another clot In 2018, was superficial thrombph. [facility] was on Coumadin, is not aware that was subtherapeutic States her Primary care physician has been managing that. Denies seeing Underwriting Clerk or She reports there is FH of clotting Bother paternal GP of clotting, brother and father had bld clots Paternal aunt had PE and DVT. States we've all been testing and haven't come up with anything that predisp us to have bld clots She believes that factor V leiden, Prot C and S were negative. She has had low back surgery in 2010, for herniated disc and told had to shave off floating vertebr , no DVT She is on atorvastatin due to hyperlipidemia Takes PPI for gerd; denies bleeding ulcers States had EGD 06/2021 and told that was fine States her dry mouth is also very dry States takes very good of her oral hygiene States when consumes milk or sugary foods, has a terrible taste in the mouth , it's just yucky States brushes her tongue and scrapes, and uses mouth wash. She has not asked her dentist about her tongue. S States has had covid-19 and states this started prior to her covid infection. States only symptoms were could not smell or taste for 2 days then back to her baseline. States she drinks plenty of fluids Denies parotid gland swelling No dental decay or premature dental loss She reports musculoskeletal pains No particular jt, states moves around Thumbs, hips, wrist, LB States may notice a lump on inner aspect of wrist, cannot verify synovitis or jt effusion Am gelling is limited to 10 min If sitting too long and if does too much notices, like standing too long affects hips and LB States gained wt, is not sure how much She is on statin, feels could be affecting her pains Bakes, cupcakes for Weddings and Graduations Diet: standard western diet cerleal yogurt fruits- mandarin packed in box/syrup oranges salad with chicken Exercise: walk on a treadmill and bikes and stretches INTERVAL HISTORY Doing well Nothing to complain about Seeing Dr. Beasley for thyroid Treating with levothyroxine and taking for 30 days Vit d complete rx now taking vit d 10,000 international unit(s) daily Joint pain hands and shoulder and hip, left knee Does not take anything for pain Using heat - has herniated disc and following with pain mgt Erath No joint swelling Am stiffness 10-15 min Dry mouth - uses gel - drinks more water Not really dry eyes Disease History Extra-Articular Features / Comorbidities History of malignancy (Comment: basal cell, removed) No vasculitis No episcleritis No scleritis No dry eyes Dry mouth (Comment: Denies parotid gland swelling) No pleural effusions No congestive heart failure No pericarditis No myocardial infarction No peripheral neuropathy No mononeuritis multiplex No anemia No neutropenia No thrombocytopenia No joint surgery Musculoskeletal History No joint replacements PAIN EVALUATION 05/28/2022 1435 Pain Level: 2 Pain Location: -- joint pain Objective Treatment History Relevant Previous Investigations CBC Latest Ref Rng & Units 03/08/2013 03/08/2013 WBC 3.70 - 11.00 k/uL 4.95 Requisitioning entry error HEMOGLOBIN 11.5 - 15.5 g/dL 13.8 - HEMATOCRIT 36.0 - 46.0 % 42.0 - PLATELETS 150 - 400 k/uL 205 - ABS NEUT (ANC) 1.45 - 7.50 k/uL 3.03 - ABS LYMPH 1.00 - 4.00 k/uL 1.61 - CMP Latest Ref Rng & Units 03/08/2013 SODIUM 132 - 148 mmol/L 142 POTASSIUM 3.5 - 5.0 mmol/L 4.0 CHLORIDE 98 - 110 mmol/L 103 CO2 23 - 32 mmol/L 26 GLUCOSE 65 - 100 mg/dL 74 BUN 8 - 25 mg/dL 15 CREATININE 0.70 - 1.40 mg/dL 0.97 CALCIUM, TOTAL 8.5 - 10.5 mg/dL 9.4 AST 7 - 40 U/L 30 ALT 0 - 45 U/L 24 ALKALINE PHOSPHATASE 40 - 150 U/L 50 ESR, WSR Latest Ref Rng & Units 11/19/2021 WSR 0 - 20 mm/hr 2 CRP Latest Ref Rng & Units 11/19/2021 CRP <0.9 mg/dL <0.3 CK Latest Ref Rng & Units 11/19/2021 CK 42 - 196 U/L 106 RF and CCP Latest Ref Rng & Units 11/19/2021 RHEUMATOID FACTOR <16 IU/mL <10 CCP ANTIBODY IGG QUALITATIVE Negative Negative CCP ANTIBODY, IGG <20 Units <15 Antibodies Latest Ref Rng & Units 03/08/2013 11/19/2021 ADAMA Negative - Positive(A) ADAMA BY EIA <1.5 OD Ratio 1.1 - ADAMA TITER - - 1:160 ADAMA PATTERN - - Nuclear dense fine speckled DNA ANTIBODY W/CONFIRMATION <30 IU/mL - <12 FINAL OPERATIONS TECHNICIAN ANTIBODY QUAL Negative - Negative SSA ANTIBODY QUAL Negative - Negative GLORIA-1 ANTIBODY, IGG <1.0 AI - <0.2 GLORIA 1 ANTIBODY QUAL Negative - Negative RIBOSOMAL FINAL OPERATIONS TECHNICIAN AB <1.0 AI - <0.2 RIBOSOMAL FINAL OPERATIONS TECHNICIAN QUAL Negative - Negative ANTI-SSA <1.0 AI - <0.2 ANTI-SSB <1.0 AI - <0.2 ANTI-SM <1.0 AI - <0.2 SM ANTIBODY Negative - Negative SCL-70 AB QUAL Negative - Negative SCL-70 ABS, EIA <1.0 AI - <0.2 CENTROMERE AB <1.0 AI - <0.2 CENTROMERE AB QUAL Negative - Negative CHROMATIN AB <1.0 AI - <0.2 CHROMATIN AB QUAL Negative - Negative PT SEC 8.4 - 13.0 sec 15.5(H) - PT INR 0.8 - 1.2 1.4(H) - PTT 23.0 - 32.4 sec 29.4 - PLATELET NEUT NEGAT Negative - DRVVT SCREEN 28.7 - 47.6 sec 32.9 - DRVVT CONFIRM RATIO <1.21 0.85 - DRVVT 1 TO 1 MIX 28.7 - 47.6 sec 33.8 - HEX PHASE SCREEN 53.8 - 72.4 sec 59.2 - HEX PHASE CONFIRM 54.3 - 68.5 sec 67.3 - HEX PHASE DELTA <7.0 delta sec 0.0 - APTT SCREEN 24.4 - 33.4 sec 29.4 - IMMEDIATE PTT 1 TO 1 MIX <33.5 sec 28.5 - INCUBATED PTT 1 TO 1 MIX <37.3 sec 29.8 - THROMBIN TIME <18.6 sec 16.3 - CARDIOLIPIN AB, IGG 0 - 9 GPL <9 - CARDIOLIPIN AB, IGM 0 - 11 MPL 10 - CARDIOLIPIN AB, IGA 0 - 11 APL <9 - TPMT amd G6PD Latest Ref Rng & Units 11/19/2021 G-6-PD QUANTITATIVE 9.8 - 15.5 U/g Hb 12.5 Imaging / Studies Last XR Hand/Finger - Impression Only XR HAND GENERAL 3V PA/LAT/OBL BILATERAL Exam End: 11/19/2021 9:47 AM (Final result) Impression: IMPRESSION: No acute radiographic findings. Mild degenerative changes, as described. Chemical Reclamation Equipment Operator: JASON ... Last MRI Hand - Impression Only No resulted procedures found. Last XR Chest - Impression Only No resulted procedures found. Last XR Cervical Spine - Impression Only No resulted procedures found. OUTSIDE STUDIES / DATA Reviewed outside records from Care Everywhere 10/01/2020 CK 185 TSH 3.89 06/18/2021 CBC normal CMP normal ADAMA positive at 1:160, speckled ESR = 6 Uric acid 4.6 Covid-19 negative 2021 MRI, x-rays, no findings for inflammatory arthropathy XR Hip Complete Left* on 09-02-2021 XR Hip Complete Left* COMPARISON: none FINDINGS: There is no lytic or sclerotic bone lesion. There is no fracture or dislocation. The femoral head is located. There is a shallow acetabulum likely on a congenital basis and there is mild joint space narrowing and mild irregularity of the femoral head and the acetabulum. There are no radiopaque foreign bodies. IMPRESSION: There are mild degenerative changes of the left hip joint with irregular articular surfaces and a shallow acetabulum. Report reported and signed by JANUARY DIAZ on 09/03/2021 0917 Normal [facility] Specialist XR Hip Complete Right* on 09-02-2021 XR Hip Complete Right* COMPARISON: none FINDINGS: AP pelvis and right hip There is no lytic or sclerotic bone lesion. There is no fracture or dislocation. The femoral heads are located. There are bilateral shallow acetabuli. There is stasis of the right hip joint. There are no radiopaque foreign bodies. IMPRESSION: There are mild degenerative changes with joint space and the right hip joint and there are bilateral shallow acetabuli likely on a congenital basis. Report reported and signed by JANUARY DIAZ on 09/03/2021 0921 MRI Spine Lumbar w/ + w/o Contrast on 10-10-2021 MRI Spine Lumbar w/ + w/o Contrast Exam Date/Time: 10/07/2021 18:31 EDT Reason for Exam: M54.17 ,51.26 Report IMPRESSION: POSTERIOR DISC HERNIATION AT L4-L5, GREATER TO THE LEFT OF MIDLINE. CLINICAL HISTORY: M54.17 ,51.26. Low back pain. COMMENT: Unenhanced and intravenous contrast enhanced images were obtained. The T11-T12 disc bulges anterior to the interspace, but no posterior disc bulge is evident. The T12-L1 and L1-L2 intervertebral discs are unremarkable. L2-L3: There is slight disc bulging, with slight flattening of the dural sac anteriorly. There is a small focal shallow protrusion of disc into the right L2-L3 neural foramen, but there is no associated neural foraminal stenosis. L3-L4: There is mild interspace narrowing. There is shallow posterior disc protrusion, greater centrally, with mild indentation of the dural sac anteriorly. There are hypertrophic facet arthritic changes, with mild hypertrophy of ligamenta flava and there is a small synovial cyst medial to the left facet joint. The posterior hypertrophic changes result in mild indentation of the dural sac laterally on the left and flattening of the dural sac laterally on the right. There is slight constriction of the spinal canal. There is a small Schmorl's node of the inferior endplate of L3 posteriorly, with adjacent bony reactive signal intensity changes. L4-L5: There is mild interspace narrowing. There is increased concavity of the inferior endplate of L4. There are bony reactive signal intensity changes on either side of the interspace. The patient has had a prior right hemilaminectomy. There is posterior disc herniation with extrusion (posteriorly and inferiorly), asymmetrically greater to the left of midline. There is epidural contrast enhancement surrounding the herniated disc. There is moderate indentation of the dural sac anteriorly, greater to the left of midline. There are hypertrophic facet arthritic changes on the left, with hypertrophy of the left ligamentum flavum. There is moderate focal spinal canal stenosis. Disc bulges into the right and left neural foramina inferiorly, but without any significant neural foraminal stenosis. L5-S1: The disc is relatively rudimentary but otherwise unremarkable. No intradural lesions are seen. The conus medullaris is unremarkable. There is no intradiscal contrast enhancement to indicate discitis. FINAL REPORT Dictated: 10/10/2021 11:02 am Vicente Davidson M.D. Signed (Electronic Signature): 10/10/2021 11:02 am Signed by: Vicente Davidson M.D. Transcribed by: MACK Technologist: JUAN Technical Comments MultiHance Review of Systems Review of Systems CONSTITUTION: Negative for: Weight loss or gain, Fever. Chills, Night sweats HEENT: Positive for: Dry mouth RESPIRATORY: Negative for: Cough, Shortness of breath, Pain with breathing, Coughing up blood GASTROINTESTINAL: Positive for: Heartburn Negative for: Melena, Diarrhea and Abdominal pain MUSCULOSKELETAL: Positive for: Arthralgias and Morning Joint Stiffness (all day, better with activity) Negative for: Myalgias, Muscle weakness and Joint swelling NEUROLOGICAL: Positive for: Headaches (from weather, and hormones) Negative for: Numbness and Memory loss SKIN: Positive for: Nail changes (ridges, splinter) Negative for: Rash (following with derm for pustules on face in same area- intermittent- has topical), Sun Sensitive Rash, Skin changes and Hair loss EYES: Positive for: Eye dryness (occasional) CARDIOVASCULAR: Negative for: Chest pain, Leg swelling, Arrhythmia, Presyncope GENITOURINARY: Negative for: Dysuria, Hematuria, Ulceration HEMATOLOGIC/LYMPHATIC: Negative for: Swollen glandsAll other reviewed and negative other than HPI. Problem List ACTIVE PROBLEM LIST Hypercoagulopathy (Hcc) Dvt (Deep Venous Thrombosis) (Hcc) Past Medical History PAST MEDICAL HISTORY Diagnosis Date DVT (deep venous thrombosis) (HCC) Endometriosis Hypercoagulopathy (HCC) Pulmonary embolus (HCC) Past Surgical History PAST SURGICAL HISTORY Procedure Laterality Date APPENDECTOMY BACK SURGERY HX TOTAL ABDOMINAL HYSTERECT W/WO RMVL TUBE OVARY Hysterectomy, SARAN Family History FAMILY HISTORY Problem Relation Age of Onset DVT Father DVT Paternal Aunt DVT Paternal Grandfather DVT Paternal Grandmother Social History Social History Tobacco Use Smoking status: Never Smokeless tobacco: Never Medications Current Outpatient Medications Medication Sig levothyroxine (SYNTHROID) 25 mcg tablet TAKE 1 TABLET BY MOUTH EVERY DAY IN THE MORNING ON EMPTY STOMACH FOR 30 DAYS omeprazole (PRILOSEC) 40 mg capsule omeprazole 40 mg Cap-DR Refills(s) 0 Start Date: 09/19/21 Status: Ordered atorvastatin (LIPITOR) 40 mg tablet TAKE 1 TABLET BY MOUTH EVERY DAY FOR 90 DAYS MULTIVITAMIN ORAL Take by mouth. warfarin (COUMADIN) 2 mg tablet Take 2 mg by mouth daily as directed. As directed pyridoxine, vitamin B6, (VITAMIN B6) 100 mg tablet Take 100 mg by mouth once daily. cyanocobalamin (VITAMIN B-12) 1,000 mcg tab Take 1,000 mcg by mouth once daily. No current facility-administered medications for this visit. Physical Exam BP 131/71 Pulse 89 Wt 246 lb (111.6kg) SpO2 97% Physical Exam Constitutional: Appearance: Normal appearance. She is normal weight. HENT: Nose: Nose normal. Mouth/Throat: Mouth: Mucous membranes are moist. Eyes: Conjunctiva/sclera: Conjunctivae normal. Pupils: Pupils are equal, round, and reactive to light. Cardiovascular: Rate and Rhythm: Normal rate and regular rhythm. Pulses: Normal pulses. Heart sounds: Normal heart sounds. Pulmonary: Effort: Pulmonary effort is normal. Breath sounds: Normal breath sounds. Abdominal: General: Abdomen is flat. Palpations: Abdomen is soft. Musculoskeletal: General: Normal range of motion. Cervical back: Normal range of motion and neck supple. Comments: No joint swelling. Mild tenderness on exam of hands/ fingers Skin: General: Skin is warm and dry. Capillary Refill: Capillary refill takes less than 2 seconds. Neurological: General: No focal deficit present. Mental Status: She is alert and oriented to person, place, and time. Mental status is at baseline. Psychiatric: Mood and Affect: Mood normal. Behavior: Behavior normal. Thought Content: Thought content normal. Judgment: Judgment normal. There is currently no information documented on the homunculus. Go to the Rheumatology activity andcomplete the homunculus joint exam. Joint Exam 05/28/2022 No joint exam has been documented for this visit documented in [facility] NoteHNO ID: [id number] Author: Ronit Dominguez APRN.SHEYLA Service: ? Author Type: Nurse Practitioner Type: Progress Notes Filed: 12/23/2021 10:11 AM Note Text: Rheumatology FOLLOW UP VISIT Referring Provider: Ronit Dominguez Date of Service: 12/23/2021 Gender: female Ethnicity: White Age: [age] year old Chief Complaint: Follow Up Last Rheumatology visit: 11/19/2021 (with Ron Duncan) Cheryle Villatoro is a 51 year old White female who presents on 12/23/2021 for in person visit for evaluation of Follow Up. Cheryle is both RF - 9 (11/19/2021) and CCP - 13.5 (11/19/2021) negative. Her most recent ADAMA was positive (11/19/2021). She does not have erosive disease. There are no rheumatoid nodules present. She reports morning stiffness . INTERVAL HISTORY Doing ok Fatigue Maybe just the weather Joint sore- knees and hips and fingers, back Pain- 4/10 Tries stretching and thinks it helps some Pain mgt follows for back He wanted to do another injection it does help Hard to sleep at night related to it No joint swelling Patient-Entered Data RAPID 3 Espinoza Activities of Daily Living No Data Dress self? - Get in and out of bed? - Walk outdoors? - Wash and dry body? - Get in and out of car? - RAPID 3 Disease Activity Weighed Score Levels: 0 - 1: Near Remission 1.3 - 2.0: Low Severity 2.3 - 4.0: Moderate Severity 4.3 - 10.0: High Severity No flowsheet data found. PROMIS Assessments No flowsheet data found. Impression At today's visit, there is no clinical evidence for inflammatory arthropathy or systemic rheumatologic disease The patient has had incidental finding of positive ADAMA ADAMA 1:160, SERA and dsDNA were not obtain, RF and CCP not completed Her sed was not elevated, TSH and CK's were normal, CBC and CMP normal, no cytopenias, urate normal With patient's positive ADAMA and dry mouth, would need to evaluate for Sjogren's Syndrome. SSA and SSB normal Positive for autoimmune thyroid. TSH on high end of normal as well. Advised to follow with Primary care or endo. In terms of the non-specific musculoskeletal pains, Am gelling is limited to 10 min, suspect DJD/OA, vitamin D deficiency, BMI>30 and pro-inflammatory diet are contributing factors. She also has congenital hip dysplasia/shallow acetab. with DJD, and herniated disc disease and DDD. She is on statins and this can lead to statin myopathy and musculoskeletal pains and she stated that it could be . I advised her to discuss with her Primary care physician. Vitamin D deficiency is a very common factor of musculoskeletal pains, especially when associated with secondary hyperparathyroidism. PTH elevated. Will correct vit d and recheck Vitamin D level was low Completed vit d Rx now taking vit d 5000 international unit(s) daily I discussed clinical implications of Vitamin D deficiency, osteomalacia, implications to bone health status, musculoskeletal pains and other reported health risks. She has facial rash, Derm said it was acne and topical cream given not a malar rash. 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 Plan RECOMMENDATION/PLAN: Reviewed indication for orders with instructions Follow with primary care for autoimmune thyroid Reviewed vitamin D supplement She is unable to take nsaids or turmeric due to being on blood thinner I reviewed conservative care, wellness and healthy lifestyle, as well as the benefits of a whole foods plant based diet. I have had many patients experience significant relief in musculoskeletal pains and inflammatory arthropathy, by avoiding refined sugars and dairy and following whole foods plant based diet. Additional time spent with patient on healthy lifestyle, healthy food and anti-inflammatory diet (with emphasis on whole plant based diet), avoiding refined carbs/sugars and processed food, appropriate exercise (stretching, cardio and strengthening), good sleep hygiene, stress mgt, and supplementing vital deficiencies and maintaining healthy wt and healthy BMI. Additional information provided with references and educational information. Bone Health Recommendations: -Bone Density is recommended after menopause and after age 55-60, sooner if patient has risk factors, sooner if on systemic steroid use of 3 months or more. -Vitamin D supplementation recommended, optimal dose is the dose necessary to achieve Vitamin D 25-OH blood level in range of 40-60 ng/mL. (Vitamin D supplement in international units, is the dose necessary to achieve a Vitamin D 25-OH blood level in range of 40-60 ng/mL). -Recommended daily dose of calcium: 1200mg total a day in divided doses. Calcium from dietary sources, if not sufficient, or if with h/o calcium nephrolithiasis would recommend Calcium Citrate supplement, as it is recommended to avoid caclium carbonate products, which as main dietary calcium source. The after visit summary has information on dietary calcium (more content not included)...[facility]06-20-[facility] Instructions* Patient Instructions* Ronit Dominguez APRN.WATER RECLAMATION SYSTEMS OPERATOR - 12/23/2021 9:23 AM EDT -PLEASE NOTE THAT WE REVIEW ALL YOUR TEST RESULTS AT YOUR NEXT FOLLOW UP VISIT WITH YOU. IF ANY ABNORMAL LAB REQUIRES SOONER ATTENTION, WE WILL CONTACT YOU. -If you have signed up on [employer], we will release your test results through [employer]. I wish you the best of health and wellness. Please take care and stay safe and healthy. Consume a healthy diet, stay well hydrated, sleep well, be happy, improve stress (include meditation), exercise regularly. Spend some time in nature, around trees and borrego (forest bathing) and enjoy half an hour daily in the sun when possible (and benefit from its natural near infrared light, also your skin will be able to produce natural vitamin D). These have been shown to help with wellbeing, promoting a healthy immune system and healing. - I recommend avoiding added and refined sugars and dairy A large randomized controlled study, the VITAL trial, showed that the consumption of vitamin D and omega-3 supplements can lead to decreased risk of auto-immune disease, by 30% or more, especially ifthe vitamin D blood level improves to the 40's range. Citation of the vitamin D study: Kim J, Merlin NR, Erwin EK, Cole S, Luis Felipe J, Danny V, Dany G, Júnior ROBLES, Lexus JE, Brina KH. Vitamin D and marine omega 3 fatty acid supplementation andincident autoimmune disease: VITAL randomized controlled trial. BMJ. 2021Jul 31;376:m292003. doi: 1 [id number]/[id number]. PMID: 35000037; PMCID: [id number]. I recommend taking the following supplements to help with inflammation and auto- immune disease: 1) Vitamin D 2000 international units once daily with meals You may need more if your blood level of vitamin D is not up to the 40 range 2) [place]-3 1000 mg once daily I recommend plant based omega-3 (over fish oil), which is algal oil. - Maintaining good vitamin D blood levels is important for bone health and overall health. Please see additional information on vitamin D below. A vitamin D blood test, called vitamin D 25-hydroxy (OH) is obtained to assess vitamin D level. If the vitamin D is low, you will need to take a vitamin D supplement. If you are already on a vitamin D supplement, then the dose will need to be adjusted. Also you multivitamin may contain vitamin D. Vitamin D is a fat soluble vitamin that requires it be taken with good fat to be absorbed. Examplesof healthy fat include nuts, seeds, avocados, olives and for the most part the meal of the day. Spending up to 30 minutes in the sun during Summer and late Spring can provide natural vitamin D tothe uncovered skin (arms, legs) - Your calcium can be sufficient in your diet Healthy food that are rich in calcium include: nuts, seeds, legumes/beans, peas, dark green leafy vegetables, plant based milk Additional calcium rich foods listed below - Soaking Almonds overnight in the fridge with drinking water, can help with softening the almonds and improved absorption of the almonds. See additional information below on calcium. - I recommend following a healthy lifestyle. You can find additional information below. I recommend this to all my patients, as I have seen convincing scientific evidence, and seen the results in my practice, of the benefits of this healthy lifestyle to overall health and wellness. I hope you will find this beneficial as well. A whole plant based diet and healthy lifestyle have been reported to be optimal for health in general, anti-inflammatory diet, prevention of common chronic diseases, healthy weight management, memoryand brain healthy, bone health. Recommendations for healthy lifestyle include: Healthy nutritious diet, anti-inflammatory diet, appropriate exercise, good sleep hygiene, stress management, supplementing vital deficiencies and maintaining healthy weight. with BMI that does not exceed 25 to 26 . 5 points to remember to improve your health and continue on a healthy path: 1- Optimal nutritious food, such as a Whole Plant Based diet You can watch the movie that features the Whole Plant Based diet, Logan over knives (see video online and visit website). Another movie that was recently released is: Eating You Alive (you can find it at Music Messenger (MM)) and The ProPlan Changers movie Dr. Mayelin Diggs is a [facility] physician who is an expert in Whole Plant based diet. His website is Meijob. His research highlights the benefits of the Whole food plant based diet in reversing and preventing heart disease. Mrs. Diggs (his ) has a cookbook with many recipes on whole plant based food: The Prevent and Reverse Heart Disease cookbook. You can also consider reading his son, Nelson Diggs's book: The Engine 2 cookbook Nelson is a retired sorter pricer who has helped many people get healthier by following the whole food plantbased diet. Dr. Valdemar Miranda, has a website and free dario to help get started on a whole plant based diet, at www.pcrLagiar.org and you can log on for free for his 21-Day Kickstart with meals and recipes to follow for21 days. There is also a free dario for that. He has multiple free videos and YouTube, for example: ht [email or web address] [email or web address] , [email or web address] [email or web address] [email or web address] He has written multiple books, including Power Gigwalk for the Brain, The Cheese Trap, Dr. Valdemar Miranda's Program for Reversing Diabetes, Your Body in Balance Dr. Nara Chiu has shown the benefit of a starch based whole food plant based diet to his Rheumatoid Arthritis patients, as well as patient with diabetes II, hypertension, obesity, multiple sclerosis, heart disease, acne, and other, his website: [email or web address] Dr. Kaiden White is a renowned scientist electronics, who has studied and researched the benefits of the Whole plant based diet. He has also researched the adverse effects of animal proteins on health. He presents many of his research findings in his book The [place] study. Dr. Jose R Varela has completed many research trials proving the reversal of diseases, such as heart disease and early prostate cancer, with healthy lifestyle and the Whole Plant based diet. Dr. Jose R Varela website is: [email or web address] His new book: Undo It, has evidence based information and guide to following this healthy lifestyle. Dr. Trae Rivas has dedicated a website and additional time to reviewing all food related articles and research and presents them in his power point presentation and on his website at: nutritionfacts.org which is all free. Dr. Rivas has multiple free videos and YouTube, for example https://[email or web address] [email or web address]/[email or web address] and https://Verge Solutions.be/lXXXygDRyBU. He has written multiple books including: How Not To and How Not To Diet He is now working on his next book: How Not To Age Dr. Lucero Askew (from the [facility]), has articles on the following website: LitRes.[email or web address] Also, you could find additional information on practical to follow recipes by reading or watching online and YouTube such as: Lace Roller CHILANGO, Cooking With Plants, The Vegan Corner (recipes from an Lao Lace Roller), The Whole Foods Plant Based Cooking Show and visiting the provided websites for additional information on the whole plant based benefit and cooking recipes. You can also consider watching the vlogs of some of the plant based Athletes such as Ward Benton Derek on sem[employer]. Dr. Rhona Sommer (a psychiatrist who suffered with lupus) has helped reverse her Systemic Lupus Erythematosus and helps many patients with their auto-immune diseases, based on her recommendations of the whole food plant based diet and the green smoothies. She has a facebook and website, and on youtube her channel is: Goodbye Lupus Some people have adverse effect or intolerance to gluten. Certain patients with auto-immune disease, including auto-immune thyroid disease, need to avoid gluten. If you suspect you are gluten sensitive or intolerant, consider gluten free diet. Gluten could leadto increased inflammation in the bowels and body in certain patients. Not all your food has to be organ if you cannot afford or find them. Consider organic and non-GMO products when shopping for your food, when possible. GMO are genetically modified food that may have adverse impact on our health. If you are unable to purchase organic of non-GMO, you can wash your produce with white vinegar or soak in baking soda and water (see details from Dr. Mendiola's website nutritionfacts.org) and rinse well with water. 2- Regular Exercise, such as beginner yoga, javier chi, stretching, cardio, gradual strengthening, pool therapy, physical therapy Come As You Are: YOGA - Gentle Yoga Anyone Can Do Anywhere [email or web address] Also on youtube: yoga with Swtea 3- Good Sleep (poor sleep impacts everything, recommended sleep is 7.5 to 8 hrs. a night). Certain people need less or more sleep. Meditation and relaxation techniques have shown to help with improving sleep. 4- Stress management, staying positive, be happy, laugh often (it is a great medicine) Find time to relax and meditate if possible. Following steps 1-3 will help with this as well. In psychiatric disorders, it is important to follow with a professional on the optimal management of depression, anxiety or psychiatric illness 5- Supplements Supplementing necessary vitamins and minerals, correcting any deficiencies, i.e. Vitamin D, B12, omega-3 fatty acids etc... Go natural when possible -Important notice: If you are following a Whole plant based diet, it is recommended to take [id number], sublingual, dissolve under the tongue, take once daily. Vitamin B12 is available over the counter, dose could be 2500 mcg, and can be taken once a week, and if your blood levels are low, you mayneed to take it once daily or a higher dose. Raw: Garlic, Cilantro, Mondamin nuts, Pumpkin seeds, [place] seeds and Flax seed powder have been reported to help with certain metal detoxification such as mercury. [place]-3 plant based rich foods are good anti-inflammatory sources such as : alisha seeds, flax seed (needs to be ground), walnuts, hemp seeds, dark green leafy vegetables. It is important to avoid refined oils as much as possible especially that many have too much omega-6 that is pro-inflammatory (lead to inflammation as well as concern for heart and vascular disease). Turmeric can be found natural, used as the spice powder or the root with your food. This is also available as a capsule. If you are on a blood thinner, you will need to discuss with your pharmacist or physician before taking Turmeric If you have gall bladder disease or gall bladder stones, it is recommended to avoid turmeric capsules. Sweet cherries (raw cleaned or frozen), Turmeric , pineapple (contains bromelain), omega-rich foods, have anti-inflammatory benefit Start reviewing the Whole Plant Based Diet, by watching Logan over [employer] movie and then review website. There are many other resources and educational information on the Whole plant based diet on the Internet and documentaries. There are other resources for wellness that you can also benefit from, such as the [facility] website, [facility]org and includes Plant based and Mediterranean diet, yoga and meditation. Please avoid all dairy products. You could use non-dairy milk such as Flax milk, Cashew milk, [place] milk, Rice milk, Oat milk or Hemp milk, instead. It is very important to avoid all: refined sugars (including high fructose syrup), refined carbohydrates, any artificial sweeteners and artificial preservatives, and soda and heavily processed food. Insure adequate hydration; drink at least 6 to 8 cups of water daily, certain people need less or more. Examples of Smoothies: Every morning you can start your day with a healthy natural anti-inflammatory smoothie, for example, you can blend: fresh or frozen sweet cherries, half a root of turmeric (1 to 2 inches), banana, blue berries, walnuts, few leaves of kale, add flax milk (or almond milk), and enjoy. You could add half an avocado if you like it smoother. If you do not tolerate walnuts, you can use flax seeds, alisha seeds or hemp seeds instead. If you do not like plant based milk, you can use coconut water or plainwater instead. Other smoothies, including green smoothies, are also very healthy and highly anti-inflammatory. Forexample fruits (such as banana or frozen flaco or pineapple) and add significant amount of leafy greens, then add water or coconut water and blend until smooth. You can also add turmeric in this recipe. GENERAL INFORMATION ON BONE HEALTH : -Bone Density testing (DXA scan) as recommended. -Vitamin D supplementation is recommended, unless blood levels are sufficient. Recommended daily dose of 1000 to 2000 IU total a day, or the dose necessary to achieve a Vitamin D25-OH blood level of >31 and preferably closer to 40-60 ng/mL. Vitamin D pills are available over the counter. -Recommended daily dose of calcium: 1200mg total a day in divided doses. Calcium is usually sufficient in our regular diet, also available in multivitamins. Patients on certain dietary restrictions or those unable to meet their daily calcium by diety alone, may require calcium supplements. For patient with history of calcium kidney stones, Calcium Citrate would be the recommended supplement. It is recommended to avoid caclium carbonate supplement in this case, as these may increase risk of calcium kidney stones. The after visit summary has information on dietary calcium and instructions on reading calcium label and converting the %DV to mg. When you read a food label and you see calcium reported as DV %, add a zero and this will provide you with the approximate mg value of the calcium content in this food. For example, if a glass of almond milk is labeled as 40% calcium DV, then this contains 400 mg of calcium. For additional information, please see references provided. -Regular weight-bearing and muscle-strengthening exercise -Avoidance of tobacco smoking, excessive alcohol intake and excessive caffeine intake. -Fall and fracture precautions -It is recommend to continue regular follow up visits with your dentist every 6 months, and continue with good oral hygiene. Calcium: If your diet is sufficient in Calcium rich food, you will not need calcium supplement. Calcium Citrate is the preferred calcium if you have had kidney stones. Daily recommended calcium dose: 600mg twice a day with meals. Adequate calcium ingestion is essential for maintaining healthy bones. The recommended dose daily intake of calcium varies depending on individual needs but is usually between 1200 and 1500mg daily, preferably around 1200mg a day in divided dose (not all taken at once). This is equivalent to about five 8oz glasses of milk per day. Many foods are rich in calcium and they include: - Plant based, non-dairy, calcium rich products, include nuts, almond milk, beans, lentils - Vegetables and Fruit: bok-gamboa, turnips, broccoli, kale, collards, - Dairy products: milk, cheese, yogurt, ice-cream - Fish products: canned salmon, sardines and shrimp - Cereals and nuts: almonds, sesame seeds, fortified cereals and oatmeal - Other foods: fortified orange-juice, figs, soybeans, other beans and eggs. If you have a low calcium diet and cannot tolerate calcium-rich foods, many supplements are available today. Your pharmacist can help you choose the one which best suits your needs. A few tips on supplements: - They should be easy to swallow - They should dissolve easily in cup of vinegar in < 15 minutes. - Count the ELEMENTAL calcium mgs. E.g. Calcium 499mg may have only 221mg of elemental Calcium. - Calcium citrate is the calcium supplement to take if you have had kidney stones and unable to meet your calcium requirements from food/diet alone. - There is such a variety today that it is best to bring in the bottle to your doctor to show them exactly what you are taking. Lastly too much calcium can be bad for you. Recent studies show extra supplements may increase yourrisk of kidney stones or cause high calcium levels in some people. You should discuss how much you should be taking with your doctor before starting them. Further Information is available from the following resources: www.nof.org (National Osteoporosis Foundation) http://www.osteo.org/osteolinks.asp National Institutes of Health: 7-557-774-BONE The Calcium Information Center: -Non-Dairy, Plant based Milk, can contain in1 glass up to 450 mg of calcium (300 to 450 mg) Exampled include Oat Milk, Flax Milk, [place] Milk, Cashew Milk, Soy Milk, Peas Milk general health and well being Examples of Food Sources of Calcium from [facility] Food Milligrams (mg) per serving Percent DV* Soymilk, calcium-fortified, 8 ounces 299 30 Morton juice, calcium-fortified, 6 ounces 261 26 Tofu, firm, made with calcium sulfate, cup* 253 25 Tofu, soft, made with calcium sulfate, cup* 138 14 Drwny-ky-bfx cereal, calcium-fortified, 1 cup 100 1,000 10 100 Turnip greens, fresh, boiled, cup 99 10 Kale, raw, chopped, 1 cup 100 10 Kale, fresh, cooked, 1 cup 94 9 Pakistani cabbage, bok gamboa, raw, shredded, 1 cup 74 7 Bread, white, 1 slice 73 7 Tortilla, corn, nkzgb-xm-yvuc/granado, one 6 diameter 46 5 Tortilla, flour, mayhv-bz-vvvv/granado, one 6 diameter 32 3 Bread, whole-wheat, 1 slice 30 3 Broccoli, raw, cup 21 2 * DV = Daily Value. DVs were developed by the U.S. Food and Drug Administration to help consumers compare the nutrient contents among products within the context of a total daily diet. The U.S. Department of Agriculture s (USDA s) Nutrient Database Web site lists the nutrient contentof many foods and provides comprehensive list of foods containing calcium arranged by nutrient content and by food name. *Calcium content varies slightly by fat content; the more fat, the less calcium the food contains. * Calcium content is for tofu processed with a calcium salt. Tofu processed with other salts does not provide significant amounts of calcium. You could acces this information online at: http://ods.od.nih.gov/factsheets/Calcium-HealthProfessional/ Vitamin D: Vitamin D3= cholecalciferol, available over the counter. Dose recommended 800 to 1000 iu daily with a meal; Certain patients require 9296-0414 iu daily and in patients deficient in Vitamin D, they require higher dosages. Certain patient requires higher dose, depending on their Vit D blood levels. Vitamin D is essential for calcium metabolism. It is really a hormone produced mainly in your skin after exposure to sunlight. Vitamin D helps you absorb calcium from your stomach and kidneys and incorporates it into your bones. Studies show approximately 50% of [place] men and women are vitamin D deficient in the winter. Milder cases of vitamin D are usually asymptomatic so the only way to know you have a problem is to have a blood level checked. More severe cases can cause osteomalacia(a.k.a. rickets) which can result in bone pain, weak bones and several abnormal laboratory tests and also weak muscles (a.k.a. myopathy). When this happens, your bones lose a lot of their calcium stores as the body tries to regulate the calcium required by other tissues. Prolonged deficiency can lead to severe bone disorders and fractures. Unlike calcium, dietary sources of vitamin D are rare, limited to a few fish oils particularly cod-liver oil, other fortified foods and egg yolks. and most are unhealthy. Natural source of vitamin D is through sunshine. This is usually during hemanth seasons, for example a 30 minute exposure to sunshine. Some people are unable to be exposed to the sun due to skin condition. Often supplementation isneeded. Many multivitamins contain some vitamin D and vitamin D alone preparations are now available in several forms. The recommended daily intake of vitamin D used to be 400 and 800 international units, however, it is now known that larger amounts are needed, as discussed above. Your doctor can prescribe prescription strength vitamin D for you if necessary, if you have marked deficiency or diseases of the liver or kidney. Supplementation in patients with severe deficiency can stabilize or improve bone mineral density and in frail elderly persons, may reduce their risk of falling. Additional Information is available from: www.nof.org (the national osteoporosis foundation) http://www.[facility].org/arthritis/osteo/info.htm http://ods.od.nih.gov/factsheets/vitamind.asp National Institutes of Health: 1-035-330-BONE The Calcium Information [place]: At the [facility], we work as a team for your care, along with Nurse Practitioners, PhysicianAssistants, Nurses and Medical Assistants. It is a privilege and honor to serve you. Thank you for choosing The [facility] for your healthcare. Sincerely, Ronit Dominguez APRN.SHEYLA documented in this [facility] History of Present illness Narrative* Ronit Dominguez APRN.CNP - 12/23/2021 9:00 AM EDT Images from the original note were not included. Rheumatology FOLLOW UP VISIT Referring Provider: Ronit Dominguez Date of Service: 12/23/2021 Gender: female Ethnicity: White Age: [age] year old Chief Complaint: Follow Up Last Rheumatology visit: 11/19/2021 (with Ron Duncan) Cheryle Villatoro is a 51 year old White female who presents on 12/23/2021 for in person visit for evaluation of Follow Up. Cheryle is both RF - 9 (11/19/2021) and CCP - 13.5 (11/19/2021) negative. Her most recent ADAMA was positive (11/19/2021). She does not have erosive disease. There are no rheumatoid nodules present. She reports morning stiffness . INTERVAL HISTORY Doing ok Fatigue Maybe just the weather Joint sore- knees and hips and fingers, back Pain- 4/10 Tries stretching and thinks it helps some Pain mgt follows for back He wanted to do another injection it does help Hard to sleep at night related to it No joint swelling Patient-Entered Data RAPID 3 Espinoza Activities of Daily Living No Data Dress self? - Get in and out of bed? - Walk outdoors? - Wash and dry body? - Get in and out of car? - RAPID 3 Disease Activity Weighed Score Levels: 0 - 1: Near Remission 1.3 - 2.0: Low Severity 2.3 - 4.0: Moderate Severity 4.3 - 10.0: High Severity No flowsheet data found. PROMIS Assessments No flowsheet data found. Impression At today's visit, there is no clinical evidence for inflammatory arthropathy or systemic rheumatologic disease The patient has had incidental finding of positive ADAMA ADAMA 1:160, SERA and dsDNA were not obtain, RF and CCP not completed Her sed was not elevated, TSH and CK's were normal, CBC and CMP normal, no cytopenias, urate normal With patient's positive ADAMA and dry mouth, would need to evaluate for Sjogren's Syndrome. SSA and SSB normal Positive for autoimmune thyroid. TSH on high end of normal as well. Advised to follow with Primary care or endo. In terms of the non-specific musculoskeletal pains, Am gelling is limited to 10 min, suspect DJD/OA, vitamin D deficiency, BMI>30 and pro-inflammatory diet are contributing factors. She also has congenital hip dysplasia/shallow acetab. with DJD, and herniated disc disease and DDD. She is on statins and this can lead to statin myopathy and musculoskeletal pains and she stated that it could be . I advised her to discuss with her Primary care physician. Vitamin D deficiency is a very common factor of musculoskeletal pains, especially when associated with secondary hyperparathyroidism. PTH elevated. Will correct vit d and recheck Vitamin D level was low Completed vit d Rx now taking vit d 5000 international unit(s) daily I discussed clinical implications of Vitamin D deficiency, osteomalacia, implications to bone health status, musculoskeletal pains and other reported health risks. She has facial rash, Derm said it was acne and topical cream given not a malar rash. 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 Plan RECOMMENDATION/PLAN: Reviewed indication for orders with instructions Follow with primary care for autoimmune thyroid Reviewed vitamin D supplement She is unable to take nsaids or turmeric due to being on blood thinner I reviewed conservative care, wellness and healthy lifestyle, as well as the benefits of a whole foods plant based diet. I have had many patients experience significant relief in musculoskeletal pains and inflammatory arthropathy, by avoiding refined sugars and dairy and following whole foods plantbased diet. Additional time spent with patient on healthy lifestyle, healthy food and anti- inflammatory diet (with emphasis on whole plant based diet), avoiding refined carbs/sugars and processed food, appropriate exercise (stretching, cardio and strengthening), good sleep hygiene, stress mgt, and supplementing vital deficiencies and maintaining healthy wt and healthy BMI. Additional information provided with references and educational information. Bone Health Recommendations: -Bone Density is recommended after menopause and after age 55-60, sooner if patient has risk factors, sooner if on systemic steroid use of 3 months or more. -Vitamin D supplementation recommended, optimal dose is the dose necessary to achieve Vitamin D 25-OH blood level in range of 40-60 ng/mL. (Vitamin D supplement in international units, is the dose necessary to achieve a Vitamin D 25-OH blood level in range of 40-60 ng/mL). -Recommended daily dose of calcium: 1200mg total a day in divided doses. Calcium from dietary sources, if not sufficient, or if with h/o calcium nephrolithiasis would recommend Calcium Citrate supplement, as it is recommended to avoid caclium carbonate products, which as main dietary calcium source. The after visit summary has information on dietary calcium and instructions on reading calcium label and converting the %DV to mg. -Regular weight-bearing and muscle-strengthening exercise -Avoidance of tobacco smoking, excessive alcohol intake and excessive caffeine intake. -Fall and fracture precautions -Continued regular dental follow up visits and good dental/gum care Discussed medication dosage, usage, goals of therapy, and side effects. Additional time spent on interpretation of test results. Available laboratories an their clinical significance were reviewed with the patient. Radiographs were reviewed at todays visit. Additional time was spent outside of the patient visit to review records. today. Assessment and plan were discussed with the patient. Additional time spent with the patient to discuss their questions. Additional time spent with the patient devoted to discussing treatment strategy, planning, implementation and preventive health and wellness recommendations. -Patient is following with Primary care physician and other providers for their other health care. Return labs today, for 4-6 months . I spent a total of 34 minutes on the date of the service which included preparing to see the patient, [id number] patient care, completing clinical documentation, obtaining and/or reviewing separately obtained history, performing a medically appropriate examination, counseling and educating the pat ient/family/caregiver, ordering medications, tests, or procedures and communicating with other HCPs(not separately reported). Ronit Dominguez APRN.WATER RECLAMATION SYSTEMS OPERATOR cc: PCP: Brandon Beasley [address] [facility] [address] [place] [address] Subjective HISTORY OF PRESENT ILLNESS NEW CONSULT November 19, 2021 She has had bld clots First was at age 24, presented as PE, states further investigation showed LE DVT. States the bld clot was from pelvic area to foot States this occurred after a long care drive, 7 to 8 hrs. States noticed had a pain in her groin before that, states her prev. PCP thought had pneumonia and advised her to rest, so was not moving much, prior to the car drive. She was on BCP and since has been off. States uses hormone ring ( Famring ) due to postm. symptoms, since age 35 (s/p SARAN with oop for severe endometriosis) Denies smoking She was treated with Coumadin, and on for 8 to 9 yrs and off for 3 months, had a superficial bloodclot of LLE, and then her PCP resumed her Coumadin ever since. Takes 8 mg and 8.5 mg every other day States was taken off Coumadin and had another clot In 2018, was superficial thrombph. states was on Coumadin, is not aware that was subtherapeutic States her Primary care physician has been managing that. Denies seeing Underwriting Clerk or She reports there is FH of clotting Bother paternal GP of clotting, brother and father had bld clots Paternal aunt had PE and DVT. States we've all been testing and haven't come up with anything that predisp us to have bld clots She believes that factor V leiden, Prot C and S were negative. She has had low back surgery in 2010, for herniated disc and told had to shave off floating vertebr , no DVT She is on atorvastatin due to hyperlipidemia Takes PPI for gerd; denies bleeding ulcers States had EGD 06/2021 and told that was fine States her dry mouth is also very dry States takes very good of her oral hygiene States when consumes milk or sugary foods, has a terrible taste in the mouth , it's just yucky States brushes her tongue and scrapes, and uses mouth wash. She has not asked her dentist about her tongue. S States has had covid-19 and states this started prior to her covid infection. States only symptoms were could not smell or taste for 2 days then back to her baseline. States she drinks plenty of fluids Denies parotid gland swelling No dental decay or premature dental loss She reports musculoskeletal pains No particular jt, states moves around Thumbs, hips, wrist, LB States may notice a lump on inner aspect of wrist, cannot verify synovitis or jt effusion Am gelling is limited to 10 min If sitting too long and if does too much notices, like standing too long affects hips and LB States gained wt, is not sure how much She is on statin, feels could be affecting her pains Bakes, cupcakes for Weddings and Graduations Diet: standard western diet cerleal yogurt fruits- mandarin packed in box/syrup oranges salad with chicken Exercise: walk on a treadmill and bikes and stretches INTERVAL HISTORY Doing ok Fatigue Maybe just the weather Joint sore- knees and hips and fingers, back Pain- 10/13 Tries stretching and thinks it helps some Pain mgt follows for back He wanted to do another injection it does help Hard to sleep at night related to it No joint swelling Disease History Extra-Articular Features / Comorbidities History of malignancy (Comment: basal cell, removed) No vasculitis No episcleritis No scleritis No dry eyes Dry mouth (Comment: Denies parotid gland swelling) No pleural effusions No congestive heart failure No pericarditis No myocardial infarction No peripheral neuropathy No mononeuritis multiplex No anemia No neutropenia No thrombocytopenia No joint surgery Musculoskeletal History No joint replacements PAIN EVALUATION No data found in the last 1 encounters. Objective Treatment History Relevant Previous Investigations CBC Latest Ref Rng & Units 03/08/2013 03/08/2013 WBC 3.70 - 11.00 k/uL 4.95 Requisitioning entry error HEMOGLOBIN 11.5 - 15.5 g/dL 13.8 - HEMATOCRIT 36.0 - 46.0 % 42.0 - PLATELETS 150 - 400 k/uL 205 - ABS NEUT (ANC) 1.45 - 7.50 k/uL 3.03 - ABS LYMPH 1.00 - 4.00 k/uL 1.61 - CMP Latest Ref Rng & Units 03/08/2013 SODIUM 132 - 148 mmol/L 142 POTASSIUM 3.5 - 5.0 mmol/L 4.0 CHLORIDE 98 - 110 mmol/L 103 CO2 23 - 32 mmol/L 26 GLUCOSE 65 - 100 mg/dL 74 BUN 8 - 25 mg/dL 15 CREATININE 0.70 - 1.40 mg/dL 0.97 CALCIUM, TOTAL 8.5 - 10.5 mg/dL 9.4 AST 7 - 40 U/L 30 ALT 0 - 45 U/L 24 ALKALINE PHOSPHATASE 40 - 150 U/L 50 ESR, WSR Latest Ref Rng & Units 11/19/2021 WSR 0 - 20 mm/hr 2 CRP Latest Ref Rng & Units 11/19/2021 CRP <0.9 mg/dL <0.3 CK Latest Ref Rng & Units 11/19/2021 CK 42 - 196 U/L 106 RF and CCP Latest Ref Rng & Units 11/19/2021 RHEUMATOID FACTOR <16 IU/mL <10 CCP ANTIBODY IGG QUALITATIVE Negative Negative CCP ANTIBODY, IGG <20 Units <15 Antibodies Latest Ref Rng & Units 03/08/2013 11/19/2021 ADAMA Negative - Positive(A) ADAMA BY EIA <1.5 OD Ratio 1.1 - ADAMA TITER - - 1:160 ADAMA PATTERN - - Nuclear dense fine speckled DNA ANTIBODY W/CONFIRMATION <30 IU/mL - <12 FINAL OPERATIONS TECHNICIAN ANTIBODY QUAL Negative - Negative SSA ANTIBODY QUAL Negative - Negative GLORIA 1 ANTIBODY <1.0 AI - <0.2 GLORIA 1 ANTIBODY QUAL Negative - Negative RIBOSOMAL FINAL OPERATIONS TECHNICIAN AB <1.0 AI - <0.2 RIBOSOMAL FINAL OPERATIONS TECHNICIAN QUAL Negative - Negative ANTI-SSA <1.0 AI - <0.2 ANTI-SSB <1.0 AI - <0.2 ANTI-SM <1.0 AI - <0.2 SM ANTIBODY Negative - Negative SCL-70 AB QUAL Negative - Negative SCL-70 ABS, EIA <1.0 AI - <0.2 CENTROMERE AB <1.0 AI - <0.2 CENTROMERE AB QUAL Negative - Negative CHROMATIN AB <1.0 AI - <0.2 CHROMATIN AB QUAL Negative - Negative PT SEC 8.4 - 13.0 sec 15.5(H) - PT INR 0.8 - 1.2 1.4(H) - PTT 23.0 - 32.4 sec 29.4 - PLATELET NEUT NEGAT Negative - DRVVT SCREEN 28.7 - 47.6 sec 32.9 - DRVVT CONFIRM RATIO <1.21 0.85 - DRVVT 1 TO 1 MIX 28.7 - 47.6 sec 33.8 - HEX PHASE SCREEN 53.8 - 72.4 sec 59.2 - HEX PHASE CONFIRM 54.3 - 68.5 sec 67.3 - HEX PHASE DELTA <7.0 delta sec 0.0 - APTT SCREEN 24.4 - 33.4 sec 29.4 - IMMEDIATE PTT 1 TO 1 MIX <33.5 sec 28.5 - INCUBATED PTT 1 TO 1 MIX <37.3 sec 29.8 - THROMBIN TIME <18.6 sec 16.3 - CARDIOLIPIN AB, IGG 0 - 9 GPL <9 - CARDIOLIPIN AB, IGM 0 - 11 MPL 10 - CARDIOLIPIN AB, IGA 0 - 11 APL <9 - TPMT amd G6PD Latest Ref Rng & Units 11/19/2021 G-6-PD QUANTITATIVE 9.8 - 15.5 U/g Hb 12.5 Imaging / Studies Last XR Hand/Finger - Impression Only XR HAND GENERAL 3V PA/LAT/OBL BILATERAL Exam End: 11/19/2021 9:47 AM (Final result) Impression: IMPRESSION: No acute radiographic findings. Mild degenerative changes, as described. Chemical Reclamation Equipment Operator: JASON ... Complete Results Last MRI Hand - Impression Only No resulted procedures found. Last XR Chest - Impression Only No resulted procedures found. Last XR Cervical Spine - Impression Only No resulted procedures found. OUTSIDE STUDIES / DATA Reviewed outside records from Care Everywhere 10/01/2020 CK 185 TSH 3.89 06/18/2021 CBC normal CMP normal ADAMA positive at 1:160, speckled ESR = 6 Uric acid 4.6 Covid-19 negative 2021 MRI, x-rays, no findings for inflammatory arthropathy XR Hip Complete Left* on 09-02-2021 XR Hip Complete Left* COMPARISON: none FINDINGS: There is no lytic or sclerotic bone lesion. There is no fracture or dislocation. The femoral head is located. There is a shallow acetabulum likely on a congenital basis and there is mild joint space narrowing and mild irregularity of the femoral head and the acetabulum. There are no radiopaque foreign bodies. IMPRESSION: There are mild degenerative changes of the left hip joint with irregular articular surfaces and a shallow acetabulum. Report reported and signed by JANUARY DIAZ on 09/03/2021 0917 Normal [facility] Storage Architect XR Hip Complete Right* on 09-02-2021 XR Hip Complete Right* COMPARISON: none FINDINGS: AP pelvis and right hip There is no lytic or sclerotic bone lesion. There is no fracture or dislocation. The femoral heads are located. There are bilateral shallow acetabuli. There is stasis of the right hip joint. There are no radiopaque foreign bodies. IMPRESSION: There are mild degenerative changes with joint space and the right hip joint and there are bilateral shallow acetabuli likely on a congenital basis. Report reported and signed by JANUARY DIAZ on 09/03/2021 0921 MRI Spine Lumbar w/ + w/o Contrast on 10-10-2021 MRI Spine Lumbar w/ + w/o Contrast Exam Date/Time: 10/07/2021 18:31 EDT Reason for Exam: M54.17 ,51.26 Report IMPRESSION: POSTERIOR DISC HERNIATION AT L4-L5, GREATER TO THE LEFT OF MIDLINE. CLINICAL HISTORY: M54.17 ,51.26. Low back pain. COMMENT: Unenhanced and intravenous contrast enhanced images were obtained. The T11-T12 disc bulges anterior to the interspace, but no posterior disc bulge is evident. The T12-L1 and L1-L2 intervertebral discs are unremarkable. L2-L3: There is slight disc bulging, with slight flattening of the dural sac anteriorly. There is a small focal shallow protrusion of disc into the right L2-L3 neural foramen, but there is no associated neural foraminal stenosis. L3-L4: There is mild interspace narrowing. There is shallow posterior disc protrusion, greater centrally, with mild indentation of the dural sac anteriorly. There are hypertrophic facet arthritic changes, with mild hypertrophy of ligamenta flava and there is a small synovial cyst medial to the left facet joint. The posterior hypertrophic changes result in mild indentation of the dural sac laterally on the left and flattening of the dural sac laterally on the right. There is slight constriction of the spinal canal. There is a small Schmorl's node of the inferior endplate of L3 posteriorly, with adjacent bony reactive signal intensity changes. L4-L5: There is mild interspace narrowing. There is increased concavity of the inferior endplate of L4. There are bony reactive signal intensity changes on either side of the interspace. The patient has had a prior right hemilaminectomy. There is posterior disc herniation with extrusion (posteriorly and inferiorly), asymmetrically greater to the left of midline. There is epidural contrast enhancement surrounding the herniated disc. There is moderate indentation of the dural sac anteriorly, greater to the left of midline. There are hypertrophic facet arthritic changes on the left, with hypertrophy of the left ligamentum flavum. There is moderate focal spinal canal stenosis. Disc bulges into the right and left neural foramina inferiorly, but without any significant neural foraminal stenosis. L5-S1: The disc is relatively rudimentary but otherwise unremarkable. No intradural lesions are seen. The conus medullaris is unremarkable. There is no intradiscal contrast enhancement to indicate discitis. FINAL REPORT Dictated: 10/10/2021 11:02 am Vicente Davidson M.D. Signed (Electronic Signature): 10/10/2021 11:02 am Signed by: Vicente Davidson M.D. Transcribed by: MACK Technologist: JUAN Technical Comments MultiHance Review of Systems Review of Systems CONSTITUTION: Negative for: Weight loss or gain, Fever. Chills, Night sweats HEENT: Positive for: Dry mouth RESPIRATORY: Negative for: Cough, Shortness of breath, Pain with breathing, Coughing up blood GASTROINTESTINAL: Positive for: Heartburn Negative for: Melena, Diarrhea and Abdominal pain MUSCULOSKELETAL: Positive for: Arthralgias and Morning Joint Stiffness (all day, better with activity) Negative for: Myalgias, Muscle weakness and Joint swelling NEUROLOGICAL: Positive for: Headaches (from weather, and hormones) Negative for: Numbness and Memory loss SKIN: Positive for: Rash (DERM said it was a zit and given topical ) and Nail changes (ridges, splinter) Negative for: Sun Sensitive Rash, Skin changes and Hair loss EYES: Positive for: Eye dryness (occasional) CARDIOVASCULAR: Negative for: Chest pain, Leg swelling, Arrhythmia, Presyncope GENITOURINARY: Negative for: Dysuria, Hematuria, Ulceration HEMATOLOGIC/LYMPHATIC: Negative for: Swollen glands All other reviewed and negative other than HPI. Problem List ACTIVE PROBLEM LIST Hypercoagulopathy (Hcc) Dvt (Deep Venous Thrombosis) (Hcc) Past Medical History PAST MEDICAL HISTORY Diagnosis Date DVT (deep venous thrombosis) (HCC) Endometriosis Hypercoagulopathy (HCC) Pulmonary embolus (HCC) Past Surgical History PAST SURGICAL HISTORY Procedure Laterality Date APPENDECTOMY BACK SURGERY HX TOTAL ABDOMINAL HYSTERECT W/WO RMVL TUBE OVARY Hysterectomy, SARAN Family History FAMILY HISTORY Problem Relation Age of Onset DVT Father DVT Paternal Aunt DVT Paternal Grandfather DVT Paternal Grandmother Social History Social History Tobacco Use Smoking status: Never Smoker Smokeless tobacco: Never Used Substance Use Topics Alcohol use: Not on file Drug use: Not on file Medications Current Outpatient Medications Medication Sig omeprazole (PRILOSEC) 40 mg capsule omeprazole 40 mg Cap-DR Refills(s) 0 Start Date: 09/19/21 Status: Ordered atorvastatin (LIPITOR) 40 mg tablet TAKE 1 TABLET BY MOUTH EVERY DAY FOR 90 DAYS MULTIVITAMIN ORAL Take by mouth. warfarin (COUMADIN) 2 mg tablet Take 2 mg by mouth daily as directed. As directed pyridoxine (VITAMIN B-6) 100 mg tablet Take 100 mg by mouth once daily. cyanocobalamin (VITAMIN B-12) 1,000 mcg Tab Take 1,000 mcg by mouth once daily. No current facility-administered medications for this visit. Physical Exam BP 128/62 Pulse 66 Wt 240 lb (108.9kg) Physical Exam Constitutional: Appearance: Normal appearance. She is normal weight. HENT: Nose: Nose normal. Mouth/Throat: Mouth: Mucous membranes are moist. Eyes: Conjunctiva/sclera: Conjunctivae normal. Pupils: Pupils are equal, round, and reactive to light. Cardiovascular: Rate and Rhythm: Normal rate and regular rhythm. Pulses: Normal pulses. Heart sounds: Normal heart sounds. Pulmonary: Effort: Pulmonary effort is normal. Breath sounds: Normal breath sounds. Abdominal: General: Abdomen is flat. Palpations: Abdomen is soft. Musculoskeletal: General: Normal range of motion. Cervical back: Normal range of motion and neck supple. Comments: No joint swelling. Mild tenderness on exam of hands/ fingers Skin: General: Skin is warm and dry. Capillary Refill: Capillary refill takes less than 2 seconds. Neurological: General: No focal deficit present. Mental Status: She is alert and oriented to person, place, and time. Mental status is at baseline. Psychiatric: Mood and Affect: Mood normal. Behavior: Behavior normal. Thought Content: Thought content normal. Judgment: Judgment normal. There is currently no information documented on the homunculus. Go to the Rheumatology activity andcomplete the homunculus joint exam. Joint Exam 12/23/2021 No joint exam has been documented for this visit [facility] Miscellaneous Notes* Telephone Encounter - Gamaliel Weaver MA - 11/28/2021 8:58 AM EDT pt mychart activated, letter sent * Telephone Encounter - Gamaliel Weaver MA - 11/28/2021 8:33 AM EDT notified pt unable to send email unless through [facility]. she is going to sign up and we will send letter later. * Telephone Encounter - Ron Duncan MD - 11/28/2021 8:26 AM EDT Please assist patient with work letter thank you kindly, fa * Telephone Encounter - Karne Valenzuela - 11/28/2021 8:09 AM EDT Cheryle Shauna called today. : 1970 Allergies: Patient has no known allergies. (home) [phone] (cell) Reason for call: Patient requested a work letter stated that she was seen on 11/19/21. Patient requested email. Didn't have a fax number nor uses [employer]. Please call patient for any questions. [email or web address] Patient last appointment: Visit date not found The patients preferred pharmacy has been captured for this encounter? no Thank you, Karen Valenzuela documented in this encounterK[facility] Miscellaneous Notes* Telephone Encounter - Annalee Renner - 11/21/2021 11:12 AM EDT Patient returning call. Below message given from provider. Patient verbalized understanding with nofurther questions and will comply. Annalee Renner [facility] Hand * Telephone Encounter - Rochelle Chang LPN - 11/21/2021 10:16 AM EDT Unable to reach patient, message left for return call on cell. * Telephone Encounter - Annalee Montiel - 11/20/2021 11:38 AM EDT Tired calling patient but her mailbox was full. Not able to leave message. * Telephone Encounter - Ron Duncan MD - 11/19/2021 9:57 PM EDT Please advise patient of test results: -Hand x-rays did not show inflammatory arthropathy -Thyroid antibodies were positive, suggesting that the positive ADAMA she has had is most likely due to auto-immune thyroid disease. Her thyroid function is still in process. -The inflammation markers, sed rate and crp were normal, indicating no inflammation. -The muscle enzymes (CK and aldolase) were normal, indicating no muscle disease or inflammation of the muscles. The Vitamin D was low, this indicates vitamin D deficiency and this is leading to reaction of the parathyroid glands (4 tiny glands parallel to the thyroid, important in calcium and bone metabolism).This combination leads to musculoskeletal pains and could explain her pains. Patients with Vitamin D deficiency may experience increased bone and body pains, fatigue, increasedrisk for fractures among other health problems. It is important to correct the deficiency. By correcting the vitamin D level, the iPTH will correct. -I recommend replacement therapy with Vitamin D 50,000 as prescribed: The following approved medication requests have been transmitted electronically to her [facility] pharmacy on file. Pending Prescriptions Disp Refills ERGOCALCIFEROL (VITAMIN D2) 1,250 MCG (50,000 UNIT) CAPSULE 8 capsule 0 Sig: Take 1 capsule by mouth two times a week. (FOR EXAMPLE ONE CAPSULE ON THURSDAY AND ONE ON THURSDAY) FOR A TOTAL OF 4 WEEKS, WITH A MEAL -Please inform pt. that orders were entered for f/u bld. tests in 4 wks (orders in [facility]) -Once patient has completed the 4 wk treatment, it is recommended to continue on maintenance therapy to keep the Vit D from dropping again. I recommend patient takes over the counter, Vitamin D3: 5000 international units once daily with a meal. - There are still other test results in process Thank you kindly, fa documented in this encounterK[facility]05-17-2022 NoteHNO ID: [id number] Author: RT Flakita(R) Service: ? Author Type: Technologist Type: Progress Notes Filed: 11/19/2021 9:48 AM Note Text: Radiology Service Progress Note PATIENT NAME: Cheryle Villatoro DATE OF SERVICE: November 19, 2021 TIME: 9:48 AM PATIENT IDENTITY VERIFICATION COMPLETED USING TWO (2) IDENTIFIERS: Name and Date of confirmed by patient verbally. FALL SCREENING: Has the patient had 2 falls in the last year or 1 fall with injury or currently using an Ambulatory Assistive Device (Walker, Cane, Wheelchair, Crutches, etc.)? No PATIENT GENDER DATA: Female. status: : No status: NO. PATIENT RELEVANT IMPLANT DATA REVIEWED: Not Applicable RADIOLOGY DEPARTMENT: General X-ray: Exam(s) Completed: Upper Extremity X-Ray(s): Hand, bilateral PERIPHERAL IV DATA: Not applicable SIGNED BY: RT Flakita(R) November 19, 2021 9:48 [facility]05-17-2022 NoteHNO ID: [id number] Author: Ron Duncan MD Service: ? Author Type: Physician Type: Progress Notes Filed: 11/19/2021 9:57 PM Note Text: Rheumatology CONSULTATION Referring Provider: Brandon Beasley MD Date of Service: 11/19/2021 Gender: female Ethnicity: White Age: [age] year old Chief Complaint: New Patient and Positive ADAMA Last [facility] Cheryle Villatoro is a 51 year old White female who presents on 11/19/2021 for in person visit for evaluation of New Patient and Positive ADAMA. HISTORY OF PRESENT ILLNESS NEW CONSULT November 19, 2021 She has had bld clots First was at age 24, presented as PE, states further investigation showed LE DVT. States the bld clot was from pelvic area to foot States this occurred after a long care drive, 7 to 8 hrs. States noticed had a pain in her groin before that, states her prev. PCP thought had pneumonia and advised her to rest, so was not moving much, prior to the car drive. She was on BCP and since has been off. States uses hormone ring ( Famring ) due to postm. symptoms, since age 35 (s/p SARAN with oop for severe endometriosis) Denies smoking She was treated with Coumadin, and on for 8 to 9 yrs and off for 3 months, had a superficial blood clot of LLE, and then her PCP resumed her Coumadin ever since. Takes 8 mg and 8.5 mg every other day States was taken off Coumadin and had another clot In 2018, was superficial thrombph. states was on Coumadin, is not aware that was subtherapeutic States her Primary care physician has been managing that. Denies seeing Underwriting Clerk or She reports there is FH of clotting Bother paternal GP of clotting, brother and father had bld clots Paternal aunt had PE and DVT. States we've all been testing and haven't come up with anything that predisp us to have bld clots She believes that factor V leiden, Prot C and S were negative. She has had low back surgery in 2010, for herniated disc and told had to shave off floating vertebr , no DVT She is on atorvastatin due to hyperlipidemia Takes PPI for gerd; denies bleeding ulcers States had EGD 06/2021 and told that was fine States her dry mouth is also very dry States takes very good of her oral hygiene States when consumes milk or sugary foods, has a terrible taste in the mouth , it's just yucky States brushes her tongue and scrapes, and uses mouth wash. She has not asked her dentist about her tongue. S States has had covid-19 and states this started prior to her covid infection. States only symptoms were could not smell or taste for 2 days then back to her baseline. States she drinks plenty of fluids Denies parotid gland swelling No dental decay or premature dental loss She reports musculoskeletal pains No particular jt, states moves around Thumbs, hips, wrist, LB States may notice a lump on inner aspect of wrist, cannot verify synovitis or jt effusion Am gelling is limited to 10 min If sitting too long and if does too much notices, like standing too long affects hips and LB States gained wt, is not sure how much She is on statin, feels could be affecting her pains Bakes, cupcakes for Weddings and Graduations Diet: standard western diet cerleal yogurt fruits- mandarin packed in box/syrup oranges salad with chicken Exercise: walk on a treadmill and bikes and stretches PAIN EVALUATION 11/19/2021 0700 Pain Level: 5 Pain Location: ? hips, joints Description: Aching Duration Units: Years Frequency: Intermittent Disease History Systemic Lupus Erythematosus (SLE) History Relevant to SLICC Classification Criteria - no nonscarring alopecia - no oral ulcers OR nasal ulcers - no chronic cutaneous lupus - no subacute cutaneous lupus OR Acute cutaneous lupus - no synovitis involving two or more joints - no neurologic (seizures, psychosis, mononeuritis complex. Myelitis or neuropathy) - no serositis - no hemolytic anemia - no leukopenia (<4000/mm3) OR Lymphopenia (<1000/mm3) - no thrombocytopenia (<100,000/mm3) - no renal urine [id number] ratio (or 24-hour urine protein) representing 500 mg protein/24 hours OR red blood cell casts - no lupus nephritis - ADAMA positive - no antiphospholipid antibody - no low complement Relevant to New ACR and EULAR Classification Criteria - no nonscarring alopecia - no oral ulcers - no subacute cutaneous or discoid lupus - no acute cutaneous lupus - no synovitis in at least two joints, or tenderness in at least two joints, AND at least 30 min of morning stiffness - no delirium - no psychosis - no seizure - no pleural or pericardial effusion - no acute pericarditis - no leukopenia - no thrombocytopenia - no autoimmune hemolysis - no proteinuria >0.5g / 24 hr - ADAMA > 1:80 on human [id number] cells, or an equivalent positive test - no anticardiolipin IgG >40 GPL or ant-[id number] I (more content not included)... [facility]05-17-[facility]22 Instructions* Patient Instructions* Ron Duncan MD - 11/19/2021 9:12 AM EDT -PLEASE NOTE THAT WE REVIEW ALL YOUR TEST RESULTS AT YOUR NEXT FOLLOW UP VISIT WITH YOU. IF ANY ABNORMAL LAB REQUIRES SOONER ATTENTION, WE WILL CONTACT YOU. -If you have signed up on MyChart, we will release your test results through [employer]. I wish you the best of health and wellness. Please take care and stay safe and healthy. Consume a healthy diet, stay well hydrated, sleep well, be happy, improve stress (include meditation), exercise regularly. Spend some time in nature, around trees and borrego (forest bathing) and enjoy half an hour daily in the sun when possible (and benefit from its natural near infrared light, also your skin will be able to produce natural vitamin D). These have been shown to help with wellbeing, promoting a healthy immune system and healing. - I recommend avoiding added and refined sugars and dairy A large randomized controlled study, the VITAL trial, showed that the consumption of vitamin D and omega-3 supplements can lead to decreased risk of auto-immune disease, by 30% or more, especially ifthe vitamin D blood level improves to the 40's range. Citation of the vitamin D study: Kim J, Merlin NR, Erwin EK, Cole S, Luis Felipe J, Danny V, Dany G, Júnior ROBLES, Lexus JE, Brina KH. Vitamin D and marine omega 3 fatty acid supplementation andincident autoimmune disease: VITAL randomized controlled trial. BMJ. 2021Jul 31;376:[id number]. doi: 1 0.1136/[id number]. PMID: [id number]; PMCID: [id number]. I recommend taking the following supplements to help with inflammation and auto- immune disease: 1) Vitamin D 2000 international units once daily with meals You may need more if your blood level of vitamin D is not up to the 40 range 2) Ocala-3 1000 mg once daily I recommend plant based omega-3 (over fish oil), which is algal oil. - Maintaining good vitamin D blood levels is important for bone health and overall health. Please see additional information on vitamin D below. A vitamin D blood test, called vitamin D 25-hydroxy (OH) is obtained to assess vitamin D level. If the vitamin D is low, you will need to take a vitamin D supplement. If you are already on a vitamin D supplement, then the dose will need to be adjusted. Also you multivitamin may contain vitamin D. Vitamin D is a fat soluble vitamin that requires it be taken with good fat to be absorbed. Examplesof healthy fat include nuts, seeds, avocados, olives and for the most part the meal of the day. Spending up to 30 minutes in the sun during Summer and late Spring can provide natural vitamin D tothe uncovered skin (arms, legs) - Your calcium can be sufficient in your diet Healthy food that are rich in calcium include: nuts, seeds, legumes/beans, peas, dark green leafy vegetables, plant based milk Additional calcium rich foods listed below - Soaking Almonds overnight in the fridge with drinking water, can help with softening the almonds and improved absorption of the almonds. See additional information below on calcium. - I recommend following a healthy lifestyle. You can find additional information below. I recommend this to all my patients, as I have seen convincing scientific evidence, and seen the results in my practice, of the benefits of this healthy lifestyle to overall health and wellness. I hope you will find this beneficial as well. A whole plant based diet and healthy lifestyle have been reported to be optimal for health in general, anti-inflammatory diet, prevention of common chronic diseases, healthy weight management, memoryand brain healthy, bone health. Recommendations for healthy lifestyle include: Healthy nutritious diet, anti-inflammatory diet, appropriate exercise, good sleep hygiene, stress management, supplementing vital deficiencies and maintaining healthy weight. with BMI that does not exceed 25 to 26 . 5 points to remember to improve your health and continue on a healthy path: 1- Optimal nutritious food, such as a Whole Plant Based diet You can watch the movie that features the Whole Plant Based diet, Logan over knives (see video online and visit website). Another movie that was recently released is: Eating You Alive (you can find it at Music Messenger (MM)) and The Game Changers movie Dr. Mayelin Diggs is a [facility] physician who is an expert in Whole Plant based diet. His website is Meijob. His research highlights the benefits of the Whole food plant based diet in reversing and preventing heart disease. Mrs. Diggs (his ) has a cookbook with many recipes on whole plant based food: The Prevent and Reverse Heart Disease cookbook. You can also consider reading his son, Nelson Diggs's book: The Engine 2 cookbook Nelson is a retired sorter pricer who has helped many people get healthier by following the whole food plantbased diet. Dr. Valdemar Miranda, has a website and free dario to help get started on a whole plant based diet, at www.pcrm.org and you can log on for free for his 21-Day Kickstart with meals and recipes to follow for21 days. There is also a free dario for that. He has multiple free videos and YouTube, for example: ht tps://youtu.be/[email or web address] , https://youtu.be/[email or web address] He has written multiple books, including Power Gigwalk for the Brain, The Cheese Trap, Dr. Valdemar Miranda's Program for Reversing Diabetes, Your Body in Balance Dr. Nara Chiu has shown the benefit of a starch based whole food plant based diet to his Rheumatoid Arthritis patients, as well as patient with diabetes II, hypertension, obesity, multiple sclerosis, heart disease, acne, and other, his website: [email or web address] Dr. Kaiden White is a renowned scientist electronics, who has studied and researched the benefits of the Whole plant based diet. He has also researched the adverse effects of animal proteins on health. He presents many of his research findings in his book The [place] study. Dr. Jose R Varela has completed many research trials proving the reversal of diseases, such as heart disease and early prostate cancer, with healthy lifestyle and the Whole Plant based diet. Dr. Jose R Varela website is: [email or web address] His new book: Undo It, has evidence based information and guide to following this healthy lifestyle. Dr. Trae Rivas has dedicated a website and additional time to reviewing all food related articles and research and presents them in his power point presentation and on his website at: nutritionfacts.org which is all free. Dr. Rivas has multiple free videos and YouTube, for example https://youtu.be/aSgNkhgVtks and [email or web address] [email or web address]/[email or web address]. He has written multiple books including: How Not To and How Not To Diet He is now working on his next book: How Not To Age Dr. Lucero Askew (from the [facility]), has articles on the following website: [email or web address] Also, you could find additional information on practical to follow recipes by reading or watching online and YouTube such as: Lace Roller AJ, Cooking With Plants, The Vegan Corner (recipes from an Lao Lace Roller), The Whole Foods Plant Based Cooking Show and visiting the provided websites for additional information on the whole plant based benefit and cooking recipes. You can also consider watching the vlogs of some of the plant based Athletes such as Dustin Moser, Ward Prakash, Darvin on [employer]. Dr. Rhona Sommer (a psychiatrist who suffered with lupus) has helped reverse her Systemic Lupus Erythematosus and helps many patients with their auto-immune diseases, based on her recommendations of the whole food plant based diet and the green smoothies. She has a facebook and website, and on youtube her channel is: Goodbymaeve Lupus Some people have adverse effect or intolerance to gluten. Certain patients with auto-immune disease, including auto-immune thyroid disease, need to avoid gluten. If you suspect you are gluten sensitive or intolerant, consider gluten free diet. Gluten could leadto increased inflammation in the bowels and body in certain patients. Not all your food has to be organ if you cannot afford or find them. Consider organic and non-GMO products when shopping for your food, when possible. GMO are genetically modified food that may have adverse impact on our health. If you are unable to purchase organic of non-GMO, you can wash your produce with white vinegar or soak in baking soda and water (see details from Dr. Mendiola's website nutritionfacts.org) and rinse well with water. 2- Regular Exercise, such as beginner yoga, javier chi, stretching, cardio, gradual strengthening, pool therapy, physical therapy Come As You Are: YOGA - Gentle Yoga Anyone Can Do Anywhere [email or web address] Also on youtube: yoga with Sweta 3- Good Sleep (poor sleep impacts everything, recommended sleep is 7.5 to 8 hrs. a night). Certain people need less or more sleep. Meditation and relaxation techniques have shown to help with improving sleep. 4- Stress management, staying positive, be happy, laugh often (it is a great medicine) Find time to relax and meditate if possible. Following steps 1-3 will help with this as well. In psychiatric disorders, it is important to follow with a professional on the optimal management of depression, anxiety or psychiatric illness 5- Supplements Supplementing necessary vitamins and minerals, correcting any deficiencies, i.e. Vitamin D, B12, omega-3 fatty acids etc... Go natural when possible -Important notice: If you are following a Whole plant based diet, it is recommended to take [id number], sublingual, dissolve under the tongue, take once daily. Vitamin B12 is available over the counter, dose could be 2500 mcg, and can be taken once a week, and if your blood levels are low, you mayneed to take it once daily or a higher dose. Raw: Garlic, Cilantro, Mondamin nuts, Pumpkin seeds, [place] seeds and Flax seed powder have been reported to help with certain metal detoxification such as mercury. Ocala-3 plant based rich foods are good anti-inflammatory sources such as : alisha seeds, flax seed (needs to be ground), walnuts, hemp seeds, dark green leafy vegetables. It is important to avoid refined oils as much as possible especially that many have too much omega-6 that is pro-inflammatory (lead to inflammation as well as concern for heart and vascular disease). Turmeric can be found natural, used as the spice powder or the root with your food. This is also available as a capsule. If you are on a blood thinner, you will need to discuss with your pharmacist or physician before taking Turmeric If you have gall bladder disease or gall bladder stones, it is recommended to avoid turmeric capsules. Sweet cherries (raw cleaned or frozen), Turmeric , pineapple (contains bromelain), omega-rich foods, have anti-inflammatory benefit Start reviewing the Whole Plant Based Diet, by watching Logan over [employer] movie and then review website. There are many other resources and educational information on the Whole plant based diet on the Internet and documentaries. There are other resources for wellness that you can also benefit from, such as the [facility] website, [facility] and includes Plant based and Mediterranean diet, yoga and meditation. Please avoid all dairy products. You could use non-dairy milk such as Flax milk, Cashew milk, [place] milk, Rice milk, Oat milk or Hemp milk, instead. It is very important to avoid all: refined sugars (including high fructose syrup), refined carbohydrates, any artificial sweeteners and artificial preservatives, and soda and heavily processed food. Insure adequate hydration; drink at least 6 to 8 cups of water daily, certain people need less or more. Examples of Smoothies: Every morning you can start your day with a healthy natural anti-inflammatory smoothie, for example, you can blend: fresh or frozen sweet cherries, half a root of turmeric (1 to 2 inches), banana, blue berries, walnuts, few leaves of kale, add flax milk (or almond milk), and enjoy. You could add half an avocado if you like it smoother. If you do not tolerate walnuts, you can use flax seeds, alisha seeds or hemp seeds instead. If you do not like plant based milk, you can use coconut water or plainwater instead. Other smoothies, including green smoothies, are also very healthy and highly anti-inflammatory. Forexample fruits (such as banana or frozen flaco or pineapple) and add significant amount of leafy greens, then add water or coconut water and blend until smooth. You can also add turmeric in this recipe. GENERAL INFORMATION ON BONE HEALTH : -Bone Density testing (DXA scan) as recommended. -Vitamin D supplementation is recommended, unless blood levels are sufficient. Recommended daily dose of 1000 to 2000 IU total a day, or the dose necessary to achieve a Vitamin D25-OH blood level of >31 and preferably closer to 40-60 ng/mL. Vitamin D pills are available over the counter. -Recommended daily dose of calcium: 1200mg total a day in divided doses. Calcium is usually sufficient in our regular diet, also available in multivitamins. Patients on certain dietary restrictions or those unable to meet their daily calcium by diety alone, may require calcium supplements. For patient with history of calcium kidney stones, Calcium Citrate would be the recommended supplement. It is recommended to avoid caclium carbonate supplement in this case, as these may increase risk of calcium kidney stones. The after visit summary has information on dietary calcium and instructions on reading calcium label and converting the %DV to mg. When you read a food label and you see calcium reported as DV %, add a zero and this will provide you with the approximate mg value of the calcium content in this food. For example, if a glass of almond milk is labeled as 40% calcium DV, then this contains 400 mg of calcium. For additional information, please see references provided. -Regular weight-bearing and muscle-strengthening exercise -Avoidance of tobacco smoking, excessive alcohol intake and excessive caffeine intake. -Fall and fracture precautions -It is recommend to continue regular follow up visits with your dentist every 6 months, and continue with good oral hygiene. Calcium: If your diet is sufficient in Calcium rich food, you will not need calcium supplement. Calcium Citrate is the preferred calcium if you have had kidney stones. Daily recommended calcium dose: 600mg twice a day with meals. Adequate calcium ingestion is essential for maintaining healthy bones. The recommended dose daily intake of calcium varies depending on individual needs but is usually between 1200 and 1500mg daily, preferably around 1200mg a day in divided dose (not all taken at once). This is equivalent to about five 8oz glasses of milk per day. Many foods are rich in calcium and they include: - Plant based, non-dairy, calcium rich products, include nuts, almond milk, beans, lentils - Vegetables and Fruit: bok-gamboa, turnips, broccoli, kale, collards, - Dairy products: milk, cheese, yogurt, ice-cream - Fish products: canned salmon, sardines and shrimp - Cereals and nuts: almonds, sesame seeds, fortified cereals and oatmeal - Other foods: fortified orange-juice, figs, soybeans, other beans and eggs. If you have a low calcium diet and cannot tolerate calcium-rich foods, many supplements are available today. Your pharmacist can help you choose the one which best suits your needs. A few tips on supplements: - They should be easy to swallow - They should dissolve easily in cup of vinegar in < 15 minutes. - Count the ELEMENTAL calcium mgs. E.g. Calcium 499mg may have only 221mg of elemental Calcium. - Calcium citrate is the calcium supplement to take if you have had kidney stones and unable to meet your calcium requirements from food/diet alone. - There is such a variety today that it is best to bring in the bottle to your doctor to show them exactly what you are taking. Lastly too much calcium can be bad for you. Recent studies show extra supplements may increase yourrisk of kidney stones or cause high calcium levels in some people. You should discuss how much you should be taking with your doctor before starting them. Further Information is available from the following resources: www.nof.org (National Osteoporosis Foundation) http://www.osteo.org/osteolinks.asp National Institutes of Health: 8-636-133-BONE [facility] Calcium Information [place]: -Non-Dairy, Plant based Milk, can contain in1 glass up to 450 mg of calcium (300 to 450 mg) Exampled include Oat Milk, Flax Milk, [place] Milk, Cashew Milk, Soy Milk, Peas Milk general health and well being Examples of Food Sources of Calcium from [facility] Food Milligrams (mg) per serving Percent DV* Soymilk, calcium-fortified, 8 ounces 299 30 Morton juice, calcium-fortified, 6 ounces 261 26 Tofu, firm, made with calcium sulfate, cup* 253 25 Tofu, soft, made with calcium sulfate, cup* 138 14 Fjyoh-al-xlv cereal, calcium-fortified, 1 cup 100 1,000 10 100 Turnip greens, fresh, boiled, cup 99 10 Kale, raw, chopped, 1 cup 100 10 Kale, fresh, cooked, 1 cup 94 9 Pakistani cabbage, bok gamboa, raw, shredded, 1 cup 74 7 Bread, white, 1 slice 73 7 Tortilla, corn, wmlrc-mi-lhyn/granado, one 6 diameter 46 5 Tortilla, flour, fhstg-lg-kfnu/granado, one 6 diameter 32 3 Bread, whole-wheat, 1 slice 30 3 Broccoli, raw, cup 21 2 * DV = Daily Value. DVs were developed by the U.S. Food and Drug Administration to help consumers compare the nutrient contents among products within the context of a total daily diet. The U.S. Department of Agriculture s (USDA s) Nutrient Database Web site lists the nutrient contentof many foods and provides comprehensive list of foods containing calcium arranged by nutrient content and by food name. *Calcium content varies slightly by fat content; the more fat, the less calcium the food contains. * Calcium content is for tofu processed with a calcium salt. Tofu processed with other salts does not provide significant amounts of calcium. You could acces this information online at: http://ods.od.nih.gov/factsheets/Calcium-HealthProfessional/ Vitamin D: Vitamin D3= cholecalciferol, available over the counter. Dose recommended 800 to 1000 iu daily with a meal; Certain patients require 9009-7738 iu daily and in patients deficient in Vitamin D, they require higher dosages. Certain patient requires higher dose, depending on their Vit D blood levels. Vitamin D is essential for calcium metabolism. It is really a hormone produced mainly in your skin after exposure to sunlight. Vitamin D helps you absorb calcium from your stomach and kidneys and incorporates it into your bones. Studies show approximately 50% of [place] men and women are vitamin D deficient in the winter. Milder cases of vitamin D are usually asymptomatic so the only way to know you have a problem is to have a blood level checked. More severe cases can cause osteomalacia(a.k.a. rickets) which can result in bone pain, weak bones and several abnormal laboratory tests and also weak muscles (a.k.a. myopathy). When this happens, your bones lose a lot of their calcium stores as the body tries to regulate the calcium required by other tissues. Prolonged deficiency can lead to severe bone disorders and fractures. Unlike calcium, dietary sources of vitamin D are rare, limited to a few fish oils particularly cod-liver oil, other fortified foods and egg yolks. and most are unhealthy. Natural source of vitamin D is through sunshine. This is usually during hemanth seasons, for example a 30 minute exposure to sunshine. Some people are unable to be exposed to the sun due to skin condition. Often supplementation isneeded. Many multivitamins contain some vitamin D and vitamin D alone preparations are now available in several forms. The recommended daily intake of vitamin D used to be 400 and 800 international units, however, it is now known that larger amounts are needed, as discussed above. Your doctor can prescribe prescription strength vitamin D for you if necessary, if you have marked deficiency or diseases of the liver or kidney. Supplementation in patients with severe deficiency can stabilize or improve bone mineral density and in frail elderly persons, may reduce their risk of falling. Additional Information is available from: www.nof.org (the national osteoporosis foundation) http://www.[facility].org/arthritis/osteo/info.htm http://ods.od.nih.gov/factsheets/vitamind.asp National Institutes of Health: 4-820-636-BONE [facility] Calcium Information Center: At the [facility], we work as a team for your care, along with Nurse Practitioners, PhysicianAssistants, Nurses and Medical Assistants. It is a privilege and honor to serve you. Thank you for choosing [facility] for your healthcare. Sincerely, Ron Ag MD [facility] History of Present illness Narrative* Ron Duncan MD - 11/19/2021 8:26 AM EDT Images from the original note were not included. Rheumatology CONSULTATION Referring Provider: Brandon Beasely MD Date of Service: 11/19/2021 Gender: female Ethnicity: White Age: [age] year old Chief Complaint: New Patient and Positive ADAMA Last Rheumatology visit: None at [facility] Cheryle Villatoro is a 51 year old White female who presents on 11/19/2021 for in person visit for evaluation of New Patient and Positive ADAMA. HISTORY OF PRESENT ILLNESS NEW CONSULT November 19, 2021 She has had bld clots First was at age 24, presented as PE, states further investigation showed LE DVT. States the bld clot was from pelvic area to foot States this occurred after a long care drive, 7 to 8 hrs. [facility] noticed had a pain in her groin before that, states her prev. PCP thought had pneumonia and advised her to rest, so was not moving much, prior to the car drive. She was on BCP and since has been off. [facility] uses hormone ring ( Famring ) due to postm. symptoms, since age 35 (s/p SARAN with oop for severe endometriosis) Denies smoking She was treated with Coumadin, and on for 8 to 9 yrs and off for 3 months, had a superficial bloodclot of LLE, and then her PCP resumed her Coumadin ever since. Takes 8 mg and 8.5 mg every other day States was taken off Coumadin and had another clot In 2018, was superficial thrombph. states was on Coumadin, is not aware that was subtherapeutic States her Primary care physician has been managing that. Denies seeing Underwriting Clerk or She reports there is FH of clotting Bother paternal GP of clotting, brother and father had bld clots Paternal aunt had PE and DVT. States we've all been testing and haven't come up with anything that predisp us to have bld clots She believes that factor V leiden, Prot C and S were negative. She has had low back surgery in 2010, for herniated disc and told had to shave off floating vertebr , no DVT She is on atorvastatin due to hyperlipidemia Takes PPI for gerd; denies bleeding ulcers States had EGD 06/2021 and told that was fine States her dry mouth is also very dry States takes very good of her oral hygiene States when consumes milk or sugary foods, has a terrible taste in the mouth , it's just yucky States brushes her tongue and scrapes, and uses mouth wash. She has not asked her dentist about her tongue. S States has had covid-19 and states this started prior to her covid infection. States only symptoms were could not smell or taste for 2 days then back to her baseline. States she drinks plenty of fluids Denies parotid gland swelling No dental decay or premature dental loss She reports musculoskeletal pains No particular jt, states moves around Thumbs, hips, wrist, LB States may notice a lump on inner aspect of wrist, cannot verify synovitis or jt effusion Am gelling is limited to 10 min If sitting too long and if does too much notices, like standing too long affects hips and LB States gained wt, is not sure how much She is on statin, feels could be affecting her pains Bakes, cupcakes for Weddings and Graduations Diet: standard western diet cerleal yogurt fruits- mandarin packed in box/syrup oranges salad with chicken Exercise: walk on a treadmill and bikes and stretches PAIN EVALUATION 11/19/2021 0700 Pain Level: 5 Pain Location: hips, joints Description: Aching Duration Units: Years Frequency: Intermittent Disease History Systemic Lupus Erythematosus (SLE) History Relevant to SLICC Classification Criteria - no nonscarring alopecia - no oral ulcers OR nasal ulcers - no chronic cutaneous lupus - no subacute cutaneous lupus OR Acute cutaneous lupus - no synovitis involving two or more joints - no neurologic (seizures, psychosis, mononeuritis complex. Myelitis or neuropathy) - no serositis - no hemolytic anemia - no leukopenia (<4000/mm3) OR Lymphopenia (<1000/mm3) - no thrombocytopenia (<100,000/mm3) - no renal urine zppipbq-ci-belufyuc ratio (or 24-hour urine protein) representing 500 mg protein/24 hours OR red blood cell casts - no lupus nephritis - ADAMA positive - no antiphospholipid antibody - no low complement Relevant to New ACR and EULAR Classification Criteria - no nonscarring alopecia - no oral ulcers - no subacute cutaneous or discoid lupus - no acute cutaneous lupus - no synovitis in at least two joints, or tenderness in at least two joints, AND at least 30 min ofmorning stiffness - no delirium - no psychosis - no seizure - no pleural or pericardial effusion - no acute pericarditis - no leukopenia - no thrombocytopenia - no autoimmune hemolysis - no proteinuria >0.5g / 24 hr - ADAMA > 1:80 on human nuoasxoyvk-1-brgfvywv cells, or an equivalent positive test - no anticardiolipin IgG >40 GPL or ant-B2GP1 IgG >40 units or lupus anticoagulant - no low C3 or low C4 - no Low C3 AND low C4 Other History Relevant to SLE - no stroke - no pre-eclampsia or eclampsia - no miscarriage - no Raynaud's - PE - DVT - no ILD or pneumonitis - no calcinosis OB History No obstetric history on file. Rheumatoid Arthritis History No erosive No rheumatoid nodules Morning stiffness Morning stiffness persists for: 10 minutes No joint replacement Extra-Articular Features / Comorbidities History of malignancy (Comment: basal cell, removed) No vasculitis No episcleritis No scleritis No dry eyes Dry mouth (Comment: Denies parotid gland swelling) No pleural effusions No congestive heart failure No pericarditis No myocardial infarction No peripheral neuropathy No mononeuritis multiplex No anemia No neutropenia No thrombocytopenia Progressive Systemic Sclerosis (PSS) History No Raynaud's No ischemic digital ulcers Joint pain No contractures No renal manifestations No history of skin manifestations GI Symptoms GERD No dysphagia No early satiety Baseline Data for Modified Rodnan Skin Score (MRSS) Baseline Date: 11/19/21 RIGHT LEFT Fingers 0 0 Hands 0 0 Forearms 0 0 Upper Arms 0 0 Face 0 Anterior Chest 0 Abdomen 0 RIGHT LEFT Thighs 0 0 Legs 0 0 Feet 0 0 BASELINE TOTAL SCORE: 0 / 51 Modified Rodnan Skin Score (MRSS) - Trend Across Time (last 5 sets of data) Assessment of skin thickening by palpation Espinoza 0 - Uninvolved 1 - Mild Thickening 2 - Moderate Thickening 3 - Severe Thickening MRSS 11/19/2021 MRSS TOTAL SCORE 0 -- Fingers - Right 0 Fingers - Left 0 Hands - Right 0 Hands - Left 0 Forearms - Right 0 Forearms - Left 0 Upper Arms - Right 0 Upper Arms - Left 0 Face 0 Anterior Chest 0 Abdomen 0 Thighs - Right 0 Thighs - Left 0 Legs - Right 0 Legs - Left 0 Feet - Right 0 Feet - Left 0 Autoimmune Disease History ADAMA positive Rash (Comment: Rosacea on face) Sun sensitivity (Comment: burn ) No alopecia No Raynaud's No dry eyes Dry mouth (Comment: Denies parotid gland swelling) No oral/nasal ulcers No nailfold No stroke No seizures No psychosis No pre-eclampsia / eclampsia No miscarriage No joint inflammation Pulmonary embolism Deep Vein Thrombosis No ILD or pneumonitis No calcinosis No pleurisy or pleural effusion No pericarditis or pericardial effusion No muscle weakness No skin tightening GERD No esophageal dysmotility No renal disease Seronegative Spondyloarthritis (SpA) History No ankylosing spondylitis No psoriatic arthritis No IBD-associated arthropathy no enthesitis No inflammatory back pain No radiographic changes Radiographic changes: no erosions Skin History No psoriatic arthritis Inflammatory Eye Disease History no scleritis No uveitis Inflammatory Eye Disease - Associated Conditions PATIENT FAMILY HISTORY no psoriasis no hidradenitis supparativa no sarcoidosis no IBD no psoriasis no hidradenitis supparativa no sarcoidosis no IBD Musculoskeletal History No joint replacements Treatment History Relevant Previous Investigations CBC Latest Ref Rng & Units 03/08/2013 03/08/2013 WBC 3.70 - 11.00 k/uL 4.95 Requisitioning entry error HEMOGLOBIN 11.5 - 15.5 g/dL 13.8 - HEMATOCRIT 36.0 - 46.0 % 42.0 - PLATELETS 150 - 400 k/uL 205 - ABS NEUT (ANC) 1.45 - 7.50 k/uL 3.03 - ABS LYMPH 1.00 - 4.00 k/uL 1.61 - CMP Latest Ref Rng & Units 03/08/2013 SODIUM 132 - 148 mmol/L 142 POTASSIUM 3.5 - 5.0 mmol/L 4.0 CHLORIDE 98 - 110 mmol/L 103 CO2 23 - 32 mmol/L 26 GLUCOSE 65 - 100 mg/dL 74 BUN 8 - 25 mg/dL 15 CREATININE 0.70 - 1.40 mg/dL 0.97 CALCIUM, TOTAL 8.5 - 10.5 mg/dL 9.4 AST 7 - 40 U/L 30 ALT 0 - 45 U/L 24 ALKALINE PHOSPHATASE 40 - 150 U/L 50 ESR, WSR Latest Ref Rng & Units 11/19/2021 WSR 0 - 20 mm/hr 2 CRP Latest Ref Rng & Units 11/19/2021 CRP <0.9 mg/dL <0.3 CK Latest Ref Rng & Units 11/19/2021 CK 42 - 196 U/L 106 RF and CCP Latest Ref Rng & Units 11/19/2021 RHEUMATOID FACTOR <16 IU/mL <10 Antibodies Latest Ref Rng & Units 03/08/2013 ADAMA BY EIA <1.5 OD Ratio 1.1 PT SEC 8.4 - 13.0 sec 15.5(H) PT INR 0.8 - 1.2 1.4(H) PTT 23.0 - 32.4 sec 29.4 PLATELET NEUT NEGAT Negative DRVVT SCREEN 28.7 - 47.6 sec 32.9 DRVVT CONFIRM RATIO <1.21 0.85 DRVVT 1 TO 1 MIX 28.7 - 47.6 sec 33.8 HEX PHASE SCREEN 53.8 - 72.4 sec 59.2 HEX PHASE CONFIRM 54.3 - 68.5 sec 67.3 HEX PHASE DELTA <7.0 delta sec 0.0 APTT SCREEN 24.4 - 33.4 sec 29.4 IMMEDIATE PTT 1 TO 1 MIX <33.5 sec 28.5 INCUBATED PTT 1 TO 1 MIX <37.3 sec 29.8 THROMBIN TIME <18.6 sec 16.3 CARDIOLIPIN AB, IGG 0 - 9 GPL <9 CARDIOLIPIN AB, IGM 0 - 11 MPL 10 CARDIOLIPIN AB, IGA 0 - 11 APL <9 Last Lupus Anticoag Panel Interpretation 03/08/2013 Interpretation (NOTE) ... Date of Last Dexa Scan: None on file OUTSIDE STUDIES / DATA Reviewed outside records from Care Everywhere 10/01/2020 CK 185 TSH 3.89 06/18/2021 CBC normal CMP normal ADAMA positive at 1:160, speckled ESR = 6 Uric acid 4.6 Covid-19 negative 2021 MRI, x-rays, no findings for inflammatory arthropathy XR Hip Complete Left* on 09-02-2021 XR Hip Complete Left* COMPARISON: none FINDINGS: There is no lytic or sclerotic bone lesion. There is no fracture or dislocation. The femoral head is located. There is a shallow acetabulum likely on a congenital basis and there is mild joint space narrowing and mild irregularity of the femoral head and the acetabulum. There are no radiopaque foreign bodies. IMPRESSION: There are mild degenerative changes of the left hip joint with irregular articular surfaces and a shallow acetabulum. Report reported and signed by JANUARY DIAZ on 09/03/2021 0917 Normal [facility] XR Hip Complete Right* on 09-02-2021 XR Hip Complete Right* COMPARISON: none FINDINGS: AP pelvis and right hip There is no lytic or sclerotic bone lesion. There is no fracture or dislocation. The femoral heads are located. There are bilateral shallow acetabuli. There is stasis of the right hip joint. There are no radiopaque foreign bodies. IMPRESSION: There are mild degenerative changes with joint space and the right hip joint and there are bilateral shallow acetabuli likely on a congenital basis. Report reported and signed by JANUARY DIAZ on 09/03/2021 0921 MRI Spine Lumbar w/ + w/o Contrast on 10-10-2021 MRI Spine Lumbar w/ + w/o Contrast Exam Date/Time: 10/07/2021 18:31 EDT Reason for Exam: M54.17 ,51.26 Report IMPRESSION: POSTERIOR DISC HERNIATION AT L4-L5, GREATER TO THE LEFT OF MIDLINE. CLINICAL HISTORY: M54.17 ,51.26. Low back pain. COMMENT: Unenhanced and intravenous contrast enhanced images were obtained. The T11-T12 disc bulges anterior to the interspace, but no posterior disc bulge is evident. The T12-L1 and L1-L2 intervertebral discs are unremarkable. L2-L3: There is slight disc bulging, with slight flattening of the dural sac anteriorly. There is a small focal shallow protrusion of disc into the right L2-L3 neural foramen, but there is no associated neural foraminal stenosis. L3-L4: There is mild interspace narrowing. There is shallow posterior disc protrusion, greater centrally, with mild indentation of the dural sac anteriorly. There are hypertrophic facet arthritic changes, with mild hypertrophy of ligamenta flava and there is a small synovial cyst medial to the left facet joint. The posterior hypertrophic changes result in mild indentation of the dural sac laterally on the left and flattening of the dural sac laterally on the right. There is slight constriction of the spinal canal. There is a small Schmorl's node of the inferior endplate of L3 posteriorly, with adjacent bony reactive signal intensity changes. L4-L5: There is mild interspace narrowing. There is increased concavity of the inferior endplate of L4. There are bony reactive signal intensity changes on either side of the interspace. The patient has had a prior right hemilaminectomy. There is posterior disc herniation with extrusion (posteriorly and inferiorly), asymmetrically greater to the left of midline. There is epidural contrast enhancement surrounding the herniated disc. There is moderate indentation of the dural sac anteriorly, greater to the left of midline. There are hypertrophic facet arthritic changes on the left, with hypertrophy of the left ligamentum flavum. There is moderate focal spinal canal stenosis. Disc bulges into the right and left neural foramina inferiorly, but without any significant neural foraminal stenosis. L5-S1: The disc is relatively rudimentary but otherwise unremarkable. No intradural lesions are seen. The conus medullaris is unremarkable. There is no intradiscal contrast enhancement to indicate discitis. FINAL REPORT Dictated: 10/10/2021 11:02 am Vicente Davidson M.D. Signed (Electronic Signature): 10/10/2021 11:02 am Signed by: Vicente Davidson M.D. Transcribed by: MACK Technologist: JUAN Technical Comments MultiHance Review of Systems ROS RHEUMATOLOGYAll other reviewed and negative other than HPI. Past Medical History PAST MEDICAL HISTORY Diagnosis Date DVT (deep venous thrombosis) Endometriosis Hypercoagulopathy Pulmonary embolus Past Surgical History PAST SURGICAL HISTORY Procedure Laterality Date APPENDECTOMY BACK SURGERY HX TOTAL ABDOM HYSTERECTOMY Hysterectomy, SARAN Family History FAMILY HISTORY Problem Relation Age of Onset DVT Father DVT Paternal Aunt DVT Paternal Grandfather DVT Paternal Grandmother Social History Social History Tobacco Use Smoking status: Never Smoker Smokeless tobacco: Never Used Substance Use Topics Alcohol use: Not on file Drug use: Not on file Immunizations Current Immunizations Never Reviewed No immunizations on file. Medications Current Outpatient Medications Medication Sig omeprazole (PRILOSEC) 40 mg capsule omeprazole 40 mg Cap-DR Refills(s) 0 Start Date: 09/19/21 Status: Ordered atorvastatin (LIPITOR) 40 mg tablet TAKE 1 TABLET BY MOUTH EVERY DAY FOR 90 DAYS MULTIVITAMIN ORAL Take by mouth. warfarin (COUMADIN) 2 mg tablet Take 2 mg by mouth daily as directed. As directed pyridoxine (VITAMIN B-6) 100 mg tablet Take 100 mg by mouth once daily. cyanocobalamin (VITAMIN B-12) 1,000 mcg Tab Take 1,000 mcg by mouth once daily. No current facility-administered medications for this visit. Physical Exam BP 122/62 Pulse 66 Wt 240 lb (108.9kg) Physical Exam Vitals reviewed. Constitutional: General: She is not in acute distress. Appearance: She is well-developed. HENT: Head: Normocephalic and atraumatic. Comments: No patchy alopecia, normal temporal artery pulsations, non-tender, scalp non-tender, no conjunctival injection or icterus, no oral ulcers, no thrush, no nasal bridge collapse, no cartilage swelling, no parotid gland swelling. No dental decay by inspection No halitosis Mouth/Throat: Mouth: Mucous membranes are moist. Pharynx: No posterior oropharyngeal erythema. Eyes: General: No scleral icterus. Cardiovascular: Rate and Rhythm: Normal rate and regular rhythm. Pulses: Normal pulses. Heart sounds: No murmur heard. No friction rub. No gallop. Pulmonary: Effort: Pulmonary effort is normal. Breath sounds: Normal breath sounds. No stridor. No wheezing, rhonchi or rales. Comments: CTA, Good respiratory effort. Abdominal: Palpations: Abdomen is soft. Tenderness: There is no abdominal tenderness. Musculoskeletal: Cervical back: Normal range of motion and neck supple. Comments: Mild osteoarthroses of hands No significant joint deformities, no rheumatoid nodules, calcifications or tophi. No SI tenderness, no linda's tenderness, no heel/plantar tenderness, lumbar flexion full, negative Jalyn's test. Swoll JTS:0 Tend. JTS: reports 1st CMC, b/l and all jts sore Able to make full gamer No clinical synovitis in the DIP's, PIP's, MCP's, wrists, elbows, shoulders, knees, ankles, midfoot, or toes. No knee effusions bilateral. Shoulder exam: FROM without pain or impingement Hip rom without pain LIMITATION of Motion of Joints: 0 Thoracic/Lumbar Spine: No percussion tenderness SLR: negative b/l, modified No instability in any upper or lower extremity joints. Skin: Capillary Refill: Capillary refill takes less than 2 seconds. No raynaud's phenomenon on exam Comments: Erythema of face, crosses nasolabial fold, c/w rosacea No rash, no psoriasis, no purpura, no ulcers, no skin thickening/tightness, no circular telangiectasias. No clubbing,discoloration,sclerodactyly, periungual erythema, digital ulcers, nail pitting, edema. Neurological: General: No focal deficit present. Mental Status: She is alert and oriented to person, place, and time. Sensory: No sensory deficit. Motor: No weakness. Gait: Gait normal. Comments: Able to stand on toes and heels Negative SLR b/l Psychiatric: Mood and Affect: Mood normal. Behavior: Behavior normal. SLEDAI-2K (based upon status of descriptor at the time of visit or in the preceding 30 days) Patient-Entered Data SLAQ Disease Activity > 9: Detects clinically important disease Change >3.99: Significant change (0.5 SD) No flowsheet data found. RAPID 3 Disease Activity Weighed Score Levels: 0 - 1: Near Remission 1.3 - 2.0: Low Severity 2.3 - 4.0: Moderate Severity 4.3 - 10.0: High Severity No flowsheet data found. PHQ-9 0 - 4: Minimal Depression 5 - 9: Mild Depression 10 - 14: Moderate Depression 15 - 19: Moderately Severe Depression 20 - 27: Severe Depression No flowsheet data found. 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 DDD (degenerative disc disease), lumbar Z79.899 On statin therapy E55.9 Vitamin D deficiency Comment: suspected Z71.2 Encounter to discuss test results Z71.89 Counseling on health promotion and disease prevention At today's visit, there is no clinical evidence for inflammatory arthropathy or systemic rheumatologic disease The patient has had incidental finding of positive ADAMA ADAMA 1:160, SERA and dsDNA were not obtain, RF and CCP not completed Her sed was not elevated, TSH and CK's were normal, CBC and CMP normal, no cytopenias, urate normal With patient's positive ADAMA and dry mouth, would need to evaluate for Sjogren's Syndrome ADAMA can also be secondary to underlying auto-immune thyroid disease. Will need to further evaluate In terms of the non-specific musculoskeletal pains, Am gelling is limited to 10 min, suspect DJD/OA, vitamin D deficiency, BMI>30 and pro-inflammatory diet are contributing factors. She also has congenital hip dysplasia/shallow acetab. with DJD, and herniated disc disease and DDD. She is on statins and this can lead to statin myopathy and musculoskeletal pains and she stated that it could be . I advised her to discuss with her Primary care physician. Advised on PT, she states due to cost is unable to. Advised to discuss with Primary care physician,and see if there is a patient assistance program. Also could follow exercises on video/online. Vitamin D level was not obtained She takes vitamin D supplement, is not sure of dose Would recommend obtaining vitamin D levels I discussed clinical implications of Vitamin D deficiency, osteomalacia, implications to bone health status, musculoskeletal pains and other reported health risks. She has facial rash, was told had rosacea. She is following with Dermatology, has apt next week. Her facial rash on exam is c/w rosacea, not a malar rash. I advised her to f/u with her Controller Operations And Hr Manager and update me if is not rosacea. 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 First episode was (kind of) provoked (long rest and long car drive) and was on BCP, however, reports strong family history of DVT's and PE's, paternal side. Experienced another superf thromb when was off Coumadin, unprovoked. She is on jail Coumadin. She denies being evaluated by Vascular Medicine or Underwriting Clerk. Would recommend consultation, fabián given her strong FH. Will defer from obtaining lupus AC/APLA panel, to them. Review of chart reveals she had seen Dr. Walt Anderson in 2012. Her factor V leiden was normal, lupus AC/APLA negative except for warfarin effect, PT gene normal , ADAMA by EIA negative. Since she was on Coumadin he was not able to check for protein C and S or antithrombin. No further DVT or PE since on coumadin. She reports that her Primary care physician is now managing. Systemic Lupus Erythematosus (SLE) - Classification Criteria SLICC Classification Criteria CLINICAL CRITERIA: - no nonscarring alopecia - no oral ulcers OR nasal ulcers - no chronic cutaneous lupus - no subacute cutaneous lupus OR Acute cutaneous lupus - no synovitis involving two or more joints - no neurologic (seizures, psychosis, mononeuritis complex. Myelitis or neuropathy) - no serositis - no hemolytic anemia - no leukopenia (<4000/mm3) OR Lymphopenia (<1000/mm3) - no thrombocytopenia (<100,000/mm3) - no renal urine difiwpi-eg-xerwqmra ratio (or 24-hour urine protein) representing 500 mg protein/24 hours OR red blood cell casts - no lupus nephritis IMMUNOLOGICAL CRITERIA: - ADAMA positive 1 - no antiphospholipid antibody - no low complement New ACR and EULAR Classification Criteria CLINICAL DOMAINS: - no nonscarring alopecia - no oral ulcers - no subacute cutaneous or discoid lupus - no acute cutaneous lupus - no synovitis in at least two joints, or tenderness in at least two joints, AND at least 30 min ofmorning stiffness - no delirium - no psychosis - no seizure - no pleural or pericardial effusion - no acute pericarditis - no leukopenia - no thrombocytopenia - no autoimmune hemolysis - no proteinuria >0.5g / 24 hr IMMUNOLOGIC DOMAINS: - ADAMA > 1:80 on human wdpdtsseqs-[id number] cells, or an equivalent positive test - no anticardiolipin IgG >40 GPL or ant-B2GP1 IgG >40 units or lupus anticoagulant - no low C3 or low C4 - no Low C3 AND low C4 SLICC Classification Score: 1 ACR and EULAR Classification Score: 0 Meets the classification criteria for SLE?: No Meets the classification criteria for SLE?: No Plan Office Visit on 11/19/21 XR HAND GENERAL 3V PA/LAT/OBL BILATERAL ADAMA BY IFA WITH REFLEX VITAMIN D 25 HYDROXY PTH INTACT BLD CK CREATINE KINASE ALDOLASE BLD SED RATE WESTERGREN C-REACTIVE PROTEIN (CRP) TSH BLD THYROID PEROXIDASE ANTIBODY BLOOD THYROGLOBULIN AB THYROID STIMULATING IMMUNOGLOBULIN BLOOD RHEUMATOID FACTOR BL CCP ANTIBODY IGG G-6-PD QUANTITATIVE RECOMMENDATION/PLAN: Reviewed indication for orders with instructions Reviewed vitamin D supplement Reviewed vital trial She is unable to take nsaids or turmeric due to being on blood thinner I reviewed conservative care, wellness and healthy lifestyle, as well as the benefits of a whole foods plant based diet. I have had many patients experience significant relief in musculoskeletal pains and inflammatory arthropathy, by avoiding refined sugars and dairy and following whole foods plantbased diet. Additional time spent with patient on healthy lifestyle, healthy food and anti- inflammatory diet (with emphasis on whole plant based diet), avoiding refined carbs/sugars and processed food, appropriate exercise (stretching, cardio and strengthening), good sleep hygiene, stress mgt, and supplementing vital deficiencies and maintaining healthy wt and healthy BMI. Additional information provided with references and educational information. Bone Health Recommendations: -Bone Density is recommended after menopause and after age 55-60, sooner if patient has risk factors, sooner if on systemic steroid use of 3 months or more. -Vitamin D supplementation recommended, optimal dose is the dose necessary to achieve Vitamin D 25-OH blood level in range of 40-60 ng/mL. (Vitamin D supplement in international units, is the dose necessary to achieve a Vitamin D 25-OH blood level in range of 40-60 ng/mL). -Recommended daily dose of calcium: 1200mg total a day in divided doses. Calcium from dietary sources, if not sufficient, or if with h/o calcium nephrolithiasis would recommend Calcium Citrate supplement, as it is recommended to avoid caclium carbonate products, which as main dietary calcium source. The after visit summary has information on dietary calcium and instructions on reading calcium label and converting the %DV to mg. -Regular weight-bearing and muscle-strengthening exercise -Avoidance of tobacco smoking, excessive alcohol intake and excessive caffeine intake. -Fall and fracture precautions -Continued regular dental follow up visits and good dental/gum care Discussed medication dosage, usage, goals of therapy, and side effects. Additional time spent on interpretation of test results. Available laboratories an their clinical significance were reviewed with the patient. Radiographs were reviewed at todays visit. Additional time was spent outside of the patient visit to review records. today. Assessment and plan were discussed with the patient. Additional time spent with the patient to discuss their questions. Additional time spent with the patient devoted to discussing treatment strategy, planning, implementation and preventive health and wellness recommendations. -Patient is following with Primary care physician and other providers for their other health care. Return for f/u in 4 to 12 wks with Carli Hernandez CNP for review of results and ADAMA positive. Will update patient on results and additional recs thru MyChart Consultation requested by Dr. Brandon Beasley for an opinion regarding ADAMA positive and my final recommendations will be communicated back to the requesting physician by way of shared medical record or letter by US mail. I spent a total of 95 minutes on the date of the service which included preparing to see the patient, [id number] patient care, completing clinical documentation, obtaining and/or reviewing separately obtained history, performing a medically appropriate examination, counseling and educating the pat ient/family/caregiver, ordering medications, tests, or procedures, communicating with other HCPs (not separately reported), independently interpreting results (not separately reported), communicatingresults to the patient/family/caregiver and care coordination (not separately reported). Recommendations to share with referring physician/Primary care physician : Dear Dr. Beasley : I had the pleasure of seeing your patient, Ms. Villatoro. I have enclosed a copy of my clinic note withmy assessment and recommendations for this patient. -As discussed above, I see no clinical evidence for Systemic Lupus Erythematosus. Due to her dry mouth and obtaining panel for Sjogren's Syndrome. If SERA and dsDNA are negative, would not require further rheum work up, especially that today's evaluation was negative for a systemic rheumatologic disease. Consider auto-immune thyroid disease. As you know, an ADAMA itself is a non-specific finding, especially if without clinical correlation. Apositive ADAMA result may occur in healthy individuals, those with FH of auto-immune diseases or associated with a variety of diseases, auto-immune diseases-rheumatologic and non-rheumatologic (such asdermatologic diseases, endocrine, GI, neuro, inflammatory, medication induced, infections, neoplasms and other). From rheumatology perspective, patient has no current clinical evidence for systemic rheumatologic disease. Recommendations for your consideration as you deem necessary: -Recommend correcting vitamin D deficiency. Patients with Vitamin D deficiency may experience increased bone and body pains, increased risk forfractures and osteomalacia, secondary hyperparathyroidism, as well as reported associated increasedrisk for cardiovascular disease, cancer, macular degeneration, neurologic conditions, mental and psychiatric disorders, and reported association with certain disease flares. It is therefore, important to identify patients with Vitamin D deficiency and correct levels to recommended range of 40-60 ng/mL. Vitamin D deficiency is very common among the population. Symptomatic and severe Vitamin D deficiency is not uncommon in clinical practice. Most common cause is inadequate oral intake, lack sufficient of sunlight in a geographic area, especially in winter time, obesity, patients taking adequate precautions from sun exposure to avoid skin cancer, and other digestive diseases and malabsorption, Celiac disease, diarrhea. Recheck Vitamin D 25-OH blood levels periodically is recommended, especially in winter season is recommended, due to frequent recurrence of Vitamin D deficiency. -Recommend considering the addition of preventive care, mind and body health and wellness and non-pharmacologic and integrative medicine approach. Consider regular graded aerobic exercise, stretchingexercises (could consider yoga or javier chi), strengthening as indicated, continue with healthy diet,maintaining healthy body weight and BMI, improve sleep hygiene/quality and restorative sleep, Vitamin D supplementation and maintaining normal vitamin D blood levels, may consider osteopathic or chiropractic gentle manipulation, and acupuncture procedures, aquatic pool therapy, could consider PT/HEP, massage therapy, stress relief and mind and spirit and psychotherapy. Research has shown that toomuch stress may have a significant impact on ones health and wellness. Also inadequate sleep and overweight may impact fatigue, pain, in addition to increased cardiovascular and cancer risk. Recommend management of any psychiatric illnesses, depression and stress with Primary care physician, Psychiatrist and psychotherapy, as deemed necessary. -Continuous follow up with Primary care physician for cardiovascular disease prevention, for age appropriate cancer screening and routine health maintenance and wellness, and infection precautions and age appropriate immunization recommended. -I have advised on wellness and the whole plant based diet, as they have been shown to prevent and reverse hear disease, prevent and treat diabetes mellitus II, decrease risk of CV disease, diabetes,metabolic syndrome, HTN, hyperlipidemia, obesity, bone loss, certain auto-immune, inflammatory, skin disorders, certain cancers, macular degeneration, certain degenerative disorders, multiple other chronic health disorders, and be in favor of general health and wellness. Thank you for allowing me to participate in the care of your patient. Ron Duncan MD cc: PCP: Brandon Beasley MD [address] [place] [address] Medical Decision Making [facility] note No data available for this section [facility] Future Appointments Appointment Date:08/01/2022 03:15:00 PM Scheduled Provider:Sara Rutherford PA-C Location:[facility] Appointment Type:Pain Management - Follow Up (FT) [facility] Diagnosis ADAMA positive- Primary Other and unspecified nonspecific immunological findings Dry mouth Disturbance of salivary secretion Polyarthralgia Pain in joint, multiple sites Primary osteoarthritis of hands, bilateral DDD (degenerative disc disease), lumbar Degeneration of lumbar or lumbosacral intervertebral disc On statin therapy Vitamin D deficiency Unspecified vitamin D deficiency Encounter to discuss test results Other specified counseling Counseling on health promotion and disease prevention Other specified counseling documented in this encounter [facility] note* Diagnosis Vitamin D deficiency- Primary Unspecified vitamin D deficiency Hyperparathyroidism due to vitamin D deficiency (HCC) Secondary hyperparathyroidism, non-renal Polyarthralgia Pain in joint, multiple sites documented in this encounter [facility] note* Diagnosis Vitamin D deficiency Unspecified vitamin D deficiency Hyperparathyroidism due to vitamin D deficiency (HCC) Secondary hyperparathyroidism, non-renal Polyarthralgia Pain in joint, multiple sites documented in this encounter [facility] note* Diagnosis ADAMA positive- Primary Other and unspecified nonspecific immunological findings Hyperparathyroidism due to vitamin D deficiency (HCC) Secondary hyperparathyroidism, non-renal DDD (degenerative disc disease), lumbar Degeneration of lumbar or lumbosacral intervertebral disc Primary osteoarthritis of hands, bilateral Dry mouth Disturbance of salivary secretion Counseling on health promotion and disease prevention Other specified counseling Encounter to discuss test results Other specified counseling Vitamin D deficiency Unspecified vitamin D deficiency documented in this encounter [facility] note* Diagnosis Polyarthralgia- Primary Pain in joint, multiple sites Vitamin D deficiency Unspecified vitamin D deficiency Primary osteoarthritis of hands, bilateral Dry mouth Disturbance of salivary secretion Encounter to discuss test results Other specified counseling Counseling on health promotion and disease prevention Other specified counseling documented in this encounter [facility] noteNo assessment information availableOhiohealth [facility] Work Phone: Evaluation note* Diagnosis Spinal stenosis of lumbar region, unspecified whether neurogenic claudication present- Primary Lumbar radiculopathy, chronic Thoracic or lumbosacral neuritis or radiculitis, unspecified Pain in joint, pelvic region and thigh, unspecified laterality Myalgia Mylagia and myositis, unspecified documented in this encounter [facility] note* Diagnosis Spinal stenosis of lumbar region, unspecified whether neurogenic claudication present Lumbar radiculopathy, chronic Thoracic or lumbosacral neuritis or radiculitis, unspecified Pain in joint, pelvic region and thigh, unspecified laterality Myalgia Mylagia and myositis, unspecified [facility]* Diagnosis Spinal stenosis of lumbar region, unspecified whether neurogenic claudication present- Primary Lumbar radiculopathy, chronic Thoracic or lumbosacral neuritis or radiculitis, unspecified Pain in joint, pelvic region and thigh, unspecified laterality [facility]* Diagnosis ADAMA positive Other and unspecified nonspecific immunological findings Polyarthralgia Pain in joint, multiple sites Primary osteoarthritis of hands, bilateral documented in this encounter [facility] general Narrative - Reported* Type Description Date Medical History dvt Medical History chronic pain Medical History hip fracture Medical History high cholesterol Surgical History tonsillectomy Surgical History C section x 1 Surgical History laparoscopy Surgical History appendectomy Surgical History hysterectomy Surgical History back surgery Surgical History left hip replacement 11/10/2022 Hospitalization History see surgical hx [facility] [place] Other Hospital Discharge instructions No data available for this section [facility] No data available for this section [facility] Diagnostic Procedure Only (Routine) - Closed Specialty Diagnoses / Procedures Referred By Contac t Referred To Contact XR IMAGING Diagnoses ADAMA positive Polyarthralgia Primary osteoarthritis of hands, bilateral Procedures XR HAND GENERAL 3V PA/LAT/OBL BILATERAL RADEX HAND MINIMUM 3 VIEWS Ron Duncan MD [address] [place] [address] Xr Imaging Referral ID Status Reason Start Date Expiration Date V isits Requested Visits Authorized [id number] Closed Auto-Generate d Referral 11/19/2021 12/19/2022 1 1 [facility] for referral (narrative)* Diagnostic Procedure Only (Routine) - Closed Specialty Diagnoses / Procedures Referred By Contac t Referred To Contact XR IMAGING Diagnoses ADAMA positive Polyarthralgia Primary osteoarthritis of hands, bilateral Procedures XR HAND GENERAL 3V PA/LAT/OBL BILATERAL RADEX HAND MINIMUM 3 VIEWS Ron Duncan MD [address] [facility] [place] [address] Xr Imaging Referral ID Status Reason Start Date Expiration Date V isits Requested Visits Authorized [id number] Closed Auto-Generate d Referral 11/19/2021 12/19/2022 1 1 [facility] for visit Narrative* Diagnostic Procedure Only (Routine) - Closed Specialty Diagnoses / Procedures Referred By Contac t Referred To Contact XR IMAGING Diagnoses ADAMA positive Polyarthralgia Primary osteoarthritis of hands, bilateral Procedures XR HAND GENERAL 3V PA/LAT/OBL BILATERAL RADEX HAND MINIMUM 3 VIEWS Ron Duncan MD [address] [facility] [place] [address] Xr Imaging Referral ID Status Reason Start Date Expiration Date V isits Requested Visits Authorized [id number] Closed Auto-Generate d Referral 11/19/2021 12/19/2022 1 1 [facility] Summary Purpose Family History No Family History Records FoundNo Family History Records FoundNo Family History Records FoundNo Family History Records FoundNo Family History Records FoundNo Family History Records Found No data available for this section No Family History Records Found Advance Directives No Advanced Directives Records Found Advance Directive Response Recorded Date/ Time Advance Directives No March 7:50am Advance Directive Response Recorded Date/ Time Advance Directives No March 8:50am Chief Complaint and Reason for Visit Chief Complaint See order Chief Complaint See order chronic anticoagulation Chief Complaint Z00.00 Chief Complaint Z00.00 Z00.00 Z00.00 E78.00 E03.9 Reason for Referral Specialty Diagnoses / Procedures Referred By Contac t Referred To Contact [facility] Diagnoses Spinal stenosis of lumbar region, unspecified whether neurogenic claudication present Lumbar radiculopathy, chronic Spinal stenosis of lumbar region with neurogenic claudication Pain in joint, pelvic region and thigh, unspecified laterality Myalgia Procedures PT REHAB FOLLOW UP ORDER THERAPEUTIC EXERCISES RE, EA [address] [facility] [address] [place] [address] [facility] [address] [place] [address] Referral ID Status Reason Start Date Expiration Date Visits Requested Visits Authorized [id number] Pending Review PCP Requested Referral Auto-Generate d Referral 09/15/2022 12/14/2022 1 1 Specialty Diagnoses / Procedures Referred By Contac t Referred To Contact Physical Therapy / PHYSICAL THERAPY Diagnoses Spinal stenosis of lumbar region, unspecified whether neurogenic claudication present Lumbar radiculopathy, chronic Spinal stenosis of lumbar region with neurogenic claudication Pain in joint, pelvic region and thigh, unspecified laterality Myalgia Procedures CONSULT [place] [address] [place] [address] [address] [facility] [address] [place] [address] Referral ID Status Reason Start Date Expiration Date V isits Requested Visits Authorized [id number] Authorized 07/06/2022 07/05/2023 99 99 Specialty Diagnoses / Procedures Referred By Contac t Referred To Contact XR IMAGING Diagnoses Spinal stenosis of lumbar region, unspecified whether neurogenic claudication present Lumbar radiculopathy, chronic Spinal stenosis of lumbar region with neurogenic claudication Pain in joint, pelvic region and thigh, unspecified laterality Myalgia Procedures XR PELVIS 1V AP RADIOLOGIC EXAMINATION PELVIS 1/[place] [address] [place] [address] Xr Imaging Referral ID Status Reason Start Date Expiration Date V isits Requested Visits Authorized [id number] Closed Auto-Generate d Referral 08/29/2022 09/28/2023 1 1 Specialty Diagnoses / Procedures Referred By Contac t Referred To Contact MR IMAGING Diagnoses Spinal stenosis of lumbar region with neurogenic claudication Procedures MRI LUMBAR SPINE WO IVCON MRI SPINAL CANAL LUMBAR W/[place] [address] [place] [address] Mr Imaging Referral ID Status Reason Start Date Expiration Date Visits Requested Visits Authorized [id number] Authorized Auto-Generat ed Referral 08/29/2022 09/28/2023 1 1 Specialty Diagnoses / Procedures Referred By Reji t Referred To Contact XR IMAGING Diagnoses Spinal stenosis of lumbar region, unspecified whether neurogenic claudication present Lumbar radiculopathy, chronic Spinal stenosis of lumbar region with neurogenic claudication Pain in joint, pelvic region and thigh, unspecified laterality Myalgia Procedures XR LUMBAR GENERAL 3V AP/LAT/L5-S1 RADEX SPINE LUMBOSACRAL 2/[place] [address] [place] [address] Xr Imaging Referral ID Status Reason Start Date Expiration Date V isits Requested Visits Authorized [id number] Closed Auto-Generate d Referral 08/29/2022 09/28/2023 1 1 Additional Source Comments Source Comments (unrecognize d section and content) In the event this informatio n is protected by the Federal Confidentiality of Alcohol and Drug Abuse Patient Records regulations: The Federal rules restrict any use of the information to criminally investigate or prosecute any alcohol or drug abuse patient.[facility] the event this information is protected by the Federal Confidentiality of Alcohol and Drug Abuse Patient Records regulations: The Federal rules restrict any use of the information to criminally investigate or prosecute any alcohol or drug abuse patient.[facility] the event this information is protected by the Federal Confidentiality of Alcohol and Drug Abuse Patient Records regulations: The Federal rules restrict any use of the information to criminally investigate or prosecute any alcohol or drug abuse patient.[facility]burg[facility] the event this information is protected by the Federal Confidentiality of Alcohol and Drug Abuse Patient Records regulations: The Federal rules restrict any use of the information to criminally investigate or prosecute any alcohol or drug abuse patient.[facility]burgIn the event this information is protected by the Federal Confidentiality of Alcohol and Drug Abuse Patient Records regulations: The Federal rules restrict any use of the information to criminally investigate or prosecute any alcohol or drug abuse patient.[facility]burg[facility] the event this information is protected by the Federal Confidentiality of Alcohol and Drug Abuse Patient Records regulations: The Federal rules restrict any use of the information to criminally investigate or prosecute any alcohol or drug abuse patient.[facility]burg[facility] the event this information is protected by the Federal Confidentiality of Alcohol and Drug Abuse Patient Records regulations: The Federal rules restrict any use of the information to criminally investigate or prosecute any alcohol or drug abuse patient.[facility]burg[facility] the event this information is protected by the Federal Confidentiality of Alcohol and Drug Abuse Patient Records regulations: The Federal rules restrict any use of the information to criminally investigate or prosecute any alcohol or drug abuse patient.[facility]burg[facility] the event this information is protected by the Federal Confidentiality of Alcohol and Drug Abuse Patient Records regulations: The Federal rules restrict any use of the information to criminally investigate or prosecute any alcohol or drug abuse patient.[facility]burg[facility] the event this information is protected by the Federal Confidentiality of Alcohol and Drug Abuse Patient Records regulations: The Federal rules restrict any use of the information to criminally investigate or prosecute any alcohol or drug abuse patient.[facility]burg[facility] the event this information is protected by the Federal Confidentiality of Alcohol and Drug Abuse Patient Records regulations: The Federal rules restrict any use of the information to criminally investigate or prosecute any alcohol or drug abuse patient.[facility]burgIn the event this information is protected by the Federal Confidentiality of Alcohol and Drug Abuse Patient Records regulations: The Federal rules restrict any use of the information to criminally investigate or prosecute any alcohol or drug abuse patient.[facility]burgIn the event this information is protected by the Federal Confidentiality of Alcohol and Drug Abuse Patient Records regulations: The Federal rules restrict any use of the information to criminally investigate or prosecute any alcohol or drug abuse patient.[facility]burg[facility] the event this information is protected by the Federal Confidentiality of Alcohol and Drug Abuse Patient Records regulations: The Federal rules restrict any use of the information to criminally investigate or prosecute any alcohol or drug abuse patient.[facility]burg[facility] the event this information is protected by the Federal Confidentiality of Alcohol and Drug Abuse Patient Records regulations: The Federal rules restrict any use of the information to criminally investigate or prosecute any alcohol or drug abuse patient.[facility] Reason for Visit (unrecogniz ed section and content) Reason Comments External Referrals/resources Reason Comments New Patient Positive ADAMA Reason Comments Results Reason Comments Letter for work Reason Comments Refill Request Reason Comments Follow Up Reason Comments Appointment Reason Comments New Patient Low back pain Specialty Diagnoses / Procedures Referred By Contac t Referred To Contact Spine Health / SPINE Diagnoses Low back pain [place] [address] [place] [address] [place] [address] [place] [address] Referral ID Status Reason Start Date Expiration Date V isits Requested Visits Authorized [id number] Pending Review 08/29/2022 11/27/2022 1 1 Reason Comments Return To Work Letter Reason Comments PT Eval Patient Education Specialty Diagnoses / Procedures Referred By Contac t Referred To Contact Physical Therapy / PHYSICAL THERAPY Diagnoses Spinal stenosis of lumbar region, unspecified whether neurogenic claudication present Lumbar radiculopathy, chronic Spinal stenosis of lumbar region with neurogenic claudication Pain in joint, pelvic region and thigh, unspecified laterality Myalgia Procedures CONSULT [place] [address] [place] [address] [address] [facility] [address] [place] [address] Referral ID Status Reason Start Date Expiration Date V isits Requested Visits Authorized [id number] Authorized 07/06/2022 07/05/2023 99 99 Reason Comments Physical Therapy Specialty Diagnoses / Procedures Referred By Contac t Referred To Contact Physical Therapy / PHYSICAL THERAPY Diagnoses Spinal stenosis of lumbar region, unspecified whether neurogenic claudication present Lumbar radiculopathy, chronic Spinal stenosis of lumbar region with neurogenic claudication Pain in joint, pelvic region and thigh, unspecified laterality Myalgia Procedures CONSULT [place] [address] [place] [address] [address] [facility] [address] [place] [address] Telephone Encounter - Corrine Guevara - 10/10/2020 12:19 PM EDT Miscellaneous Notes (unrecog nized section and content) Patient: Cheryle Villatoro Date of : 1970 Patient phone number: [phone] Referring Provider for the encounter: Dr. Eligio Nagy Requesting Provider: None Reason for requesting visit (RFV/signs and symptoms/diagnosis): [place] Insufficiency Person calling: via Fax Return call to: self at [phone] and [phone] Medical Records/Insurance Card scanned into [place] [employer]: Yes Comments: None documented in this encounter INFORMATION SOURCE (unrecogn ized section and content) DATE CREATED AUTHOR 09/03/2021 [facility] dical Specialist DATE CREATED AUTHOR AUTHOR'S ORGANIZ ATION 08/30/2022 [facility] DATE CREATED AUTHOR AUTHOR'S ORGANIZ ATION 10/05/[address] [facility] DATE CREATED AUTHOR AUTHOR'S ORGANIZ ATION 11/11/2022 [facility] DATE CREATED AUTHOR AUTHOR'S ORGANIZ ATION 06/25/2023 [facility] DATE CREATED AUTHOR AUTHOR'S ORGANIZ ATION 06/27/2023 [facility] dical Specialists [facility] DATE CREATED AUTHOR AUTHOR'S ORGANIZ ATION 07/04/2023 [facility] Care Teams (unrecognized sec tion and content) Team Status: Active Member Role Status Dates Brandon Beasley MD Primary Care Provider Active Team Status: Inactive Member Role Status Dates Brandon Beasley MD Primary Care Provider, Attending Prov ider Active Developer [employer] Relationship Specialty Start Date End Date Brandon Beasley MD [address] [place] [address] PCP - General Internal Medicine 11/19/21 Miah Obregon [address] [place] [address] Specialty Director Medical Science Vascular Surgery 02/28/13 Brandon Beasley MD [address] [place] [address] Referring Internal Medicine 07/03/21 Developer [employer] Relationship Specialty Start Date End Date Brandon Beasley MD [address] [place] [address] PCP - General Internal Medicine 11/19/21 Miah Obregon [address] [place] [address] Specialty Director Medical Science Vascular Surgery 02/28/13 Brandon Beasley MD [address] [place] [address] Referring Internal Medicine 07/03/21 Developer [employer] Relationship Specialty Start Date End Date Brandon Beasley MD [address] [place] [address] PCP - General Internal Medicine 11/19/21 Miah Obregon [address] [place] [address] Specialty Director Medical Science Vascular Surgery 02/28/13 Brandon Beasley MD [address] [place] [address] Referring Internal Medicine 07/03/21 Developer [employer] Relationship Specialty Start Date End Date Brandon Beasley MD [address] [place] [address] PCP - General Internal Medicine 11/19/21 Miah Obregono [address] [place] [address] Specialty Director Medical Science Vascular Surgery 02/28/13 Brandon Beasley MD [address] [place] [address] Referring Internal Medicine 07/03/21 Developer [employer] Relationship Specialty Start Date End Date Brandon Beasley MD [address] [place] [address] PCP - General Internal Medicine 11/19/21 Miah Obregono [address] [place] [address] Specialty Director Medical Science Vascular Surgery 02/28/13 Brandon Beasley MD [address] [place] [address] Referring Internal Medicine 07/03/21 Developer [employer] Relationship Specialty Start Date End Date Brandon Beasley MD [address] [place] [address] PCP - General Internal Medicine 11/19/21 Miah Obregono [address] [place] [address] Specialty Director Medical Science Vascular Surgery 02/28/13 Brandon Beasley MD [address] [place] [address] Referring Internal Medicine 07/03/21 Developer [employer]ver Upholstering Relationship Specialty Start Date End Date Brandon Beasley MD [address] [place] [address] PCP - General Internal Medicine 11/19/21 Miah Obregono [address] [place] [address] Specialty Director Medical Science Vascular Surgery 02/28/13 Brandon Beasley MD [address] [place] [address] Referring Internal Medicine 07/03/21 Developer Prover Upholstering Relationship Specialty Start Date End Date Brandon Beasley MD [address] [place] [address] PCP - General Internal Medicine 11/19/21 Miah Obregon [address] [facility] [address] [place] [address] Specialty Director Medical Science Vascular Surgery 02/28/13 Brandon Beasley MD [address] [place] [address] Referring Internal Medicine 07/03/21 Developer Prover Upholstering Relationship Specialty Start Date End Date Brandon Beasley MD [address] [place] [address] PCP - General Internal Medicine 11/19/21 Miah Obregon [address] [place] [address] Specialty Director Medical Science Vascular Surgery 02/28/13 Brandon Beasley MD [address] [place] [address] Referring Internal Medicine 07/03/21 Developer Prover Upholstering Relationship Specialty Start Date End Date Brandon Beasley MD [address] [place] [address] PCP - General Internal Medicine 11/19/21 Miah Obregon [address] [facility] [place] [phone] Specialty Director Medical Science Vascular Surgery 02/28/13 Brandon Beasley MD [address] [place] [address] Referring Internal Medicine 07/03/21 Developer Prover Upholstering Relationship Specialty Start Date End Date Brandon Beasley MD [address] [place] [address] PCP - General Internal Medicine 11/19/21 Miah Obregon [address] [address] [place] [phone] Specialty Director Medical Science Vascular Surgery 02/28/13 Brandon Beasley MD [address] [facility] [place] [address] Referring Internal Medicine 07/03/21 Team Status: Inactive Member Role Status Dates Brandon Beasley MD Primary Care Provider Active Kolton Valenzuela PA-C Attending Provider Active Goals (unrecognized section and content) Goals may be documented in a n alternate section FOR RECORDS PERTAINING TO PATIENTS WHO ARE OR HAVE BEEN ENROLLED IN A CHEMICAL DEPENDENCY/SUBSTANCEABUSE PROGRAM, SOME INFORMATION MAY BE OMITTED. This clinical summary was aggregated from multiple sources. Caution should be exercised in using it in the provision of clinical care. This summary normalizes information from multiple sources, and as a consequence, information in this document may materially change the coding, format and clinical context of patient data. In addition, data may be omitted in some cases. CLINICAL DECISIONS SHOULD BE BASED ON THE PRIMARY CLINICAL RECORDS. [employer] [facility] provides no warranty or guarantee of the accuracy or completeness of information in this document.
== END 2023-06-30 09:16 | disposition home or self-care (01) ==
LOC: LAB 07-08 09:16
PROVIDERS: PCP Internal Medicine; Visit Provider Otolaryngology
DX: Z01.812 Encounter for preprocedural laboratory examination (principal); C73 Malignant neoplasm of thyroid gland; Z79.01 Long term (current) use of anticoagulants
CPT/HCPCS: 36415; 85610; 85730